=== PATIENT | male | born 1955 | race Caucasian/White ===

== ENCOUNTER 2016-08-11 15:55 | Inpatient (IN) | payer OTHER ==
[~2016-08-11] VITALS: Ht 193 cm; Wt 104.3 kg
--- NOTE | ~2016-08-11 | HC ---
[facility] [place] [address] CONSULTATION Name: JACIEL ANGELES Room #: 417-I ADM IN M.R.#: [id number] Admission: 08/11/16 Attend Phys: Jaciel Galindo MD Discharge: Date of : 59 Report #: [id number] THIS REPORT FOR: //name// CC: Jaciel Galindo REASON FOR CONSULTATION: I was asked to evaluate concerning left first toe diabetic infection. HISTORY OF PRESENT ILLNESS: The patient is a 61-year-old who has underlying history of diabetes and peripheral neuropathy. He has had an amputation of his right first and second toes. I had seen him several months ago with increased pain in that foot, but it was felt to be most likely related to increase activity. This did settle down with offloading. Over the last month, he has had increased swelling and some drainage from the left first toe after he debrided a callus at home. For the last several days, he has noticed malaise, anorexia, mild nausea without diarrhea. He was placed on cephalexin earlier in the week, but had no improvement and now hospitalized. No fever, chills, or sweats. Noninvasive arterial studies showed superficial femoral artery moderate occlusive disease. He is to go down now for an angiogram. PAST MEDICAL HISTORY: Laparoscopic cholecystectomy, diabetes, right great toe and second toe amputation, MRSA infection in this region. He has had a nephrolithiasis, status post cystoscopy and left ureteroscopy with laser ablation of a left ureteral stone and placement of an indwelling stent in June. This has been subsequently removed. ALLERGIES: None known. MEDICATIONS: As noted on his MAR, now on vancomycin. SOCIAL HISTORY: The patient does smoke cigarettes. No significant alcohol intake. 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 REVIEW OF SYSTEMS: No cardiopulmonary, other GI or complaints. PHYSICAL EXAMINATION: VITAL SIGNS: Afebrile, hemodynamically stable. Maximum temperature is 100.8 earlier this morning. GENERAL: He is alert, cooperative, and pleasant, in no acute distress. HEENT: Unremarkable. CHEST: Clear. HEART: Regular. ABDOMEN: Soft and nontender. EXTREMITIES: Pulses in the left lower extremity were normal. He had gangrene changes to the left first toe. Sensation was diminished. He had thickening of the left second proximal phalanx. The right foot operative incision was well approximated. No erythema or swelling. [address] [address] CONSULTATION Name: KARTHIKJACIEL CAPELLAN Room #: 417-I [facility] IN [facility].#: [id number] Admission: 08/11/16 Attend Phys: Jaciel Galindo MD Discharge: Date of : 59 Report #: [id number] LABORATORY STUDIES: Cultures of the drainage from his left great toe showing mixed valencia and Staph aureus predominant organism. Blood cultures are negative to date. Sodium 142, potassium 4.2, bicarb 29, creatinine 0.9. Hemoglobin 11.7, white count 10.8, platelet count 287,000, differential unremarkable. Urinalysis unremarkable other than 2+ blood and 3+ protein. X-rays of the foot showed a left second proximal phalanx fracture, otherwise no evidence of osteomyelitis. Arterial studies as noted above. Chest x-ray was clear. IMPRESSION: A 61-year-old with diabetic foot infection of the left great toe. I suspect small vessel disease. Recommend further surgical debridement, possible amputation of the toe. He will have an orthopedic evaluation. <ELECTRONICALLY SIGNED> By: Marquez Santa MD 08/13/16 0814 1201 1228 Marquez Santa MD /nt
--- NOTE | ~2016-08-11 | O ---
[facility] [place] [address] OPERATIVE REPORT Name: JACIEL ANGELES Room #: 417-I [facility] IN M.R.#: [id number] Admission: 08/11/16 Attend Phys: Jaciel Galindo MD Discharge: 08/16/16 Date of : 59 Report #: [id number] THIS REPORT FOR: //name// CC: Jaciel Galindo DATE OF SERVICE: 08/13/2016 PREOPERATIVE DIAGNOSIS: Left great toe infection. POSTOPERATIVE DIAGNOSIS: Left great toe infection. PROCEDURE: Left great toe amputation at the MTP joint. SURGEON: Alexanedr Ibanez MD. PARTY SUPPLY SPECIALIST: Domenica Giraldo PA-C. ANESTHESIA: LMA. TOURNIQUET TIME: Approximately 5 minutes. COMPLICATIONS: None. SPECIMENS: The left great toe was sent for pathology. CONDITION UPON LEAVING THE OPERATING ROOM: Stable. INDICATIONS FOR PROCEDURE: The patient is a 61-year-old gentleman who has diabetes as well as peripheral vascular disease. He has had ulceration on the medial and lateral side of his great toe as well as increased pain. He has had purulence draining from the toe and after failing antibiotic course and discussion with him, he elected for amputation of his left great toe. DESCRIPTION OF PROCEDURE: Risks, benefits, alternatives, complications were discussed in detail with the patient including but not limited to risk of anesthesia, risk of damage to nerves, arteries, blood vessels, risk for continued infection, bleeding, need for reoperation. Informed consent was obtained from the patient. Left great toe was appropriately marked in the preoperative holding area. IV vancomycin was given for preoperative antibiotics. He was brought to the operating room and placed in supine position on operating room table. LMA anesthesia was induced without complication. Tourniquet was placed on the left calf. Left lower extremity was prepped and draped in normal sterile fashion. Timeout was performed properly identifying the patient and procedure as well as the instrumentation. All in the operating room were in agreement. Left lower extremity was elevated, tourniquet was inflated. Tourniquet time was approximately 5 minutes. A fishmouth type [address] [address] OPERATIVE REPORT Name: JACIEL ANGELES Room #: 417-I [facility] IN M.R.#: [id number] Admission: 08/11/16 Attend Phys: Jaciel Galindo MD Discharge: 08/16/16 Date of : 59 Report #: [id number] incision centered around the base of the toe was then outlined on the skin and a 10 blade was used to make an incision through the skin down to bone around the fishmouth incision. Dissection was then taken down with an elevator to the MTP joint and the toe was amputated at the MTP joint sharply with a 15 blade. Tourniquet was deflated and hemostasis was obtained with Bovie cautery. The wound bed was then thoroughly irrigated with normal saline, closed with 3-0 nylon. Soft dressing of Adaptic, 4 x 4, Kerlix and an John wrap were applied. The patient tolerated this procedure well and went to the recovery room care of anesthesia postoperatively. <ELECTRONICALLY SIGNED> By: Alexander Ibanez MD 08/20/16 1255 1132 1253 Alexander Ibanez MD /nt
--- NOTE | ~2016-08-11 | HC ---
[facility] [place] [address] CONSULTATION Name: MING ANGELESNATE CAPELLAN Room #: 417-I [facility] IN M.R.#: [id number] Admission: 08/11/16 Attend Phys: Jaciel Galindo MD Discharge: 08/16/16 Date of : 59 Report #: [id number] THIS REPORT FOR: //name// CC: Jaciel Galindo DATE OF SERVICE: 08/13/2016 REASON FOR CONSULTATION: Left great toe infection. HISTORY OF PRESENT ILLNESS: The patient is a 61-year-old gentleman who has had an infected left great toe. He has a history of diabetes and peripheral neuropathy. He has had an amputation of his right first and second toes secondary to infection. Over the last month, he has had increased swelling and drainage from his left first toe after he debrided a callus at home. Denies any fever or chills. PAST MEDICAL HISTORY AND PAST SURGICAL HISTORY: Laparoscopic cholecystectomy, diabetes, right great toe and second toe amputation, MRSA infection in that region. Nephrolithiasis, status post cystoscopy and left ureteroscopy with laser ablation. ALLERGIES: None. MEDICATIONS: Have been reviewed and are on the chart. He is currently on vancomycin. SOCIAL HISTORY: He does smoke. No significant alcohol use. 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 PHYSICAL EXAMINATION: In general, well-developed, well-nourished male in no acute distress. He is alert and oriented, pleasant, cooperative with exam. Examination of the left great toe shows him to have at least stage 3, if not, stage 3 ulcers over his medial and lateral toe. He has decreased capillary refill of the tip of the toe. There is obvious pus underneath the nail. He has no sensation to light touch. There is significant erythema surrounding the entire great toe. X-ray examination of the left foot shows him to have no obvious osteomyelitis. He does have a mildly displaced chronic fracture of the second proximal phalanx of the second toe. ASSESSMENT: A left great toe diabetic ulcer with probable early underlying osteomyelitis. PLAN: Discussed options with him today. I do not think that this is amenable to debridement and wound care. This infection seems too deep to me. I am [facility] [address] [place] [address] CONSULTATION Name: JACIEL ANGELES Room #: 417-I [facility] IN ..#: [id number] Admission: 08/11/16 Attend Phys: Jaciel Galindo MD Discharge: 08/16/16 Date of : 59 Report #: [id number] recommending a left great toe amputation at the MTP joint. He is understanding of this and wishes to proceed. We have him on the schedule for 10:30 this morning. Thank you for allowing us to participate in the care of the patient. <ELECTRONICALLY SIGNED> By: Alexander Ibanez MD 08/20/16 1256 0925 1121 Alexander Ibanez MD /shahid
--- NOTE | ~2016-08-11 | S ---
[facility] [place] [address] SURGICAL PATH RPT PROCEDURE Name: JACIEL ANGELES Room #: 417-I DIS IN M.R.#: [id number] Admission: 08/11/16 Date of : 59 Discharge: 08/16/16 Report #: [id number] Path Case #: [id number] PATHOLOGY REPORT COLLECTION DATE: 08/13/2016 RECEIVED DATE: 08/13/2016 SUBMITTING PHYS: Dr. Alexander Ibanez OTHER PHYS: Dr. Jaciel Galindo SPECIMEN(S) RECEIVED: A.Left great toe * * * * * * * * * * * * FINAL DIAGNOSIS: Toe, "left great toe," amputation: - Extensive ulceration with necrotic acute inflammatory exudate extending deeply into the bone with acute osteomyelitis and forming a microabscess. - Small vessels reveal marked narrowing with acute inflammation. - The skin and the bone margin are viable. (WHITNEY:; d/t: 08/17/16) PATHOLOGIST: Gavin Machado M.D. REPORT ELECTRONICALLY SIGNED BY: Gavin Machado M.D. DATE/TIME: 08/17/2016 12:44 * * * * * * * * * * * * GROSS PATHOLOGY: The specimen is received in formalin labeled "Rosa Berg great toe". Received is an amputated digit measuring 7.6 x 3.6 x 3.4 cm in greatest dimensions. The bone margin is smooth and concave in appearance, consistent with disarticulation. On the medial and plantar aspect of the specimen, there is a poorly circumscribed, irregular in contour, focally crusted to necrotic-appearing dark brown lesion measuring 4.2 x 2.3 cm, which is 0.8 cm from the closest skin margin. The remainder of the epidermal surface is white-peng and flaky to sloughing in appearance. The nail is present displaying a pale peng and slightly thickened appearance measuring 2.2 x 1.8 x 0.2 cm. The specimen is submitted representatively as follows: A1 district sales representative sections of lesion to show relationship with skin margin A2 district sales representative section of lesion to show relationship to bone, following decalcification A3 district sales representative section of bone margin, following decalcification. (CAA; 08/16/2016) [address] [place] [address] SURGICAL PATH RPT PROCEDURE Name: JACIEL ANGELES Room #: 417-I [facility] IN .R.#: [id number] Admission: 08/11/16 Date of : 59 Discharge: 08/16/16 Report #: [id number] Path Case #: [id number] CLINICAL HISTORY: Diabetic ulcer INITIAL CPT CODE(S): A; 88411, 13754 Professional services performed by [facility] at [place], [place] [address] Technical services performed by [facility] at [address] [place] [address], [facility] [address], [place] [address]. [facility] [address] [address] PHONE: [phone] DIRECTOR: Rivera Gonzalez M.D. * * * END OF REPORT * * *
--- NOTE | ~2016-08-11 | H ---
[facility] [place] [address] HISTORY AND PHYSICAL Name: MING ANGELESNATE CAPELLAN Room #: 417-I [facility] IN M.R.#: [id number] Admission: 08/11/16 Attend Phys: Jaciel Galindo MD Discharge: 08/16/16 Date of : 59 Report #: [id number] THIS REPORT FOR: //name// CC: Jaciel Galindo DATE OF SERVICE: 08/11/2016 CHIEF COMPLAINT: Pain in his great toe. HISTORY OF PRESENT ILLNESS: The patient had been seen in the clinic and was having worsening pain in his toes, had some cellulitis. He had osteomyelitis of the great toe. He had been on oral antibiotics and his toe was not getting better. PAST MEDICAL HISTORY: Significant for: 1. Osteomyelitis. 2. Diabetes mellitus. 3. Laparoscopic cholecystectomy. 4. Anxiety. 5. Neuropathy. 6. Hyperlipidemia. 7. Hypertension. 8. Chronic pain. MEDICATIONS: Gabapentin 300 mg b.i.d., Victoza 1.8 mg daily, Lantus daily, lisinopril 5 mg a day, atorvastatin 80 mg a day, fluoxetine 20 mg a day, OxyContin 30 mg b.i.d., Coreg 12.5 mg b.i.d. ALLERGIES: No known drug allergies. SOCIAL HISTORY: He does smoke cigarettes. He has no alcohol, no recreational drugs. He lives independently. REVIEW OF SYSTEMS: CONSTITUTIONAL: No fevers or chills. HEENT: No headaches or visual changes. CHEST: No chest pain, tightness in his chest, shortness of breath, cough or sputum production. GASTROINTESTINAL: No nausea, vomiting, diarrhea, or constipation. GENITOURINARY: No burning or frequency. EXTREMITIES: He has greater toe pain on the left. His pulses are faint, but present. There is no new numbness. He has chronic numbness. PHYSICAL EXAMINATION: VITAL SIGNS: Blood pressure is 130/79, pulse is 112, respiratory rate 25. He is afebrile, his O2 sats are 95% on room air. [facility] [place] [address] HISTORY AND PHYSICAL Name: JACIEL ANGELES MARILIA Room #: 417-I [facility] IN ..#: [id number] Admission: 08/11/16 Attend Phys: Jaciel Galindo MD Discharge: 08/16/16 Date of : 59 Report #: [id number] GENERAL: The patient is awake and alert, in no acute distress. HEENT: Mucous membranes are moist. NECK: Supple, without adenopathy, thyromegaly, or bruits. CHEST: Clear to auscultation. CARDIOVASCULAR: Regular rhythm without murmur. ABDOMEN: Soft, no masses. Bowel sounds are active. EXTREMITIES: His left lower leg shows a faint pulse and great toe shows some erythema and redness, and wound in the lateral aspect. There is some odor. There is some dried blood. LABORATORY DATA: His sodium 140, potassium 4.3, chloride 104, bicarbonate 28, BUN 18, creatinine 0.9, glucose 146, lactic acid is 0.9, AST is 8, ALT is 9, alkaline phosphatase 93, albumin 2.5. WBC is 14.4, hemoglobin 12.1, hematocrit 36.8, platelet count 312. 81 segs, 1 band, 13 lymphs. Chest x-ray shows cardiomegaly with no acute failure. Ultrasound of the leg shows focal [id number] stenosis in the left mid superficial femoral artery. X-ray of the foot shows obliquely oriented displaced fracture of the second toe, indeterminant age. ASSESSMENT: 1. Cellulitis of the left great toe with possible osteomyelitis, and then the fracture of the second toe. We will consult infectious disease, prior osteomyelitis, and get an MRI if possible, and consult orthopedics for possible amputation. 2. History of diabetes. We will resume his home meds. 3. History of neuropathy. Continue home medications. 4. History of peripheral artery disease. We will consult radiology for possible angiogram and stenting. <ELECTRONICALLY SIGNED> By: Jaciel Galindo MD 09/28/16 1258 0945 1130 Jaciel Galindo MD /nt
--- NOTE | ~2016-08-11 | CATHLAB ---
[facility] [place] [address] INVASIVE PROCEDURE REPORT Name: MING ANGELESNATE CAPELLAN Room #: 417-I [facility] IN ..#: [id number] Admission: 08/11/16 Attend Phys: Jaciel Galindo, Discharge: Date of : 59 Date of Service: 08/12/16 1421 Report #: [id number] THIS REPORT FOR: //name// CC: Jaciel Galindo DATE OF SERVICE: 08/12/2016 NAME OF THE PROCEDURES: 1. Aortogram and bilateral lower extremity runoff angiography. 2. Bilateral renal angiography. 3. Left anterior tibial artery angioplasty. INDICATION: Peripheral arterial disease. Diabetic foot infection. Infected left great toe. Coronary artery disease. DESCRIPTION OF PROCEDURE: Procedure and risk of angiography and angioplasty including the risk of limb loss were discussed with the patient and consent obtained. IV conscious sedation was used throughout the procedure with appropriate monitoring for 75 minutes. The patient's right groin was prepped and draped in normal sterile fashion. Ultrasound was used to interrogate the right groin and showed the right common femoral artery to be patent. A permanent spot film was obtained. Under ultrasound guidance, a 5-[place] sheath was placed into the right groin via the common femoral artery. Through this diagnostic catheter was placed in the abdominal aorta and AP aortogram performed. Catheter was positioned at the aortic bifurcation and both oblique views of the pelvis were obtained. Next, catheter was positioned into the right external iliac artery. Right leg runoff angiogram was performed. Catheter was exchanged for a visceral catheter, which was placed into the right renal artery and right renal angiogram was obtained. Catheter was placed into the upper left renal artery and left renal angiogram was obtained. Catheter was placed in the left lower renal arteries and angiograms obtained. Catheter was then positioned to the level of the left common femoral artery and left leg runoff angiogram was obtained. A crossover 6-[place]an sheath was placed from the right groin to the level of the upper left superficial femoral artery. I then performed angioplasty at the areas of stenoses in the proximal and mid left anterior tibial artery up to 3.5 mm with a Cordis sleek PLAN COORDINATOR catheter. Prolonged inflation for use. Followup angiogram was performed. Catheter was removed. Sheath was removed and hemostasis was obtained using the ExoSeal device. No immediate complication. FINDINGS: AORTOGRAM: There is 1 right and 2 left renal arteries. Mild plaque in the infrarenal abdominal aorta without significant stenosis. PELVIS: The common and external iliac arteries are patent without significant stenoses. Both internal iliac arteries are patent. Mild ectasia of the common [address] [address] INVASIVE PROCEDURE REPORT Name: JACIEL ANGELES Room #: 417-I [facility] IN M.R.#: [id number] Admission: 08/11/16 Attend Phys: Jaciel Galindo, Discharge: Date of : 59 Date of Service: 08/12/16 1421 Report #: [id number] iliac arteries bilaterally. The common femoral and profunda femoral arteries are patent bilaterally. RIGHT RENAL ANGIOGRAM: Minimal plaque origin. The vessel does not cause significant stenosis. Early bifurcation. No branch vessel stenosis. LEFT UPPER RENAL ANGIOGRAM: Minimal plaque. No significant stenosis. LEFT LOWER RENAL ANGIOGRAM: Minimal plaque. No significant stenosis. RIGHT LEG: Previous stent in the superficial femoral artery showing minimal intimal hyperplasia and satisfactory patency throughout. The popliteal artery shows mild scattered plaque without significant stenosis. The anterior tibial artery shows mild plaque in its proximal portion, causing only mild stenosis. Mild stenosis in the tibioperoneal trunk is present. The posterior tibial arteries occluded throughout. The peroneal artery is patent throughout its length as is the mid and lower anterior tibial artery to runoff into the foot. LEFT LEG. Moderate plaque in the distal superficial femoral artery. It does not cause flow limiting stenosis, rather only 40% stenosis, not felt to be flow limiting. Ectasia of the distal most SFA. Popliteal artery shows good patency throughout. The anterior tibial artery shows 80% stenosis in its proximal portion and 80% stenosis in its mid portion. Mild stenosis, not flow limiting the tibioperoneal trunk. The posterior tibial and peroneal arteries have mild stenosis in the proximal portions, but otherwise show good patency to runoff into the foot. LEFT ANTERIOR TIBIAL ARTERY: Following angioplasty, the proximal and mid anterior tibial artery show satisfactory patency with no significant residual stenosis. IMPRESSION: 1. 80% stenosis, proximal and mid left anterior tibial artery were treated as above with good patency restored. There is now adequate 3-vessel runoff into the left foot, which should provide for good healing. 2. Occlusion of the right posterior tibial artery with satisfactory 2 vessel runoff on the right as reviewed above. Previous right superficial femoral artery stent showing satisfactory patency. 3. Mild 40% stenosis, mid left superficial femoral artery is not flow limiting. [facility] [address] [place] [address] INVASIVE PROCEDURE REPORT Name: JACIEL ANGELES Room #: 417-I ADM IN M.R.#: [id number] Admission: 08/11/16 Attend Phys: Jaciel Galindo, Discharge: Date of : 59 Date of Service: 08/12/16 1421 Report #: [id number] We will follow up with the patient in 3 months in the office regarding his progress. <ELECTRONICALLY SIGNED> By: Reynaldo Thurman MD 08/16/16 1329 1421 1808 Reynaldo Thurman MD /nt
[~2016-08-11 15:55] MED LIST: ATENOLOL 50MG T50 M1 PO; ATORVASTATIN CA80 MG PO; AUGMENTIN 875875 M1 PO; AUGMENTIN 875875 MG PO; BLOOD PRESSURE MED PO; BRINTELLIX5 MG; CARDIZEM; CARVEDILOL12.5 MG PO; COUMADIN 5 MG TA5 M1 PO; CYMBALTA30 MG PO; DILTIAZEM 24HR360 M1 PO; FLOMAX0.4 MG PO; GLIPIZIDE XL10 MG PO; GLUCOTROL5 MG; GLUCOTROL5 MG PO; HTN MEDS; HYDROCODON-ACE1 EAC8 PO; KEFLEX500 MG PO; KOMBIGLYZE XR1 EAC1 PO; LANOXIN 0.120.125 M1 PO; LANTUS SOL100 UNIT/1 SUBQ; LANTUS100 UNIT/M SUBQ; LISINOPRIL5 MG PO; METFORMIN; NEURONTIN 300M300 M2 PO; NOHOMEMEDICATIONS; NORCO 5-325 TA1 EACH PO; OXYCONTIN10 M1 PO; OXYCONTIN30 MG PO; PERCOCET 10-321 EACH PO; PERCOCET 5-3251 EACH; PERCOCET 5-3251 EACH PO; PROZAC20 MG PO; TORADOL 10 MG T10 MG PO; VICTOZA 3-0.6 MG/0.1 SUBQ; blood pressure med; diabetic medication
[2016-08-11 16:11] VITALS: BP 130/79
[2016-08-11 17:00] LABS: HEMATOCRIT 36.8 % (42.0-52.0); HEMOGLOBIN 12.1 gm/dL (14.0-18.0); MCV 81.8 fL (80.0-100.0); PLATELET COUNT 312 thou/uL (150-400); RBC 4.49 mil/uL (4.50-6.00); RDW 15.8 % (10.5-14.5); WBC 14.4 thou/uL (4.0-11.0)
[2016-08-11 17:01] LABS: MANUAL DIFF YES
[2016-08-11 17:11] LABS: CALCIUM 8.9 mg/dL (8.5-10.1); CREATININE 0.9 mg/dL (0.6-1.3); POTASSIUM 4.3 mmol/L (3.5-5.1)
[2016-08-11 17:17] LABS: ALBUMIN 2.5 g/dL (3.4-5.0); DIRECT BILIRUBIN 0.1 mg/dL (<0.1-0.3); TOTAL BILIRUBIN 0.4 mg/dL (<0.1-1.0); TOTAL PROTEIN 6.9 g/dL (6.4-8.2)
[2016-08-11 17:18] LABS: ABSOLUTE NEUTROPHILS 11.8 thou/uL (1.4-8.2); ANISOCYTOSIS 1+; POLYCHROMASIA OCCASIONAL; TOTAL CELL COUNT 100
[2016-08-11 19:07] VITALS: BP 123/73
[2016-08-11 19:09] LABS: URINE BILIRUBIN NEGATIVE (Negative); URINE BLOOD 2+ (Negative); URINE COLOR YELLOW; URINE GLUCOSE-RANDOM* NEGATIVE (Negative); URINE KETONES NEGATIVE (Negative); URINE NITRITE NEGATIVE (Negative); URINE PROTEIN (DIPSTICK) 3+ (Negative); URINE SPECIFIC GRAVITY >= 1.030 (1.003-1.035); URINE UROBILINOGEN 0.2 E.U./dl (0.2-1.0)
[2016-08-11 19:29] LABS: BACTERIA 1-9 Few /HPF (None Seen); CASTS None Seen /LPF (None Seen); CRYSTALS None Seen /LPF (None Seen); SQUAMOUS None Seen /LPF (0-3); URINE RBC 0-2 Rare /HPF (0-2); URINE WBC None Seen /HPF (0-5)
[2016-08-11 19:35] VITALS: BP 123/69
[2016-08-12 04:00] VITALS: BP 145/72
[2016-08-12 07:28] VITALS: BP 132/72
[2016-08-12 09:20] VITALS: BP 132/72
[2016-08-12 09:57] LABS: ABSOLUTE NEUTROPHILS 8.5 thou/uL (1.4-8.2); BASOPHILS 0.5 % (0.0-2.0); EOSINOPHILS 0.7 % (0.0-3.0); HEMATOCRIT 35.3 % (42.0-52.0); HEMOGLOBIN 11.7 gm/dL (14.0-18.0); LYMPHOCYTES 12.2 % (24.0-44.0); MCH 27.2 pg (26.0-34.0); MCHC 33.3 % (28.0-37.0); MCV 81.8 fL (80.0-100.0); MONOCYTES 7.7 % (1.0-8.0); PLATELET COUNT 287 thou/uL (150-400); POLYS 78.9 % (36.0-66.0); RBC 4.31 mil/uL (4.50-6.00); RDW 15.9 % (10.5-14.5); WBC 10.8 thou/uL (4.0-11.0)
[2016-08-12 09:58] LABS: MANUAL DIFF NO
[2016-08-12 10:10] LABS: ANION GAP 9 mmol/L (7-16); BUN 17 mg/dL (7-18); CALCIUM 8.7 mg/dL (8.5-10.1); CHLORIDE 104 mmol/L (98-107); CHOLESTEROL 152 mg/dL (<200); CO2 29 mmol/L (21-32); CREATININE 0.9 mg/dL (0.6-1.3); GLUCOSE 104 mg/dL (70-99); HDL CHOLESTEROL 35 mg/dL (>40); LDL CHOLESTEROL 103 mg/dL (<100); POTASSIUM 4.2 mmol/L (3.5-5.1); SODIUM 142 mmol/L (136-145); TC:HDL 4.3 Ratio (Not establshd); TRIGLYCERIDE 72 mg/dL (<150); VLDL 14 mg/dL (<40)
[2016-08-12 14:00] VITALS: BP 134/74
[2016-08-12 15:36] VITALS: BP 136/69
[2016-08-12 20:00] VITALS: BP 118/64
[2016-08-13] VITALS (7 sets, daily range): BP systolic 106–140; BP diastolic 58–75
[2016-08-13 07:53] LABS: HEMATOCRIT 32.5 % (42.0-52.0); HEMOGLOBIN 10.8 gm/dL (14.0-18.0); MCH 27.3 pg (26.0-34.0); MCHC 33.3 % (28.0-37.0); RBC 3.96 mil/uL (4.50-6.00); WBC 10.8 thou/uL (4.0-11.0)
[2016-08-13 07:58] LABS: CALCIUM 7.9 mg/dL (8.5-10.1); POTASSIUM 4.1 mmol/L (3.5-5.1)
[2016-08-14 05:22] VITALS: BP 145/75
[2016-08-14 08:35] VITALS: BP 126/74
[2016-08-14 16:39] VITALS: BP 141/76
[2016-08-14 20:00] VITALS: BP 144/73
[2016-08-15 04:30] VITALS: BP 148/82
[2016-08-15 05:48] LABS: HEMOGLOBIN 10.8 gm/dL (14.0-18.0); MCH 27.2 pg (26.0-34.0); MCHC 32.8 % (28.0-37.0); RBC 3.98 mil/uL (4.50-6.00); RDW 15.6 % (10.5-14.5); WBC 10.9 thou/uL (4.0-11.0)
[2016-08-15 06:01] LABS: CALCIUM 8.8 mg/dL (8.5-10.1); CREATININE 1.3 mg/dL (0.6-1.3); POTASSIUM 4.2 mmol/L (3.5-5.1)
[2016-08-15 08:00] VITALS: BP 138/81
[2016-08-15 17:00] VITALS: BP 147/72
[2016-08-15 20:00] VITALS: BP 157/86
[2016-08-16 04:00] VITALS: BP 135/69
[2016-08-16 11:30] VITALS: BP 135/69
[2016-08-16] MEDS ORDERED: BACTRIM DS TAB1 EACH PO (11:38)
[2016-09-01] MEDS ORDERED: NICOTINE TRANSDE7 MG TRANSDERM (14:01)
[2016-09-01] MEDS ORDERED: DUONEB 2.5-0.5 M3 ML INH (14:01)
[2016-09-01] MEDS ORDERED: NORVASC 5 MG TAB5 MG PO (14:02)
[2016-09-01] MEDS ORDERED: ASPIR 8181 MG PO (14:02)
[2016-09-01] MEDS ORDERED: PACERONE 200 M200 M1 PO (14:02)
[2016-09-01] MEDS ORDERED: HYDROCODON-ACE1 EAC7 PO (14:03)
[2016-09-01] MEDS ORDERED: OXYCONTIN30 MG PO (14:03)
[2016-09-15] MEDS ORDERED: VICTOZA 3-0.6 MG/0.1 SQ (14:59)
[2016-09-15] MEDS ORDERED: PROZAC20 MG PO (15:01)
[2016-09-15] MEDS ORDERED: MUCINEX TA600 MG/TA2 PO (15:03)
[2016-09-15] MEDS ORDERED: IRON325 MG PO (15:03)
[2016-09-18] MEDS ORDERED: CARVEDILOL3.125 MG PO (06:16)
[2016-09-18] MEDS ORDERED: K-TAB ER20 MEQ PO (06:17)
[2016-09-18] MEDS ORDERED: LASIX 40 MG TAB40 M2 PO (06:17)
[2016-09-18] MEDS ORDERED: OXYGEN MISCELL (06:21)
[2016-09-19] MEDS ORDERED: DEMADEX20 MG PO (11:15)
== END 2016-08-16 15:27 | disposition home or self-care (01) | DRG 853 ==
LOC: ER 15:55 → 4E 18:10 → EROBS 18:10 → 4E 19:10
PROVIDERS: Hospitalist; Nuclear Medicine Nuclear Cardiology; Nurse Practitioner; Nurse Practitioner Gerontology
PROC: 047Q3ZZ Dilation of Left Anterior Tibial Artery, Percutaneous Approach (ICD-10-PCS; 2016-08-12)
PROC: B41D1ZZ Fluoroscopy of Aorta and Bilateral Lower Extremity Arteries using Low Osmolar Contrast (ICD-10-PCS; 2016-08-12)
PROC: B4181ZZ Fluoroscopy of Bilateral Renal Arteries using Low Osmolar Contrast (ICD-10-PCS; 2016-08-12)
PROC: 0Y6Q0Z0 Detachment at Left 1st Toe, Complete, Open Approach (ICD-10-PCS; principal; 2016-08-13)
DX: A41.9 Sepsis, unspecified organism (principal); E43 Unspecified severe protein-calorie malnutrition; E11.52 Type 2 diabetes mellitus with diabetic peripheral angiopathy with gangrene; M86.9 Osteomyelitis, unspecified; I48.92 Unspecified atrial flutter; E11.621 Type 2 diabetes mellitus with foot ulcer; E11.42 Type 2 diabetes mellitus with diabetic polyneuropathy; E11.69 Type 2 diabetes mellitus with other specified complication; L03.032 Cellulitis of left toe; F17.210 Nicotine dependence, cigarettes, uncomplicated; L97.529 Non-pressure chronic ulcer of other part of left foot with unspecified severity; I10 Essential (primary) hypertension; L08.9 Local infection of the skin and subcutaneous tissue, unspecified; E78.5 Hyperlipidemia, unspecified; F41.9 Anxiety disorder, unspecified; Z90.49 Acquired absence of other specified parts of digestive tract; Z86.14 Personal history of Methicillin resistant Staphylococcus aureus infection; Z87.442 Personal history of urinary calculi; Z79.899 Other long term (current) drug therapy; Z95.820 Peripheral vascular angioplasty status with implants and grafts; I25.2 Old myocardial infarction
CPT/HCPCS: 10084; 50010; 50101; 50386; 56527; 57091; 62110; 62900; 70005

== ENCOUNTER → 2016-10-21 | Outpatient (CLI) | payer OTHER ==
[~2016-10-21] MED LIST changes: +ASPIR 8181 MG PO; +BACTRIM DS TAB1 EACH PO; +CARVEDILOL3.125 MG PO; +DEMADEX20 MG PO; +DUONEB 2.5-0.5 M3 ML INH; +HYDROCODON-ACE1 EAC7 PO; +IRON325 MG PO; +K-TAB ER20 MEQ PO; +LASIX 40 MG TAB40 M2 PO; +MUCINEX TA600 MG/TA2 PO; +NICOTINE TRANSDE7 MG TRANSDERM; +NORVASC 5 MG TAB5 MG PO; +OXYGEN MISCELL; +PACERONE 200 M200 M1 PO; +VICTOZA 3-0.6 MG/0.1 SQ
== END ==
LOC: HYPER 07:04
DX: T87.89 Other complications of amputation stump (principal); E11.621 Type 2 diabetes mellitus with foot ulcer; L97.521 Non-pressure chronic ulcer of other part of left foot limited to breakdown of skin; E11.40 Type 2 diabetes mellitus with diabetic neuropathy, unspecified; I48.91 Unspecified atrial fibrillation; I25.2 Old myocardial infarction; I50.9 Heart failure, unspecified; E11.69 Type 2 diabetes mellitus with other specified complication; M86.9 Osteomyelitis, unspecified; Z95.1 Presence of aortocoronary bypass graft; Z87.891 Personal history of nicotine dependence; Y83.5 Amputation of limb(s) as the cause of abnormal reaction of the patient, or of later complication, without mention of misadventure at the time of the procedure

== ENCOUNTER → 2016-11-09 | Outpatient (CLI) | payer OTHER | LOC: HYPER 07:03 | DX: T81.31XD Disruption of external operation (surgical) wound, not elsewhere classified, subsequent encounter (principal); E11.621 Type 2 diabetes mellitus with foot ulcer; L97.521 Non-pressure chronic ulcer of other part of left foot limited to breakdown of skin; E11.40 Type 2 diabetes mellitus with diabetic neuropathy, unspecified; I48.91 Unspecified atrial fibrillation; I50.20 Unspecified systolic (congestive) heart failure; E11.69 Type 2 diabetes mellitus with other specified complication; M86.8X8 Other osteomyelitis, other site; I25.10 Atherosclerotic heart disease of native coronary artery without angina pectoris; E43 Unspecified severe protein-calorie malnutrition; I25.2 Old myocardial infarction; Z95.1 Presence of aortocoronary bypass graft; Z87.891 Personal history of nicotine dependence; Y83.8 Other surgical procedures as the cause of abnormal reaction of the patient, or of later complication, without mention of misadventure at the time of the procedure ==

== ENCOUNTER → 2016-11-25 | Outpatient (CLI) | payer OTHER | LOC: HYPER 07:12 | DX: T87.81 Dehiscence of amputation stump (principal); E11.621 Type 2 diabetes mellitus with foot ulcer; L97.521 Non-pressure chronic ulcer of other part of left foot limited to breakdown of skin; E11.40 Type 2 diabetes mellitus with diabetic neuropathy, unspecified; I48.91 Unspecified atrial fibrillation; E11.69 Type 2 diabetes mellitus with other specified complication; M86.9 Osteomyelitis, unspecified; I25.10 Atherosclerotic heart disease of native coronary artery without angina pectoris; I25.2 Old myocardial infarction; I50.9 Heart failure, unspecified; Z95.1 Presence of aortocoronary bypass graft; Z87.891 Personal history of nicotine dependence; Y83.5 Amputation of limb(s) as the cause of abnormal reaction of the patient, or of later complication, without mention of misadventure at the time of the procedure ==

== ENCOUNTER → 2016-12-09 | Outpatient (CLI) | payer OTHER | LOC: HYPER 07:01 | DX: T87.81 Dehiscence of amputation stump (principal); E11.621 Type 2 diabetes mellitus with foot ulcer; L97.521 Non-pressure chronic ulcer of other part of left foot limited to breakdown of skin; E11.40 Type 2 diabetes mellitus with diabetic neuropathy, unspecified; I48.91 Unspecified atrial fibrillation; E11.69 Type 2 diabetes mellitus with other specified complication; M86.8X8 Other osteomyelitis, other site; I25.10 Atherosclerotic heart disease of native coronary artery without angina pectoris; E43 Unspecified severe protein-calorie malnutrition; I25.2 Old myocardial infarction; Z95.1 Presence of aortocoronary bypass graft; Z87.891 Personal history of nicotine dependence; Y83.5 Amputation of limb(s) as the cause of abnormal reaction of the patient, or of later complication, without mention of misadventure at the time of the procedure ==

== ENCOUNTER 2017-10-10 22:59 | Emergency (ER) | payer OTHER ==
[~2017-10-10] VITALS: Ht 193 cm; Wt 111.1 kg
--- NOTE | ~2017-10-10 | EKG ---
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1955 Requested By: Montana Mason Order Number: [id number] MD: Andrew Palumbo Measurements Intervals Painter Rate: 68 P: 27 DC: 169 QRS: 4 QRSD: 98 T: 104 QT: 410 QTc: 437 Interpretive Statements Sinus rhythm Borderline T wave abnormalities Compared to ECG 09/15/2016 14:46:30 Sinus bradycardia no longer present Electronically Signed On 10-11-2017 7:53:46 OPTOELECTRONICS ENGINEER by Andrew Palumbo [email or web address] <ELECTRONICALLY SIGNED> By: Andrew Palumbo MD, [facility] 10/11/17 0753 2356 2356 Andrew Palumbo MD, FACC /EPI
[2017-10-11 00:08] LABS: HEMATOCRIT 40.5 % (42.0-52.0); HEMOGLOBIN 13.8 gm/dL (14.0-18.0); MCH 29.1 pg (26.0-34.0); MCHC 34.2 g/dL (28.0-37.0); RBC 4.76 mil/uL (4.50-6.00); RDW 14.6 % (10.5-14.5); WBC 9.8 thou/uL (4.0-11.0)
[2017-10-11 00:16] LABS: ANION GAP 6 mmol/L (7-16); BUN 27 mg/dL (7-18); CALCIUM 8.7 mg/dL (8.5-10.1); CHLORIDE 105 mmol/L (98-107); CO2 31 mmol/L (21-32); CREATININE 1.2 mg/dL (0.7-1.3); GLUCOSE 284 mg/dL (74-106); SODIUM 142 mmol/L (136-145)
[2017-10-11 00:24] LABS: ALBUMIN 2.7 g/dL (3.4-5.0); SGOT 13 U/L (15-37); SGPT 16 U/L (30-65); TOTAL BILIRUBIN 0.4 mg/dL (<0.1-1.0); TOTAL PROTEIN 6.3 g/dL (6.4-8.2); TROPONIN-I < 0.04 ng/mL (<0.06)
[2017-10-11 00:28] LABS: APTT 25.5 Seconds (24.5-32.8); PROTIME 9.9 Seconds (9.3-11.4)
[2017-10-11 02:08] LABS: URINE BILIRUBIN NEGATIVE (Negative); URINE BLOOD 3+ (Negative); URINE CLARITY SL CLOUDY; URINE COLOR YELLOW; URINE GLUCOSE-RANDOM* 1+ (Negative); URINE KETONES NEGATIVE (Negative); URINE LEUKOCYTES-REFLEX NEGATIVE (Negative); URINE NITRITE-REFLEX NEGATIVE (Negative); URINE PROTEIN (DIPSTICK) 3+ (Negative); URINE UROBILINOGEN 0.2 E.U./dl (0.2-1.0)
[2017-10-11 02:15] LABS: MUCUS None Seen strn/LPF (None Seen); SQUAMOUS None Seen /LPF (0-3)
[2017-10-11 02:16] LABS: AMP/METHAMP Negative (Negative); BACTERIA-REFLEX None Seen /HPF (None Seen); BARBITURATES Negative (Negative); BENZODIAZEPINES Negative (Negative); CASTS None Seen /LPF (None Seen); COCAINE Negative (Negative); CRYSTALS None Seen /LPF (None Seen); METHADONE Negative (Negative); OPIATES Negative (Negative); PCP Negative (Negative); URINE RBC >20 Many /HPF (0-2); URINE WBC-REFLEX None Seen /HPF (0-5)
[2017-10-11 04:42] VITALS: BP 142/91
== END 2017-10-11 04:49 | disposition short-term general hospital (02) ==
LOC: ER 22:59
PROVIDERS: Emergency Medicine
DX: H53.8 Other visual disturbances (principal); R26.81 Unsteadiness on feet; E11.9 Type 2 diabetes mellitus without complications; Z90.49 Acquired absence of other specified parts of digestive tract

== ENCOUNTER 2018-11-15 00:27 | Inpatient (IN) | payer OTHER ==
[2018-11-15] VITALS (10 sets, daily range): BP systolic 155–194; BP diastolic 80–94
[~2018-11-15] VITALS: Ht 193 cm; Wt 108.0 kg
[2018-11-15 01:22] LABS: ABSOLUTE NEUTROPHILS 6.1 thou/uL (1.4-8.2); BASOPHILS 0.6 % (0.0-2.0); EOSINOPHILS 1.2 % (0.0-3.0); HEMATOCRIT 41.6 % (42.0-52.0); HEMOGLOBIN 14.2 gm/dL (14.0-18.0); LYMPHOCYTES 19.1 % (24.0-44.0); MCH 29.1 pg (26.0-34.0); MCHC 34.1 g/dL (28.0-37.0); MCV 85.4 fL (80.0-100.0); MONOCYTES 5.9 % (1.0-8.0); PLATELET COUNT 201 thou/uL (150-400); POLYS 73.2 % (36.0-66.0); RBC 4.87 mil/uL (4.50-6.00); RDW 14.3 % (10.5-14.5); WBC 8.3 thou/uL (4.0-11.0)
[2018-11-15 01:29] LABS: ANION GAP 10 mmol/L (7-16); BUN 32 mg/dL (7-18); CALCIUM 8.3 mg/dL (8.5-10.1); CHLORIDE 106 mmol/L (98-107); CO2 26 mmol/L (21-32); CREATININE 1.3 mg/dL (0.7-1.3); GLUCOSE 197 mg/dL (74-106); POTASSIUM 3.6 mmol/L (3.5-5.1); SODIUM 142 mmol/L (136-145)
[2018-11-15 01:34] LABS: APTT 27.2 Seconds (24.5-32.8); PROTIME 9.8 Seconds (9.3-11.4)
[2018-11-15 01:36] LABS: POC CA IONIZED 4.3 mg/dL (4.5-5.3); POC CREATININE 1.3 mg/dL (0.6-1.3); POC HEMOGLOBIN 13.9 g/dL (14.0-18.0); POC POTASSIUM 3.5 mmol/L (3.5-5.1)
[2018-11-15 01:37] LABS: ALBUMIN 2.2 g/dL (3.4-5.0); SGOT 19 U/L (15-37); SGPT 20 U/L (30-65); TOTAL BILIRUBIN 0.3 mg/dL (<0.1-1.0); TOTAL PROTEIN 5.8 g/dL (6.4-8.2); TROPONIN-I <0.06 ng/mL (<0.06)
[2018-11-15] MEDS ORDERED: LANTUS SUBQ (03:55)
--- NOTE | 2018-11-15 07:50 | NUR ---
Received pt from ED at 0. Pt hypertensive other vitals stable. RA. AOX4. Unsteady on the gait. Has full range of control on all extremeties. No skin issues. ACHS insulin not ordered yet. Denies pain. IV left AC saline lock. Neuro assessment every 2hrs. Slurred speech. Predominant tremors on right hand. SR on TELE. No identified needs at the moment. Call light within reach. Will continue to monitor.
--- NOTE | 2018-11-15 08:22 | EKG ---
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1955 Requested By: Esperanza Baldwin Order Number: [id number] MD: Chacorta Lynne Measurements Intervals [place] Rate: 71 P: 17 [place]: 158 QRS: 15 QRSD: 133 T: 130 QT: 430 QTc: 468 Interpretive Statements Sinus rhythm Nonspecific intraventricular conduction delay Nonspecific T abnormalities, lateral leads Compared to ECG 10/10/2017 23:56:42 Intraventricular conduction delay now present T-wave abnormality still present Electronically Signed On 11-15-2018 8:21:58 CDT by Chacorta Lynne [email or web address] ��������������������������������������������� <ELECTRONICALLY SIGNED> ���������������������������������������� By: Chacorta Lynne MD ��������������������������������������������� 11/15/18 0821 0129 0129 Chacorta Lynne MD /EPI
--- NOTE | 2018-11-15 12:26 | NUR ---
TOWARDS POC PT A/O X4, VSS,AFEBRILE, DENIES PAIN. NEURO CHECK INITIATED. PT UNABLE TO DO MRI THIS AM DUE TO ANXIETY TO THE PROCEDURE. WILL ANTICIPATE TO DO IT LATER THIS AFTERNOON, WILL PREMEDICATE THE PT PRE-PROCEDURE. WILL CONTINUE TO MONITOR.
[2018-11-15 12:35] LABS: AMP/METHAMP Negative (Negative); BARBITURATES Negative (Negative); BENZODIAZEPINES Negative (Negative); COCAINE Negative (Negative); METHADONE Negative (Negative); OPIATES Negative (Negative); PCP Negative (Negative)
--- NOTE | 2018-11-15 16:52 | 2DMMODE ---
[facility] [place] [address] 2 D/M-MODE ECHOCARDIOGRAM Name: JACIEL ANGELES Room #: 452-P [facility] IN M.R.#: [id number] ������������� Admission: 11/15/18 ������������� Attend Phys: Jaciel Galindo, Discharge: ��� ������������� ��� Date of : 59 Date of Service: 11/15/18 1652 �� Report #: [id number] �������� ��������������������������������������������[id number] THIS REPORT FOR: //name// APPROVED REPORT Study performed: 11/15/2018 12:39:15 EXAM: Comprehensive 2D, Doppler, and color-flow Echocardiogram Patient Location: Echo lab Room #: [facility] Status: routine BSA: 2.38 HR: 69 bpm BP: 155/80 mmHg Indications CVA/TIA Diabetes CAD Hypertension/HDD Echo Enhancing Agent Indication: Rule out Shunt Agent(s) / Amount(s) Used: Agitated Saline 7 cc 2D Dimensions RVDd: 46.42 mm IVSd: 13.09 (7-11mm) LVOT Diam: 25.57 (18-24mm) LVDd: 55.58 mm PWd: 12.70 (7-11mm) Ascending Ao: 36.36 (22-36mm) LVDs: 37.31 (25-40mm) Aortic Root: 36.90 mm IVC: 23.00 mm Volumes Left Atrial Volume (Systole) Single Plane 4CH: 141.69 mL Single Plane 2CH: 88.63 mL LA ESV Index: 52.00 mL/m2 Aortic Valve AoV Peak Jamarcus.: 1.03 m/s AO Peak Gr.: 4.20 mmHg LVOT Max P.10 mmHg LVOT Max V: 0.88 m/s GIOVANNI Vmax: 4.41 cm2 Mitral Valve [facility] [address] [place] [address] 2 D/M-MODE ECHOCARDIOGRAM Name: JACIEL ANGELES Room #: 452-P [facility] IN M.R.#: [id number] ������������� Admission: 11/15/18 ������������� Attend Phys: Jaciel Galindo, Discharge: ��� ������������� ��� Date of : 59 Date of Service: 11/15/18 1652 �� Report #: [id number] �������� ��������������������������������������������[id number] E/A Ratio: 1.3 MV Decel. Time: 183.57 ms MV E Max Jamarcus.: 0.72 m/s MV A Jamarcus.: 0.57 m/s MV PHT: 53.23 ms IVRT: 147.64 ms Pulmonary Valve PV Peak Jamarcus.: 0.90 m/s PV Peak Gr.: 3.27 mmHg Pulmonary Vein P Vein S: 0.63 m/s P Vein A: 0.29 m/s P Vein D: 0.53 m/s P Vein A Dur.: 120.0 msec P Vein S/D Ratio: 1.19 Tricuspid Valve TR Peak Jamarcus.: 3.04 m/s TR Peak Gr.: 37.07 mmHg PA Pressure: 47.00 mmHg Left Ventricle The left ventricle is normal size. There is normal LV segmental wall motion. Mild concentric left ventricular hypertrophy. The left ventricular systolic function is normal. The left ventricular ejection fraction is within the normal range. LVEF is 60-65%. The left ventricular diastolic function is normal. Right Ventricle Right ventricle is dilated. The right ventricular systolic function is normal. Atria Left atrium is dilated. Interatrial septum is intact without evidence of ASD or PFO. Right atrium is dilated. Aortic Valve The aortic valve is normal in structure. No aortic regurgitation is present. There is no aortic valvular stenosis. Mitral Valve The mitral valve is normal in structure. Trace to mild mitral regurgitation. No evidence of mitral valve stenosis. Tricuspid Valve The tricuspid valve is normal in structure. There is trace tricuspid regurgitation. Estimated PAP 47 mmHg[place] [address] 2 D/M-MODE ECHOCARDIOGRAM Name: KANDYALBAJACIEL CAPELLAN Room #: 452-P [facility] IN [facility]#: [id number] ������������� Admission: 11/15/18 ������������� Attend Phys: Jaciel Galindo, Discharge: ��� ������������� ��� Date of : 59 Date of Service: 11/15/18 1652 �� Report #: [id number] �������� ��������������������������������������������[id number] hypertension. Pulmonic Valve The pulmonary valve is normal in structure. There is no pulmonic valvular regurgitation. Great Vessels The aortic root is normal in size. IVC is dilated and collapses <50% with inspiration. Pericardium There is no pericardial effusion. <Conclusion> The left ventricle is normal size. Mild concentric left ventricular hypertrophy. LVEF is 60-65%. Right ventricle is dilated. Left atrium is dilated. Right atrium is dilated. The aortic valve is normal in structure. Trace to mild mitral regurgitation. The aortic root is normal in size. There is no pericardial effusion. ��������������������������������������������� <ELECTRONICALLY SIGNED> ���������������������������������������� By: Lupillo Winn MD, FACC ��������������������������������������������� 11/15/181651 51 51 Lupillo Winn MD, FACC /INF
[2018-11-15 21:46] LABS: URINE BILIRUBIN NEGATIVE (Negative); URINE BLOOD 2+ (Negative); URINE CLARITY CLEAR; URINE COLOR YELLOW; URINE GLUCOSE-RANDOM* 1+ (Negative); URINE KETONES NEGATIVE (Negative); URINE LEUKOCYTES NEGATIVE (Negative); URINE NITRITE NEGATIVE (Negative); URINE PROTEIN (DIPSTICK) 3+ (Negative); URINE SPECIFIC GRAVITY 1.025 (1.005-1.035); URINE UROBILINOGEN 0.2 E.U./dl (0.2-1.0)
[2018-11-15 21:53] LABS: BACTERIA 1-9 Few /HPF (None Seen); CASTS None Seen /LPF (None Seen); CRYSTALS None Seen /LPF (None Seen); SQUAMOUS 0-3 Few /LPF (0-3); URINE RBC 0-2 Rare /HPF (0-2); URINE WBC 0-5 Rare /HPF (0-5)
[2018-11-16 01:12] VITALS: BP 148/70
--- NOTE | 2018-11-16 02:22 | NUR ---
Assumed care at 1845. Pt had an unwitnessed fall at around midnight. The tech was able to assist pt to the bathroom but once inside the bathroom he refused to have the bathroom door open. Per Tech the pt proceeded to shut the door in her face. When he attempted to clean himself whilst seating on the toilet that is when he fall on his left side. The tech was able to open the door and witnessed him touching the ground with his left hand and his knees on the ground. She called for her help. Upon assessment his vss, neuro intact, no indications of abrasion. Track Broom Operator was notified, notified but pt refused to have family notified. Post fall assessment complete. Fall precautions where in place before fall. No identified needs at the moment. Will continue to monitor.
[2018-11-16 03:59] VITALS: BP 146/76
[2018-11-16 05:14] LABS: HEMATOCRIT 39.9 % (42.0-52.0); HEMOGLOBIN 13.6 gm/dL (14.0-18.0); MCH 29.2 pg (26.0-34.0); MCHC 34.1 g/dL (28.0-37.0); MCV 85.6 fL (80.0-100.0); RBC 4.66 mil/uL (4.50-6.00); RDW 14.9 % (10.5-14.5); WBC 8.1 thou/uL (4.0-11.0)
[2018-11-16 05:21] LABS: CALCIUM 8.5 mg/dL (8.5-10.1); CREATININE 1.1 mg/dL (0.7-1.3); POTASSIUM 3.7 mmol/L (3.5-5.1)
[2018-11-16 07:55] VITALS: BP 144/66
--- NOTE | 2018-11-16 12:55 | NUR ---
TOWARDS POC PT A/O X4, VSS, AFEBRILE. FACIAL DROOP, WEAKNESS ON LEFT ARM AND LEG NOTED. MRI WITH CONTRAST DONE WITH SEDATION. AWAITING RESULTS. WILL CONTINUE TO MONITOR.
--- NOTE | 2018-11-16 14:32 | NUR ---
PT ADMITTED RELATED TO TIA. CM REVIEWED CHART AND SPOKE WITH CARE TEAM. CM MET WITH PT AT BEDSIDE YESTERDAY. PT WAS A&O X4. CM ROLE INTRODUCED. PT INDICATED HE LIVES IN THE BASEMENT OF A HOUSE WITH IS EX . HE INDICATED THERE IS A FULL FLIGHT OF STEPS TO BASEMENT. 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 PT INDICATED HE ANTICPATES RETURNING HOME ONCE MEDICALLY STABLE. CM TO FOLLOW INDICATED WITH DC PLANNING.
[2018-11-16 14:45] VITALS: BP 139/74
[2018-11-16 20:10] VITALS: BP 150/70
--- NOTE | 2018-11-17 02:17 | NUR ---
PT DEMANDED TO SLEEP IN CHAIR CHAIR MAGALY PUT ON PT SLEPT MOST OF THE NIGHT NO ISSUES OVERNIGHT.
[2018-11-17 04:00] VITALS: BP 152/104
[2018-11-17 08:15] VITALS: BP 152/86
[2018-11-17] MEDS ORDERED: ELIQUIS5 MG PO (11:35)
--- NOTE | 2018-11-17 14:19 | NUR ---
PT WAS ASSESSED FOR ADMISSION TO 5 ACUTE INPATIENT REHAB. THEY INDICATED THAT HE WOULD BE A GOOD CANDIDATE BUT THEY WILL NEED INSURANCE AUTH. THEY HAVE SUBMITTED FOR AUTH BUT THEY WILL LIKELY NOT RECEIVE IT UNTIL TUESDAY. CM TO FOLLOW INDICATED WITH DC PLANNING.
[2018-11-17 14:46] VITALS: BP 159/84
--- NOTE | 2018-11-17 15:43 | NUR ---
ASSUMED CARE 0700. A/OX4, VSS, DENIES PAIN. MAX ASSIST X2 FOR TRANSFERS. 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 PT WILL LIKELY MOVE TO [facility] TOMORROW. FALL PRECAUTIONS IN PLACE. ABLE TO MAKE NEEDS KNOWN.
--- NOTE | 2018-11-17 16:14 | NUR ---
PATIENT SEEN BY SUJATHA CAGE NP WITH DR. OSCAR. PATIENT DOES QUALIFY FOR ACUTE REHAB. AUTHORIZATION INITIATED THIS DATE WITH PLAN TO ADMIT TO REHAB, IF AUTHORIZATION IS RECEIEVED, ON 11/20/18. THERAPIES REQUESTED TO SEE PATIENT OVER WEEKEND.
[2018-11-17 18:57] VITALS: BP 158/86
[2018-11-18 04:08] VITALS: BP 167/89
--- NOTE | 2018-11-18 04:39 | NUR ---
Pt. rested quietly at intervals during the night when checked on during frequent rounds. He has rested in the bed for a few hours during the shift and then demanded that he get back up in the recliner chair. Pt. is very inpatient with staff. Chair alarm is on.
[2018-11-18 10:22] VITALS: BP 139/67
--- NOTE | 2018-11-18 14:42 | NUR ---
ASSUMED CARE 0700. VSS, DENIES PAIN, LEFT SIDE WEAKNESS AND UNCORDINATED UE AND LE. REQUIRES 2 ASSISTANCE FOR TRANSFERS. BARRIER CREAM TO BOTTUM AND WAFFLE CUSHION ON ORDER FOR COMFORT. FULL FALL PRECAUTIONS IN PLACE. CALLS APPROPRIATELY. CONTINEUS ON NECTOR LIQUIDS AND MECHANICAL CHOPPED FOOD. PT AND OT ROUNDED TODAY. PLANS TO DC TO 5N ONCE INSURANCE AUTHORIZED. CONTINUE TO MONITOR.
[2018-11-18 16:54] VITALS: BP 177/75
[2018-11-18 20:02] VITALS: BP 142/74
--- NOTE | 2018-11-19 02:32 | NUR ---
PATIENT AOX4 MAKES NEEDS KKNOWN. PATIENT IRRITABLE AT TIMES. PATIENT NEEDS MAXIMUM ASSISTANCE WITH ADL, MOBILITY, AND TOILETING. PATIENT WAS RESTLESS PRN XANAX. FALL PRECATION IN PLACE. PATIENT ENCOURAGED FLUIDS. PATIENT C/O OF BUTTOCKS PAIN, CREAM APPLIED AND PATIENT REPOSITONED. PATIENT USES A URINAL. PATIENT SLEEPING ON THE RECLINER, BREATHING REGULAR AND UNLABOURED.
[2018-11-19 04:14] VITALS: BP 150/74
[2018-11-19 07:20] VITALS: BP 146/85
[2018-11-19 08:24] LABS: HEMATOCRIT 42.3 % (42.0-52.0); HEMOGLOBIN 14.3 gm/dL (14.0-18.0); MCH 28.8 pg (26.0-34.0); MCHC 33.8 g/dL (28.0-37.0); MCV 85.1 fL (80.0-100.0); RBC 4.97 mil/uL (4.50-6.00); RDW 14.3 % (10.5-14.5); WBC 7.4 thou/uL (4.0-11.0)
[2018-11-19 08:38] LABS: ALBUMIN 2.4 g/dL (3.4-5.0); CALCIUM 9.1 mg/dL (8.5-10.1); CREATININE 1.1 mg/dL (0.7-1.3); POTASSIUM 3.7 mmol/L (3.5-5.1); TOTAL BILIRUBIN 0.4 mg/dL (<0.1-1.0); TOTAL PROTEIN 6.3 g/dL (6.4-8.2)
[2018-11-19 16:29] VITALS: BP 151/83
[2018-11-19 19:04] VITALS: BP 144/68
--- NOTE | 2018-11-19 19:32 | NUR ---
ASSUMED CARE OF PT AT 0700. ASSESSMENT CHARTED. C/O INCREASED LEFT SIDED WEAKNESS, FLACCID LEFT ARM AND WEAK LEFT LEG R/T RECENT CVA. EXERCISES ENCOURAGED AND PERFORMED EVERY HOUR. MAX X2 ASSIST. A&0,X4, FLAT AFFECT AND RESIDUAL SLURRED SPEECH NOTED. MAINTAINING ASPIRATION PRECAUTIONS - NECTAR THICK LIQUIDS AND MECHANICAL DIET. ACHS, INSULIN GIVEN PER SLIDING SCALE. ROOM AIR. SR 70'S. DENIES SOA OR CHEST PAIN. SKIN INTACT. SACRAL REDNESS NOTED, BARRIER CREAM APPLIED. WAITING FOR INSURANCE AUTH FOR [facility] REHAB. PT IN STABLE CONDITION. END OF SHIFT.
[2018-11-20 02:45] VITALS: BP 170/77
--- NOTE | 2018-11-20 04:42 | NUR ---
PT TRANSFERED FROM ED AROUND 0200. AT BEDSIDE.PT C/O HEADACHE AND SOA. DENIES CP. 6 L NC. BP AND HR ELEVATED. VP SECURITY NOTIFED, IV LASIX AND HYDROLIZINE PER EMAR. RT NOTIFIED- BREATHING TREATMENT PER ORDERS. ABGS, VP SECURITY NOTIFIED. PLACED ON CONTINUOUS BIPAP, PT TRANSFERED TO [facility].
--- NOTE | 2018-11-20 05:03 | NUR ---
ASSUMED CARE 1899. VSS. ASSESSMENT CHARTED. PT DENIES ANY CP, SOA, OR CONCERNS. PT ANXIETY MEDS PER EMAR. PT SLIGHTLY DROWSY WITH DOSE OF MIRTAZIPINE BUT AROUSABLE. LEFT SIDE CONINUES TO BE FLACCID IN ARMS, WEAK IN LE. MAX X2 WITH PLATFORM WALKER. ACHS INSULIN PER EMAR. NEC/THICK LIQUIDS USED TO CRUSH MEDICATIONS. PT AWAITING APPROVAL FOR 5[facility] REHAB. WILL CONTINUE TO MONITOR AND WITH POC.
[2018-11-20 08:00] VITALS: BP 181/92
--- NOTE | 2018-11-20 08:32 | NUR ---
ASSUMED CARE OF PT AROUND 0715, TURNED ON BED ALARM, PT IS NOT IMPULSIVE, IS HUMOROUS, CLEANED UP, HAS HERNANDEZ AT BEDSIDE ON HIS RIGHT SIDE TO USE FOR NEEDS, DENIES ANY PAIN, SEE INTERVENTION FOR ASSESSMENT. RA. ENCOURAGED HIM TO USE HERNANDEZ FOR ANY NEEDS. HE C/O OF NO ONE ANSWERING HIM NIGHT PRIOR
[2018-11-20 15:00] VITALS: BP 138/78
--- NOTE | 2018-11-20 16:25 | NUR ---
AWAITING INSURANCE AUTH FOR [facility] ACUTE INPATIENT REHAB. CM REACHED OUT TO SON REGARDING IF THEY WOULD BE BE ABLE TO PROVIDE 24/7 SUPERVISION SHOULD PT NEED IT UPON DC FROM . CM TO FOLLOW INDICATED WITH DC PLANNING.
[2018-11-20 19:26] VITALS: BP 157/77
[2018-11-21 04:39] VITALS: BP 151/80
--- NOTE | 2018-11-21 06:58 | NUR ---
Pt. assisted to bed last pm with max assistance of two people and a gait belt. He did rest quietly in the bed all night with bed alarm on. Used the urinal. He offers no c/o pain. Po xanax given for anxiety (see emar) with some relief.
[2018-11-21 07:55] VITALS: BP 141/86
--- NOTE | 2018-11-21 14:16 | NUR ---
CALLED RECEIVED FROM MUNA, HARVEST WORKER FRUIT FOR [facility]. PATIENT HAS BEEN DENIED ACUTE REHAB STAY. THEY STATE THIS IS DUE TO PATIENT NEEDING 24 HOUR CARE AT DISCHARGE AND THAT THERAPY NEEDS CAN BE MET AT SKILLED LEVEL. FOR PEER TO PEER: CALL [phone] TO SET UP PEER TO PEER. REFERENCE NUMBER IS [id number]. THIS MUST BE SCHEDULED BEFORE NOON TOMORROW, 11/22/18. CUSTOMS AGENT INFORMED OF ABOVE. THANK YOU FOR THIS REFERRAL.
--- NOTE | 2018-11-21 14:28 | NUR ---
[facility] LIA[facility] INDICATED THAT INSURANCE DENIED AUTH FOR ADMISSION TO 5N ACUTE INPATIENT REHAB THIS DAY. LIAISON PROVIDED PEER TO PEER INFORMATION. CM NOTIFIED DR. ROMAN. IF HE WANTS TO COMPLETE PEER TO PEER IT NEEDS TO BE SCHEDULED BEFOR 112 TOMORROW REF# [id number] . CM TO FOLLOW INDICATED WITH DC PLANNING.
[2018-11-21 14:30] VITALS: BP 134/62
--- NOTE | 2018-11-21 18:13 | NUR ---
PT VS STABLE THROUGHOUT SHIFT. PT WORKED WELL WITH PT AND OT, SPENT SEVERAL HOURS IN CHAIR WHICH HE TOLERATED WELL. PT RESTING COMFORTABLY.
[2018-11-21 19:30] VITALS: BP 125/65
--- NOTE | 2018-11-22 02:08 | NUR ---
ASSUMED CARE AROUND 1900. AXOX4. ADMIT WITH CVA WITH L SIDED WEAKNESS. STILL UP WITH 3-4 FOR TRASFER. NO S/S ACUTE DISTRESS NOTED OR REPORTED AT THIS TIME. WILL CONT TO MONITOR ANY CHANGES IN CONDITION.
[2018-11-22 04:30] VITALS: BP 154/90
[2018-11-22 07:33] VITALS: BP 133/73
--- NOTE | 2018-11-22 09:20 | NUR ---
Assess for length of stay. Admit with cva. ST follows and pt requires modified solids/liquids for dysphagia. Wt down about 5 lb this admission. Pt voices he is hungry and not getting enough to eat. Hx DM, bg levels mild elevated but will be able to allow double protein and non starch vegetables. Low nutrition risk
--- NOTE | 2018-11-22 12:03 | NUR ---
TOWARDS POC PT A/O X4, VSS, AFEBRILE, DENIES PAIN. FALL BUNDLE IN PLACE. PT/OT WORK WITH THE PT. PT ABLE TO WALKER WITH A WALKER. PT SITTING ON THE CHAIR MOST OF THE TIME. WILL CONTINUE TO MONITOR.
--- NOTE | 2018-11-22 12:09 | NUR ---
DR. ROMAN COMPLETED PEER TO PEER AND THEY UPHELD DENIAL FOR ADMISSION TO 5N. CM FOLLOWED UP WITH PT AT BEDSIDE AND INFORMED HIM. HE INDICATED THAT IS HE HAD TO GO TO A SKILLED FACILITY HE WANTED TO GO SOMEWHERE IN [place]AR HOME. HE REQUESTED THAT REFERRAL BE SENT TO [facility] FOR REVIEW FOR POSSIBLE ADMISSION. PHYSICIAN AWARE. CM TO FOLLOW INDICATED WITH DC PLANNING.
--- NOTE | 2018-11-22 12:15 | NUR ---
DISCHARGE PLANNING. PATIENT IS READY FOR DISCHARGE TODAY. POST ACUTE CARE RECOMMENDED AT DISCHARGE. REFERRAL FAXED TO [facility] IN [place], FOR POST ACUTE CARE NEEDS. CALL PLACED TO [facility]U [facility] TO NOTIFY OF PATIENTS REFERRAL AND DISCHARGE NEEDS. REFERRAL TO BE REVIEWED AND WILL NOTIFY CM ONCE COMPLETE. FOLLOWING TO ASSIST WITH PATIENTS DISCHARGE NEEDS.
[2018-11-22 12:54] VITALS: BP 130/76
--- NOTE | 2018-11-22 14:03 | NUR ---
DISCHARGE PLANNING. POST ACUTE CARE RECOMMENDED AT DISCHARGE. PATIENT IS READY FOR DISCHARGE TODAY. REFERRAL FAXED TO [facility] IN [place], [place]. CALL PLACED TO [facility], [facility] LIAISON, TO NOTIFY OF REFERRAL AND PATIENTS DISCHARGE NEEDS. ANU TO REVIEW AND CONTACT CM ONCE COMPLETE. FOLLOWING TO ASSIST WITH DISCHARGE NEEDS.
[2018-11-22 19:13] VITALS: BP 147/80
--- NOTE | 2018-11-23 02:16 | NUR ---
ASSUMED CARE AROUD 190. AXOX4. PERSISTENT L SIDED WEAKNESS. NO S/S ACUTE DISTRESS NOTED OR REPORTED AT THIS TIME. WILL CONT TO MOTNITOR FOR ANY CHANGES IN CONDITION.
[2018-11-23 03:44] VITALS: BP 128/67
[2018-11-23 07:44] VITALS: BP 151/77
[2018-11-23 13:35] VITALS: BP 103/64
--- NOTE | 2018-11-23 16:32 | NUR ---
[facility] IS ONLY BEHAVIORAL REFERRAL SENT TO [facility] FOR REVIEW FOR POSSIBLE ADMISSION.
--- NOTE | 2018-11-23 18:24 | NUR ---
PT A&OX4, VSS, NO PAIN. PT TOLERATING DIET WITH NECTAR LIQUIDS. PT HAS BEEN ASSISTED TO RECLINER AND BEDSIDE COMMODE, TWO PERSON ASSIST. PT USES CALL LIGHT APPROPRIATELY. FALL PRECAUTIONS IN PLACE, WILL CONTINUE TO MONITOR.
[2018-11-23 22:03] VITALS: BP 156/80
--- NOTE | 2018-11-24 03:10 | NUR ---
PATIENT AOX4 MAKES NEEDS KNOWN. PATIENT DENIED PAIN OR DISCOMFORT. PATIENT NEEDS MAXIMUM ASSISTANCE WITH ADL, BED MOBILITY, TRANSFER AND TOILETING. PATIENT ENCOURAGED FLUID. PATIENT HAD MILD ANXIETY PRN XANAX GIVEN. PATIENT HAS A BRIGHTER AFFECT, THIS SHIFT. PERICARE AND BARRIER CREAM APPLIED NEEDED.PATIENT IN BED ASLEEP AT THIS TIME BREATHING REGULAR AND UNLABOURED.
[2018-11-24 03:23] VITALS: BP 144/74
[2018-11-24 07:10] VITALS: BP 139/66
--- NOTE | 2018-11-24 16:49 | NUR ---
PT HAD BEEN ACCEPTED TO [facility] AND WE HAVE RECEIVED INSURANCE AUTH. WE ARE AWAITING PHYSICIAN TO UPDATE DISCHARGE SUMMERY. ONCE COMPLETED ORDERS AND SUMMERY WILL NEED TO BE FAXED TO . ONCE FAXED CALL THE FACILITY AT AND ASK FOR AN TO SET UP TRANSPORTATION. REPORT TO BE CALLED TO . CHART COPY MADE. NO OTHE CM INTERVENTION INDICATED AT THIS TIME. CASE CLOSED.
--- NOTE | 2018-11-24 18:30 | NUR ---
PT A&OX4, VSS NO SIGNS OF DISTRESS. , NO PAIN. PT HAS HAD SHOWER TODAY WITH NURSE AND OT. PT AWAITING TO BE DISCHARGED. PT HAS BEEN UP IN CHAIR AND FALL PRECAUTIONS IN PLACE. HOURLY ROUNDING HAS BEEN DONE. CALL LIGHT HAS BEEN ANSWERED TIMELY. WILL CONTINUE TO MONITOR.
[2018-11-24 19:20] VITALS: BP 161/84
--- NOTE | 2018-11-24 20:07 | NUR ---
care assumed at 1900, patient aox4 makes needs known.patient left the facility at around 2003 via wheelchair services. patient was max assit x2 with transfer. patient re educated on diet and transfes before discharge.personal belongings left with patient. patient denied pain or discomfort.
== END 2018-11-24 20:04 | DRG 64 ==
LOC: ER 00:27 → EROBS 02:09 → 4W 02:09
PROVIDERS: Student in an Organized Health Care Education/Training Program; ADMIT Family Medicine
DX: I63.9 Cerebral infarction, unspecified (principal); E43 Unspecified severe protein-calorie malnutrition; G81.94 Hemiplegia, unspecified affecting left nondominant side; F17.210 Nicotine dependence, cigarettes, uncomplicated; I25.10 Atherosclerotic heart disease of native coronary artery without angina pectoris; E11.40 Type 2 diabetes mellitus with diabetic neuropathy, unspecified; G89.29 Other chronic pain; M54.5 Low back pain; I48.91 Unspecified atrial fibrillation; E78.5 Hyperlipidemia, unspecified; R47.1 Dysarthria and anarthria; Z90.49 Acquired absence of other specified parts of digestive tract; Z89.411 Acquired absence of right great toe; Z95.1 Presence of aortocoronary bypass graft; Z82.49 Family history of ischemic heart disease and other diseases of the circulatory system; Z79.4 Long term (current) use of insulin; Z79.82 Long term (current) use of aspirin; Z79.899 Other long term (current) drug therapy
CPT/HCPCS: 10045

== ENCOUNTER 2019-06-04 20:10 | Emergency (ER) | payer OTHER ==
[~2019-06-04] VITALS: Ht 193 cm; Wt 122.5 kg
[~2019-06-04 20:10] MED LIST changes: +ELIQUIS5 MG PO; +LANTUS SUBQ
[2019-06-04 20:11] VITALS: BP 152/72
[2019-06-04] MEDS ORDERED: DOXYCYCLINE 10100 MG PO (20:38)
[2019-06-04] MEDS ORDERED: KLOR-CON M2020 MEQ PO (20:42)
[2019-06-04] MEDS ORDERED: OXYCONTIN40 MG PO (20:43)
[2019-06-04] MEDS ORDERED: PACERONE200 MG PO (20:44)
[2019-06-04] MEDS ORDERED: ALPRAZOLAM 0.50.5 M1 PO (21:12)
[2019-06-04] MEDS ORDERED: PROZAC 20 MG20 MG PO (21:13)
[2019-06-04] MEDS ORDERED: LANTUS SUBQ (21:15)
== END 2019-06-04 20:50 | disposition home or self-care (01) ==
LOC: ER 20:10
DX: S01.531A Puncture wound without foreign body of lip, initial encounter (principal); E11.9 Type 2 diabetes mellitus without complications; F17.210 Nicotine dependence, cigarettes, uncomplicated; Z90.89 Acquired absence of other organs; Z90.49 Acquired absence of other specified parts of digestive tract; Z86.14 Personal history of Methicillin resistant Staphylococcus aureus infection; Z95.1 Presence of aortocoronary bypass graft; Z89.411 Acquired absence of right great toe; Z79.4 Long term (current) use of insulin; Y04.8XXA Assault by other bodily force, initial encounter; Y92.89 Other specified places as the place of occurrence of the external cause; Y93.89 Activity, other specified; Y99.8 Other external cause status

== ENCOUNTER 2019-10-11 18:50 | Emergency (ER) | payer OTHER ==
[~2019-10-11] VITALS: Ht 193 cm; Wt 122.5 kg
[~2019-10-11 18:50] MED LIST changes: +ALPRAZOLAM 0.50.5 M1 PO; +DOXYCYCLINE 10100 MG PO; +KLOR-CON M2020 MEQ PO; +OXYCONTIN40 MG PO; +PACERONE200 MG PO; +PROZAC 20 MG20 MG PO
[2019-10-11 20:08] LABS: BE(vivo) 0.9 mmol/L (-2 to +3); PCO2 43.5 mmHg (35.0-45.0); PO2 58.1 mmHg (80.0-100.0); pH 7.395 (7.360-7.450)
[2019-10-11 20:16] LABS: ABSOLUTE NEUTROPHILS 4.7 thou/uL (1.4-8.2); BASOPHILS 0.7 % (0.0-2.0); EOSINOPHILS 2.4 % (0.0-3.0); HEMATOCRIT 40.5 % (42.0-52.0); HEMOGLOBIN 13.1 gm/dL (14.0-18.0); MCH 28.5 pg (26.0-34.0); MCHC 32.5 g/dL (28.0-37.0); MCV 87.7 fL (80.0-100.0); MONOCYTES 7.6 % (1.0-8.0); PLATELET COUNT 234 thou/uL (150-400); POLYS 72.3 % (36.0-66.0); RBC 4.61 mil/uL (4.50-6.00); RDW 15.1 % (10.5-14.5); WBC 6.5 thou/uL (4.0-11.0)
[2019-10-11 20:27] LABS: ANION GAP 6 mmol/L (7-16); BUN 35 mg/dL (7-18); CALCIUM 8.5 mg/dL (8.5-10.1); CHLORIDE 105 mmol/L (98-107); CO2 29 mmol/L (21-32); CREATININE 2.1 mg/dL (0.7-1.3); GLUCOSE 210 mg/dL (74-106); POTASSIUM 4.6 mmol/L (3.5-5.1); SODIUM 140 mmol/L (136-145)
[2019-10-11 20:36] LABS: TROPONIN-I <0.06 ng/mL (<0.06)
[2019-10-11 22:41] VITALS: BP 148/82
--- NOTE | 2019-10-12 08:04 | EKG ---
[facility] [place] [address] ELECTROCARDIOGRAM REPORT Name: JACIEL ANGELES Room #: DEP [facility]..#: [id number] Admission: 10/11/19 Attend Phys: Discharge: 10/11/19 Date of : 59 Report #: [id number] THIS REPORT FOR: cc: Jaciel Galindo MD, Neal A. 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: NALLELY : 1955 Requested By: Clyde Bledsoe Order Number: [id number] MD: Andrew Palumbo Measurements Intervals [place] Rate: 75 P: 56 [place]: 162 QRS: 78 QRSD: 102 T: 65 QT: 426 QTc: 476 Interpretive Statements Sinus rhythm Nonspecific ST segment abnormality Borderline prolonged QT interval Compared to ECG 11/15/2018 01:29:03 No significant change was found Electronically Signed On 10-12-2019 8:03:09 WIND FARM ENGINEER by Andrew Palumbo [email or web address] <ELECTRONICALLY SIGNED> By: Andrew Palumbo MD, [facility] 10/12/19 0803 190 00 Andrew Palumbo MD, [facility] /EPI
== END 2019-10-11 22:38 | disposition home or self-care (01) ==
LOC: ER 18:50
PROVIDERS: Emergency Medicine
DX: N17.9 Acute kidney failure, unspecified (principal); R19.7 Diarrhea, unspecified; R06.02 Shortness of breath; R05 Cough; E11.9 Type 2 diabetes mellitus without complications; F17.210 Nicotine dependence, cigarettes, uncomplicated; Z79.4 Long term (current) use of insulin; Z95.1 Presence of aortocoronary bypass graft; Z79.899 Other long term (current) drug therapy

== ENCOUNTER 2019-10-31 00:35 | Inpatient (IN) | payer OTHER ==
[2019-10-31] VITALS (7 sets, daily range): BP systolic 129–159; BP diastolic 59–92
[~2019-10-31] VITALS: Ht 193 cm; Wt 122.0 kg
[2019-10-31 01:17] LABS: ABSOLUTE NEUTROPHILS 5.4 thou/uL (1.4-8.2); BASOPHILS 1.2 % (0.0-2.0); EOSINOPHILS 1.6 % (0.0-3.0); HEMATOCRIT 42.2 % (42.0-52.0); HEMOGLOBIN 13.9 gm/dL (14.0-18.0); LYMPHOCYTES 18.4 % (24.0-44.0); MCH 28.7 pg (26.0-34.0); MCV 87.1 fL (80.0-100.0); MONOCYTES 7.3 % (1.0-8.0); PLATELET COUNT 252 thou/uL (150-400); POLYS 71.5 % (36.0-66.0); RBC 4.85 mil/uL (4.50-6.00); WBC 7.6 thou/uL (4.0-11.0)
[2019-10-31 01:21] LABS: ANION GAP 7 mmol/L (7-16); BUN 26 mg/dL (7-18); CALCIUM 8.3 mg/dL (8.5-10.1); CHLORIDE 106 mmol/L (98-107); CO2 27 mmol/L (21-32); GLUCOSE 161 mg/dL (74-106); POTASSIUM 3.6 mmol/L (3.5-5.1); SODIUM 140 mmol/L (136-145)
[2019-10-31 01:23] LABS: APTT 28.7 Seconds (24.5-32.8)
[2019-10-31 01:31] LABS: ALBUMIN 1.9 g/dL (3.4-5.0); MAGNESIUM 1.7 mg/dL (1.8-2.4); SGOT 21 U/L (15-37); SGPT 17 U/L (30-65); TOTAL BILIRUBIN 0.4 mg/dL (<0.1-1.0); TROPONIN-I <0.06 ng/mL (<0.06)
[2019-10-31 01:45] LABS: AMP/METHAMP Negative (Negative); BARBITURATES Negative (Negative); BENZODIAZEPINES POSITIVE (Negative); COCAINE Negative (Negative); METHADONE Negative (Negative); OPIATES Negative (Negative); PCP Negative (Negative)
[2019-10-31 03:37] LABS: CHOLESTEROL 207 mg/dL (<200); HDL CHOLESTEROL 33 mg/dL (>40); LDL CHOLESTEROL 135 mg/dL (<100); SERUM ASSESSMENT Slight Lipemia; TC:HDL 6.3 Ratio (Not establshd); TRIGLYCERIDE 198 mg/dL (<150); VLDL 40 mg/dL (<40)
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
--- NOTE | 2019-10-31 09:48 | EKG ---
[facility] [place] [address] ELECTROCARDIOGRAM REPORT Name: JACIEL ANGELES Room #: 208-P [facility] M.R.#: [id number] Admission: 10/31/19 Attend Phys: Elian Kapadia MD Discharge: Date of : 59 Report #: [id number] THIS REPORT FOR: cc: Jaciel Galindo MD, Neal A. MD Lundgren,Andrew Younger MD [facility] ~ THIS REPORT FOR: //name// [facility] ED Test Date: 2019-10-31 Test Time: 00:44:25 Pat Name: JACIEL ANGELES Department: Room: 208 Gender: M Rn International: NO : 1955 Requested By: Marquez Rowell Order Number: [id number] MD: Andrew Palumbo Measurements Intervals [place] Rate: 64 P: 31 NE: 174 QRS: 23 QRSD: 99 T: 84 QT: 434 QTc: 448 Interpretive Statements Sinus rhythm RSR' in V1 or V2, probably normal variant Borderline repolarization abnormality Compared to ECG 10/11/2019 19:01:29 No significant change was found Electronically Signed On 10-31-2019 9:46:46 CDT by Andrew Palumbo [email or web address] <ELECTRONICALLY SIGNED> By: Andrew Palumbo MD, [facility] 10/31/19 0946 0044 0044 Andrew Palumbo MD, [facility] /EPI
--- NOTE | 2019-10-31 09:54 | 2DMMODE ---
[facility] [place] [address] 2 D/M-MODE ECHOCARDIOGRAM Name: KANDYALBAJACIEL CAPELLAN Room #: 208-P [facility] Martin M.RGutierrez#: [id number] Admission: 10/31/19 Attend Phys: Elian Kapadia MD Discharge: Date of : 59 Report #: [id number] THIS REPORT FOR: cc: Jaciel Galindo MD, Neal A. MD Mancuso, Gerald M. MD [facility] ~ APPROVED REPORT Study performed: 10/31/2019 09:04:13 EXAM: Comprehensive 2D, Doppler, and color-flow Echocardiogram Patient Location: Bedside Room #: 208 Status: routine BSA: 2.52 HR: 60 bpm BP: 156/84 mmHg Rhythm: NSR Other Information Study Quality: Adequate Indications Chest Pain Hx: CABG, CM, PAF,HTN, HLP, DM. 2D Dimensions RVDd: 47.51 mm IVSd: 14.61 (7-11mm) LVOT Diam: 25.15 (18-24mm) LVDd: 53.28 mm PWd: 11.90 (7-11mm) Ascending Ao: 37.18 (22-36mm) LVDs: 40.75 (25-40mm) Aortic Root: 38.77 mm Volumes Left Atrial Volume (Systole) Single Plane 4CH: 98.34 mL Single Plane 2CH: 99.74 mL LA ESV Index: 44.00 mL/m2 Aortic Valve AoV Peak Jamarcus.: 1.12 m/s AO Peak Gr.: 4.98 mmHg LVOT Max P.10 mmHg LVOT Max V: 0.72 m/s GIOVANNI Vmax: 3.22 cm2 [facility] [address] [place] [address] 2 D/M-MODE ECHOCARDIOGRAM Name: JACIEL ANGELES Room [facility]: 208[facility]#: [id number] Admission: 10/31/19 Attend Phys: Elian Kapadia MD Discharge: Date of : 59 Report #: [id number] Mitral Valve E/A Ratio: 1.8 MV Decel. Time: 196.53 ms MV E Max Jamarcus.: 0.83 m/s MV A Jamarcus.: 0.46 m/s MV PHT: 56.99 ms IVRT: 78.43 ms Pulmonary Valve PV Peak Jamarcus.: 0.82 m/s PV Peak Gr.: 2.67 mmHg Pulmonary Vein P Vein S: 0.43 m/s P Vein D: 0.47 m/s P Vein S/D Ratio: 0.91 Tricuspid Valve TR Peak Jamarcus.: 2.84 m/s RAP Estimate: 5.00 mmHg TR Peak Gr.: 32.24 mmHg PA Pressure: 37.00 mmHg Left Ventricle The left ventricle is normal size. There is normal LV segmental wall motion. Mild to moderate concentric left ventricular hypertrophy. Left ventricular systolic function is normal. LVEF is .50% mild globalhypo Right Ventricle Right ventricle is dilated. The right ventricular systolic function is normal. Atria Left atrium is dilated. Right atrium is dilated. Aortic Valve The aortic valve is normal in structure. Trace aortic regurgitation. Mitral Valve The mitral valve is normal in structure. Mildly calcified leaflets. Trace mitral regurgitation. No evidence of mitral valve stenosis. Tricuspid Valve The tricuspid valve is normal in structure. Mild to moderate [facility] [address] [address] 2 D/M-MODE ECHOCARDIOGRAM Name: JACIEL ANGELES MARILIA Room #: 208-P [facility] IN M.R.#: [id number] Admission: 10/31/19 Attend Phys: Elian Kapadia MD Discharge: Date of : 59 Report #: [id number] tricuspid regurgitation. Estimated PAP is 35-40mmHg. Pulmonic Valve The pulmonary valve is normal in structure. Trace pulmonic regurgitation. Great Vessels Aortic root is mildly dilated at 3.9cm. The ascending aorta is normal in size. IVC is normal in size and collapses >50% with inspiration. Pericardium There is no pericardial effusion. <Conclusion> LVEF is .50% mild globalhypo Mild to moderate concentric left ventricular hypertrophy. The left ventricle is normal size. Right ventricle is dilated. Left atrium is dilated. Right atrium is dilated. Trace aortic regurgitation. The mitral valve is normal in structure. Mildly calcified leaflets. Trace mitral regurgitation. Mild to moderate tricuspid regurgitation. Estimated PAP is 35-40mmHg. Aortic root is mildly dilated at 3.9cm. There is no pericardial effusion. <ELECTRONICALLY SIGNED> By: Lupillo Winn MD, [facility] 10/31/19 0953 Lupillo Winn MD, FACC /INF
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
[2019-10-31 23:07] LABS: GLYCOHEMOGLOBIN (HGB A1C) 9.7 % (4.8-5.6)
[2019-11-01 00:08] VITALS: BP 155/81
[2019-11-01 03:20] VITALS: BP 147/82
[2019-11-01 06:20] LABS: CALCIUM 8.5 mg/dL (8.5-10.1); CREATININE 2.1 mg/dL (0.7-1.3); POTASSIUM 4.1 mmol/L (3.5-5.1)
[2019-11-01 08:00] VITALS: BP 137/67
--- NOTE | 2019-11-01 08:03 | NUR ---
ASSUMED CARE OF PATIENT AT 1900. ASSESSMENTS CHARTED. TELE STRIPS PRINTED AND PLACED IN THE CHART. PATIENT DENIES ANY CHEST PAIN. PATIENT PREFERRED TO SLEEP IN THE RECLINER. PATIENT ASKED FOR FOOD MULTIPLE TIMES THROUGH THE NIGHT AND STATED THAT HE WAS "STARVING". BLOOD SUGAR CHECKED AC&HS. PATIENT ANTICIPATIENT CARDIAC CATH FRI A.M. PATIENT TO CONTINUE WITH POC.
[2019-11-01 12:10] VITALS: BP 134/74
--- NOTE | 2019-11-01 14:23 | NUR ---
INITIAL ASSESSMENT: Received consult for discharge planning. TANISHA reviewed chart and spoke with nursing. Pt was admitted from home due to chest pain. Pt to have cardiac cath tomorrow. TANISHA spoke with pt via phone. Introduced role of SW. Pt is alert/orientated x 4. Pt reports he lives in the basement at his ex-'s home. Pt's son, dtr-in-law and family live there as well. Prior to admission, pt was independent with ADLs. Pt does have a walker to use. Pt is able to navigate stairs. Pt states that his DIL drinks ETOH and sometimes becomes aggressive. Pt states that she was recently arrested but released as the retirement is not keeping certain inmates based on charges due to COVID-19. Pt with hx of DM/HTN/cardiomyopaty/PVD. Pt has been to [facility] in the past for short term rehab. Pt has done outpatient therapy at [facility]. Pt's PCP is Dr. Galindo. Pt states that he may discharge tomorrow. Pt reports he is agreeable with returning home when discharged. Pt interested in finding alternat housing in [facility]. TANISHA printed resources for pt: Housing Authority, [facility] Housing Assistance and [place] Affordable Housing Station Attendant. TANISHA faxed to unit and spoke with pt's RN to provide info to pt for review. Pt will also be provided with [employer]. TANISHA is following to assist as needed with discharge planning.
--- NOTE | 2019-11-01 15:52 | NUR ---
ASSUMED CARE PT SHIFT CHANGE. ASSESSMENTS CHARTED. MEDS GIVEN PER MAR. PT ALERT AND ORIENTED. VSS. DENIES SOB/CP. O2 SATS WNL ON ROOM AIR. PLAN IS FOR PT TO HAVE CARDIAC CATH PROCEDURE TOMORROW. CONSENTS SIGNED. PT CURRENTLY RESTING IN BED DENYING OF NEEDS. WILL CONTINUE TO MONITOR AND FOLLOW POC.
[2019-11-01 16:00] VITALS: BP 125/70
[2019-11-01 20:17] VITALS: BP 148/65
[2019-11-02] VITALS (13 sets, daily range): BP systolic 124–159; BP diastolic 52–81
--- NOTE | 2019-11-02 04:11 | NUR ---
PT UP TO SHOWER, SLEEPING IN CHAIR, NPO AFTER [facility] FOR C. CATH, VSS, NO C/O PAIN WILL CON'T TO MONITOR PER PPOC.
[2019-11-02 05:33] LABS: HEMATOCRIT 36.8 % (42.0-52.0); HEMOGLOBIN 12.2 gm/dL (14.0-18.0); MCH 28.8 pg (26.0-34.0); MCHC 33.1 g/dL (28.0-37.0); RBC 4.22 mil/uL (4.50-6.00); RDW 14.7 % (10.5-14.5); WBC 7.8 thou/uL (4.0-11.0)
[2019-11-02 05:59] LABS: CALCIUM 7.9 mg/dL (8.5-10.1); CREATININE 2.3 mg/dL (0.7-1.3)
[2019-11-02] MEDS ORDERED: COREG6.25 MG PO (16:20)
--- NOTE | 2019-11-02 17:59 | NUR ---
ASSUMED CARE 0700. ALERT X4, DENIES PAIN, DENIES SOB, CARDIAC HEART CATH TODAY WITH NO INTERVENTIONS, RIGHT GROIN SITE C/D/I, PT COMPLIANT WITH KEEPING RIGHT LEG IMMOBILIZED UNTIL 1514. DR ROMAN ROUNDED WITH ORDERS TO DC TOMORROW. CALL LIGHT IN REACH. PT UP AB TYRONE IN ROOM PER PHYSICIAN.
[2019-11-03 04:04] VITALS: BP 155/70
[2019-11-03 07:38] VITALS: BP 139/59
--- NOTE | 2019-11-03 08:24 | NUR ---
ASSUME CARE 1900. PT/VITALS STABLE. DENIES ANY PAIN. UP AD TYRONE., REFUSES CHAIR ALARM. ASSESSMENT CHARTED. PROGRESSING WELL WITH POC. RIGHT GROIN SITE CDI WITH NO BLEEDING THROUGH THE NIGHT. NO DISTRESS NOTED/SR/SB ON MONITOR. PLAN IS POSSIBLE DISCHARGE TODAY. WILL CONTINUE TO MONITOR.
[2019-11-03 12:09] VITALS: BP 139/59
--- NOTE | 2019-11-03 13:06 | NUR ---
ASSUMED CARE AT SHIFT CHANGE, ASSESSMENT DOCUMENTED. DENIES ANY CP AND VSS. SINUS RYTHM ON THE MONITOR. DISCHARGE AND MEDICATIONS INSTRUCTION GIVEN TO PATEINT AND ALL CONCERNS ADDRESSED, AND PATIENT DISCHARGED HOME.
--- NOTE | 2019-11-03 13:49 | NUR ---
Pt REFUSED P.T. PRIOR TO D/C. Pt STATES THAT HE DOESN'T NEED ANY ACUTE P.T. PRIOR TO RETURNING HOME TODAY BUT HE HAS ORDERS FOR OP PT AND WILL START THAT.
--- NOTE | 2019-11-05 11:42 | NUR ---
Received a call and returned call to patient at their request. Patient inquiring if CM team can find him a new place to live as living with her "ex is not working out". Patient asking for CM team to find him a new apartment. Confirmed with SW that resources were given to him prior to discharging looking for senior housing. Called patient back and states he has the packet and will start calling to procure housing now that he is in a home.
--- NOTE | 2019-11-05 16:22 | CATHLAB ---
[facility] [place] [address] INVASIVE PROCEDURE REPORT Name: JACIEL ANGELES Room #: 212-P DIS IN M.R.#: [id number] Admission: 10/31/19 Attend Phys: Elian Kapadia MD Discharge: 11/03/19 Date of : 59 Report #: [id number] THIS REPORT FOR: cc: Jaciel Galindo MD, Neal A. MD Mancuso, Gerald M. MD [facility] ~ APPROVED REPORT Study performed: 11/02/2019 10:55:46 Patient Details Patient Status: Out-Patient Room #: The patient is a 64 year-old male Event Personnel Lupillo Winn Rcis, Ewa Robles RN RN, Ez Marques RTR Scrub, Ana Ramirez RTR, FACULTY MEMBER, Monitor Procedures Performed Art Access - R femoral artery* Navarro Access - R femoral vein Right and Left Heart Cath Lt Vent/Cors/Grafts [id number] RLLVCORCAB 55923 Initial Mod Sed Same Phys/QHP Gr5y [id number] 38374 Mod Sed Same Phys/QHP Ea [id number] Hemostasis w/ Mynx Hemostasis with Manual pressure Indication Dyspnea, Chest pain Procedure Narrative The Right Groin^ was infiltrated with subcutaneous anesthesia. A PINNACLE 6FR Sheath #[id number] sheath was inserted into the RFA. Coronary angiography was performed using coronary diagnostic catheters. The right coronary system was accessed and visualized with a JR4 catheter. The left coronary system was accessed and visualized with a JL4 catheter. The left ventricle was accessed and visualized with a Pigtail catheter. Left ventricular/Aortic Valve gradient assessed via catheter pullback. Left ventriculogram was performed in 30 degree projection. Closure device was deployed with a 6 Fr MYNXGRIP 6/7F #[id number]. Hemostasis was obtained with manual pressure following sheath removal without any complications. The patient tolerated the procedure well and there were no complications associated with the procedure. There was no hematoma. [facility] [address] [place] [address] INVASIVE PROCEDURE REPORT Name: JACIEL ANGELES MARILIA Room #: 212-P [facility]#: [id number] Admission: 10/31/19 Attend Phys: Elian Kapadia MD Discharge: 11/03/19 Date of : 59 Report #: [id number] Intraoperative Conscious Sedation Sedation start time: 11:17 Case end Time: 12:14 Fluoro Time: 6.51 minutes Dose: DAP 7354.90 cGycm2 644 mGy Contrast Type and Amount: Visipaque 30 ml Hemodynamics The right atrial mean pressure is 12 mmHg. The right ventricular pressure is 41/9 mmHg. The pulmonary artery pressure is 42/18 mmHg with a mean of 28 mmHg. The mean pulmonary capillary wedge pressure is 18 mmHg. The aortic pressure is 141/64 mmHg with a mean of 85 mmHg. The left ventricular pressure is 144/11 mmHg with a mean of mmHg. The left ventricular end diastolic pressure is 22 mmHg. The cardiac output using thermo method is 4.00 L/min. The cardiac index using thermo method is 1.59 L/min/m2. Conclusion #1. Normal left ventricular size with mild inferior lateral hypokinesis EF 50% #2. left main mildly calcified mild distal tapering giving rise to LAD and circumflex #3 the LAD is proximally occluded #4 there is a small ramus branch which has a 70 to 80% eccentric stenosis the circumflex stent occludes #5 the nondominant RCA is occluded #6 there is a ANGELES with a radial jump graft widely patent the ANGELES fills the radial and LAD. A radial jump graft goes to a distal dominant circumflex OM which retrograde fills the more proximal OM branch. #7 successful right heart catheterization with cardiac output by thermodilution. See above hemodynamics. Recommendations and plan: Continue aggressive risk factor modification. Could be some ischemia in the inferior lateral wall based on the retrograde filling of the more proximal OM system but there is no significant myocardium at risk. These arterial grafts noted above are widely patent and briskly filling the predominant Remaining myocardium. No indication for intervention. <ELECTRONICALLY SIGNED> By: Lupillo Winn MD, FACC 11/05/191620 20 20 Lupillo Winn MD, FACC /INF
== END 2019-11-03 13:17 | disposition home or self-care (01) | DRG 291 ==
LOC: ER 00:35 → EROBS 02:59 → 2N 02:59 → EROBS 02:59 → 2N 03:35
PROVIDERS: Emergency Medicine; Nurse Practitioner Adult Health; Nurse Practitioner Family; ADMIT Hospitalist
DX: I13.0 Hypertensive heart and chronic kidney disease with heart failure and stage 1 through stage 4 chronic kidney disease, or unspecified chronic kidney disease (principal); I50.21 Acute systolic (congestive) heart failure; N17.9 Acute kidney failure, unspecified; I48.19 Other persistent atrial fibrillation; E11.22 Type 2 diabetes mellitus with diabetic chronic kidney disease; N18.9 Chronic kidney disease, unspecified; F41.9 Anxiety disorder, unspecified; I25.10 Atherosclerotic heart disease of native coronary artery without angina pectoris; E78.5 Hyperlipidemia, unspecified; E11.51 Type 2 diabetes mellitus with diabetic peripheral angiopathy without gangrene; E11.42 Type 2 diabetes mellitus with diabetic polyneuropathy; F17.210 Nicotine dependence, cigarettes, uncomplicated; F32.9 Major depressive disorder, single episode, unspecified; I42.9 Cardiomyopathy, unspecified; E03.9 Hypothyroidism, unspecified; Z91.14 Patient's other noncompliance with medication regimen; Z90.49 Acquired absence of other specified parts of digestive tract; Z95.1 Presence of aortocoronary bypass graft; Z89.421 Acquired absence of other right toe(s); Z86.73 Personal history of transient ischemic attack (TIA), and cerebral infarction without residual deficits; I25.2 Old myocardial infarction; Z79.01 Long term (current) use of anticoagulants; Z82.49 Family history of ischemic heart disease and other diseases of the circulatory system; Z71.6 Tobacco abuse counseling
CPT/HCPCS: 10081

== ENCOUNTER 2020-01-01 19:55 | Inpatient (IN) | payer OTHER ==
[~2020-01-01] VITALS: Ht 193 cm; Wt 125.6 kg
[~2020-01-01 19:55] MED LIST changes: +COREG6.25 MG PO
[2020-01-01 20:02] VITALS: BP 179/75
[2020-01-01 20:35] LABS: ABSOLUTE NEUTROPHILS 6.5 thou/uL (1.4-8.2); BASOPHILS 0.6 % (0.0-2.0); EOSINOPHILS 1.6 % (0.0-3.0); HEMATOCRIT 39.5 % (42.0-52.0); HEMOGLOBIN 13.2 gm/dL (14.0-18.0); MCH 29.3 pg (26.0-34.0); MCHC 33.5 g/dL (28.0-37.0); MCV 87.4 fL (80.0-100.0); MONOCYTES 6.6 % (1.0-8.0); PLATELET COUNT 319 thou/uL (150-400); POLYS 76.2 % (36.0-66.0); RBC 4.51 mil/uL (4.50-6.00); RDW 15.2 % (10.5-14.5); WBC 8.6 thou/uL (4.0-11.0)
[2020-01-01 20:50] LABS: ANION GAP 6 mmol/L (7-16); BUN 31 mg/dL (7-18); CALCIUM 8.4 mg/dL (8.5-10.1); CHLORIDE 107 mmol/L (98-107); CO2 27 mmol/L (21-32); CREATININE 2.3 mg/dL (0.7-1.3); GLUCOSE 136 mg/dL (74-106); POTASSIUM 3.7 mmol/L (3.5-5.1); SODIUM 140 mmol/L (136-145); TROPONIN-I <0.06 ng/mL (<0.06)
[2020-01-01 20:56] LABS: URINE BILIRUBIN NEGATIVE (Negative); URINE BLOOD 3+ (Negative); URINE CLARITY CLEAR; URINE COLOR YELLOW; URINE GLUCOSE-RANDOM* 1+ (Negative); URINE KETONES NEGATIVE (Negative); URINE LEUKOCYTES-REFLEX NEGATIVE (Negative); URINE NITRITE-REFLEX NEGATIVE (Negative); URINE PROTEIN (DIPSTICK) 3+ (Negative); URINE UROBILINOGEN 0.2 E.U./dl (0.2-1.0)
[2020-01-01 20:56] LABS: APTT 28.4 Seconds (24.5-32.8); PROTIME 9.9 Seconds (9.3-11.4)
[2020-01-01 21:04] LABS: BACTERIA-REFLEX 1-9 Few /HPF (None Seen); CRYSTALS None Seen /LPF (None Seen); HYALINE CASTS 0-3 Few /LPF (None Seen); MUCUS None Seen strn/LPF (None Seen); SQUAMOUS None Seen /LPF (0-3); URINE RBC 3-10 Few /HPF (0-2); URINE WBC-REFLEX 0-5 Rare /HPF (0-5)
[2020-01-02 03:23] VITALS: BP 160/66
[2020-01-02 04:40] VITALS: BP 175/88
--- NOTE | 2020-01-02 06:02 | NUR ---
PT NEW ADMIT AT 0430 THIS MORNING. ALERT AND ORIENTED. ADMITTED FOR ISCHIMIC STROKE. PT DENIES CHEST PAIN, SOB, NAUSEA OR VOMITING. ADMISSION NIH SCORE OF 3. SR , SB ON THE MONITOR. 3L NC O2. PT ORIENTED TO ROOM, CONSENT FORMS SIGNED. ALL OTHER ASSESSMENTS DOCUMENTED.
[2020-01-02 08:00] VITALS: BP 134/101
--- NOTE | 2020-01-02 08:35 | EKG ---
[facility] [place] [address] ELECTROCARDIOGRAM REPORT Name: JACIEL ANGELES Room #: 212-P ADM IN M.R.#: [id number] Admission: 01/02/20 Attend Phys: Jaciel Galindo MD Discharge: Date of : 59 Report #: [id number] THIS REPORT FOR: cc: Jaciel Galindo MD, Neal A. MD Lundgren,Andrew Younger MD [facility] ~ THIS REPORT FOR: //name// [facility] ED Test Date: 2020-01-01 Test Time: 20:08:13 Pat Name: JACIEL ANGELES Department: Room: [facility] Gender: M Bulk Picker: PRATIMA : 1955 Requested By: Joseph Washington Order Number: [id number] MD: Andrew Palumbo Measurements Intervals [place] Rate: 60 P: 20 MI: 175 QRS: 32 QRSD: 108 T: 101 QT: 458 QTc: 458 Interpretive Statements Sinus rhythm Nonspecific ST segment abnormality Compared to ECG 10/31/2019 00:44:25 No significant changes Electronically Signed On 01-02-2020 8:33:04 CDT by Andrew Palumbo [email or web address] <ELECTRONICALLY SIGNED> By: Andrew Palumbo MD, [facility] 01/02/20 0833 07 07 Andrew Palumbo MD, [facility] /EPI
[2020-01-02 12:00] VITALS: BP 144/80
--- NOTE | 2020-01-02 13:36 | NUR ---
Received awake on bed. Due medications given as prescribed, able to swallow meds w/o difficulty. On O2 at 2lpm via nasal cannula. On regular diet- tolerating well; no nausea, no vomiting and no abdominal pain noted. A+Ox4. Om blood sugar monitoring- taken and recorded accordingly, with sliding scale insulin ordered- given as prescribed. Continent of bowel and bladder- able to go to the toilet with standby assist; falls bundle in place. With SL at R AC. Able to sit out on the chair. Assisted in ADLs. NIH checklist done by charge nurse; pt scoring 1. With consult to Gerardo and Rehab- US called in consults. Dr Jorge called back, telephone order made for coagulation work up- Called laboratory to ask assistance in putting orders in since some of them could not be found in [employer]; Lab staff Briseida helped in putting orders in. Pt seen by Dr Galindo- assessed and orders made. Pt scheduled for MRI, pt asking for Valium PO prior to procedure since he has clautrophobia- Dr Galindo informed and orders obtained; coordinated with MRI staff Kristopher as well. Pt may be impulsive to get up at times; falls bundle in place. On heart monitoring- strips attached to chart, SR-SB; no complaints of chest pain, heaviness or crushing sensation. To continue monitoring patient.
--- NOTE | 2020-01-02 16:39 | NUR ---
Chart reviewed and case discussed with the care team. Attempted to contact the pt via his room phone without success. Pt admited for new cva and falls. He has a hx of a cva but has been functioning indep with occasional use of rwalker outside the home. He drove himself to the ER and his truck is in the parking lot. He does have his RW in the truck. He is being seen by therapy today and Rehab medicine. He lives with his ex /son and dtr in law and primarily resides in the basement of the home. There are two steps to enter the home and 12 with a railing down to the basement. 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 OT notes the pt's vision field and balance may be affected. Pt was here in October and was working on locating alternate housing due to drama/stress within the household. Neuro consult is pending. [facility] rehab and therapy to see the pt again tomorrow to make recommendations. Again the pt is anxious to go home but may benefit from some level of rehab. Will reattempt to visit with him tomorrow and discuss dc planning needs.
[2020-01-02 17:35] VITALS: BP 120/62
[2020-01-02 17:54] LABS: CHOLESTEROL 178 mg/dL (<200); HDL CHOLESTEROL 31 mg/dL (>40); LDL CHOLESTEROL 77 mg/dL (<100); TC:HDL 5.7 Ratio (Not establshd); TRIGLYCERIDE 354 mg/dL (<150); VLDL 71 mg/dL (<40)
[2020-01-02 20:28] VITALS: BP 148/60
[2020-01-03 03:14] VITALS: BP 131/61
--- NOTE | 2020-01-03 05:56 | NUR ---
assumed pt care at 1900, pt is awake, alert and oriented, sb on the monitor, assessments as charted, denies pain, medication administered as ordered, rested well, will continue to monitor
[2020-01-03 07:30] VITALS: BP 135/71
[2020-01-03 08:14] LABS: CALCIUM 7.8 mg/dL (8.5-10.1); CREATININE 2.4 mg/dL (0.7-1.3); POTASSIUM 4.3 mmol/L (3.5-5.1)
[2020-01-03 11:35] VITALS: BP 124/68
--- NOTE | 2020-01-03 15:34 | NUR ---
Case discussed with the care team. Pt very groggy this afternoon and unable to work with OT. [facility] acute rehab could accept the pt is medically stable and able to participate in therapy tomorrow. Pt has been wanting to go home;however he is not able to drive and at this time would not be able to care for himself. He has limited support and needs to be indep to return to his prior living situation. The attending will f/u with him about rehab recommendations in the am. [facility] will have a bed available if all agreeable.
[2020-01-03 16:38] VITALS: BP 139/70
[2020-01-03 16:40] VITALS: BP 139/70
--- NOTE | 2020-01-03 18:04 | NUR ---
PT CARE ASSUMED AT 0700. ASSESSMENTS CHARTED. MEDICATION CHARTED. PT HAS BEEN DROWSY ALL DAY. PT STATES HIS BELIEF THAT IT IS RELATED TO VALIUM AND XANAX. DR. ROMAN ORDERED 1400 XANAX WITHELD. WOUND CARE PERFORMED. OXYGENATION VARIES WITH SLEEP PATTERNS. DR PETERS. RYNE STATES REHAB MAY BE NECESSARY BEFORE PT DISCHARGE.
[2020-01-03 18:51] LABS: BE(vivo) -4.9 mmol/L (-2 to +3); HCO3 21.1 mmol/L (22.0-26.0); PCO2 42.3 mmHg (35.0-45.0); PO2 58.2 mmHg (80.0-100.0); pH 7.315 (7.360-7.450)
[2020-01-03 20:39] VITALS: BP 108/72
[2020-01-04 04:01] VITALS: BP 154/85
--- NOTE | 2020-01-04 04:43 | NUR ---
PT CARE ASSUMED AT CHANGE OF SHIFT, PT IS DROWSY, ORIENTEDX4, SB ON THE MONITOR, UP TO THE BATHROOM WITH A WALKER, VSS, PT ON BIPAP, O2 SATS STABLE, DENIES CHEST PAIN, NAUSEA, VOMITING, OR DIZZINESS, ASSESSMENTS CHARTED, SLEEPING IN BED, NO DISTRESS NOTED, WILL CONTINUE TO MONITOR
[2020-01-04 08:00] VITALS: BP 136/58
[2020-01-04 11:30] VITALS: BP 138/57
--- NOTE | 2020-01-04 11:47 | NUR ---
PT CARE ASSUMED AT 0700. ASSESSMENT CHARTED. MEDICATION CHARTED. WOUND CARE PERFORMED. BIPAP AT HS. PT TO BE ADMITTED TO REHAB RM 511. PT TO BE DISCHARGED.
[2020-01-04 12:23] VITALS: BP 138/57
--- NOTE | 2020-01-04 12:31 | NUR ---
Pt is agreeable to 5N acute rehab stay. He indicates his truck (red ocol F`150) is in the parking lot. 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 With pt permission, junior copywriter spoke with [employer] services/[employer] in [place] and they indicate a letter to verify his hospital admission would be good for his file. They are fine with him coming in sometime in January to sign paperwork. Rehab medicine to complete a letter and fax to [phone] Attn Nasim Riojas. Security notified that the pt's truck will be in the ER parking lot ongoing as he does not have anyone to pick it up. The pt indicates his son Mark Lerma can be added to the spokespersons list along with his two sisters;however he does not want them contacted unless it is an emergency. He acknowledges he needs intensive rehab and needs to be indep to return to his prior living situation. He is looking for an sr apt and hopes to move out of his ex 's home in the near future. He is motivated to maintain his indep. He [place] a secondary ins and food stamps;however he had a $300 spend down so he let it lapse. He uses [facility] for his pharmacy and gets coupons so his meds are affordable. He is aware that driving is a future concern. Support provided. All parties updated. dc to 5N after lunch.
--- NOTE | 2020-01-07 18:41 | HC ---
[facility] [place] [address] CONSULTATION Name: JACIEL ANGELES Room #: 212-P [facility] IN M.R.#: [id number] Admission: 01/02/20 Attend Phys: Jaciel Galindo MD Discharge: 01/04/20 Date of : 59 Report #: [id number] THIS REPORT FOR: cc: Jaciel Galindo MD, Neal A. MD Khosla, Parveen K. MD ~ CC: Jaciel Galindo DATE OF SERVICE: 01/02/2020 HISTORY OF PRESENT ILLNESS: This is a 64-year-old male patient who was seen by me for what looks like ataxia. The patient has ambulation difficulty and in fact has fallen down. He also has ophthalmological problem where he looks like he has bilateral ptosis. He says it is all about 2-3 days' duration. I talked to Emergency Room physician and then saw him this morning and multiple times since then. His MRI demonstrated finding consistent with a brainstem stroke. It is mostly in the min brain area. He had left cerebral artery infarct last time when he saw Dr. Cordova and those records were reviewed. His records indicate that the patient had atrial fibrillation and he was started on anticoagulation. It is interesting that the first MRI has missed a stroke and the second MRI has demonstrated a stroke, the best I understand from those records. His ambulation difficulty is pretty significant leading to the fall. REVIEW OF SYSTEMS: Positive for diabetes and amputations. He did have an echocardiogram with a bubble study last time that did show much abnormality. He has admission under Dr. Patel in the past and that has indicated some problem with the heart like congestive heart failure, the best I can understand. This was a relevant 14-point review of system. PAST MEDICAL HISTORY: Positive for stroke in the past. FAMILY HISTORY: Unremarkable. SOCIAL HISTORY: He lives with multiple family members, but was able to take care of himself. PHYSICAL EXAMINATION: His examination indicate he is alert and responsive. His higher function is unremarkable. Cranial nerve examination shows bizarre extraocular movement finding, but he appeared to be weak in all four extremities. His reflexes are diminished and he has virtually no position sense because he could not get it right any time. His vital signs indicated blood pressure 144/80, pulse is 18, temperature is 98. LABORATORY DATA: Lab indicated normal white count. IMPRESSION: Recurrent cerebrovascular accident in spite of being on [facility] [address] [place] [address] CONSULTATION Name: JACIEL NAGELES MARILIA Room #: 212-P [facility] IN .R.#: [id number] Admission: 01/02/20 Attend Phys: Jaciel Galindo MD Discharge: 01/04/20 Date of : 59 Report #: [id number] anticoagulation. RECOMMENDATIONS: Multiple things need to be discussed. His last EKG Indicate that he is in sinus rhythm. He has seen Cardiology in the past and we will consult them so that they can make sure that this patient has a documented atrial fibrillation in the past. If he does have documented atrial fibrillation in the past and he still has CVA in spite of that, I will also think we need to do a CRISTAL in this patient, both to look for patent foramen ovale more closely as well as to rule out any outside chance of endocarditis, but I do not think he has too many predisposing factors for that. Depending upon what they like to do, he can be on combination of aspirin and anticoagulation. He does need some therapy. He has fallen down, but the problem is that he insists that he has to go home tomorrow. 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 With his ambulation being so bad that is noted desirable thing to do, but if he insists on it some of those test may have to be done as an outpatient. Because of his generalized weakness, I will get a cervical spine MRI to make sure there is no etiology there, which is contributing to his symptom. He obviously has neuropathy, but that need to be worked up as an outpatient. Thank you very much for this referral and if you have any question, please feel free to contact me. A total time spent was about 50 minutes and majority of that time was spent counseling and coordinating. <ELECTRONICALLY SIGNED> By: Alli Barnett MD 01/07/20 [id number] Alli Barnett MD /nt
--- NOTE | 2020-01-08 17:23 | HC ---
[facility] [place] [address] CONSULTATION Name: JACIEL ANGELES Room #: 212-P [facility] IN M.R.#: [id number] Admission: 01/02/20 Attend Phys: Jaciel Galindo MD Discharge: 01/04/20 Date of : 59 Report #: [id number] THIS REPORT FOR: cc: Jaciel Galindo MD, Neal A. MD Althoff, Jeffrey R. MD ~ CC: Jaciel Galindo DATE OF SERVICE: 01/03/2020 CHIEF COMPLAINT: Multiple toes ulcerations. HISTORY OF PRESENT ILLNESS: This is a 64-year-old male patient who was admitted to the hospital after coming to the Emergency Department with weakness. He has had decreased balance and apparently fell out of his chair in the garage. He also had some difficulty seeing out of his eye. He is noted to have ulcerations on some of his toes. I have been asked to see him with regard to wound care. The patient is being currently worked up for a possible stroke. ALLERGIES: None. PAST MEDICAL HISTORY: Positive for type 2 diabetes mellitus, previous cholecystectomy, previous right great toe and left first and second toe amputation. Coronary artery disease, status post coronary artery bypass graft. SOCIAL HISTORY: Negative for alcohol use. Positive for smoking cigarettes 4 packs per week for 44 years, currently smokes. MEDICATIONS: Amlodipine, aspirin, potassium, oxygen, carvedilol, apixaban, gabapentin, torsemide, amiodarone, fluoxetine, insulin. REVIEW OF SYSTEMS: CONSTITUTIONAL: The patient denies fever, chills or weight loss. NEUROLOGIC: The patient does have some difficulty with balance and some vision issues in his left eye. EYES: The patient does have some decreased vision in left eye. Denies redness or drainage. ENT: The patient denies earache, nasal drainage, sore throat. CARDIOVASCULAR: The patient denies chest pain, palpitations or diaphoresis. PULMONARY: The patient denies cough or shortness of breath. GASTROINTESTINAL: The patient denies nausea, vomiting, diarrhea or abdominal pain. ORTHOPEDIC: The patient denies pain, swelling of the extremities, but he does have ulcerations on the toes of both feet. Other systems in a 14-point review of systems are negative. [address] [address] CONSULTATION Name: JACIEL ANGELES MARILIA Room #: 212-P [facility] IN [facility].#: [id number] Admission: 01/02/20 Attend Phys: Jaciel Galindo MD Discharge: 01/04/20 Date of : 59 Report #: [id number] PHYSICAL EXAMINATION: VITAL SIGNS: At this time include temperature 36.3, pulse 52, blood pressure 135/71. GENERAL: This is a chronically ill-appearing male patient who appears to be in no distress. HEENT: Head is normocephalic. Nose and throat clear. NECK: Supple. LUNGS: Clear. ABDOMEN: Bowel sounds present. EXTREMITIES: Lower extremities demonstrate a surgically absent left great toe and a surgically absent right first and second toes. He has an abrasion to the dorsal aspect of the right third toe and abrasions to the left second, third and fifth toes. Previous amputation sites appear to be well healed. None of these areas are infected. There is dry, stable crust in place. LABORATORY DATA: Include sodium 140, potassium 4.2, chloride 107, CO2 of 27, BUN 51, creatinine 2.4, glucose 169. White blood cell count 8.6 with hemoglobin of 13.2. CLINICAL IMPRESSION: 1. Abrasions to the right third and fifth toes as well as left second, third and fifth toes. 2. Prior amputation of the right first and second toes related to osteomyelitis and prior amputation of the left first toe related to osteomyelitis. 3. Type 2 diabetes mellitus. 4. History of atrial fibrillation. 5. Congestive heart failure. 6. Chronic kidney disease. 7. Continued tobacco use. RECOMMENDATIONS: At this point in time, we will recommend painting the toe crusts with Betadine and otherwise leave them open to air. Elevate the lower extremities for edema control. Prior amputation sites are well healed and did not require any intervention. His diabetes and AFib are being managed by primary care as well as Cardiology. We have recommended tobacco cessation. I appreciate being asked to see him in consultation. We will continue to follow here in the hospital. <ELECTRONICALLY SIGNED> By: Rickey Ruiz MD 01/08/20 1723 [id number] Rickey Ruiz MD /nt
--- NOTE | 2020-01-14 15:26 | HC ---
[facility] [place] [address] CONSULTATION Name: JACIEL ANGELES Room #: 212-P [facility] IN M.R.#: [id number] Admission: 01/02/20 Attend Phys: Jaciel Galindo MD Discharge: 01/04/20 Date of : 59 Report #: [id number] THIS REPORT FOR: cc: Jaciel Galindo MD, Neal A. MD Smithson, David G. MD ~ CC: Jaciel Galindo DATE OF SERVICE: 01/02/2020 HISTORY OF PRESENT ILLNESS: The patient is a 64-year-old white male who was admitted after having problems with losing his balance for the last several days. He noted episodes of losing his balance and falling. Fell at home the night prior to admission without injury and fell out of a chair earlier in his garage, trying to put his shoes on. He did not hit his head. Also states some difficulty seeing out of the left eye. He was evaluated and MRI did show a small infarct of the left mid brain. We are seeing him in rehabilitation medicine consultation. He denies any problems with slurring of words, word finding difficulties. No dysphagia. PAST MEDICAL HISTORY: Includes diabetes. He had a prior stroke approximately a year ago with some left-sided weakness that gradually resolved. He has a prior history of coronary artery bypass grafting. He had a non-ST elevation myocardial infarction. ALLERGIES: No known drug allergies. 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 HABITS: Current every day smoker, 4 packs per week. He smoked for 44 years. SOCIAL HISTORY: Lives in a house in the basement with his ex- up-stairs. His son and wjqwbchy-tl-aex live in down stairs as well. He did not utilize gait aids, although does have a cane and walker that he had available. REVIEW OF SYSTEMS: No current complaints of chest pain, shortness of breath or abdominal discomfort. PHYSICAL EXAMINATION: GENERAL: A 64-year-old white male, somewhat cantankerous, but does cooperate. VITAL SIGNS: Last recorded temperature is 97, pulse 55, respirations 18, and blood pressure 134/101. Alert, appears to have a left eye exotropia. HEENT: Facies otherwise appeared symmetric. Appears to be a good historian. EXTREMITIES: He has functional range of motion. Strength of both upper and lower extremities. I could not detect any obvious focal weakness. Coordination [facility] [address] [place] [address] CONSULTATION Name: JACIEL ANGELESIN Room #: 212-P [facility] IN M.R.#: [id number] Admission: 01/02/20 Attend Phys: Jaciel Galindo MD Discharge: 01/04/20 Date of : 59 Report #: [id number] appeared to be intact yuovwi-cr-oxcn. He was up in physical therapy and actually was able to sit to stand with min assist and ambulated 200 feet min assist without a gait aid. He went up and down 4 steps, standby assistance. ASSESSMENT: A 64-year-old white male with a small infarct left mid brain. He has a history of diabetes mellitus type 2, hypertension, hyperlipidemia with an old stroke approximately a year ago with good recovery. PLAN: The patient has done quite well in physical therapy with ambulation 200 feet including going up and down 4 steps. He was ambulatory without a gait aid. Would agree that he should be able to return directly home as he further medically stabilizes and would recommend some outpatient physical therapy. He is hoping to be able to leave by tomorrow as he apparently has something going on at the bank. We would not recommend that he drives right post-discharge and he needs to follow up with his primary physician post-discharge. Thank you for asking us to assist in this patient's care. <ELECTRONICALLY SIGNED> By: Reynaldo Lim MD 01/14/20 1526 1227 [id number] Reynaldo Lim MD /[facility]
[2020-02-03] MEDS ORDERED: PHENERGAN 25 MG25 M1 PO (11:21)
[2020-02-03] MEDS ORDERED: NICOTINE TRANSD14 M1 TRANSDERM (11:21)
[2020-02-05] MEDS ORDERED: TRADJENTA5 MG PO (08:36)
[2020-02-05] MEDS ORDERED: NICOTINE TRANSD14 M1 TRANSDERM (08:36)
[2020-02-05] MEDS ORDERED: COLACE100 MG PO (10:18)
[2020-02-05] MEDS ORDERED: MIRALAX119 GM PO (10:18)
[2020-02-05] MEDS ORDERED: CIPRO500 M1 PO (10:20)
== END 2020-01-04 14:29 | DRG 64 ==
LOC: ER 19:55 → EROBS 01-02 02:45 → 2N 01-02 02:45
PROVIDERS: Emergency Medicine; Internal Medicine Hematology & Oncology; Nurse Practitioner Adult Health; ADMIT Family Medicine; ATTEND Family Medicine
PROC: 5A09357 Assistance with Respiratory Ventilation, Less than 24 Consecutive Hours, Continuous Positive Airway Pressure (ICD-10-PCS; principal; 2020-01-03)
PROC: 5A09357 Assistance with Respiratory Ventilation, Less than 24 Consecutive Hours, Continuous Positive Airway Pressure (ICD-10-PCS; 2020-01-04)
DX: I63.89 Other cerebral infarction (principal); J96.01 Acute respiratory failure with hypoxia; N17.9 Acute kidney failure, unspecified; I48.21 Permanent atrial fibrillation; E11.9 Type 2 diabetes mellitus without complications; E78.5 Hyperlipidemia, unspecified; I25.10 Atherosclerotic heart disease of native coronary artery without angina pectoris; S90.414A Abrasion, right lesser toe(s), initial encounter; I50.9 Heart failure, unspecified; E11.22 Type 2 diabetes mellitus with diabetic chronic kidney disease; N18.9 Chronic kidney disease, unspecified; F17.210 Nicotine dependence, cigarettes, uncomplicated; I11.0 Hypertensive heart disease with heart failure; F32.9 Major depressive disorder, single episode, unspecified; E11.51 Type 2 diabetes mellitus with diabetic peripheral angiopathy without gangrene; S90.415A Abrasion, left lesser toe(s), initial encounter; Z79.01 Long term (current) use of anticoagulants; Z90.49 Acquired absence of other specified parts of digestive tract; Z89.411 Acquired absence of right great toe; Z95.1 Presence of aortocoronary bypass graft; Z79.82 Long term (current) use of aspirin; Z82.49 Family history of ischemic heart disease and other diseases of the circulatory system; Z89.422 Acquired absence of other left toe(s); W18.39XA Other fall on same level, initial encounter; Y93.89 Activity, other specified; Y92.89 Other specified places as the place of occurrence of the external cause; Y99.8 Other external cause status
CPT/HCPCS: 10081

== ENCOUNTER 2020-01-04 11:56 | Inpatient (IN) | payer OTHER ==
[~2020-01-04] VITALS: Ht 175.3 cm; Wt 140.6 kg
[2020-01-04 15:39] VITALS: BP 123/67
--- NOTE | 2020-01-04 17:58 | NUR ---
PT ADMITED TO ROOM 511 FROM CCU. PT HAS HX OF FALL COUPLE DAYS AGO. DX WITH CVA. HAS LEFT SIDE WEAKNESS FROM THE LAST STROKE.PT IS HERE FOR REHAB HAS BALANCE DEFICITS. PATIENT IS ALERT AND ORIENTED X4, ABLE TO VOICE HIS NEEDS. REASSESSMENT PER CHART. BS PRESENT LAST BM WAS 2 DAYS AGO. PT HAS SLEEP APNEA. USES BIPAP AT NIGHT. SAT 92-94% ON RA.PT HAS LEFT GREAT TOE AMBUTAION, AND RIGHT GREAT TOE AND NEXT TOE WERE AMBUTATED. HAS SOME SORES ON BOTH FEET, PAINTING WITH BETADINE. HAS RIGHT KNEE HAS OLD LACERATION. WOUND PICTURES TAKEN. WOUND CARE CONSULT. FAXED ADMISSION MEDS TO PHARMACY. CONSULT DOCTORS WERE NOTIFIED. FALL SAFETY PROTOCOLS IN PLACE. WILL GET PT/OT/ST CHRIS IN AM. OFFERED SUPPORTIVE CARE. ENCOURAGED PT TO VOICE HIS NEEDS. PT HAS GOOD APPETITE, ATE ALL HIS FOOD, BUT COMPLAIN FOOD IS NOT GOOD. PT IS ON ACHS. BS 140. VSS ON RA. DISCUSSED WITH PT ABOUT REHAB SCHEDULE, PT SIGNED CONSENT. UP WITH WALKER TO BATHROOM. CONT B&B, REPORTS LAST BM WAS 2 DAYS AGO. PT SAID I DON'T WANT OXYCODONE UNLESS I ASK. WILL GIVE REPORT TO NIGHT NURSE TO CONTINUE TO MONITOR. PT LIVES AT HIS EX 'S BASEMENT WITH HIS SON AND HIS WITH STEPS TO BASEMENT. 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 DENIES PAIN, SOB, N/V. WILL CONTINUE TO MONITOR.
[2020-01-04 20:25] VITALS: BP 140/68
--- NOTE | 2020-01-05 02:47 | NUR ---
PATIENT ALERT AND ORIENTED X4. UP WITH WALKER AND GAIT BELT TO BATHROOM SEVERAL TIMES DURING THE NIGHT. GIVEN SCHEDULED XANAX, HOWEVER, PATIENT REMAINS ANXIOUS. COOPERATIVE WITH CARE. BS MONITORED PER ORDER. WILL MONITOR.
[2020-01-05 06:10] LABS: HEMATOCRIT 37.3 % (42.0-52.0); HEMOGLOBIN 12.1 gm/dL (14.0-18.0); MCH 28.8 pg (26.0-34.0); MCHC 32.6 g/dL (28.0-37.0); MCV 88.3 fL (80.0-100.0); RBC 4.22 mil/uL (4.50-6.00); RDW 15.5 % (10.5-14.5); WBC 8.7 thou/uL (4.0-11.0)
[2020-01-05 06:32] LABS: CALCIUM 7.8 mg/dL (8.5-10.1); CREATININE 2.8 mg/dL (0.7-1.3); MAGNESIUM 2.2 mg/dL (1.8-2.4); POTASSIUM 5.8 mmol/L (3.5-5.1)
[2020-01-05 07:30] VITALS: BP 121/61
--- NOTE | 2020-01-05 08:47 | NUR ---
ASSUME PT CARE AT 0700. REPORTS DIDN'T SLEEP GOOD LAST NIGHT. PT DIDN'T USE BIPAP. PT TOOK XANAX LAST NIGHT. VERY DROWSY THIS AM. DESAT 87% ON RA. 2L OF OXYGEN APPLIED SAT 92% BUT VERY HARD TO AWAKE. INCREASE OXGYGEN TO 6L. PT IS MORE ALERT AND EATING BREAKFAST NOW. LABS REVIEWED K 5.8, CREATINE 2.8,ENCOURAGE PT TO DRINK MORE FLUID. HELD POTASSIUM SCHEDULE THIS AM. BS 144, GAVE 60 UNIT OF LANTUS. PT ATE BIG BREAKFAST. PT DENIES PAIN. HELD OXGYCODONE THIS AM. DISCUSSED WITH PT ABOUT CARE PLAN. PT WANTS SOMETHING ELSE FOR SLEEP. PT OK TO BE OFF XANAX AND OXYCODONE. OFFERED SUPPORTIVE CARE. REASSESSMENT PER CHART. PT IS STABLE NOW. WILL DISCUSS WITH HOSPITALIST TO ADJUST HIS MEDS. FALL PRECAUTION IN PLACE. CALL LIGHT WITHIN REACH. WILL CONTINUE TO MONITOR.
[2020-01-05 15:38] LABS: CALCIUM 7.9 mg/dL (8.5-10.1); POTASSIUM 5.3 mmol/L (3.5-5.1)
[2020-01-05 20:17] VITALS: BP 124/59
--- NOTE | 2020-01-06 04:25 | NUR ---
ASSESSMENT: PT REMAIN ALERT AND ORIENT TIMES THREE. AT THE START OF THE SHIFT PT WAS VERY DROWSY AND DID NOT WANT TO READILY COOPERATE. AT APPROXIMATELY 0300 PT REQUESTED TO SAT IN THE CHAIR. PT WAS LOT MORE ALERT AND AWAKE. PT REQUESTED A SNACK AND WATCHED TV OR GOT ON HIS PERSONAL COMPUTER. VSS, AFEBRILE. IVF INFUSING WITHOUT DIFFICULTY. SBA TO TO BR TIMES TWO. ONE BM THIS SHIFT. TOLERATED BIPAP FOR APPROXIMATELY 4 HRS DURING THE NIGHT OTHERWISE 2 L PER NC WITH SATS 95-98%. SLOW PROGRESS TOWARDS DC GOALS. WILL CONTINUE TO MONITOR.
[2020-01-06 05:51] LABS: HEMATOCRIT 33.7 % (42.0-52.0); HEMOGLOBIN 10.9 gm/dL (14.0-18.0); MCH 29.1 pg (26.0-34.0); MCHC 32.4 g/dL (28.0-37.0); MCV 89.6 fL (80.0-100.0); RBC 3.76 mil/uL (4.50-6.00); RDW 15.5 % (10.5-14.5); WBC 8.7 thou/uL (4.0-11.0)
[2020-01-06 06:10] LABS: CALCIUM 7.7 mg/dL (8.5-10.1); CREATININE 2.7 mg/dL (0.7-1.3); MAGNESIUM 2.2 mg/dL (1.8-2.4)
[2020-01-06 06:21] LABS: POTASSIUM 5.3 mmol/L (3.5-5.1)
[2020-01-06 07:30] VITALS: BP 146/64
--- NOTE | 2020-01-06 15:40 | NUR ---
ASSUMED CARE OF PT AT 0700. PT IS A&OX4. BRADYCARDIA NOTED IN AM, HR 50-54, AMLODIPINE, AMIODORONE, AND CARVEDILOL. PT DENIES LIGHT-HEADEDNESS, NAUSEA, CHEST PAIN, OR CONFUSION. PT REPORTS DISCOMFORT TO COCCYX WHEN SITTING IN RECLINER. PT EDUCATED AND ENCOURAGED TO REPOSITION, BUT WAS NONCOMPLIANT WITH REPOSITIONING. WAFFLE CUSHION ORDERED TO ATTEMPT TO OFF LOAD PRESSURE. REDNESS NOTED TO COCCYX, BLANCHABLE. ACCU CHECKS ACHS AND MANAGED WITH PO MEDCIAITONS AND INSULIN PER ORDERS. ONETIME ORDER OF SODIUM POLYSTYRENE SULFONATE OBTAINED FOR HYPERKALEMIA, DENIES INCREASED WEAKNESS, NUMBNESS OR TINGLING. HR BRADYCARDIC/REGULAR, LUNG SOUNDS DIMINISHED, BOWEL SOUNDS ACTIVE. FALL PRECAUTIONS IN PLACE AND NURSING WILL CONTINUE TO MONITOR.
[2020-01-06 19:50] VITALS: BP 170/101
[2020-01-06 21:55] VITALS: BP 171/75
[2020-01-06 23:12] VITALS: BP 168/57
--- NOTE | 2020-01-07 00:11 | NUR ---
PT DROWSY, ORIENTED X 4. SLEEPING IN RECLINER. IV INFUSING ORDERED. BLOOD PRESSURE 170/101 AT START OF SHIFT. RECHECKED AT 2155 AND IT WAS 171/75. EDS ROMEO NOTIFIED WITH ORDERS RECEIVED. HYDRALAZINE GIVEN ORDERED. BP 168/57 AT 2310. CPAP ON DURING THE NIGHT. PT DENIES PAIN OR DISCOMFORT. CHAIR ALARM ON FOR SAFETY. PT APPEARS TO BE SLEEPING ON HOURLY ROUNDS.
[2020-01-07 04:44] LABS: HEMATOCRIT 35.8 % (42.0-52.0); HEMOGLOBIN 11.7 gm/dL (14.0-18.0); MCHC 32.6 g/dL (28.0-37.0); MCV 89.1 fL (80.0-100.0); RBC 4.02 mil/uL (4.50-6.00); RDW 15.6 % (10.5-14.5); WBC 8.7 thou/uL (4.0-11.0)
[2020-01-07 04:51] LABS: CREATININE 2.2 mg/dL (0.7-1.3); POTASSIUM 4.5 mmol/L (3.5-5.1)
[2020-01-07 07:00] VITALS: BP 163/75
--- NOTE | 2020-01-07 13:27 | NUR ---
Nutrition: pt admitted with Left brain infarct and seen due to pt request related to "unhappy with foodservice". Passed on pt comments to FS director. Pt voiced he likes the food and is able to order meals. Eating well. No significant weight changes. Hx DM and only on heart healthy diet. BG 203-232. On SSI, linagliption. RD would rec adding carb controlled to diet order. Also BMI 41.5, class [address] as low nutrition risk for now.
--- NOTE | 2020-01-07 15:28 | NUR ---
chart review. cm spoke with sunni via phone call. he is a & o with some forgetfulness. able to make his needs know. intro to cm, dcp, team meeting and transition of care ie hh. sunni reported " live alone in house, manage own medication, have fww if needed. 2 steps to enter home and [address] vehicle. drove here and truck in parking lot."/sunni. will cont following as needed for dc needs.
[2020-01-07 19:00] VITALS: BP 163/59
--- NOTE | 2020-01-07 19:34 | NUR ---
ASSUMED CARE OF PT AT 0700. PT IS A&OX4 AND VITAL SIGNS ARE STABLE. PT DENIES PAIN, BUT DOES REPORT SOME TIGHTNESS IN BLE AND ABDOMEN. GENERALIZED EDEMA NOTED, IV FLUIDS CONTINUED, DIURETIC ADDED. NEW IV TO RIGHT HAND STARTED BY IV TEAM, FLUSHES APPROPRIATELY. ACCU CHECKS ACHS, MANAGED WITH PO MEDICATIONS AND INSULIN PER ORDERS. PT NON-COMPLIANT WITH DIETARY RECOMMENDATIONS. PT REPORTS NOT UNDERSTANDING DIABETES MANAGEMENT, PT ENCOURAGED TO PARTICIPATE IN DIABETES EDUCATION BUT IS NOT RECEPTIVE AT THIS TIME, NURSING WILL CONTINUE TO CONTINUE OFFERING EDUCATION. PT MAKING INAPPROPRIATE COMMENTS TO SOME STAFF MEMBERS AND NURSE DISCUSSED CONCERNS WITH PT WHO STATES THAT HE WILL ATTEMPT TO REFRAIN FROM MAKING FURTER COMMENTS AND WILL APPOLOGIZE TO STAFF WHO WERE OFFENDED. FALL PRECAUTIONS IN PLACE AND NURSING WILL CONTINUE TO MONITOR.
--- NOTE | 2020-01-08 01:49 | NUR ---
PT ASSESSMENT COMPLETED AND VSS. MEDS GIVEN ORDERED AND WELL TOLERATED. FALL PRECAUTIONS IN PLACE. IVF RUNNING. BIPAP ON AT HS. UP TO THE BATHROOM WITH ASST/GAIT/WALKER. STEADY. BM AT HS. PT REFUSED TO SLEEP IN HIS BED AND SAYS THAT HE NEEDED TO SLEEP IN THE CHAIR. SKIN ON BOTTOM WNL. SLEEPING WELL. WILL CONTINUE TO MONITOR FREQUENTLY.
[2020-01-08 07:10] VITALS: BP 164/64
[2020-01-08 08:20] VITALS: BP 150/73
--- NOTE | 2020-01-08 11:24 | NUR ---
hh list choices provided to pt by bedside staff. cm placed vendor form on pt chart.
--- NOTE | 2020-01-08 11:31 | HC ---
[facility] [place] [address] CONSULTATION Name: JACIEL ANGELES Room #: 511-P ADM IN M.R.#: [id number] Admission: 01/04/20 Attend Phys: Reynaldo Lim MD Discharge: Date of : 59 Report #: [id number] THIS REPORT FOR: cc: Jaciel Galindo MD, Neal A. MD Al-Mubaslat, Ahmad MD ~ CC: Reynaldo Galindo DATE OF SERVICE: 01/07/2020 ENDOCRINE CONSULTATION NOTE CONSULTING PHYSICIAN: Reynaldo Lim MD REASON FOR CONSULTATION: Type 2 diabetes mellitus. HISTORY OF PRESENT ILLNESS: This is a 64-year-old male patient whose medical background is significant for multiple medical issues including type 2 diabetes mellitus, coronary artery disease, chronic kidney disease, hyperlipidemia as well as atrial fibrillation. Significantly, the patient was admitted to [facility] earlier due to the issue of stroke where he was managed for that issue as well as for atrial fibrillation. The patient is currently at the rehab unit for physical therapy and occupational therapy. Again, the patient is known to have type 2 diabetes mellitus and has been so for over 25 years. The patient is maintained on Lantus insulin 60 units daily at home. He acknowledges that he does not monitor his blood glucose values whatsoever at home, but does not believe that he is open to hypoglycemia in a significant or frequent manner. He believes that he has diabetic retinopathy as well as peripheral diabetic neuropathy affecting both hands and both feet. He could not shed more light on the details of his chronic kidney disease. The patient is known to have coronary artery disease and status post CABG in 2017. He is also known to have hypertension and hyperlipidemia and is typically treated with atorvastatin 80 mg at home for hyperlipidemia and with torsemide, amlodipine and carvedilol for hypertension. REVIEW OF SYSTEMS: CONSTITUTIONAL: Fatigue, tiredness, but not fever or chills or significant body weight changes. HEENT: Negative for sore throat, sinus pain, ear drainage. PULMONARY: Noted for occasional shortness of breath, intermittent cough, but no hemoptysis. The patient has baseline issues with obstructive sleep apnea. Cardiology noted for baseline issues with coronary artery disease and atrial [address] [address] CONSULTATION Name: JACIEL ANGELES Room #: 511-P [facility] IN .R.#: [id number] Admission: 01/04/20 Attend Phys: Reynaldo Lim MD Discharge: Date of : 59 Report #: [id number] fibrillation. He has intermittent palpitations, dyspnea on exertion, but not chest pain. GASTROINTESTINAL: Abdominal discomfort, occasional nausea, but no vomiting or significant changes in bowel movement frequency. NEUROLOGY: The patient has baseline peripheral diabetic neuropathy affecting both hands and feet. He was subjected to a recent stroke as noted above. No active seizures. UROLOGY: Negative for dysuria, hematuria, or incontinence. SKIN: Negative for rash, ulceration or other significant issues. PSYCHIATRIC: Negative for delusions, hallucinations. Otherwise, his review of systems noncontributory other than those mentioned in HPI. PAST MEDICAL HISTORY: 1. Type 2 diabetes mellitus. 2. Hypertension. 3. Hyperlipidemia. 4. Coronary artery disease, status post coronary artery bypass graft in 2017. 5. Chronic kidney disease. 6. Obstructive sleep apnea. 7. Peripheral diabetic neuropathy. 8. Diabetic retinopathy. 9. Osteoarthritis. 10. Depression. 11. Peripheral vascular disease. 12. Active issues with metabolic encephalopathy. PAST SURGICAL HISTORY: Noted for right great and second toe amputations, cholecystectomy and tonsillectomy. FAMILY HISTORY: Noted for coronary artery disease. ALLERGIES: No known drug allergies. SOCIAL HISTORY: Denies the active use of tobacco or alcohol or illicit drugs. PHYSICAL EXAMINATION: GENERAL: Pleasant male patient who is not in apparent distress, sitting upright in his wheelchair, not in apparent pain or distress. VITAL SIGNS: Blood pressure is 163/75 mmHg, heart rate is 58 beats per minute, respiration is 18 per minute, temperature 36.7 degree Celsius. CONSTITUTIONAL: The patient is sitting upright in his wheelchair, appears relatively comfortable, not in apparent distress. HEENT: Anicteric sclerae. Intact extraocular motions. NECK: Supple, without JVD or thyromegaly. CHEST: Noted for moderate entry bilaterally with scattered [place] [address] CONSULTATION Name: JACIEL ANGELES Room #: 511-P [facility] IN M.R.#: [id number] Admission: 01/04/20 Attend Phys: Reynaldo Lim MD Discharge: Date of : 59 Report #: [id number] HEART: Regular rate and rhythm without murmurs or gallops. ABDOMEN: Soft, lax, no tenderness, no guarding, active bowel sounds. EXTREMITIES: Lower extremity exam is noted for trace edema bilaterally. NEUROLOGIC: Awake, alert and oriented to time, place and person. The remainder of his examination is noted for bilateral upper extremity weakness. He is in a wheelchair and unable to assess his neurological examination or status fully. PSYCHIATRIC: Pleasant, interactive. Normal mood and affect. Normal thought process. LABORATORY RESULTS: Blood glucose values during his hospital stay so far have ranged between 144 and 232 mg/dL mostly in the upper 100s and lower 200 mg/dL range over the past few days. Sodium is 142, potassium 4.5, chloride 110, CO2 of 26, anion gap 6, BUN 60, creatinine is 2.2. Over the past several days, he had ranged between 2.1 and 3.0. His baseline was more towards a 1.1 range. AST 21, amylase 30, lipase 90, total bilirubin 0.4, calcium 8.0, phosphorus 4.6, magnesium 2.0, alkaline phosphatase 124, ALT 17, total protein 6.0, albumin 1.9, eGFR 30. Lactic acid 1.4. Troponin is negative. Total cholesterol 178, triglycerides 354, HDL 31, LDL 77. BNP 2434. INR 1.0. White blood count 8.7, hemoglobin 11.7, hematocrit 35.8, platelets 253. Hemoglobin A1c was 9.7 on 10/31/2019. TSH was 5.514 on 10/31/2019. Radiology reports have been reviewed. The patient had a carotid arterial ultrasound, which was noted for mild bilateral atherosclerotic plaquing without hemodynamically significant stenosis estimated to be at less than 40% stenosis. An MRI of the cervical spine was done and was noted for mostly degenerative disk disease. Had MRI done on 01/02/2020 was noted for small linear focus along the left ventral margin of the cerebral aqueduct at the midbrain consistent with a small infarct as well as gliosis at the side of old infarcts, but no evidence of other new or acute intracranial processes. ASSESSMENT AND PLAN: 1. Type 2 diabetes mellitus. As noted above, the patient has had longstanding type 2 diabetes mellitus. His baseline hemoglobin A1c has been reflective of inadequate control. He does not have blood glucose data at home, whatsoever. His blood glucose levels during his hospital stay so far have been over the desired target range of 140-180 mg/dL. That said, and while the patient continues to be on Lantus insulin 60 units daily, I will add Tradjenta 5 mg daily while maintaining support with Humalog supplemental scale at low intensity and monitoring his blood glucose values a.c. and at bedtime to help adjust his therapeutic regimen further as needed. The patient's level of renal insufficiency is prohibitive of the use of metformin as well as SGLT2 inhibitors. If further intervention is needed, it might be best done in the form of prandial insulin coverage. 2. Diabetic peripheral neuropathy. This has been a longstanding issue for this patient and he is maintained on gabapentin therapy at 300 mg t.i.d. with [address] [address] CONSULTATION Name: JACIEL ANGELES Room #: 511-P [facility] IN .R.#: [id number] Admission: 01/04/20 Attend Phys: Reynaldo Lim MD Discharge: Date of : 59 Report #: [id number] adequate control, he is to continue with the same. 3. Hyperlipidemia. The patient is currently on atorvastatin therapy and tolerates it well, he is to continue with the same. I stressed the importance of long-term adequate control of lipid parameters in the setting of established cardiovascular disease in a diabetic patient. 4. Hypertension. The patient's level of blood pressure control is not what would be considered ideal in a typical state. However, in the wake of his recent cerebrovascular accident event, I will defer the tightening of blood pressure parameters to the primary hospital team when clinically appropriate. In the meantime, he is to continue with the current regimen. 5. Renal insufficiency. This appears to be along the lines of acute renal insufficiency on top of chronic kidney disease. 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 6. Hypothyroidism. The patient had a TSH value that is slightly above 5 over 2 months ago. This could be consistent with subclinical hypothyroidism. I would like to revisit this issue by checking a TSH and free T4 levels to further investigate his current status and therapeutic needs. I have reviewed the patient's clinical care notes past and present as well as laboratory data, radiology data, and other pertinent clinical information for over 35 minutes in addition to my [id number] encounter with the patient. I certainly appreciate this consultation by Dr. Lim. <ELECTRONICALLY SIGNED> By: Nicole Garcia MD 01/08/20 1131 [id number] Nicole Garcia MD /nt
--- NOTE | 2020-01-08 16:47 | NUR ---
ASSUMED CARE OF PT AT 0700. PT IS A&OX4 AND VITAL SIGNS ARE STABLE. ACCU CHECKS ACHS AND MANAGED WITH PO MEDICAITONS AND INSULIN PER ORDERS. IV TO RIGHT HAND, SITE WNL, PATENT AND INFUSING FLUIDS PER ORDERS. PT HAS INCREASED GENERALIZED EDEMA NOTED, ADDRESSED WITH PROVIDER. HR REGULAR, LUNG SOUNDS CLEAR, BOWEL SOUNDS ACTIVE. PT PARTICIPATED IN THERAPIES. FALL PRECAUTIONS IN PLACE AND NURSING WILL CONTINUE TO MONITOR.
[2020-01-08 19:15] VITALS: BP 170/81
[2020-01-08 22:00] VITALS: BP 124/55
--- NOTE | 2020-01-09 01:16 | NUR ---
PT ALERT AND ORIENTED X 4. AMB TO BR WITH WALKER AND ASSIST X 1. IV INFUSING ORDERED. BP ELEVATED 170/81 AT START OF SHIFT. RECHECKED AT 2200 AND IT WAS 124/55. PT DENIES PAIN OR DISCOMFORT. SLEEPS IN RECLINER. CHAIR ALARM ON FOR SAFETY. PT AWAKE USING COMPUTER MOST OF NIGHT.
[2020-01-09 05:32] LABS: ABSOLUTE NEUTROPHILS 6.6 thou/uL (1.4-8.2); BASOPHILS 0.7 % (0.0-2.0); EOSINOPHILS 2.1 % (0.0-3.0); HEMATOCRIT 34.3 % (42.0-52.0); HEMOGLOBIN 11.3 gm/dL (14.0-18.0); MCH 29.4 pg (26.0-34.0); MCHC 32.9 g/dL (28.0-37.0); MCV 89.4 fL (80.0-100.0); MONOCYTES 9.7 % (1.0-8.0); PLATELET COUNT 211 thou/uL (150-400); POLYS 76.5 % (36.0-66.0); RBC 3.84 mil/uL (4.50-6.00); RDW 15.7 % (10.5-14.5); WBC 8.6 thou/uL (4.0-11.0)
[2020-01-09 05:50] LABS: CREATININE 2.1 mg/dL (0.7-1.3); MAGNESIUM 1.9 mg/dL (1.8-2.4); POTASSIUM 5.2 mmol/L (3.5-5.1)
[2020-01-09 06:34] VITALS: BP 198/85
[2020-01-09 07:20] VITALS: BP 163/81
[2020-01-09 07:32] VITALS: BP 163/81
--- NOTE | 2020-01-09 11:01 | NUR ---
ASSUMED CARE OF PT AT 0700. NIGHT NURSE SAID PT REFUSES BIPAP LAST NIGHT. O2 SAT 95% ON RA. PT IS A&OX4 AND VITAL SIGNS ARE STABLE. ACCU CHECKS ACHS AND MANAGED WITH PO MEDICAITONS AND INSULIN PER ORDERS. IV TO RIGHT HAND, PATENT AND INFUSING FLUIDS PER ORDERS. B/P WAS 198/85 ON IV FLUID FOR HIGH CREATINE. CREATINE 2.1 THIS AM. NOTIFIED SUN AND OBTAINED ORDER TO HOLD IV FLUID NOW. IV REMOVED WILL INSERT NEW ONE NEED. PT HAS INCREASED GENERALIZED EDEMA NOTED, ADDRESSED WITH PROVIDER. ENCOURAGE PT TO ELEVATE BLE WHEN SITTING. OT GAVE PT SHOWER THIS AM. NOTED NEW SMALL LACERATION ON RIGHT BUTTOCK 1X1CM. PICTURE TAKEN APPLIED NICKIE, HAS CHAIR CUSHION FOR PT. ENCOURAGED PT TO CHANGE POSITION FREQUENTLY. PT UP TO BATHROOM DURING DAY. HAD BM THIS AM. HR REGULAR, LUNG SOUNDS CLEAR, BOWEL SOUNDS ACTIVE. PT PARTICIPATED IN THERAPIES. OFFERED SUPPORTIVE CARE. FALL PRECAUTIONS IN PLACE AND NURSING WILL CONTINUE TO MONITOR.
--- NOTE | 2020-01-09 14:33 | NUR ---
FAXED REFERRAL TO [facility] SPOKE WITH FELA IN INTAKE THEY ARE NOT COVERING NUNO PEREZ.
--- NOTE | 2020-01-09 15:53 | NUR ---
FAXED REFERRAL TO [facility] SPOKE WITH KESHIA IN INTAKE AND SHE RECEIVED REFERRAL AND WILL ACCEPT AT [place] 01/16.
[2020-01-09 15:55] VITALS: BP 163/81
[2020-01-09 18:55] VITALS: BP 148/72
--- NOTE | 2020-01-09 21:43 | NUR ---
PT WAS ASLEEP AT 9 PM. WAITED. ENTERED ROOM AND PT IMMEDIATELY ASKED FOR HIS MEDS AND SHOWED STAFF THE LIST OF 9 PM MEDS.
--- NOTE | 2020-01-10 00:21 | NUR ---
PT ASSESSMENT COMPLETED AND VSS. MEDS GIVEN ORDERED AND WELL TOLERATED. FALL PRECAUTIONS IN PLACE. UP TO THE BATHROOM WITH ASST/GAIT/WALKER. SLIGHTLY UNSTEADY ONE TIME. ZGUARD APPLIED TO BOTTOM AND FUNGAL POWER TO GROIN. BIPAP ON. SLEEPING WELL. WILL CONTINUE TO MONITOR FREQUENTLY.
[2020-01-10 07:00] VITALS: BP 126/67
--- NOTE | 2020-01-10 10:41 | NUR ---
ASSUMED CARE AT 0700. PATIENT IS ALERT AND ORIENTEDX4. PATIENT HAS LEFT SIDED WEAKNESS. PATIENT IS UP WITH ASSIST OF 1 STAFF AND GAIT BELT AND WALKER TO AMBULATE TO THE BATHROOM. NYSTATIN POWDER UNDER LEFT ABD FOLD. LUNGS ARE DEMINISHED. UP IN THE CHAIR FOR MEALS. FALL AND SAFETY PROTOCOLS IN PLACE. DENIES PAIN AT THIS TIME. CONTINUES TO PROGRESS TOWARDS D/C GOALS. WILL CONTINUE TO MONITER.
[2020-01-10 20:00] VITALS: BP 142/57
--- NOTE | 2020-01-11 01:07 | NUR ---
PT ALERT AND ORIENTED X 4. AMB TO BR WITH WALKER AND ASSIST X 1. PT STATED HE GOT HIMSELF UP TO BATHROOM ONCE THIS EVENING. CHAIR ALARM DID NOT GO OFF. PT INSTRUCTED TO CALL FOR ASSISTANCE WHEN GETTING UP. CHAIR ALARM FUNCTIONING WHEN HE WENT TO BATHROOM AROUND MIDNIGHT. BIPAP ON DURING THE NIGHT. XANAX GIVEN AT 0010 PER PT REQUEST FOR ANXIETY. PT VERY IRRITABLE. STATED HE NEEDS A CIGARETTE. PT DID CALL FOR 2100 MEDS APPROPRIATELY. CHAIR ALARM ON FOR SAFETY. PT CHECKED ON HOURLY ROUNDS.
[2020-01-11 05:29] LABS: ABSOLUTE NEUTROPHILS 5.1 thou/uL (1.4-8.2); EOSINOPHILS 2.6 % (0.0-3.0); HEMOGLOBIN 10.6 gm/dL (14.0-18.0); LYMPHOCYTES 15.5 % (24.0-44.0); MCH 29.3 pg (26.0-34.0); MCHC 33.2 g/dL (28.0-37.0); MCV 88.2 fL (80.0-100.0); MONOCYTES 8.7 % (1.0-8.0); PLATELET COUNT 199 thou/uL (150-400); POLYS 72.2 % (36.0-66.0); RBC 3.63 mil/uL (4.50-6.00); RDW 15.6 % (10.5-14.5)
[2020-01-11 07:13] LABS: ALBUMIN 1.7 g/dL (3.4-5.0); CALCIUM 8.3 mg/dL (8.5-10.1); CREATININE 2.3 mg/dL (0.7-1.3); MAGNESIUM 2.2 mg/dL (1.8-2.4); PHOSPHORUS 5.2 mg/dL (2.5-4.9); POTASSIUM 5.4 mmol/L (3.5-5.1); TOTAL BILIRUBIN 0.2 mg/dL (0.2-1.0); TOTAL PROTEIN 5.5 g/dL (6.4-8.2)
[2020-01-11 08:00] VITALS: BP 155/66
[2020-01-11 12:03] LABS: URINE BILIRUBIN NEGATIVE (Negative); URINE BLOOD 1+ (Negative); URINE CLARITY CLEAR; URINE COLOR YELLOW; URINE GLUCOSE-RANDOM* TRACE (Negative); URINE KETONES NEGATIVE (Negative); URINE LEUKOCYTES NEGATIVE (Negative); URINE NITRITE NEGATIVE (Negative); URINE PROTEIN (DIPSTICK) 3+ (Negative); URINE UROBILINOGEN 0.2 E.U./dl (0.2-1.0)
[2020-01-11 13:03] LABS: CASTS None Seen /LPF (None Seen); SQUAMOUS 0-3 Few /LPF (0-3)
[2020-01-11 13:04] LABS: BACTERIA None Seen /HPF (None Seen); CRYSTALS None Seen /LPF (None Seen); URINE RBC 0-2 Rare /HPF (0-2); URINE WBC 0-5 Rare /HPF (0-5)
--- NOTE | 2020-01-11 13:12 | NUR ---
ASSUMED CARE AT 0700. PATIENT IS ALERT AND ORIENTED X4. PATIENT ORTEGA'S, ENTRY LEVEL BUSINESS ANALYST ARE EQUAL. LUNGS AR CLEAR AND DEMINISHED. ABD IS SOFT WITH BSX4. UP IN CHAIR FOR MEALS. VOIDING JERSON COLORED URINE. URINE SPECIMEN SENT TO LAB. DRESSINGS CHANGED TO RIGHT KNEE AFTER PAINTING WITH BETADINE. TOES PAINTED WITH BETADINE S.L. STARTED IN PATIENTS LEFT HAND WITH 22 GA JELCO. PATIENT TOLERATED PROCEDURE WELL. IV ALBUMIN STARTED. DOWN TO RADIOLOGY FOR SONOGRAM VIA W/C. FALL AND SAFETY PROTOCOLS IN PLACE. DENIES PAIN AT THIS TIME. CONTINUES TO PROGRESS TOWARDS D/C GOALS. WILL CONTINUE TO MONITER.
[2020-01-11 19:32] VITALS: BP 150/98
[2020-01-11 22:00] VITALS: BP 142/76
--- NOTE | 2020-01-11 23:29 | NUR ---
PT ASSESSMENT COMPLETED AND VSS. MEDS GIVEN ORDERED AND WELL TOLERATED. INSULIN AND SNACK PROVIDED. BIPAP ON AT HS WITH CONT 02 SAT MONITOR. UP TO THE BATHROOM WITH ASST/GAIT/WALKER. UNSTEADY AT TIMES. PT WAS SLEEPING AT 9 PM WHEN HE WAS SUPPOSED TO CALL FOR HIS MEDICATION. ENTERED THE ROOM AND CHECKED ON HIM. AT THAT TIME HE DID REMEMBER TO ASK ABOUT HIS MEDICATION AND SHOWED RN HIS MEDICATION LIST FOR 9 PM. SLEEPING WELL IN CHAIR. PT REFUSED TO SLEEP IN BED. CHAIR ALARM ON. SLEEPING WELL. WILL CONTINUE TO MONITOR FREQUENTLY.
--- NOTE | 2020-01-12 05:42 | NUR ---
BLADDER SCAN 0 THIS MORNING.
[2020-01-12 06:49] LABS: ALBUMIN 2.1 g/dL (3.4-5.0); CALCIUM 7.8 mg/dL (8.5-10.1); CREATININE 2.4 mg/dL (0.7-1.3); PHOSPHORUS 5.1 mg/dL (2.5-4.9); POTASSIUM 5.8 mmol/L (3.5-5.1)
[2020-01-12 08:00] VITALS: BP 150/69
[2020-01-12 16:35] VITALS: BP 175/90
[2020-01-12 19:35] VITALS: BP 172/79
--- NOTE | 2020-01-12 19:37 | NUR ---
PT CARE ASSUMED AT 0700. A&oX4. DAILY WEIGHT WITH COVERAGE AND LANTUS. WOUND DRESSINGS COMPLEETE. NEW IV PLACED DUE TO VERY POSITIONAL PLACEMENT OF REMOVED IV. INTADRY AND NYSTATIN PLACED UNDER LEFT ABDOMEN FOLD. BLADDERSCAN QS IF OVER 400ML PRESENT STRAIGHT CATH PER STANDING ORDER. BIPAP OVER NIGHT. PT SLEEPS IN THE RECLINER. UP WITH WALKER AND ONE ASSIST. WAFFEL CUSHION ON RECLINER. DAILY WEIGHT. PT HAD A HIGH POTASSIUM TODAY AND RECEIVED A ONE TIME DOSE TO LOWER. PT WAS INAPROPRIATE WITH RN TODAY AND NEEDED TO BE REMINDED MULTIPLE TIMES THAT THIS IS A PROFFESIONAL ENVIRONMENT AND NOT APPRECIATED. FALL PROTOCOL IN PLACE. NICOTINE PATCH PLACED ON R. UPPER ARM.
--- NOTE | 2020-01-13 03:06 | NUR ---
assumed care at approx 1900 evening 01/11. pt sitting up in recliner at change of shift. pt appropriate and cooperative. up to bathroom with walker with standby assist. pt stated he had 2 bms earlier. pt took hs meds with water tolerating well. pt wore bipap until approx 0230 then requested to take off. pt called for meds at hs. call light in reach. chair alarm on. will continue to monitor.
[2020-01-13 07:35] VITALS: BP 151/75
[2020-01-13 08:21] LABS: ABSOLUTE NEUTROPHILS 4.9 thou/uL (1.4-8.2); BASOPHILS 0.8 % (0.0-2.0); EOSINOPHILS 2.8 % (0.0-3.0); HEMOGLOBIN 10.8 gm/dL (14.0-18.0); MCHC 32.6 g/dL (28.0-37.0); MCV 88.9 fL (80.0-100.0); MONOCYTES 9.2 % (1.0-8.0); PLATELET COUNT 202 thou/uL (150-400); POLYS 75.2 % (36.0-66.0); RBC 3.71 mil/uL (4.50-6.00); RDW 15.5 % (10.5-14.5); WBC 6.5 thou/uL (4.0-11.0)
[2020-01-13 08:30] LABS: CALCIUM 8.5 mg/dL (8.5-10.1); CREATININE 2.3 mg/dL (0.7-1.3); MAGNESIUM 2.3 mg/dL (1.8-2.4); PHOSPHORUS 5.3 mg/dL (2.5-4.9); POTASSIUM 5.4 mmol/L (3.5-5.1)
[2020-01-13 19:51] VITALS: BP 170/81
--- NOTE | 2020-01-13 20:00 | NUR ---
PT HAD OFFICER ULISES TO RETRIEVE HIS BROWN WALLET FROM HIS TRUCK PARKED IN THE PARKING LOT. PT WAS INFORMED THAT HIS BELONGINGS COULD BE LOCKED IN A SAFE WITH SECURITY. HE INSISTED ON KEEPIN IT IN HIS BESIDE TABLE IN THE TOP DRAWER. IT CONTAINS 2 BANK CARDS, 2 $100 BILLS, 1 $1 BILL, DRIVERS LICENSES, & A FEW OTHER NON ESSENTIAL CARDS. HS NURSE IS AWARE.
--- NOTE | 2020-01-13 20:07 | HC ---
[facility] [place] [place] [address] CONSULTATION Name: JACIEL ANGELES Room #: 511-P ADM IN M.R.#: [id number] Admission: 01/04/20 Attend Phys: Reynaldo Lim MD Discharge: Date of : 59 Report #: [id number] THIS REPORT FOR: cc: Jaciel Galindo MD, Neal A. MD Deutch,Jaciel Dickinson. PhD ~ CC: Reynaldo Galindo DATE OF SERVICE: 01/12/2020 BEHAVIORAL STATUS EXAM ATTENDING PHYSICIAN: Reynaldo Lim MD MLT: Jaciel Segura, PhD CLINICAL PRESENTATION: The patient is a 64-year-old white male admitted to the rehabilitation unit for a comprehensive inpatient program. The patient was initially admitted to the [facility] [place] [place] on 01/02/2020 after problems with balance. He had episodes of falling in the night before admission and fell out of his chair while in the garage trying to put his shoes on. An MRI revealed a small infarction in the left mid brain. The patient was diagnosed with a brain stem infarction. His assessment on admission to the rehabilitation unit is a left mid brain infarct, balance deficit, atrial fibrillation, anxiety, acute renal insufficiency superimposed on chronic kidney disease, coronary artery disease, hypertension and hyperlipidemia. A complete description of his medical condition and history can be found in his medical record. Neuropsychological consultation was requested to provide assistance in the assessment of cognitive and emotional status and to provide recommendations and services. Prior to this most recent admission, the patient was living with his ex-, son, and pbkxadyp-dz-slv and 2 grandchildren. He was living in the basement of his ex-'s home. The patient describes tension with his ex- and oirxifuf-fr-faw. The patient also is experiencing some conflict with his son. 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 He is a high school graduate and after completing the twelfth grade, ended up getting a GED. TECHNIQUES UTILIZED: Clinical interview, review of medical records, staff consultation and behavioral observation, mini mental status exam 2 standard version and verbal fluency assessment. EXAMINATION FINDINGS: The patient was alert and cooperative with the assessment. He accurately described events surrounding [place] [address] CONSULTATION Name: JACIEL ANGELES Room #: 511-P [facility] IN ..#: [id number] Admission: 01/04/20 Attend Phys: Reynaldo Lim MD Discharge: Date of : 59 Report #: [id number] no evidence of aphasia. His thoughts are logical and goal oriented. There is no evidence of thought disorder. He does not report auditory or visual hallucinations. There is no report of suicidal ideation. He does not present with thought disorder. The patient described his symptoms to include difficulty with word finding and variability in short-term memory. He does not describe difficulty with sleep or poor appetite. The patient does experience anxiety in regard to anger and frustration about limitations from his stroke. Subjective depression is also suggested. He was somewhat tearful in the interview when describing a sense of abandonment from his son. He reports taking Xanax and history of tobacco abuse. The patient is wanting to resume smoking, although he recognizes that it is a health hazard and the need for him to discontinue. His performance on the MMSE 2 brief version is within normal limits with a raw score of 14 of 16. His performance on the MMSE 2 standard version is in the borderline range and suggesting impairment. He was 1/5 for serial sevens, 2/2 for naming, 1/1 for repetition. He could write a sentence and copy a simple geometric design. He does have an upper extremity dexterity, which interfered with visual spatial construction. He had a T score of 36 and percentile rank of 8 on the standard version Letter fluency reveals moderate impairment with a T score of 31 and percentile rank of 3, which is borderline. Category fluency was at T score of 34 and percentile rank of 5. Overall, total fluency was at T score of 30, which is at the 2nd percentile. Moderate deficits are suggested in verbal fluency. The patient is presenting with deficits in sustained concentration, and visual spatial construction secondary to tremor. His verbal fluency is in the moderate range of impairment suggesting deficits in executive functioning and verbal expression. 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 Adjustment disorder with depressed mood Generalized Anxiety Disorder. RECOMMENDATIONS: The patient will require increased assistance at home, both in the management of medication, finances and nutrition. Outpatient psychotherapy is indicated to assist him in problem solving. His family will need to be included in individual counseling to assist in problem solving. Continued speech therapy to help with compensatory strategies. The patient may [address] [address] CONSULTATION Name: JACIEL ANGELES Room #: 511-P [facility] IN M.R.#: [id number] Admission: 01/04/20 Attend Phys: Reynaldo Lim MD Discharge: Date of : 59 Report #: [id number] benefit from an outpatient neuropsych assessment to clarify the extent of his cognitive disorder. The use of relaxation techniques will also be of benefit to assist in the management of anxiety and depressed mood. Thank you very much for allowing me to provide the consultation on this patient. <ELECTRONICALLY SIGNED> By: Jaciel Segura, PhD 01/13/202006 1649 48 Jaciel Segura, PhD /nt
--- NOTE | 2020-01-13 23:37 | NUR ---
PT ASSESSMENT COMPLETED AND VSS. MEDS GIVEN ORDERED AND WELL TOLERATED. FALL PRECAUTIONS IN PLACE. UP TO THE BATHROOM WITH ASST/GAIT/WALKER. IV LEAKING. NEW IV STARTED AFTER SEVERAL ATTEMPTS. PT IS A VERY HARD STICK. IV MEDICATION GIVEN. BIPAP. SLEEPING. WILL CONTINUE TO MONITOR FREQUENTLY.
[2020-01-14 04:53] LABS: ALBUMIN 2.2 g/dL (3.4-5.0); CALCIUM 7.5 mg/dL (8.5-10.1); CREATININE 2.3 mg/dL (0.7-1.3); PHOSPHORUS 5.3 mg/dL (2.5-4.9); POTASSIUM 5.4 mmol/L (3.5-5.1)
[2020-01-14 06:39] VITALS: BP 147/73
--- NOTE | 2020-01-14 06:44 | NUR ---
PT DID NOT REMEMBER TO CALL FOR HIS MEDS THIS EVENING.
[2020-01-14 08:00] VITALS: BP 158/73
--- NOTE | 2020-01-14 08:57 | EKG ---
[facility] [place] [address] ELECTROCARDIOGRAM REPORT Name: JACIEL ANGELES Room #: 511- ADM IN M.R.#: [id number] Admission: 01/04/20 Attend Phys: Reynaldo Lim MD Discharge: Date of : 59 Report #: [id number] THIS REPORT FOR: cc: Jaciel Galindo MD, Neal A. MD Lundgren,Andrew Younger MD [facility] ~ THIS REPORT FOR: //name// [facility] Test Date: 2020-01-13 Test Time: 11:16:42 Pat Name: JACIEL ANGELES Department: Room: 511 Gender: M Student Teacher: KELSI : 1955 Requested By: Urmila Lyle Order Number: [id number] MD: Andrew Palumbo Measurements Intervals [place] Rate: 57 P: 60 ME: 193 QRS: 42 QRSD: 107 T: 122 QT: 474 QTc: 462 Interpretive Statements Sinus rhythm Poor R wave progression Nonspecific T wave abnormality Compared to ECG 01/01/2020 20:08:13 No significant change was found Electronically Signed On 01-14-2020 8:55:01 CDT by Andrew Palumbo [email or web address] <ELECTRONICALLY SIGNED> By: Andrew Palumbo MD, [facility] 01/14/20 0855 1116 1116 Andrew Palumbo MD, [facility] /EPI
[2020-01-14 09:33] VITALS: BP 158/73
--- NOTE | 2020-01-14 13:09 | NUR ---
Nutrition followup: pt continues to eat well, 75-100% of meals. Renal follows. K+/Phos elevated. On Calcium acetate and monitoring K+ level. Last weight signficantly higher however pt with JUNI and requiring lasix. BG controlled. Carb controlled diet ordered but at 1500 calorie level. Suggest 2000 calorie according to estimated needs. Continue low nutrition risk.
--- NOTE | 2020-01-14 15:30 | H ---
[facility] [place] [address] HISTORY AND PHYSICAL Name: JACIEL ANGELES Room #: 511-P ADM IN M.R.#: [id number] Admission: 01/04/20 Attend Phys: Reynaldo Lim MD Discharge: Date of : 59 Report #: [id number] THIS REPORT FOR: cc: Jaciel Galindo MD, Neal A. MD Smithson,Reynaldo Hatfield MD ~ CC: Reynaldo Galindo DATE OF SERVICE: 01/04/2020 HISTORY AND PHYSICAL/POST ADMISSION PHYSICIAN EVALUATION HISTORY OF PRESENT ILLNESS: The patient is a 64-year-old white male who was originally admitted to [facility] on 01/02/2020 after problems, losing his balance for the last several days. He was noted to have episodes of falling at home the night prior to admission without injury and fell out of his chair while in the garage trying to put his shoes on. He did not hit his head. He also states some difficulty seeing out of the left eye. He was evaluated and the MRI did show a small infarct of the left mid brain. The patient was followed by Neurology who was noted the brainstem infarct. The patient has had a significant decline in his functional independence, was followed by Cardiology with paroxysmal atrial fibrillation with transition to normal sinus rhythm and He has continued on amiodarone and Eliquis. He also is being monitored regarding his acute renal insufficiency. He has now been admitted for acute in-hospital inpatient rehabilitation. The patient was seen on 01/04/2020. PAST MEDICAL HISTORY: Includes diabetes mellitus. He had a prior stroke approximately a year ago with some left-sided weakness, which gradually resolved. He has a prior history of coronary artery bypass grafting. He had a non-ST elevation myocardial infarction. ALLERGIES: No known drug allergies. 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 HABITS: Current every day smoker, 4 packs per week. Smoked for 44 years. SOCIAL HISTORY: Lives in a house in the basement with his ex- upstairs. He has a son and lhdwcicr-gr-ayv that live down stairs as well. He did not utilize gait aids, although he does have a cane and a walker that he has available. REVIEW OF SYSTEMS: He did not offer any current complaints of chest pain, shortness of breath or abdominal discomfort. [address] [address] HISTORY AND PHYSICAL Name: JACIEL ANGELES Room #: 511-P [facility] IN ..#: [id number] Admission: 01/04/20 Attend Phys: Reynaldo Lim MD Discharge: Date of : 59 Report #: [id number] PHYSICAL EXAMINATION: GENERAL: A 64-year-old white male, somewhat cantankerous who was seen later yesterday. He has some panicking issues that were concerned to him that I have been taking care of. He is to follow up with his financial planning consultant after he is discharged from rehabilitation. The patient was alert and pleasant. VITAL SIGNS: Temperature 98.1, pulse 52, respirations 20, blood pressure 121/61. HEENT: Appears to have a left eye exotropia. Facies otherwise appeared symmetric. Appears to be a good historian. CHEST: Sounded clear to auscultation. CARDIOVASCULAR: Regular rate and rhythm. ABDOMEN: Bowel sounds positive, nontender. GENITOURINARY AND RECTAL: Deferred. EXTREMITIES: He has functional range of motion of both upper extremities. Strength is a grade 4/5. DTRs are trace to 1. Lower extremities functional range of motion. Strength appears to be good a grade 4+/5. He does have some problems with coordination, mild decrease with toe tap. He does have some unsteadiness, some difficulty trying to stay inside the walker. Somewhat of a right lean and can have some loss of balances. ASSESSMENT: A 64-year-old white male with the following problem list: 1. Left mid brain infarct. 2. Balance deficits. 3. Atrial fibrillation. 4. Anxiety. 5. Acute renal insufficiency superimposed on chronic kidney disease. 6. Coronary artery disease. 7. Hypertension. 8. Hyperlipidemia. PLAN: The patient has been admitted for acute in-hospital inpatient rehabilitation. From a postadmission physician evaluation perspective, there are no relevant changes since the preadmission screening. Please see the above review of prior and current medical and functional conditions and comorbidities. Please see the patient's previous and current functional status. As far as risk of complications, the patient has multiple medical comorbidities as noted above. Initial plan of care involves the interdisciplinary acute inpatient rehabilitation program. Measurable functional goals would be for the patient to become modified independent with transfers, mobility, ADLs to improve with balance as well as cognition, so that the patient can hopefully return back to the home setting. He does have multiple medical comorbidities, we will need to have the outreach consultant physicians continue to follow. Prognosis is reasonably good with estimated length of stay probably at least 7-10 days. Potential barriers would include his multiple medical comorbidities and decreased functional status. [facility] [address] [place] [address] HISTORY AND PHYSICAL Name: JACIEL ANGELES Room #: 511-P ADM IN M.R.#: [id number] Admission: 01/04/20 Attend Phys: Reynaldo Lim MD Discharge: Date of : 59 Report #: [id number] The patient meets diagnostic criteria for an acute in-hospital inpatient rehabilitation stay. He meets medical necessity criteria and we will have the outreach consultant physicians continue to follow. He does have the tolerance for therapies and has appropriate discharge goals back to the home setting. <ELECTRONICALLY SIGNED> By: Reynaldo Lim MD 01/14/20 1530 0950 1032 Reynaldo Lim MD /nt
--- NOTE | 2020-01-14 15:30 | PLAN ---
[facility] [place] [address] REHAB UNIT PLAN OF CARE Name: JOSE ANGELES Room #: 511-P ADM IN M.R.#: [id number] Admission: 01/04/20 Attend Phys: Reynaldo Lim MD Discharge: Date of : 59 Report #: [id number] THIS REPORT FOR: //name// CC: Reynaldo aGlindo DATE OF SERVICE: 01/07/2020 PROGRESS NOTE/OVERALL PLAN OF CARE SUBJECTIVE: The patient is seen back today in followup. He is in no distress. Last recorded temperature 36.7, pulse 58, respirations 18, blood pressure 163/75. He is alert and pleasant. He has been getting some IV fluids to help with his renal insufficiency. Creatinine had reached a high of 3.0 on 01/05/2020, this is down to 2.2 this morning. He has been working in therapies with transfers, min assist and gait min assist 250 feet front-wheeled walker. He has worked on four stairs, min assist. In occupational therapy, upper body dressing is setup with lower body dressing, moderate assistance. He is working in speech therapy as well with kanajrgt-rs-cbjzqz cognitive deficits. He does have significant memory deficits. He is very cooperative. ASSESSMENT: 1. Left mid brain infarct. 2. Balance deficits. 3. Atrial fibrillation. 4. Anxiety. 5. Acute renal insufficiency superimposed on chronic kidney disease. 6. Coronary artery disease. 7. Hypertension. 8. Hyperlipidemia. PLAN: The overall plan of care is based on the preadmission screen, post-admission physician evaluation and information garnered from therapy assessments. 1. Estimated length of stay is probably 5-10 days. 2. Medical prognosis is reasonably good. 3. Anticipated interventions includes the interdisciplinary acute inpatient rehabilitation program. 4. Anticipated functional outcomes would be for the patient to become modified independent with transfers, mobility, ADLs, cognition, communication, so that he can return back to the home setting. 5. Discharge destination would be back to the home setting where he lives in the basement with other family members. 6. Expected therapy by discipline includes PT, OT and speech 1 hour per day [address] [address] REHAB UNIT PLAN OF CARE Name: JOSE ANGELES MARILIA Room #: 511-P ADM IN .R.#: [id number] Admission: 01/04/20 Attend Phys: Reynaldo Lim MD Discharge: Date of : 59 Report #: [id number] each 5 days a week throughout the duration of the acute inpatient rehabilitation stay. <ELECTRONICALLY SIGNED> By: Reynaldo Lim MD 01/14/20 1530 [id number] 1516 Reynaldo Lim MD /nt
[2020-01-14 19:12] VITALS: BP 183/87
--- NOTE | 2020-01-14 19:42 | NUR ---
ASSUMED CARE OF PT AT 0700. PT IS A&OX4 AND VITAL SIGNS ARE STABLE. PT DENIES PAIN AND PARTICIPATED IN SCHEDULED THERAPIES. NOTED LARGE WEIGHT GAIN AND REPORTED TO PROVIDERS, ORDERS REVIEWED AND NEW ORDERS OBTAINED. IV TO LEFT UA PATENT DURING SHIFT AND USED FOR IV ACCESS, AT APPROXIMATELY 1700 IV SITE NOTED TO HAVE INCREASED REDNESS AND EDEMA. NO FLUIDS RUNNING AT THAT TIME AND NOT USED AFTER FOR ACCESS. DISCUSSED CONCERN WITH ONCOMING NURSE AND ACCESS REMOVED, PROVIDER NOTIFIED. ACCU CHECKS ACHS AND MANAGED WITH PO MEDICATIONS AND INSULIN PER ORDERS. FALL PRECAUTIONS IN PLACE AND NURSING WILL CONTINUE TO MONITOR.
[2020-01-14 22:36] VITALS: BP 178/82
[2020-01-14 23:30] VITALS: BP 160/65
--- NOTE | 2020-01-15 00:59 | NUR ---
PT ASSESSMENT COMPLETED. BP ELEVATED BUT IMPROVED WITH SECOND CHECK. PT FORGOT TO CALL FOR MEDICATION. MEDS GIVEN ORDERED AND WELL TOLERATED. FALL PRECAUTIONS IN PLACE. UP TO THE BATHROOM WITH ASST/GAIT/WALKER. VOIDING MODERATE AMOUNT IN URINAL. ZGUARD APPLIED TO R INNER BUTTOCK. NYSTATIN APPLIED TO FUNGAL FOLDS. BIPAP WITH 02 SAT MONITOR AT HS. WRAPPED LEGS WITH FLUFF AND ARMANDO PER ORDERS. PT L UP IV INFILTRATED. VERY RED. CONTACTED CITY SURVEYOR SOHAIL. SHE ORDERED TO D/C IV/CLEAN SITE/AND PLACE ORDER FOR WOUND CARE TO LOOK AT IT - COMPLETED. RIKKI LUO FROM PLACED A NEW IV IN PTS R FA. WILL CONTINUE TO MONITOR FREQUENTLY.
[2020-01-15 05:22] LABS: ALBUMIN 2.3 g/dL (3.4-5.0); CREATININE 2.8 mg/dL (0.7-1.3); PHOSPHORUS 4.8 mg/dL (2.5-4.9); POTASSIUM 4.5 mmol/L (3.5-5.1)
[2020-01-15 06:26] VITALS: BP 156/72
[2020-01-15 08:20] VITALS: BP 167/72
[2020-01-15 08:27] VITALS: BP 167/72
--- NOTE | 2020-01-15 09:20 | NUR ---
cm notified per cm consult pt dc to acute rt new orders for lasix drip per dr carmichael.
--- NOTE | 2020-01-15 11:14 | NUR ---
Assumed patient care at 0715. Blood pressure 167/72; all other vital signs WNL's. Blood sugar 91 at 0830, requiring no Sliding Scale Insulin. Patient is on Room Air, wears a Bi-Pap at [facility]. Patient informed this nurse that he had a normal BM this am. He showered with OT assist this am. Patient needs assist of 1-2 with tranfers using a rolling walker. He has a new IV in his right forearm with Albumin running at 100cc/hr. He is being Discharged from this Unit to another Unit as he has an order for IV Lasix which is not able to be done on this Unit. Patient is upset that he is being moved, he wants to continue all of his therapies.
--- NOTE | 2020-01-16 09:18 | HC ---
[facility] [place] [address] CONSULTATION Name: MING ANGELESAL MARILIA Room #: 511-P [facility] IN M.R.#: [id number] Admission: 01/04/20 Attend Phys: Reynaldo Lim MD Discharge: 01/15/20 Date of : 59 Report #: [id number] THIS REPORT FOR: cc: Jaciel Galindo MD, Neal A. MD Al-Marta,Jeannette Krishnamurthy MD ~ CC: Reynaldo Galindo DATE OF SERVICE: 01/11/2020 REASON FOR CONSULTATION: Elevated creatinine. REASON FOR PRESENTATION: Post-stroke. HISTORY OF PRESENT ILLNESS: A 64-year-old with past medical history of diabetes mellitus, remote history of coronary artery disease. He presented with stroke symptoms on 01/01 and was in the acute care facility for some time. He has chronic kidney disease and creatinine all through 2019 has been in the 2 range. He has peripheral vascular disease with all risk factors for his coronary artery disease including diabetes mellitus, hypertension, history of noncompliance. He was seen by the Cardiology Service for atrial fibrillation. He was sent to the rehabilitation floor to continue with his rehabilitation effort after his stroke. It looks like that the patient has a history of noncompliance with his CPAP during the nights. He had issues with somnolence during periods of time. He is also maintained on chronic narcotics. I was asked to assist with management of his fluid overload. PAST MEDICAL AND SURGICAL HISTORY: 1. Chronic kidney disease. 2. Post-stroke. 3. Obstructive sleep apnea. 4. Diabetes mellitus. 5. AFib. 6. Hypertension. 7. Hyperlipidemia. 8. Remote history of CABG. 9. Coronary artery disease. 10. Laparoscopic cholecystectomy. 11. Remote history of right great toe and second toe amputation. 12. MRSA of the right foot. 13. Left great toe amputation. MEDICATIONS: 1. Gabapentin. 2. Torsemide. [facility] [address] [place] [address] CONSULTATION Name: JACIEL ANGELES Room #: 511-P [facility]#: [id number] Admission: 01/04/20 Attend Phys: Reynaldo Lim MD Discharge: 01/15/20 Date of : 59 Report #: [id number] 3. Alprazolam. 4. Insulin. 5. Potassium. 6. Aspirin. 7. Eliquis. ALLERGIES: None. SOCIAL HISTORY: No drug or alcohol abuse. FAMILY HISTORY: Hypertension. REVIEW OF SYSTEMS: GENERAL: Significant for weakness. CARDIOVASCULAR: No chest pain or palpitation. PULMONARY: No cough or hemoptysis. GASTROINTESTINAL: No nausea or vomiting. GENITOURINARY: No frequency, no urgency. NEUROLOGICAL: As per the history of present illness. SKIN: No rash or ulcerations. PHYSICAL EXAMINATION: VITAL SIGNS: Temperature 36.5, blood pressure is 142/57, respiratory rate is 20. HEAD AND NECK: No jugular venous distention. CHEST: No crackles. CARDIOVASCULAR: No rub detected. ABDOMEN: Soft, nontender. EXTREMITIES: Lower extremities, +2 edema. LABORATORY VALUES: Reviewed. Hemoglobin is 10.6. Labs from yesterday revealed sodium of 142, potassium of 5.2, BUN of 53, creatinine is 2.1. ASSESSMENT AND PLAN: 1. Diabetes mellitus. 2. Lower extremity edema. 3. Hyperkalemia. 4. Cerebrovascular accident. 5. Coronary artery disease. 6. Atrial fibrillation. 7. Hypertension. 8. This is consistent with diabetic nephropathy. The patient will need evaluation for proteinuria. 9. Resume his diuretics. 10. Low salt restriction. 11. Low salt diet. [facility] [address] [place] [address] CONSULTATION Name: JACIEL ANGELES MARILIA Room #: 511-P [facility] IN ..#: [id number] Admission: 01/04/20 Attend Phys: Reynaldo Lim MD Discharge: 01/15/20 Date of : 59 Report #: [id number] 12. Local measures for his edema. 13. Control of his blood pressure. 14. Control of his blood sugar. 15. We will continue to follow. <ELECTRONICALLY SIGNED> By: Jeannette Saldana MD 01/16/20 0918 [id number] Jeannette Saldana MD /nt
[2020-02-03] MEDS ORDERED: PHENERGAN 25 MG25 M1 PO (11:21)
[2020-02-03] MEDS ORDERED: NICOTINE TRANSD14 M1 TRANSDERM (11:21)
[2020-02-05] MEDS ORDERED: TRADJENTA5 MG PO (08:36)
[2020-02-05] MEDS ORDERED: NICOTINE TRANSD14 M1 TRANSDERM (08:36)
[2020-02-05] MEDS ORDERED: COLACE100 MG PO (10:18)
[2020-02-05] MEDS ORDERED: MIRALAX119 GM PO (10:18)
[2020-02-05] MEDS ORDERED: CIPRO500 M1 PO (10:20)
== END 2020-01-15 11:55 | disposition short-term general hospital (02) | DRG 64 ==
PROVIDERS: Hospitalist; Internal Medicine; Nurse Practitioner; ADMIT Physical Medicine & Rehabilitation; ATTEND Physical Medicine & Rehabilitation
PROC: 5A09357 Assistance with Respiratory Ventilation, Less than 24 Consecutive Hours, Continuous Positive Airway Pressure (ICD-10-PCS; principal; 2020-01-05)
PROC: 5A09357 Assistance with Respiratory Ventilation, Less than 24 Consecutive Hours, Continuous Positive Airway Pressure (ICD-10-PCS; 2020-01-06)
PROC: 5A09357 Assistance with Respiratory Ventilation, Less than 24 Consecutive Hours, Continuous Positive Airway Pressure (ICD-10-PCS; 2020-01-07)
PROC: 5A09357 Assistance with Respiratory Ventilation, Less than 24 Consecutive Hours, Continuous Positive Airway Pressure (ICD-10-PCS; 2020-01-08)
PROC: 5A09457 Assistance with Respiratory Ventilation, 24-96 Consecutive Hours, Continuous Positive Airway Pressure (ICD-10-PCS; 2020-01-09)
PROC: 5A09357 Assistance with Respiratory Ventilation, Less than 24 Consecutive Hours, Continuous Positive Airway Pressure (ICD-10-PCS; 2020-01-14)
DX: I63.9 Cerebral infarction, unspecified (principal); G92 Toxic encephalopathy; N17.9 Acute kidney failure, unspecified; I48.0 Paroxysmal atrial fibrillation; F41.9 Anxiety disorder, unspecified; I25.10 Atherosclerotic heart disease of native coronary artery without angina pectoris; E78.5 Hyperlipidemia, unspecified; N18.9 Chronic kidney disease, unspecified; E11.22 Type 2 diabetes mellitus with diabetic chronic kidney disease; I12.9 Hypertensive chronic kidney disease with stage 1 through stage 4 chronic kidney disease, or unspecified chronic kidney disease; F32.9 Major depressive disorder, single episode, unspecified; E11.51 Type 2 diabetes mellitus with diabetic peripheral angiopathy without gangrene; M19.90 Unspecified osteoarthritis, unspecified site; G47.33 Obstructive sleep apnea (adult) (pediatric); E11.42 Type 2 diabetes mellitus with diabetic polyneuropathy; E87.5 Hyperkalemia; E03.9 Hypothyroidism, unspecified; F41.1 Generalized anxiety disorder; R41.9 Unspecified symptoms and signs involving cognitive functions and awareness; F43.21 Adjustment disorder with depressed mood; D64.9 Anemia, unspecified; R60.1 Generalized edema; S90.414A Abrasion, right lesser toe(s), initial encounter; S90.415A Abrasion, left lesser toe(s), initial encounter; Z82.49 Family history of ischemic heart disease and other diseases of the circulatory system; Z90.49 Acquired absence of other specified parts of digestive tract; Z89.412 Acquired absence of left great toe; I25.2 Old myocardial infarction; Z95.1 Presence of aortocoronary bypass graft; Z86.14 Personal history of Methicillin resistant Staphylococcus aureus infection; Z71.6 Tobacco abuse counseling; Z79.899 Other long term (current) drug therapy
CPT/HCPCS: 10112

== ENCOUNTER 2020-01-15 10:16 | Inpatient (IN) | payer OTHER ==
[~2020-01-15] VITALS: Ht 193 cm; Wt 129.4 kg
[2020-01-15 13:24] VITALS: BP 168/79
--- NOTE | 2020-01-15 15:06 | NUR ---
PT TRANSFERED/ADMITTED FROM ACUTE REHAB THIS AFTERNOON FOR C/O EDEMA. PT IS ALERT AND ORIENTED. NO COMPLAINTS OTHER THAN WANTING TO "GO OUT TO HIS TRUCK". VSSA/RA ON TELE NSR. TOLERATING DIET WITH MONITORING BLOOD SUGARS. PIV WITHOUT ISSUES. PER REPORT PT HAS WOUNDS ON HIS FOOT, UNABLE TO ASSESS AT THIS TIME. WILL CONTINUE TO MONITOR. PT TO CALL IF NEEDS ARISE, CALL LIGHT IN REACH. WILL MONITOR
[2020-01-15 15:47] VITALS: BP 161/73
--- NOTE | 2020-01-15 15:47 | NUR ---
PATIENT ADMITTED FROM [address] [place] [address], DR ROMAN NOTIFIED OF ADMISSION. ORDERS PUT IN PER DR ROMAN. PATIENT ALERT AND ORIENTED X 4. PATIENT UP WITH ASSIST X 1 WITH WALKER. PATIENT HAS EDENA TO BILATERAL LEGS AND FEET. ADMISSION DIAGNOSIS:CVA AND EDEMA. PATIENT HAS BRUISING TO BILATERAL ARMS AND SCRAPES TO ROXY LEGS. ADMISSION DONE, REPORT GIVEN TO TADEO/RN. ADMSSION PACKET GIVEN TO PATIENT.
[2020-01-15 15:55] LABS: CALCIUM 8.4 mg/dL (8.5-10.1); CREATININE 2.7 mg/dL (0.7-1.3); POTASSIUM 5.1 mmol/L (3.5-5.1)
[2020-01-15 19:44] VITALS: BP 170/83
[2020-01-16 04:18] VITALS: BP 158/76
--- NOTE | 2020-01-16 04:56 | NUR ---
PATIENT AOX4 MAKES NEEDS KNOWN. PATIENT AMBULATES WITH A WALKER WITH STEADY GAITS. PATIENT ON LASIX DRIP AND VOIDING.PATIENT ON BI PAP AT NIGHT. PATIENT REEDUCATED TO ELEVATE BLE D/T EDEMA +3. PATIENT ON THE RECLINER ASLEEP AT THIS TIME BREATHING REGULAR AND UNLABOURED.
[2020-01-16 07:20] VITALS: BP 161/67
[2020-01-16 10:38] LABS: CALCIUM 8.4 mg/dL (8.5-10.1); CREATININE 2.8 mg/dL (0.7-1.3); POTASSIUM 4.3 mmol/L (3.5-5.1)
--- NOTE | 2020-01-16 14:09 | NUR ---
PT ADMITED RELATED TO CVA, EDEMA. CM REVIEWED CHART AND SPOKE WITH CARE TEAM. CM CALLED AND SPOKE WITH PT THIS DAY. PT HAD BEEN ON 5[facility] ACUTE INPATIENT REHAB PRIOR TO THIS ADMISSION BUT HAD COME DOWN TO GET IV LASIX. HE INDICATED THAT HE PLANS TO RETURN TO THE HOUSE HE STAYS AT WITH HIS EX , SON AND HIS DTR IN LAW. HE INDICATED THAT HE IS INTERESTED IN A NEW FWW FOR HOME USE. PT HAS BEEN ACCEPTED FOR HH SERVICES WITH [facility]. PT INIDCATED THAT THE PLAN ON 5N HAD BEEN FOR HIM TO DC HOME THIS TUESDAY AND HE HOPES THAT IS STILL THE CASE HE HAS FRIENDS WHO WILL BE COMING HERE TOGTHER INTO VEHICLES TO PICK PT AND HIS CAR UP. CM TO FOLLOW INDICATED WITH DC PLANNING.
--- NOTE | 2020-01-16 15:04 | NUR ---
assumed care of pt at 0700. pt alert and oriented, in no acute distress. voicing no particular concerns. breathing comfortably on room air. lasix gtt infusing at 10cc/hr. edema to ble showing improvement. voicing lots. calls out appropriately. vitals and blood sugars stable. weighed on standing scale - documented in chart. no other findings to report at this time. wcm.
[2020-01-16 15:45] VITALS: BP 136/59
[2020-01-16 19:23] VITALS: BP 145/61
--- NOTE | 2020-01-17 04:28 | NUR ---
Assumed pt care at 1900. A/OX4,VSS. Pt is up with AX1 RW/GB,stays on the recliner with feet dangled has edema to BLE 2+ and needs a lot of encouragement to keep them elevated. Continent of B&B, voiding per urinal. Lasix drip infusing via RFA IV w/o problems. Pt has scabbed areas on BLE/toes,betadine applied per pt request will f/u with [facility] this AM. Took drsgs off [facility] AC and doesn't want them replaced since areas are drying off and itchy. Fall precautions in place, agrees to call for help as needed. Pt has declined wearing the BPAP this shift when prompted to. Resting quietly at this time on the recliner, feet elevated will continue to monitor pt.
[2020-01-17 06:27] LABS: ALBUMIN 2.4 g/dL (3.4-5.0); CALCIUM 8.3 mg/dL (8.5-10.1); CREATININE 3.4 mg/dL (0.7-1.3); PHOSPHORUS 5.4 mg/dL (2.5-4.9)
[2020-01-17 07:11] VITALS: BP 124/65
--- NOTE | 2020-01-17 15:56 | NUR ---
CARE TEAM INDICATES THAT PT IS PROGRESSING TOWARD GOAL OF DISCHARGE HOME. DC IS ANTICPATED TO DC TUESDAY. PT HAS WORKED ON ORDERING EQUIPMENT OFF [employer] FOR USE UPON DC. [facility] CAN ACCEPT AND PT HAD ARRANGED WITH FRIENDS FOR THEM TO PICK HIM UP WITH HIS TRUCK ONCE MEDICALLY STABLE. CM TO FOLLOW INDICATED WITH DC PLANNING.
[2020-01-17 16:07] VITALS: BP 123/69
--- NOTE | 2020-01-17 19:14 | NUR ---
Assumed pt care this am, pt stayed on his recliner for most of the day. Uses the urinal to void. Pt was able to work with PT today but was very sleepy, pt attributed this to the zanax that was given to him the night before. Pt does not want to use his bed and prefers the recliner but does not keep his legs elevated. Lasix changed to 5 from 10 cc / hr. Pt insits that his clothes be laundered at [address], spoke to the nurse and was advised this was possible if the [facility] nurse brought the clothes up and they will keep the door unlocked to have the laundry done. Edema on the LLE are +3. POC followed witn no signs or verbalizations of distress noted. Endorsed to the night nurse.
[2020-01-17 20:25] VITALS: BP 144/65
[2020-01-18 05:20] VITALS: BP 130/58
[2020-01-18 05:41] LABS: MCH 29.3 pg (26.0-34.0); MCHC 33.1 g/dL (28.0-37.0); MCV 88.5 fL (80.0-100.0); RBC 3.4 mil/uL (4.50-6.00); RDW 15.7 % (10.5-14.5); WBC 7.9 thou/uL (4.0-11.0)
[2020-01-18 06:09] LABS: CALCIUM 8.1 mg/dL (8.5-10.1); CREATININE 3.2 mg/dL (0.7-1.3)
--- NOTE | 2020-01-18 06:32 | NUR ---
Assumed pt care at 1900. Pt is A/OX4,VSS. Denies pain on assessment. Up with AX1,RW/GB. Continues on Lasix drip 5cc/hr with adequate output noted, on strict I&O. Nurse did pt's laundry on [facility] and pt was appreciative of it. Pt sleeps on the recliner, needs a lot of encouragement to keep his feet elevated. Has 2+ pitting edema on BLE. Fall precautions in place,calls approp for help. Pt declined wearing the BPAP this shift.
[2020-01-18 07:52] VITALS: BP 171/88
--- NOTE | 2020-01-18 09:50 | NUR ---
ASSUMED CARE AT 0700. PT IS ALERT AND ORIENTED. VSSA/RA DURING DAY. PT HAS DC ORDERS THIS AM. WILL SPEAK WITH CM TO FOLLOW UP ON HH NEEDS AND WILL ORGANIZE DC. PT IS UAL IN ROOM. WILL CONTINUE TO MONITOR
[2020-01-18 10:14] VITALS: BP 171/88
[2020-01-18 10:21] VITALS: BP 171/88
--- NOTE | 2020-01-18 15:23 | NUR ---
PT DISCHARGING TODAY TO HOME WITH [facility] FAXED DC ORDERS/SUMMARY RECEIVED CONFIRMATION THEY WILL NOTIFY PT TIME OF VISITS.
[2020-02-03] MEDS ORDERED: NICOTINE TRANSD14 M1 TRANSDERM (11:21)
[2020-02-03] MEDS ORDERED: PHENERGAN 25 MG25 M1 PO (11:21)
[2020-02-05] MEDS ORDERED: TRADJENTA5 MG PO (08:36)
[2020-02-05] MEDS ORDERED: NICOTINE TRANSD14 M1 TRANSDERM (08:36)
[2020-02-05] MEDS ORDERED: COLACE100 MG PO (10:18)
[2020-02-05] MEDS ORDERED: MIRALAX119 GM PO (10:18)
[2020-02-05] MEDS ORDERED: CIPRO500 M1 PO (10:20)
== END 2020-01-18 11:51 | disposition home health service (06) | DRG 682 ==
LOC: TBA 10:16 → 4W 12:26
PROVIDERS: ADMIT Family Medicine; ATTEND Family Medicine
PROC: 5A09357 Assistance with Respiratory Ventilation, Less than 24 Consecutive Hours, Continuous Positive Airway Pressure (ICD-10-PCS; principal; 2020-01-15)
PROC: 5A09357 Assistance with Respiratory Ventilation, Less than 24 Consecutive Hours, Continuous Positive Airway Pressure (ICD-10-PCS; 2020-01-16)
PROC: 5A09357 Assistance with Respiratory Ventilation, Less than 24 Consecutive Hours, Continuous Positive Airway Pressure (ICD-10-PCS; 2020-01-17)
DX: N17.9 Acute kidney failure, unspecified (principal); I50.23 Acute on chronic systolic (congestive) heart failure; E43 Unspecified severe protein-calorie malnutrition; I13.0 Hypertensive heart and chronic kidney disease with heart failure and stage 1 through stage 4 chronic kidney disease, or unspecified chronic kidney disease; E87.5 Hyperkalemia; H53.9 Unspecified visual disturbance; I48.0 Paroxysmal atrial fibrillation; I25.10 Atherosclerotic heart disease of native coronary artery without angina pectoris; F17.210 Nicotine dependence, cigarettes, uncomplicated; N18.9 Chronic kidney disease, unspecified; E78.5 Hyperlipidemia, unspecified; F41.9 Anxiety disorder, unspecified; G89.29 Other chronic pain; E11.51 Type 2 diabetes mellitus with diabetic peripheral angiopathy without gangrene; G47.33 Obstructive sleep apnea (adult) (pediatric); I48.91 Unspecified atrial fibrillation; E11.22 Type 2 diabetes mellitus with diabetic chronic kidney disease; S90.415A Abrasion, left lesser toe(s), initial encounter; S90.414A Abrasion, right lesser toe(s), initial encounter; Z79.82 Long term (current) use of aspirin; Z79.01 Long term (current) use of anticoagulants; Z90.49 Acquired absence of other specified parts of digestive tract; Z86.14 Personal history of Methicillin resistant Staphylococcus aureus infection; Z95.1 Presence of aortocoronary bypass graft; Z79.899 Other long term (current) drug therapy; Z89.422 Acquired absence of other left toe(s); Z89.421 Acquired absence of other right toe(s); Z71.6 Tobacco abuse counseling; W18.39XA Other fall on same level, initial encounter; Y93.89 Activity, other specified; Y92.89 Other specified places as the place of occurrence of the external cause; Y99.8 Other external cause status; Z86.73 Personal history of transient ischemic attack (TIA), and cerebral infarction without residual deficits
CPT/HCPCS: 10045; 10047

== ENCOUNTER 2020-01-21 17:14 | Observation (INO) | payer OTHER ==
[~2020-01-21] VITALS: Ht 193 cm; Wt 126.1 kg
[2020-01-21 17:25] VITALS: BP 143/64
[2020-01-21 18:04] LABS: HEMATOCRIT 28.9 % (42.0-52.0); HEMOGLOBIN 9.7 gm/dL (14.0-18.0); MCH 29.5 pg (26.0-34.0); MCHC 33.8 g/dL (28.0-37.0); MCV 87.3 fL (80.0-100.0); RBC 3.31 mil/uL (4.50-6.00); RDW 15.1 % (10.5-14.5); WBC 8.5 thou/uL (4.0-11.0)
[2020-01-21 18:16] LABS: CALCIUM 8.4 mg/dL (8.5-10.1); CREATININE 3.2 mg/dL (0.7-1.3); POTASSIUM 3.9 mmol/L (3.5-5.1)
[2020-01-21 18:17] LABS: APTT 32.3 Seconds (24.5-32.8); PROTIME 10.6 Seconds (9.3-11.4)
[2020-01-21 18:21] LABS: URINE BILIRUBIN NEGATIVE (Negative); URINE BLOOD 2+ (Negative); URINE CLARITY CLEAR; URINE COLOR YELLOW; URINE GLUCOSE-RANDOM* 1+ (Negative); URINE KETONES NEGATIVE (Negative); URINE LEUKOCYTES-REFLEX NEGATIVE (Negative); URINE NITRITE-REFLEX NEGATIVE (Negative); URINE PROTEIN (DIPSTICK) 3+ (Negative); URINE UROBILINOGEN 0.2 E.U./dl (0.2-1.0)
[2020-01-21 18:25] LABS: MAGNESIUM 2.3 mg/dL (1.8-2.4); TROPONIN-I <0.06 ng/mL (<0.06)
[2020-01-21 18:28] LABS: SQUAMOUS None Seen /LPF (0-3)
[2020-01-21 18:29] LABS: BACTERIA-REFLEX 1-9 Few /HPF (None Seen); CASTS None Seen /LPF (None Seen); CRYSTALS None Seen /LPF (None Seen); URINE RBC 3-10 Few /HPF (0-2); URINE WBC-REFLEX 0-5 Rare /HPF (0-5)
[2020-01-21 20:32] VITALS: BP 145/69
[2020-01-21 20:49] VITALS: BP 152/71
[2020-01-21 21:30] VITALS: BP 170/85
--- NOTE | 2020-01-22 01:43 | NUR ---
Pt arrived from ED at 2119 via cart accompanied by staff. A/OX4,VSS.Pt is up with SBA/RW,weakness and unsteady gait noted. Pt also some slow slurred speech at times and tremors to right arm. Denies pain on assessment.Admision paperwork signed. Fall education reinforced, chair alarm in place pt agrees to call before getting up.Has an abrasion on right forehead,healing area on right buttock and several scabbed areas on BLE. Edema 2+ on BLE,encouraged to keep extremities elevated. Call light/personal items placed within reach. Will continue to monitor pt.
[2020-01-22 04:52] VITALS: BP 137/69
[2020-01-22 07:04] VITALS: BP 137/58
--- NOTE | 2020-01-22 09:15 | NUR ---
RD consult received. Pt recently discharged 01/17 and now readmitted with falls, weakness and decreased ability to take care of self. Has reported to numerous staff team, including this RD that "I was just sent home way to soon." Appetite is good, looking for double portions of some foods-approve some. Wts variable 260-281 lb past 2 months, now 278 lb. Bilateral 2+ edema. BG controlled. Pt with general questions on what to eat, but overall denied need for nutrition education. Last A1C 9.7% October. Hospital sugars controlled. Low nutrition risk
--- NOTE | 2020-01-22 10:49 | NUR ---
ASSUMED CARE AT 0700. PT IS ALERT AND ORIENTED. SITTING IN CHAIR EATING BREAKFAST THIS AM. NO NEW COMPLAINTS. VSSA/RA. TOLERATING DIET, BLOOD SUGARS MONITORED. PIV SL. ABRASION TO FOREHEAD WITHOUT SWELLING OR BLEEDING NOTED. PT CHAIR ALARM ON AND INSTRUCTED TO CALL WHEN NEEDS ANYTHING. CALL LIGHT IN REACH. WILL CONTINUE TO MONITOR
[2020-01-22 15:17] VITALS: BP 145/65
--- NOTE | 2020-01-22 16:17 | NUR ---
PT ADMITTED RELATED TO FALLS/WEAKNESS. CM REVIEWED CHART AND SPOKE WITH CARE TEAM. PT IS FAMILIAR TO CM FROM RECENT HOSPITALIZATION. PT DISCHARGED HOME 01/18/20 WITH [facility]. PT INTERESTED IN RETURNING TO FOR ACUTE REAHB STAY. ASSESSED AND INDICATED THAT THEY ARE ABLE TO ACCEPT PT THIS DAY. PT IS AWARE AND AGEEABLE. REPORT TO BE CALLED TO . NO OTHER CM INTERVENTION INDICATED. CASE CLOSED.
[2020-02-03] MEDS ORDERED: NICOTINE TRANSD14 M1 TRANSDERM (11:21)
[2020-02-03] MEDS ORDERED: PHENERGAN 25 MG25 M1 PO (11:21)
[2020-02-05] MEDS ORDERED: TRADJENTA5 MG PO (08:36)
[2020-02-05] MEDS ORDERED: NICOTINE TRANSD14 M1 TRANSDERM (08:36)
[2020-02-05] MEDS ORDERED: COLACE100 MG PO (10:18)
[2020-02-05] MEDS ORDERED: MIRALAX119 GM PO (10:18)
[2020-02-05] MEDS ORDERED: CIPRO500 M1 PO (10:20)
== END 2020-01-22 18:04 | disposition short-term general hospital (02) ==
LOC: ER 17:14 → EROBS 19:41 → 4W 19:41
PROVIDERS: Emergency Medicine; ADMIT Family Medicine; ATTEND Family Medicine
DX: I63.9 Cerebral infarction, unspecified (principal); I13.0 Hypertensive heart and chronic kidney disease with heart failure and stage 1 through stage 4 chronic kidney disease, or unspecified chronic kidney disease; N18.9 Chronic kidney disease, unspecified; I50.9 Heart failure, unspecified; F41.9 Anxiety disorder, unspecified; I25.2 Old myocardial infarction; F17.210 Nicotine dependence, cigarettes, uncomplicated
CPT/HCPCS: 10045

== ENCOUNTER 2020-01-22 15:53 | Inpatient (IN) | payer OTHER ==
[~2020-01-22] VITALS: Ht 193 cm; Wt 119.5 kg
[2020-01-22 18:15] VITALS: BP 135/67
[2020-01-22 19:20] VITALS: BP 133/69
[2020-01-23 05:42] LABS: HEMATOCRIT 27.2 % (42.0-52.0); HEMOGLOBIN 9.1 gm/dL (14.0-18.0); MCH 29.4 pg (26.0-34.0); MCHC 33.5 g/dL (28.0-37.0); MCV 87.8 fL (80.0-100.0); RBC 3.1 mil/uL (4.50-6.00); WBC 9.1 thou/uL (4.0-11.0)
[2020-01-23 06:09] LABS: ALBUMIN 2.3 g/dL (3.4-5.0); CALCIUM 8.1 mg/dL (8.5-10.1); PHOSPHORUS 5.6 mg/dL (2.5-4.9); POTASSIUM 4.3 mmol/L (3.5-5.1)
[2020-01-23 07:55] VITALS: BP 145/73
[2020-01-23 08:00] VITALS: BP 145/73
[2020-01-23 10:42] VITALS: BP 145/73
[2020-01-23 16:30] VITALS: BP 125/63
[2020-01-23 19:57] VITALS: BP 157/74
[2020-01-24 06:16] LABS: ALBUMIN 2.2 g/dL (3.4-5.0); CALCIUM 8.2 mg/dL (8.5-10.1); PHOSPHORUS 6.5 mg/dL (2.5-4.9); POTASSIUM 4.7 mmol/L (3.5-5.1)
[2020-01-24 07:59] LABS: CREATININE 4.3 mg/dL (0.7-1.3)
[2020-01-24 09:09] VITALS: BP 150/67
[2020-01-24 20:00] VITALS: BP 147/65
[2020-01-25 05:51] LABS: ALBUMIN 2.4 g/dL (3.4-5.0); CALCIUM 8.6 mg/dL (8.5-10.1); CREATININE 4.1 mg/dL (0.7-1.3); PHOSPHORUS 5.7 mg/dL (2.5-4.9); POTASSIUM 4.3 mmol/L (3.5-5.1)
[2020-01-25 08:15] VITALS: BP 145/70
[2020-01-25 19:17] VITALS: BP 129/60
[2020-01-26 06:20] LABS: ALBUMIN 2.3 g/dL (3.4-5.0); CALCIUM 8.4 mg/dL (8.5-10.1); CREATININE 3.9 mg/dL (0.7-1.3); PHOSPHORUS 5.7 mg/dL (2.5-4.9); POTASSIUM 4.6 mmol/L (3.5-5.1)
[2020-01-26 08:30] VITALS: BP 124/59
[2020-01-26 19:41] VITALS: BP 143/70
[2020-01-27 08:00] VITALS: BP 141/68
[2020-01-27 19:45] VITALS: BP 138/71
[2020-01-28 07:42] LABS: ALBUMIN 2.2 g/dL (3.4-5.0); CALCIUM 8.5 mg/dL (8.5-10.1); CREATININE 3.8 mg/dL (0.7-1.3); PHOSPHORUS 5.8 mg/dL (2.5-4.9); POTASSIUM 3.9 mmol/L (3.5-5.1)
[2020-01-28 08:00] VITALS: BP 130/64
[2020-01-28 10:59] LABS: HEMATOCRIT 28.4 % (42.0-52.0); HEMOGLOBIN 9.5 gm/dL (14.0-18.0); MCH 29.1 pg (26.0-34.0); MCHC 33.5 g/dL (28.0-37.0); MCV 86.9 fL (80.0-100.0); RBC 3.27 mil/uL (4.50-6.00); RDW 14.9 % (10.5-14.5)
--- NOTE | 2020-01-28 13:12 | HC ---
[facility] [place] [address] CONSULTATION Name: JACIEL ANGELESIN Room #: 506-1 ADM IN M.R.#: [id number] Admission: 01/22/20 Attend Phys: Reynaldo Lim MD Discharge: Date of : 59 Report #: [id number] THIS REPORT FOR: cc: Jaciel Galindo MD, Neal A. MD Al-Mubaslat, Ahmad MD ~ CC: Reynaldo Galindo DATE OF SERVICE: 01/25/2020 ENDOCRINE CONSULTATION NOTE CONSULTING PHYSICIAN: Dr. Lim. REASON FOR CONSULTATION: Type 2 diabetes mellitus. HISTORY OF PRESENT ILLNESS: This is a 64-year-old male patient whose medical background is noted for multiple significant medical issues including type 2 diabetes mellitus, hypertension, hyperlipidemia, advanced renal insufficiency, CAD, status post CABG in 2017. The patient was admitted to [facility] a few weeks ago due to a small infarct and was subsequently transferred to the rehab unit for rehabilitative efforts. However, the patient struggled with significant fluid retention in the setting of advanced renal insufficiency and was transferred out to the medical floor where he was aggressively diuresed and managed to improve a great deal with a near 30-pound weight loss as a result of that diuresis. The patient had to be managed with an intravenous Lasix drip at that time and responded well to that aggressive management. He was being monitored closely given his limited kidney function reserve as this management was taking place. Following the patient's stabilization and responsiveness to therapy as noted, he was transferred back to the rehabilitation unit to resume his rehabilitation therapy. The patient has had type 2 diabetes mellitus for many years and has been most recently managing this with Lantus insulin 60 units daily. He describes blood glucose values that have been primarily above 200 mg/dL. Again, the patient has been dealing with issues of advanced chronic kidney disease in the setting of hypertension and diabetes mellitus. He has had intermittent issues with peripheral neuropathy. He is known to have CAD and is status post CABG and is maintained on aspirin and beta blockers. The patient is also hyperlipidemic and is maintained on atorvastatin therapy. He is hypertensive and is maintained on a combination of carvedilol, torsemide, and amlodipine. REVIEW OF SYSTEMS: [address] [address] CONSULTATION Name: JACIEL ANGELES Room #: 506-1 ADM IN M.R.#: [id number] Admission: 01/22/20 Attend Phys: Reynaldo Lim MD Discharge: Date of : 59 Report #: [id number] CONSTITUTIONAL: Fatigue, tiredness, but not fever or chills. As noted above, the patient had a significant weight loss associated with the aggressive diuresis that he underwent. HEENT: Negative for sore throat, sinus pain or ear drainage. PULMONARY: Shortness of breath and occasional cough, but not hemoptysis. CARDIAC: Lower extremity edema, generalized fluid retention. No chest pain or palpitations, no syncope. GASTROINTESTINAL: Abdominal distention, abdominal discomfort, occasional nausea, no vomiting. NEUROLOGY: Noted for baseline issues with peripheral diabetic neuropathy. Occasional dizziness, lightheadedness, recent stroke as noted above. PSYCHIATRIC: Occasional issues with anxiety. No delusions or hallucinations. Otherwise, his review of systems is noncontributory other than those mentioned in HPI. PAST MEDICAL HISTORY: 1. Type 2 diabetes mellitus. 2. Peripheral diabetic neuropathy. 3. Advanced renal insufficiency and chronic kidney disease. 4. CAD, status post CABG in 2017. 5. Hypertension. 6. Hyperlipidemia. 7. Peripheral arterial disease. 8. Paroxysmal atrial fibrillation. 9. Chronic back pain and osteoarthritis. 10. Obesity. 11. Anxiety. 12. Peripheral vascular disease. 13. CHF. 14. History of CVA. CURRENT MEDICATIONS: Include: 1. Amlodipine 5 mg daily, aspirin 81 mg daily, atorvastatin 80 mg daily, fluoxetine 20 mg daily, Lantus insulin 60 units daily, potassium chloride 20 mEq daily, gabapentin 300 mg t.i.d. 2. Amiodarone 200 mg b.i.d. 3. Apixaban 5 mg b.i.d. 4. Torsemide 40 mg b.i.d. 5. Carvedilol 6.25 mg b.i.d. 6. Alprazolam 1 mg t.i.d. 7. Colace 100 mg b.i.d. PAST SURGICAL HISTORY: Right great and second toe amputation, cholecystectomy, tonsillectomy. [address] [address] CONSULTATION Name: JACIEL ANGELES MARILIA Room #: 506-1 [facility] IN M.R.#: [id number] Admission: 01/22/20 Attend Phys: Reynaldo Lim MD Discharge: Date of : 59 Report #: [id number] FAMILY HISTORY: Noted for coronary artery disease. SOCIAL HISTORY: The patient is an active smoker. Denies the excessive use of alcohol. PHYSICAL EXAMINATION: GENERAL: Pleasant male patient who is not in apparent pain or distress. VITAL SIGNS: Blood pressure is 145/70 mmHg, heart rate is 57 beats per minute, respiration 20 per minute, temperature of 36.4 degrees Celsius. CONSTITUTIONAL: The patient is sitting upright, appears comfortable, not in apparent distress. HEENT: Anicteric sclerae. Intact extraocular motions. NECK: Supple, without thyromegaly or carotid bruit. CHEST: Noted for moderate air entry with scattered rales. No wheezes or crackles. HEART: Regular rate and rhythm without murmurs or gallops. ABDOMEN: Soft, somewhat distended, not tense. No guarding. Active bowel sounds. EXTREMITIES: Lower extremity exam is noted for stasis dermatitis and noted for the great and second toe amputations as noted above. Trace edema is noted bilaterally. NEUROLOGIC: Awake, alert and oriented to time, place and person. The remainder of his examination is mostly noted for peripheral sensory deficits. PSYCHIATRIC: Pleasant, interactive. Normal mood and affect. Normal thought process. LABORATORY RESULTS: Blood glucose values have ranged from 99 to 131 mg/dL though are predominantly under 180 mg/dL. Sodium is 139, potassium 4.3, chloride 103, CO2 of 28, anion gap 8, BUN 95, creatinine 4.1, calcium 8.6, phosphorus 5.7, magnesium 2.3, albumin 2.4, eGFR 15, lactic acid 1.4. Total cholesterol 178, triglycerides 354, HDL 31, LDL 77. Free T4 on 01/07/2020 was 0.7. INR 1.0. White blood count 9.1, hemoglobin 9.1, hematocrit 27.2, platelets 217. TSH 2.36. Hemoglobin A1c 9.7%. ASSESSMENT AND PLAN: 1. Type 2 diabetes mellitus. The patient has an uncontrolled baseline judging by his hemoglobin A1c as noted above. The patient has done well during his past rehabilitation stay and as I reviewed his recent hospital stay on the single daily dose of Lantus insulin 60 units q.p.m. From past experience, the patient seems to have less blood glucose variability and better post-prandial control with the inclusion of Tradjenta. I will resume treatment with Tradjenta and drop his Lantus to 54 units as we do so in order to avoid hypoglycemia. In the meantime, we will continue to monitor the patient's blood glucose values a.c. and at bedtime and provide support with a Humalog supplemental scale at low intensity as needed for hyperglycemia. [address] [address] CONSULTATION Name: JACIEL ANGELES MARILIA Room #: 506-1 ADM IN M.R.#: [id number] Admission: 01/22/20 Attend Phys: Reynaldo Lim MD Discharge: Date of : 59 Report #: [id number] 2. Hyperlipidemia. The patient is currently maintained on atorvastatin therapy and tolerates it well, he is to continue with the same. 3. Hypertension. The patient is currently maintained on carvedilol, torsemide, Zaroxolyn and Norvasc and appears to do well, he is to continue with the same. 4. Diabetic neuropathy. The patient is currently maintained on gabapentin 300 mg t.i.d. and appears to have a reasonable level of symptom control, he is to continue with the same. 5. Renal insufficiency. The patient has chronic kidney disease, likely due to longstanding diabetes mellitus with evidence of proteinuria. He appears to be stable around his baseline serum creatinine. Dr. Saldana is following his progress closely. I have reviewed the patient's clinical care notes present and past including those from prior admissions as well as clinical reports with laboratory values, radiologic studies and other pertinent information for over 35 minutes in addition to my [id number] encounter with the patient. I certainly appreciate this consultation by Dr. Lim. <ELECTRONICALLY SIGNED> By: Nicole Garcia MD 01/28/20 1312 1247 1410 Nicole Garcia MD /nt
[2020-01-28 19:12] VITALS: BP 139/56
[2020-01-29 06:22] LABS: ALBUMIN 2.2 g/dL (3.4-5.0); CALCIUM 8.7 mg/dL (8.5-10.1); PHOSPHORUS 6.8 mg/dL (2.5-4.9); POTASSIUM 4.1 mmol/L (3.5-5.1)
[2020-01-29 08:00] VITALS: BP 121/66
[2020-01-29 10:07] LABS: HBsAG-EMPLOYEE EXPOSURE Negative (Negative); HCV AB-EMPLOYEE EXPOSURE <0.1 (0.0-0.9)
[2020-01-29 19:20] VITALS: BP 118/57
[2020-01-30 06:35] LABS: ALBUMIN 2.1 g/dL (3.4-5.0); CALCIUM 8.4 mg/dL (8.5-10.1); CREATININE 4.1 mg/dL (0.7-1.3); PHOSPHORUS 6.1 mg/dL (2.5-4.9); POTASSIUM 3.9 mmol/L (3.5-5.1)
[2020-01-30 09:07] VITALS: BP 141/61
[2020-01-30 20:12] VITALS: BP 144/68
[2020-01-31 05:58] LABS: ALBUMIN 2.2 g/dL (3.4-5.0); CALCIUM 8.4 mg/dL (8.5-10.1); PHOSPHORUS 5.7 mg/dL (2.5-4.9); POTASSIUM 3.9 mmol/L (3.5-5.1)
[2020-01-31 08:00] VITALS: BP 145/71
[2020-01-31 10:55] LABS: HEMATOCRIT 29.6 % (42.0-52.0); HEMOGLOBIN 9.8 gm/dL (14.0-18.0); MCH 28.6 pg (26.0-34.0); MCHC 33.1 g/dL (28.0-37.0); MCV 86.5 fL (80.0-100.0); RBC 3.43 mil/uL (4.50-6.00); RDW 14.9 % (10.5-14.5); WBC 10.2 thou/uL (4.0-11.0)
[2020-01-31 14:13] LABS: SOURCE OLECRANON BURSA
[2020-01-31 14:14] LABS: CLARITY SLIGHTLY CLOUDY; COLOR YELLOW; TOTAL VOLUME 3 mL
[2020-01-31 14:25] LABS: BF NUCLEATED CELLS 5479 /mm3; BF RBC 6325 /mm3
[2020-01-31 15:26] LABS: BF NEUTROPHILS 94 %
[2020-01-31 15:28] LABS: BF MACROPHAGE 2 %
[2020-01-31 15:55] VITALS: BP 145/73
[2020-01-31 19:27] VITALS: BP 150/66
[2020-02-01 05:23] LABS: ALBUMIN 2.1 g/dL (3.4-5.0); CALCIUM 8.4 mg/dL (8.5-10.1); CREATININE 4.4 mg/dL (0.7-1.3); PHOSPHORUS 5.7 mg/dL (2.5-4.9); POTASSIUM 4.3 mmol/L (3.5-5.1)
[2020-02-01 07:53] VITALS: BP 131/55
[2020-02-01] MEDS ORDERED: PROTONIX40 M1 PO (08:10)
[2020-02-01] MEDS ORDERED: PREDNISONE 20 M20 MG PO (08:10)
[2020-02-01] MEDS ORDERED: ELIQUIS5 MG PO (08:10)
[2020-02-01] MEDS ORDERED: COREG6.25 MG PO (08:10)
[2020-02-01] MEDS ORDERED: TRADJENTA5 MG PO (08:10)
[2020-02-01] MEDS ORDERED: ATORVASTATIN CA80 MG PO (08:10)
[2020-02-01 09:35] VITALS: BP 131/55
[2020-02-03] MEDS ORDERED: NICOTINE TRANSD14 M1 TRANSDERM (11:21)
[2020-02-03] MEDS ORDERED: PHENERGAN 25 MG25 M1 PO (11:21)
[2020-02-05] MEDS ORDERED: NICOTINE TRANSD14 M1 TRANSDERM (08:36)
[2020-02-05] MEDS ORDERED: TRADJENTA5 MG PO (08:36)
[2020-02-05] MEDS ORDERED: COLACE100 MG PO (10:18)
[2020-02-05] MEDS ORDERED: MIRALAX119 GM PO (10:18)
[2020-02-05] MEDS ORDERED: CIPRO500 M1 PO (10:20)
--- NOTE | 2020-02-08 11:31 | H ---
[facility] [place] [address] HISTORY AND PHYSICAL Name: JACIEL ANGELES Room #: 506-1 [facility] IN M.R.#: [id number] Admission: 01/22/20 Attend Phys: Reynaldo Lim MD Discharge: 02/01/20 Date of : 59 Report #: [id number] THIS REPORT FOR: cc: Jaciel Galindo MD, Neal A. MD Smithson,Reynaldo Hatfield MD ~ CC: Reynaldo Galindo DATE OF SERVICE: 01/22/2020 HISTORY AND PHYSICAL/POST ADMISSION PHYSICIAN EVALUATION HISTORY OF PRESENT ILLNESS: The patient is a 64-year-old white male who had a recent CVA, left mid brain infarct, diagnosed in 01/04/2020. He was admitted to the acute inpatient rehab [facility]. His course was complicated by significantly worsening lower extremity edema. He has a history of paroxysmal atrial fibrillation with transition to normal sinus rhythm and continued on amiodarone and Eliquis. He was noted to have acute renal insufficiency. He was followed by Nephrology, Dr. Saldana, who attempting to orally diurese him on the rehab [facility] as he had a significant increase in his overall weight and lower extremity edema. The patient warranted an IV Lasix drip and was thus transferred back to the acute care hospital. He was discharged directly home. He was noted to have a fall, hitting his head, right forehead abrasion. He is noted to have gait instability. He has the recent stroke, which he never actually completed his full inpatient rehabilitation stay and has been readmitted for inpatient rehabilitation. PRIOR MEDICAL HISTORY: As noted above. He has a history of chronic kidney disease, diabetes mellitus type 2, hypertension, coronary artery disease, and obstructive sleep apnea with BiPAP. MEDICATIONS: Please see the full medication listing. PAST SURGICAL HISTORY: Right great and second toe amputation, cholecystectomy, and tonsillectomy. ALLERGIES: No known drug allergies. SOCIAL HISTORY: He lives in the home in the basement with son, upstairs his ex- lives. They can help if really needed, but he does not like them to. He is hoping to be as independent as possible. REVIEW OF SYSTEMS: No current complaints of chest pain, shortness of breath or abdominal discomfort. [address] [address] HISTORY AND PHYSICAL Name: JACIEL ANGELES Room #: 506-1 [facility] IN [facility].#: [id number] Admission: 01/22/20 Attend Phys: Reynaldo Lim MD Discharge: 02/01/20 Date of : 59 Report #: [id number] PHYSICAL EXAMINATION: GENERAL: A 64-year-old overweight white male, in no obvious distress. He is alert. VITAL SIGNS: Last recorded temperature is 98.4, pulse 51, respirations 20, blood pressure is 133/69. HEENT: He does have the right forehead abrasion. Otherwise, appears benign. Facies appeared symmetric. CHEST: Sounded clear to auscultation. CARDIOVASCULAR: Regular rate and rhythm. ABDOMEN: Bowel sounds positive, nontender. GENITOURINARY AND RECTAL: Deferred. NEUROLOGICAL: He has some dysarthric speech. Functional range of motion of the upper and lower extremities. He does have bilateral lower extremity edema 1+ to maybe 2+. Strength is probably a grade 4/5. He has some problems with coordination mild decreased with toe tap. He does have some unsteadiness with getting up. ASSESSMENT: 1. Left mid brain infarct. 2. Gait instability with fall. 3. Right forehead abrasion, status post fall. 4. Medical complex with generalized debilitation. 5. Chronic kidney disease. 6. Lower extremity edema. 7. Diabetes mellitus type 2. 8. Hypertension. 9. Coronary artery disease. 10. Obstructive sleep apnea with BiPAP. PLAN: The patient is admitted for acute in-hospital inpatient rehabilitation. From a postadmission physician evaluation perspective, there are no relevant changes since the preadmission screening. Please see the above review of prior and current medical and functional conditions and comorbidities. Please see the patient's previous and current functional status. As far as risk of complications, the patient has multiple medical comorbidities as noted above. Initial plan of care involves the interdisciplinary acute inpatient rehabilitation program. Measurable functional goals would be for the patient to become modified independent with transfers, mobility, ADLs as well as cognition, communication, so that he can return back to the home setting. Prognosis is reasonably good with estimated length of stay probably at least 10 days to 2 weeks. Potential barriers would include his multiple medical comorbidities and decreased functional status. The patient meets diagnostic criteria for an acute in-hospital inpatient rehabilitation stay. He meets medical necessity criteria and we will have the [address] [address] HISTORY AND PHYSICAL Name: JACIEL ANGELES Room #: 506-1 [facility] IN M.R.#: [id number] Admission: 01/22/20 Attend Phys: Reynaldo Lim MD Discharge: 02/01/20 Date of : 59 Report #: [id number] income tax consultant physicians continue to follow. He does have the tolerance for therapies and has appropriate discharge goals back to the home setting. <ELECTRONICALLY SIGNED> By: Reynaldo Lim MD 02/08/20 1131 [id number] Reynaldo Lim MD /nt
--- NOTE | 2020-02-08 11:38 | PLAN ---
[facility] [place] [address] [place] [address] REHAB UNIT PLAN OF CARE Name: JOSE ANGELES Room #: 506-1 [facility] IN M.R.#: [id number] Admission: 01/22/20 Attend Phys: Reynaldo Lim MD Discharge: 02/01/20 Date of : 59 Report #: [id number] THIS REPORT FOR: //name// CC: Reynaldo Galindo DATE OF SERVICE: 01/23/2020 The overall plan of care is based on the preadmission screen, post-admission physician evaluation and information garnered from therapy assessments. The patient has been standby assistance for transfers. Contact guard bed to chair. He is ambulating contact guard with a front-wheeled walker. Lower body dressing is at a supervision level. He does have mild comprehensive deficits with djad-ep-[id number] cognitive deficits and moderate memory deficits. ASSESSMENT: Please see the history and physical dictated earlier today. PLAN: 1. Estimated length of stay is probably 10 days to 2 weeks. 2. Medical prognosis is reasonably good. 3. Anticipated interventions includes the interdisciplinary acute inpatient rehabilitation program. 4. Anticipated functional outcomes would be for the patient to become modified independent with mobility and gait at a walker level, so that he can return back to the home setting. 5. Discharge destination would be back home where he lives in the basement with his son. 6. Expected therapy by discipline includes PT, OT and speech 1 hour per day each five days a week throughout the duration of the acute inpatient rehabilitation stay. <ELECTRONICALLY SIGNED> By: Reynaldo Lim MD 02/08/20 1138 [id number] [id number] Reynaldo Lim MD /nt
== END 2020-02-01 16:24 | disposition short-term general hospital (02) | DRG 64 ==
PROVIDERS: Hospitalist; Nurse Practitioner Family; Orthopaedic Surgery; ADMIT Physical Medicine & Rehabilitation; ATTEND Physical Medicine & Rehabilitation
PROC: 5A09357 Assistance with Respiratory Ventilation, Less than 24 Consecutive Hours, Continuous Positive Airway Pressure (ICD-10-PCS; principal; 2020-01-22)
PROC: 5A09357 Assistance with Respiratory Ventilation, Less than 24 Consecutive Hours, Continuous Positive Airway Pressure (ICD-10-PCS; 2020-01-23)
PROC: 5A09357 Assistance with Respiratory Ventilation, Less than 24 Consecutive Hours, Continuous Positive Airway Pressure (ICD-10-PCS; 2020-01-25)
PROC: 5A09357 Assistance with Respiratory Ventilation, Less than 24 Consecutive Hours, Continuous Positive Airway Pressure (ICD-10-PCS; 2020-01-27)
PROC: 5A09357 Assistance with Respiratory Ventilation, Less than 24 Consecutive Hours, Continuous Positive Airway Pressure (ICD-10-PCS; 2020-01-30)
PROC: 5A09357 Assistance with Respiratory Ventilation, Less than 24 Consecutive Hours, Continuous Positive Airway Pressure (ICD-10-PCS; 2020-01-31)
PROC: 5A09357 Assistance with Respiratory Ventilation, Less than 24 Consecutive Hours, Continuous Positive Airway Pressure (ICD-10-PCS; 2020-02-01)
DX: I63.412 Cerebral infarction due to embolism of left middle cerebral artery (principal); I50.23 Acute on chronic systolic (congestive) heart failure; G92 Toxic encephalopathy; I13.0 Hypertensive heart and chronic kidney disease with heart failure and stage 1 through stage 4 chronic kidney disease, or unspecified chronic kidney disease; G93.1 Anoxic brain damage, not elsewhere classified; E78.5 Hyperlipidemia, unspecified; I25.10 Atherosclerotic heart disease of native coronary artery without angina pectoris; N18.9 Chronic kidney disease, unspecified; E11.22 Type 2 diabetes mellitus with diabetic chronic kidney disease; E11.42 Type 2 diabetes mellitus with diabetic polyneuropathy; I48.0 Paroxysmal atrial fibrillation; M19.90 Unspecified osteoarthritis, unspecified site; G89.29 Other chronic pain; M54.9 Dorsalgia, unspecified; F41.9 Anxiety disorder, unspecified; E66.9 Obesity, unspecified; E11.51 Type 2 diabetes mellitus with diabetic peripheral angiopathy without gangrene; G47.33 Obstructive sleep apnea (adult) (pediatric); M10.9 Gout, unspecified; S00.81XA Abrasion of other part of head, initial encounter; W18.30XA Fall on same level, unspecified, initial encounter; Z20.828 Contact with and (suspected) exposure to other viral communicable diseases; M70.21 Olecranon bursitis, right elbow; M10.021 Idiopathic gout, right elbow; E87.5 Hyperkalemia; Z79.4 Long term (current) use of insulin; Z95.1 Presence of aortocoronary bypass graft; Z79.01 Long term (current) use of anticoagulants; Z79.82 Long term (current) use of aspirin
CPT/HCPCS: 10112

== ENCOUNTER 2020-02-01 16:11 | Inpatient (IN) | payer OTHER ==
[~2020-02-01] VITALS: Ht 193 cm; Wt 117.9 kg
[~2020-02-01 16:11] MED LIST changes: +PREDNISONE 20 M20 MG PO; +PROTONIX40 M1 PO; +TRADJENTA5 MG PO
[2020-02-01 21:40] VITALS: BP 142/72
--- NOTE | 2020-02-02 00:37 | NUR ---
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
[2020-02-02 04:12] VITALS: BP 143/67
[2020-02-02 06:07] LABS: ABSOLUTE NEUTROPHILS 11.6 thou/uL (1.4-8.2); BASOPHILS 0.2 % (0.0-2.0); EOSINOPHILS 0.1 % (0.0-3.0); HEMATOCRIT 26.7 % (42.0-52.0); HEMOGLOBIN 8.9 gm/dL (14.0-18.0); LYMPHOCYTES 7.3 % (24.0-44.0); MCH 28.7 pg (26.0-34.0); MCHC 33.3 g/dL (28.0-37.0); MCV 86.1 fL (80.0-100.0); MONOCYTES 4.1 % (1.0-8.0); PLATELET COUNT 375 thou/uL (150-400); POLYS 88.3 % (36.0-66.0); RDW 14.6 % (10.5-14.5); WBC 13.2 thou/uL (4.0-11.0)
[2020-02-02 06:32] LABS: ALBUMIN 2.2 g/dL (3.4-5.0); CREATININE 3.9 mg/dL (0.7-1.3); MAGNESIUM 2.3 mg/dL (1.8-2.4); POTASSIUM 4.2 mmol/L (3.5-5.1); TOTAL BILIRUBIN 0.2 mg/dL (0.2-1.0); TOTAL PROTEIN 6.5 g/dL (6.4-8.2)
[2020-02-02 08:27] VITALS: BP 132/67
--- NOTE | 2020-02-02 08:29 | NUR ---
ORDERS RECEIVED FOR PT EVAL AND TREAT. Pt TRANSFERRED TO ACUTE FROM [facility]N ACUTE REHAB LAST NIGHT FOR PLANNED I&D OF ELBOW TODAY. WILL RE-ADMIT TO 5 REHAB TOMORROW. WILL PLAN TO RESUME THERAPIES ON 5N ONCE RE-ADMITTED TO THAT UNIT.
--- NOTE | 2020-02-02 10:54 | O ---
[facility] [place] [place] [address] OPERATIVE REPORT Name: JACIEL ANGELES Room #: 439-P ADM IN M.R.#: [id number] Admission: 02/01/20 Attend Phys: lBake Rai MD Discharge: Date of : 59 Report #: [id number] THIS REPORT FOR: cc: Jaciel Galindo MD, Neal A. MD McCabe,Clyde Suarez MD ~ CC: Jaciel Rai DATE OF SERVICE: 02/02/2020 SERVICE: Orthopedics. FACILITY: [facility]. SURGEON: Clyde Claire MD MAKE UP GIRL: Alesia Ware NP. PREOPERATIVE DIAGNOSIS: Septic olecranon bursitis, right elbow. POSTOPERATIVE DIAGNOSIS: Septic olecranon bursitis, right elbow. PROCEDURE: Excisional irrigation and debridement, right elbow olecranon bursa. COMPLICATIONS: None. DRAINS: None. SPECIMENS: Tissue and swab sent for culture. FINDINGS: 1. Minimal purulence. 2. Thickened necrotic bursa excised. HISTORY: The patient is a gentleman, who was admitted to the hospital after a stroke and was in the inpatient rehab when he developed acute swelling of his elbow. He had an aspiration, which grew out Staph aureus and was indicated for surgical treatment. Risks, benefits, alternatives and indications of surgery discussed with him in detail preoperatively, explained the reason for the procedure as well as possibility for repeat I and D should the infection persist and he was in agreement and wished to move forward with treatment plan. PROCEDURE IN DETAIL: After right upper extremity was correctly identified in the preoperative holding area as the operative extremity, the patient was taken to the operating room where general anesthesia was induced without complication. [address] [address] OPERATIVE REPORT Name: JACIEL ANGELES Room #: 439-P ADM IN M.R.#: [id number] Admission: 02/01/20 Attend Phys: Blake Rai MD Discharge: Date of : 59 Report #: [id number] He was padded appropriately. Prophylactic antibiotics were not administered today as he is already on antibiotic regimen. Right arm was prepped and draped in standard sterile fashion. Time-out procedure was performed. A 4 cm incision was made over the extensor surface of the elbow over the swollen olecranon bursa and fluid was seen to egress. A minimal amount of purulence was noted. The fluid was cultured. There was necrotic bursa, which was excised with the rongeur and the scissors and some of this was sent with the swab for the culture. After the debridement was completed all the way down to the tibial olecranon, the wound was copiously irrigated and explored. There were no pockets of purulence approximately half a gram of vancomycin powder was then placed within the wound packed underneath the skin and then skin was closed with 3-0 nylon and then a very padded sterile dressing was applied to the elbow. He will be allowed to weightbear to the forearm, wrist and hand, but will be nonweightbearing on the elbow. He was awakened from anesthesia and taken to recovery room in stable condition. No complications. All counts were correct. <ELECTRONICALLY SIGNED> By: Clyde Claire MD 02/02/20 1054 1021 1040 Clyde Claire MD /nt
[2020-02-02 12:08] VITALS: BP 145/72
--- NOTE | 2020-02-02 13:16 | NUR ---
SECOND ORDER FROM [facility] CAME IN WITH RESTRICTIONS OF: NWB ON ELBOW, OK FOR WBAT ON HAND/FOREARM. WENT IN TO SEE PT TO DISCUSS NWB AND DISCUSS AROM AT WRIST AND FOREARM. PT VERBALLY NOTED UNDERSTANDING. PT TO RETURN TO 5N 02/02, OT EVAL TO BE COMPLETED ON RETURN TO 5N
[2020-02-02 17:22] VITALS: BP 142/73
--- NOTE | 2020-02-02 17:36 | NUR ---
ASSUMED CARE AT 0700, SHIFT ASSESMENT DONE, NPO SINCE LAST NIGHT. WENT FOR SURGERY THIS AM. CAME BACK AT 11 AM. WAS ON 2L NC FOR A WHILE. REPORTED PAIN, PRN PAIN MEDS GIVEN WITH SOME RELIEF. UP WITH STANDBY ASSIST TO THE BATHROOM. WILL CONTINUE TO ASSESS AND ASSIST WITH ADLs NEEDED.
[2020-02-02 19:35] VITALS: BP 138/61
--- NOTE | 2020-02-03 03:39 | NUR ---
ASSUMED PT CARE AT 1900.PT WAS STILL DROWSY FROM ANESTHESIA.VSS.DRSG ON HIS R ELBOW C/D/I.PT DENIED PAIN SO FAR.UP WITH ASSIST TO TOILET USES URINAL SOMETIMES.BG MONITORED,COVERAGE GIVEN.EDEMA TO BLE,LEGS ELEVATED.PT LIKES TO SLEEP IN HIS RECLINER,APPEARS TO BE SLEEPING AT THIS TIME.CHAIR ALARM IN PLACE,CALL LIGHT WITHIN REACH.
[2020-02-03 04:30] VITALS: BP 136/70
[2020-02-03 05:51] LABS: ABSOLUTE NEUTROPHILS 11.8 thou/uL (1.4-8.2); BASOPHILS 0.1 % (0.0-2.0); HEMATOCRIT 25.3 % (42.0-52.0); HEMOGLOBIN 8.2 gm/dL (14.0-18.0); MCH 28.4 pg (26.0-34.0); MCHC 32.6 g/dL (28.0-37.0); MCV 87.3 fL (80.0-100.0); MONOCYTES 4.2 % (1.0-8.0); PLATELET COUNT 340 thou/uL (150-400); POLYS 91.7 % (36.0-66.0); RBC 2.89 mil/uL (4.50-6.00); RDW 14.8 % (10.5-14.5); WBC 12.9 thou/uL (4.0-11.0)
[2020-02-03 06:15] LABS: ALBUMIN 1.8 g/dL (3.4-5.0); CALCIUM 8.4 mg/dL (8.5-10.1); CREATININE 3.2 mg/dL (0.7-1.3); PHOSPHORUS 4.5 mg/dL (2.5-4.9); POTASSIUM 4.4 mmol/L (3.5-5.1); TOTAL BILIRUBIN 0.1 mg/dL (0.2-1.0); TOTAL PROTEIN 5.6 g/dL (6.4-8.2)
[2020-02-03 08:27] VITALS: BP 148/71
[2020-02-03 08:47] VITALS: BP 148/71
--- NOTE | 2020-02-03 11:00 | NUR ---
Pt TO RETURN TO 5N REHAB TODAY ROOM 506. AWAITING ORDERS FROM ORTHO REGARDING DRESSING CHANGES FOR R ELBOW PRIOR TO TRANSFER BACK TO 5.
[2020-02-03] MEDS ORDERED: NICOTINE TRANSD14 M1 TRANSDERM ×2 (11:21)
[2020-02-03] MEDS ORDERED: PHENERGAN 25 MG25 M1 PO ×2 (11:21)
--- NOTE | 2020-02-03 12:58 | NUR ---
PT CARE ASSUMED AT 0700. A&Ox4. PT SLEEPS IN THE RECLINER AND REFUSES HIS CPAP. VANCOMYCIN HELD DUE TO VANC THROUGH BEEING HIGH AT 11. ARMANDO WRAP LOOSENED ON HIS R. ARM PER. DR. MENENDEZ. PT DISCHARGED AND TRANSFERRED BACK UP TO REHAB. FALL PROTOCOL IN PLACE. REPORT GIVEN TO RIKKI KYLE.
== END 2020-02-03 13:31 | disposition home health service (06) | DRG 500 ==
LOC: 4S 16:11
PROVIDERS: Internal Medicine; Orthopaedic Surgery Sports Medicine; ADMIT Internal Medicine; ATTEND Internal Medicine
PROC: 0MB30ZZ Excision of Right Elbow Bursa and Ligament, Open Approach (ICD-10-PCS; principal; 2020-02-02)
DX: M71.121 Other infective bursitis, right elbow (principal); G92 Toxic encephalopathy; I50.23 Acute on chronic systolic (congestive) heart failure; N17.9 Acute kidney failure, unspecified; I13.0 Hypertensive heart and chronic kidney disease with heart failure and stage 1 through stage 4 chronic kidney disease, or unspecified chronic kidney disease; M71.0 Abscess of bursa; Z79.01 Long term (current) use of anticoagulants; F32.9 Major depressive disorder, single episode, unspecified; F17.210 Nicotine dependence, cigarettes, uncomplicated; N18.9 Chronic kidney disease, unspecified; E11.22 Type 2 diabetes mellitus with diabetic chronic kidney disease; I25.10 Atherosclerotic heart disease of native coronary artery without angina pectoris; E78.5 Hyperlipidemia, unspecified; E11.51 Type 2 diabetes mellitus with diabetic peripheral angiopathy without gangrene; D63.8 Anemia in other chronic diseases classified elsewhere; B95.61 Methicillin susceptible Staphylococcus aureus infection as the cause of diseases classified elsewhere; I48.0 Paroxysmal atrial fibrillation; Z79.899 Other long term (current) drug therapy; Z90.49 Acquired absence of other specified parts of digestive tract; Z89.411 Acquired absence of right great toe; Z86.73 Personal history of transient ischemic attack (TIA), and cerebral infarction without residual deficits; Z95.1 Presence of aortocoronary bypass graft; Z89.412 Acquired absence of left great toe; Z89.421 Acquired absence of other right toe(s); Z82.49 Family history of ischemic heart disease and other diseases of the circulatory system
CPT/HCPCS: 10102; 50101; 50386; 56527; 57091; 62110; 62900; 70005

== ENCOUNTER 2020-02-03 12:50 | Inpatient (IN) | payer OTHER ==
[~2020-02-03] VITALS: Ht 193 cm; Wt 117.4 kg
--- NOTE | ~2020-02-03 | H ---
[facility] [place] [address] HISTORY AND PHYSICAL Name: JACIEL ANGELES Room #: 506-1 ADM IN M.R.#: [id number] Admission: 02/03/20 Attend Phys: Reynaldo Lim MD Discharge: Date of : 59 Report #: [id number] THIS REPORT FOR: cc: Jaciel Galindo MD, Neal A. MD Smithson,Reynaldo Hatfield MD ~ CC: Reynaldo Galindo DATE OF SERVICE: 02/03/2020 INTERRUPTED STAY NOTE HISTORY OF PRESENT ILLNESS: Please see prior documentation. The patient was discharged down to the acute service and underwent I and D of his right elbow on 02/02/[address] Claire. He was then discharged back to the acute inpatient rehab [facility]. This is part of an interrupted stay. He has had some problems with nausea and vomiting, which he feels are improving, some right elbow discomfort as expected. Nephrology is continuing to closely follow regarding his acute renal insufficiency. He has had significant weight changes with aggressive diuresis. PHYSICAL EXAMINATION: GENERAL: He is alert today. VITAL SIGNS: Temperature 97.6, pulse 57, respirations 18, blood pressure 144/74. CHEST: Sounded clear to auscultation. CARDIAC: Regular rate and rhythm. ABDOMEN: Bowel sounds positive, nontender. GENITOURINARY AND RECTAL: Deferred. EXTREMITIES: Right elbow is dressed with wrapping. He is using that right arm for functional activities. Lower extremities are much improved with decreased swelling, edema, much less probably only a grade 1+. ASSESSMENT: 1. Left mid brain infarct. 2. Septic olecranon bursitis, right elbow, status post incision and drainage on 02/02/2020. 3. Medical complexity with generalized debilitation. 4. Acute renal insufficiency superimposed on chronic kidney disease. 5. Lower extremity edema, improved. 6. Diabetes mellitus type 2. 7. Hypertension. 8. Coronary artery disease. 9. Obstructive sleep apnea. [facility] [address] [place] [address] HISTORY AND PHYSICAL Name: JACIEL ANGELES Room #: 506-1 [facility] ..#: [id number] Admission: 02/03/20 Attend Phys: Reynaldo Lim MD Discharge: Date of : 59 Report #: [id number] PLAN: The patient is continuing in the current therapy program. We are working on functional mobility and ADLs, improving his overall endurance and independence. Speech therapy is following along regarding cognition issues. I discussed with the patient and we will plan on discharge back home tomorrow. He feels that the nausea and vomiting are improving. He is amenable to discharge tomorrow as we discussed. By: [id number] Reynaldo Lim MD /nt
[~2020-02-03 12:50] MED LIST changes: +NICOTINE TRANSD14 M1 TRANSDERM; +PHENERGAN 25 MG25 M1 PO
[2020-02-03 14:00] VITALS: BP 134/57
--- NOTE | 2020-02-03 15:28 | NUR ---
PATIENT ARRIVED ON UNIT AROUND 1330, A&O X 4, NO ACUTE DISTRESS NOTED. VSS, O2 ON RA. PT WAS INTERRUPTED STAY, REEDUCATED ON FALL PRECAUTIONS/BED AND CHAIR ALARMS, VOICED UNDERSTANDING. ORDERS AND MEDS UPDATED PER MD. LUNG SOUNDS CLEAR, REG HR, ACTIVE ABD SOUNDS, WOUND TO R BUTT CHEEK NOTED, BARIER CREAM APPLIED. DRESSING TO R ELBOW IN PLACE, C/D/I. IV TO L ARM IN PLACE, FLUSHES WELL. PT DAILY WEIGHT 259.9 REPORTED BY NURSE. BLE EDEMA, BG ACHS. CONTINENT OF B&B, USES BR. NO N/V REPORTED. PT SITTING IN RECLINER, CALL LIGHT WITHIN REACH, WILL CONTINUE TO MONITOR PER POC.
[2020-02-03 19:15] VITALS: BP 144/74
--- NOTE | 2020-02-04 03:19 | NUR ---
PATIENT ALERT AND ORIENTED X4. SITTING IN KEYA CHAIR THROUGHOUT THE NIGHT. REFUSED TO GET IN THE BED. LEGS ELEVATED MOST OF THE TIME. DRESSING TO RIGHT ELBOW D/I. EDEMA TO LOWER EXTREMETIES +3-4. BS MONITORED PER ORDER. VOIDING PER URINAL WITH WALKER AND GAIT BELT. PATIENT WILL BEGIN WITH NICOTENE PATCH TODAY. REFUSES TO USE CHAIR ALARM. USING CALL LIGHT NECESSARY. LEFT WRIST SL PATENT FOR FLUSH. NO N/V NOTED AT TIME OF NOTE. RESTING QUIETLY. WILL MONITOR.
[2020-02-04 05:43] LABS: HEMATOCRIT 26.8 % (42.0-52.0); HEMOGLOBIN 8.9 gm/dL (14.0-18.0); MCH 28.8 pg (26.0-34.0); MCHC 33.2 g/dL (28.0-37.0); MCV 86.9 fL (80.0-100.0); RBC 3.09 mil/uL (4.50-6.00); RDW 14.7 % (10.5-14.5); WBC 12.2 thou/uL (4.0-11.0)
[2020-02-04 06:01] LABS: CALCIUM 8.4 mg/dL (8.5-10.1); CREATININE 3.2 mg/dL (0.7-1.3)
[2020-02-04 08:20] VITALS: BP 149/64
--- NOTE | 2020-02-04 09:51 | NUR ---
ASSUMED PT CARE AT 0700. VSS ON RA. BS 278. PATIENT ALERT AND ORIENTED X4. C/O NAUSEA THIS AM. PRN NAUSEA MED GIVEN THIS AM. INSULINS AND MORNING MEDS GIVEN. PT WILL BE DISCHARGE TOMORROW. HAS EDEMA ON BLE 3+ LEGS ELEVATED MOST OF THE TIME. DRESSING TO RIGHT ELBOW D/I INTACT. VOIDING PER URINAL WITH WALKER AND GAIT BELT. REFUSES TO USE CHAIR ALARM. OFFERED SUPPORTIVE CARE. DISCUSSED WITH DR. OSCAR ABOUT WOUND CARE. RECEIVED ORDER TO ASK WOUND NURSE TO FOLLOW UP WITH PRIORT BUTTOCK WOUND AND RIGHT ELBOW DRESSING. USING CALL LIGHT APPROPRIATLY. LEFT WRIST SL PATENT FOR FLUSH. THERAPY HELD THIS AM D/T NAUSEA. WILL CONTINUE TO WORK WITH THERAPY WHEN HE FEELS BETTER TODAY. PT WILL BE DISCHARGE HOME TOMORROW RATHER TODAY. [facility].
--- NOTE | 2020-02-04 10:10 | NUR ---
chart review. pt kike to dc tomorrow from acute rehab, cm notified by dr clinton and nursing home administrator on acute rehab. pt back after had procedure on his elbow. cm visited with pt at bedside, cm cont to where own facial mask. pt stated " oh not ready to dc and don't want to go to long term"/sunni. re-education on dc home with [facility] sonny at home. pt lives at home 2 steps to enter then 12 steps to basement. not ready go home. was driving and manage own medication. " pt and chart. pt truck is here in parking lot. will cont follow as needed for dc needs.
[2020-02-04 20:05] VITALS: BP 150/75
--- NOTE | 2020-02-05 | NUR ---
EXTRA STRENGTH TYLENOL FOR ELBOW PAIN, ELBOW IS COVERED WITH MEPILEX WHICH IS HELD IN PLACE WITH TUBIGRIP. UP TO TOILET FOR VOID WITH WALKER AND SBA. CPAP ON AT THIS TIME WITH FOND HOPE THAT HE WILL BE LESS DROWSY TOMORROW. 4 UNITS NOVOLOG INSULIN GIVEN WITH PUDDING AND SMALL TURKEY SANDWICH FOR HS BLOOD SUGAR = 203.
--- NOTE | 2020-02-05 05:40 | NUR ---
AWAKE NOW TO VOID, TOLERATED UNTIL NOW, APPROX 5 HOURS STRAIGHT
[2020-02-05 06:29] LABS: ALBUMIN 2.1 g/dL (3.4-5.0); CALCIUM 8.8 mg/dL (8.5-10.1); CREATININE 3.1 mg/dL (0.7-1.3); PHOSPHORUS 5.2 mg/dL (2.5-4.9); POTASSIUM 4.5 mmol/L (3.5-5.1)
[2020-02-05 07:20] VITALS: BP 145/59
[2020-02-05] MEDS ORDERED: NICOTINE TRANSD14 M1 TRANSDERM ×2 (08:36)
[2020-02-05] MEDS ORDERED: TRADJENTA5 MG PO ×2 (08:36)
[2020-02-05] MEDS ORDERED: MIRALAX119 GM PO ×2 (10:18)
[2020-02-05] MEDS ORDERED: COLACE100 MG PO ×2 (10:18)
[2020-02-05] MEDS ORDERED: CIPRO500 M1 PO ×2 (10:20)
--- NOTE | 2020-02-05 10:39 | NUR ---
cm visited with AL via phone call to see if his sister was going to pick him up or if needed transportation home?, "oh i am not leaving my truck here i will be driving home. education on him say he was dizzy then wanting to drive home was not safe. I have to go to bathroom and i will be driving home." thank you"/AL. [facility]ny [facility] will follow at home for home health needs.
[2020-02-05 10:43] VITALS: BP 145/59
--- NOTE | 2020-02-05 10:58 | NUR ---
ASSUMED CARES AT 0700. PT AWAKE ALERT AND ORIENTED*4. DENIES PAIN AT THIS TIME. VITALS REMAIN STABLE. PT C/O DIZZINESS WHEN HE GOT UP TO USE THE BATHROOM. IV ON LEFT HAND INTACT AND PATENT VANCOMYCIN ADMINISTERED PER ORDER (TO DC IV AFTER INFUSION). LEFT ELBOW VALDEMAR REMAIN INTACT, SITE CLEANED AND DRESSING CHANGED. SMALL AMOUNT OF DRIED DRAINAGE NOTED. SACRAL WOUND CLEANED AND Z-GUARD APPLIED. PT TO DC TODAY, DC TEACHING TO BE COMPLETED PRIOR TO DC. ABDOMEN FIRM AND DISTENDED, PT HAD *1 LG BM HARD. TOOK 2 SIPS OF MG CITRATE AND REFUSED THE REST. BS REMAIN ACTIVE*4. PT UP WITH 1 SBA GB AND WALKER AND TOLERATED WELL. Q1H VISUAL CHECKS. CALL LIGHT WITHIN REACH.
[2020-02-05 11:08] VITALS: BP 145/59
--- OUTSIDE RECORDS SUMMARY | 2020-02-05 15:07 | XMS REPORT | Summary of Care ---
Demographics + + + | Address | [address] [place] [address] | | | [place] [address] | + + + | Home Phone | | + + + | Preferred Language | Unknown | + + + | Marital Status | | + + + | Adventism Affiliation | Unknown | + + + | Race | White | + + + | Ethnic Group | Not or | + + + Author + + + | Author | [facility] | + + + | Organization | [facility] | + + + | Address | Unknown | + + + | Phone | Unavailable | + + + Support + + +---------+ + | Name | Relationship | Address | Phone | + + +---------+ + | Shahram Jacobs | ECON | Unknown | | | [place] | | | | + + +---------+ + Care Team Providers + +------+ + | Care Blow Pit Helper Name | Role | Phone | + +------+ + | Jaciel Galindo MD | PCP | | + +------+ + Encounter Details +------+---------+ + + + | Date | Type | Department | Care Team | Description | +------+---------+ + + + | 06/3 | Letter | [place] | [place], | | | 0/20 | (Out) | Family Medical | MD [address] | | | 20 | | [address] | [place], | | | | | [address] | [address] | | | | | [address] | [place] [address] | | | | | [place] [address] | [phone] | | | | | [phone] | [phone] | | | | | | (Fax) | | +------+---------+ + + + Allergies No Known Allergiesdocumented as of this encounter (statuses as of 02/05/2020) Medications + + +---------+--------+-----+-----+------+ | Medication | Sig | Dispens | Refill | Sta | End | Stat | | | | ed | s | rt | | us | | | | | | [place] | [place] | | | | | | | e | e | | + + +---------+--------+-----+-----+------+ | fenofibrate | Take 160 mg by | | 0 | | | Acti | | (TRIGLIDE) 160 | mouth daily. | | | | | ve | | MG tablet | | | | | | | + + +---------+--------+-----+-----+------+ | glucose blood | OneTouch Ultra | | 0 | | | Acti | | (ONE TOUCH ULTRA | Test | | | | | ve | | TEST) test | | | | | | | | strip | | | | | | | + + +---------+--------+-----+-----+------+ | BYSTOLIC 5 MG | TAKE 1 TABLET BY | 30 | 3 | 10/ | | Acti | | tablet | MOUTH EVERY DAY | tablet | | 12/ | | ve | | | | | | 201 | | | | | | | | 7 | | | + + +---------+--------+-----+-----+------+ | B-D ULTRAFINE | USE DIRECTED | 100 | 1 | 10/ | | Acti | | III SHORT PEN | DAILY | each | | 12/ | | ve | | 31G X 8 MM MISC | | | | 201 | | | | | | | | 7 | | | + + +---------+--------+-----+-----+------+ | FLUoxetine | TAKE 1 CAPSULE | 30 | 5 | 06/ | | Acti | | (PROzac) 20 MG | BY MOUTH ONCE | capsule | | 04/ | | ve | | capsule | DAILY | | | 201 | | | | | | | | 8 | | | + + +---------+--------+-----+-----+------+ | lisinopril | Take 1 tablet | 30 | 5 | 11/ | | Acti | | (PRINIVIL,ZESTRI | (20 mg total) by | tablet | | 06/ | | ve | | L) 20 MG tablet | mouth daily. | | | 201 | | | | | | | | 8 | | | + + +---------+--------+-----+-----+------+ | lisinopril | TAKE 1 TABLET BY | 30 | 1 | 08/ | | Acti | | (PRINIVIL,ZESTRI | MOUTH EVERY DAY | tablet | | 23/ | | ve | | L) 5 MG tablet | | | | 201 | | | | | | | | 9 | | | + + +---------+--------+-----+-----+------+ | lisinopril | TAKE 1 TABLET BY | 30 | 1 | 09/ | | Acti | | (PRINIVIL,ZESTRI | MOUTH EVERY DAY | tablet | | 16/ | | ve | | L) 5 MG tablet | | | | 201 | | | | | | | | 9 | | | + + +---------+--------+-----+-----+------+ | nicotine | Place 1 patch on | 28 | 0 | 09/ | 09/ | Acti | | (NICODERM CQ) 21 | the skin daily | patch | | 27/ | 26/ | ve | | MG/24HR | | | | 201 | 202 | | | | | | | 9 | 0 | | + + +---------+--------+-----+-----+------+ | FLUoxetine | TAKE 1 CAPSULE | 90 | 11 | 12/ | | Acti | | (PROzac) 20 MG | BY MOUTH DAILY | capsule | | 24/ | | ve | | capsule | | | | 201 | | | | | | | | 9 | | | + + +---------+--------+-----+-----+------+ | gabapentin | TAKE 1 CAPSULE | 240 | 3 | 12/ | | Acti | | (NEURONTIN) 300 | BY MOUTH THREE | capsule | | 24/ | | ve | | MG capsule | TIMES DAILY | | | 201 | | | | | | | | 9 | | | + + +---------+--------+-----+-----+------+ | carvedilol | Take 1 tablet | 180 | 3 | 01/ | | Acti | | (COREG) 3.125 MG | (3.125 mg total) | tablet | | 29/ | | ve | | tablet | by mouth 2 | | | 202 | | | | | (two) times a | | | 0 | | | | | day with meals | | | | | | + + +---------+--------+-----+-----+------+ | torsemide | TAKE 1 TABLET BY | 90 | 3 | 01/ | | Acti | | (DEMADEX) 20 MG | MOUTH DAILY | tablet | | 29/ | | ve | | tablet | | | | 202 | | | | | | | | 0 | | | + + +---------+--------+-----+-----+------+ | amLODIPine | TAKE 1 TABLET BY | 90 | 3 | 01/ | | Acti | | (NORVASC) 5 MG | MOUTH DAILY | tablet | | 29/ | | ve | | tablet | *PATIENT NEEDS | | | 202 | | | | | APPOINTMENT* | | | 0 | | | + + +---------+--------+-----+-----+------+ | amiodarone | TAKE ONE (1) | 180 | 3 | 01/ | | Acti | | (PACERONE) 200 | TABLET BY MOUTH | tablet | | 29/ | | ve | | MG tablet | TWICE DAILY | | | 202 | | | | | | | | 0 | | | + + +---------+--------+-----+-----+------+ | ALPRAZolam | TAKE 1 TABLET BY | 45 | 3 | 02/ | | Acti | | (XANAX) 0.5 MG | MOUTH THREE | tablet | | 13/ | | ve | | tablet | TIMES A DAY | | | 202 | | | | | NEEDED. | | | 0 | | | + + +---------+--------+-----+-----+------+ | potassium | TAKE 1 TABLET BY | 90 | 1 | 03/ | | Acti | | chloride SA | MOUTH DAILY | tablet | | 02/ | | ve | | (K-JOVITA,HIRAM-CLAIR) | | | | 202 | | | | 20 MEQ tablet | | | | 0 | | | + + +---------+--------+-----+-----+------+ | sildenafil | TAKE 1 TABLET | 90 | 2 | 03/ | 03/ | Acti | | (REVATIO) 20 MG | (20 MG TOTAL) BY | tablet | | 05/ | 05/ | ve | | tablet | MOUTH DAILY | | | 202 | 202 | | | | NEEDED (ERECTILE | | | 0 | 1 | | | | DYSFUNCTION) | | | | | | + + +---------+--------+-----+-----+------+ | LANTUS | INJECT 60 UNITS | 18 mL | 1 | 03/ | | Acti | | SOLOSTAR 100 | UNDER THE SKIN | | | 15/ | | ve | | UNIT/MLIndicatio | NIGHTLY | | | 202 | | | | ns: Type 2 | | | | 0 | | | | diabetes | | | | | | | | mellitus without | | | | | | | | complication, | | | | | | | | without | | | | | | | | long-term | | | | | | | | current use of | | | | | | | | insulin | | | | | | | | (CMS/HCC) | | | | | | | + + +---------+--------+-----+-----+------+ | atorvastatin | TAKE 1 TABLET BY | 90 | 10 | 04/ | | Acti | | (LIPITOR) 80 MG | MOUTH DAILY | tablet | | 01/ | | ve | | tablet | | | | 202 | | | | | | | | 0 | | | + + +---------+--------+-----+-----+------+ | carvedilol | Take 1 tablet | 180 | 1 | 04/ | | Acti | | (COREG) 6.25 MG | (6.25 mg total) | tablet | | 20/ | | ve | | tablet | by mouth 2 (two) | | | 202 | | | | | times a day | | | 0 | | | | | with meals | | | | | | + + +---------+--------+-----+-----+------+ | ALPRAZolam | TAKE 1 TABLET BY | 90 | 0 | 05/ | | Acti | | (XANAX) 1 MG | MOUTH THREE | tablet | | 15/ | | ve | | tablet | TIMES A DAY | | | 202 | | | | | | | | 0 | | | + + +---------+--------+-----+-----+------+ documented as of this encounter (statuses as of 02/05/2020) Active Problems + + + | Problem | Noted Date | + + + | Chest pain | 11/08/2019 | + + + | Cardiomyopathy | 11/08/2019 | + + + | BMI 33.0-33.9,adult | 10/12/2019 | + + + | Encounter for tobacco use cessation counseling | 03/27/2019 | + + + | BMI 31.0-31.9,adult | 06/13/2018 | + + + | BMI 28.0-28.9,adult | 02/01/2018 | + + + | Cerebellar stroke | 10/12/2017 | + + + | Uncontrolled type 2 diabetes mellitus with | 10/11/2017 | | hyperglycemia, with long-term current use of insulin | | + + + + + | Overview: Last Assessment & Plan: By patient's | | report, poorly controlled as an outpatient - 200's | | hereKnown retinopathy, neuropathy, macrovascular | | disease, probable nephropathy Inpatient glycemic | | goal 140 | | | | 180 Check Hemoglobin a1c Consistent carb diet | | Hypoglycemia protocol Home glargine for now | | Correction insulin | | Correction insulin | + + + + + | Tobacco use disorder | 10/11/2017 | + + + + + | Overview: Last Assessment & Plan: | | Does not want to quit at this time. | | Quit x 2 mos last year after CABG | | | | Nicotine patch 21 mg daily. | + + + + + | Rotary nystagmus | 10/11/2017 | + + + | Amaurosis fugax of right eye | 10/11/2017 | + + + + + | Overview: Last Assessment & Plan: He certainly | | has a lot of vascular risk factors, and CRAO is a | | possibility. Does not appear to have vitreous | | hemorrhage based on exam, though does have known | | diabetic retinopathy. TIA or stroke seems less | | likely in the absence of other neurologic | | abnormalities. Consult ophthalmology for dilated | | exam TIA path for now MRI brain if possible exam | | does not provide diagnosis Aspirin | + + + + + | Hx of CABG | 12/14/2016 | + + + | Paroxysmal atrial fibrillation | 12/07/2016 | + + + | Obstructive sleep apnea | 12/07/2016 | + + + | Polyneuropathy | 12/07/2016 | + + + | Personal history of nicotine dependence | 12/07/2016 | + + + | Dyspnea | 12/07/2016 | + + + | Coronary artery disease involving grindstone heart | 08/08/2016 | | without angina pectoris | | + + + + + | Overview: CABG x 5 | | | | Last Assessment & Plan: | | Stable | | | | Add aspirin | | Discontinue fibrate, but start statin | + + + + + | Benign reactive hypertension | 01/03/2014 | + + + | Lumbar trigger point syndrome | 01/03/2014 | + + + | Cellulitis of right foot | 11/13/2013 | + + + | Acute anxiety | 06/08/2013 | + + + | Cellulitis of hip | 02/05/2013 | + + + | Cellulitis of trunk | 01/25/2012 | + + + | Acute cholecystitis | 06/22/2011 | + + + | Acute generalized abdominal pain | 06/08/2011 | + + + | Chronic insomnia | 02/01/2008 | + + + | Male erectile disorder | 08/24/2007 | + + + | Sciatica, left side | 07/05/2005 | + + + | Inclusion cyst | 03/05/2005 | + + + | Peripheral arterial disease | | + + + + + | 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 Prior RSFA bms | | patent. RPT occ. mLSFA 40%. | + + + +---+ | Essential hypertension | | + +---+ + + | Overview: Last Assessment & Plan: BP a little | | high Continue home amlodipine; increase lisinopril | | to 20 mg daily with proteinuria | | Continue home amlodipine; increase lisinopril to 20 mg daily with proteinuria | + + + +---+ | Diabetes mellitus | | + +---+ documented as of this encounter (statuses as of 02/05/2020) Resolved Problems + +--------+---------+ | Problem | Noted | Resolve | | | Date | d Date | + +--------+---------+ | Hypercholesterolemia | 12/14/ | | | | 2016 | 019 | + +--------+---------+ documented as of this encounter (statuses as of 02/05/2020) Immunizations + + + + | Name | Administration Dates | Next Due | + + + + | Influenza (IM) | 06/13/2018 | | | Preservative | | | | Free | | | + + + + documented as of this encounter Social History + + +---------+--------+------+ | Tobacco Use | Types | Packs/D | Years | Date | | | | ay | Used | | + + +---------+--------+------+ | Current Every | Cigarettes | 0.5 | | | | Day Smoker | | | | | + + +---------+--------+------+ + +---+---+---+ | Smokeless | | | | | Tobacco: Never | | | | | Used | | | | + +---+---+---+ + + | Comments: .5 - .75 of a pack per day | + + + + +---------+ + | Alcohol Use | Drinks/Week | oz/Week | Comments | + + +---------+ + | No | | | | + + +---------+ + + + + | Sex Assigned at | Date Recorded | | | | + + + | Not on file | | + + + + + + + | Job Start Date | Occupation | Industry | + + + + | Not on file | Not on file | Not on file | + + + + + + + + | Travel History | Travel Start | Travel End | + + + + + + | No recent travel history | | available. | + + documented as of this encounter Last Filed Vital Signs Not on filedocumented in this encounter Plan of Treatment +------+---------+ + + + | Date | Type | Specialty | Care Team | Description | +------+---------+ + + + | 07/0 | Office | Family Medicine | Mateo, | | | 09/27 | Visit | | MD [address] | | | [address] | | | [address] | | | | | | [address] [place] [address] | | | | | | [place] [address] | | | | | | [phone] | | | | | | [phone] | | | | | | (Fax) | | +------+---------+ + + + | 04/08 | Office | Cardiology | Pa, | | | 11/25 | Visit | | MD [address] | | | [address] | | | [address] | | | | | | [address] | | | | | | [place], [place] | | | | | | [address] | | | | | | [phone] | | | | | | [phone] | | | | | | (Fax) | | +------+---------+ + + + + +---------+ + + | Health | Due | Last Done | Comments | | Maintenance | Date | | | + +---------+ + + | COLONOSCOPY | | | | | | 957 | | | + +---------+ + + | OPHTHALMOLOGY | | | | | EXAM | 967 | | | + +---------+ + + | URINE | | | | | MICROALBUMIN | 967 | | | + +---------+ + + | HEMOGLOBIN A1C | | 06/11/2019, 02/26/2019, | | | | 020 | 06/13/2018, Additional | | | | | history exists | | + +---------+ + + | INFLUENZA | | 06/13/2018, 05/25/2014 | | | VACCINE | 020 | | | + +---------+ + + documented as of this encounter Results Not on filedocumented in this encounter Insurance + +------+ +------+-------+---------+------+ | Payer | Bene | Subscrib | Effe | Phone | Address | Type | | | fit | er ID | ctiv | | | | | | Plan | | e | | | | | | / | | Date | | | | | | Grou | | s | | | | | | p | | | | | | + +------+ +------+-------+---------+------+ | MEDICARE | MEDI | [id number] | 08/08/ | | [place] | | | | CARE | xxx | 2014 | | | | | | | | -Pre | | | | | | PART | | sent | | | | | | A | | | | | | | | AND | | | | | | | | B | | | | | | + +------+ +------+-------+---------+------+ documented as of this encounter"
== END 2020-02-05 15:12 | disposition home health service (06) | DRG 64 ==
PROVIDERS: Hospitalist; ADMIT Physical Medicine & Rehabilitation; ATTEND Physical Medicine & Rehabilitation
DX: I63.9 Cerebral infarction, unspecified (principal); I50.23 Acute on chronic systolic (congestive) heart failure; G92 Toxic encephalopathy; I13.0 Hypertensive heart and chronic kidney disease with heart failure and stage 1 through stage 4 chronic kidney disease, or unspecified chronic kidney disease; N17.9 Acute kidney failure, unspecified; M70.21 Olecranon bursitis, right elbow; R53.81 Other malaise; I25.10 Atherosclerotic heart disease of native coronary artery without angina pectoris; E78.5 Hyperlipidemia, unspecified; E11.22 Type 2 diabetes mellitus with diabetic chronic kidney disease; N18.9 Chronic kidney disease, unspecified; E11.51 Type 2 diabetes mellitus with diabetic peripheral angiopathy without gangrene; F17.210 Nicotine dependence, cigarettes, uncomplicated; I48.0 Paroxysmal atrial fibrillation; M10.9 Gout, unspecified; E87.5 Hyperkalemia; E11.9 Type 2 diabetes mellitus without complications; G47.33 Obstructive sleep apnea (adult) (pediatric); Z89.411 Acquired absence of right great toe; S00.81XA Abrasion of other part of head, initial encounter; W18.39XA Other fall on same level, initial encounter; Z95.1 Presence of aortocoronary bypass graft; Z90.49 Acquired absence of other specified parts of digestive tract; Z82.49 Family history of ischemic heart disease and other diseases of the circulatory system; Y93.89 Activity, other specified; Y92.89 Other specified places as the place of occurrence of the external cause; Y99.8 Other external cause status; R26.89 Other abnormalities of gait and mobility
CPT/HCPCS: 10112

== ENCOUNTER 2020-04-10 23:25 | Emergency (ER) | payer OTHER ==
[~2020-04-10] VITALS: Ht 188 cm; Wt 90.7 kg
--- NOTE | ~2020-04-10 | H ---
[facility] [place] [address] HISTORY AND PHYSICAL Name: KARTHIKJACIEL MARILIA [id number] Admission: 04/10/20 Attend Phys: Discharge: 04/11/20 Date of : 59 Report #: [id number] THIS REPORT FOR: cc: Jaciel Galindo MD, Neal A. MD Knox, Douglas MD FAA FACEP ~ CC: Clyde Galindo MD DATE OF SERVICE: 04/11/2020 CHIEF COMPLAINT: Vertigo. HISTORY OF PRESENT ILLNESS: The patient is a 65-year-old patient of Dr. Jaciel Galindo, who was admitted to the acute care hospital under my service from his second Emergency Room visit in 24 hours, his dizziness was fairly severe, but only lasted for about a minute. He was concerned because it reminded him of similar symptoms associated with the prior stroke. He had no focal neurologic deficits and the Emergency Room data from lab and radiographs was essentially unremarkable except for some chronic subcritical carotid stenosis. At the time of my exam, he is feeling much better, although he is very tired and groggy. PAST MEDICAL AND SURGICAL HISTORY: Laparoscopic cholecystectomy, type 2 diabetes, using insulin; tonsillectomy, previous suicide attempts, right great toe and second toe amputation 8 years ago, MRSA and right second toe 2016, and angiogram with intervention, 5-vessel coronary artery bypass graft surgery, left great toe amputation, stroke, edema, acute renal failure, and depression. MEDICATIONS: Amlodipine 5 mg 1 p.o. daily, aspirin 81 mg p.o. daily, K-Dur 20 mEq p.o. daily, Protonix 40 mg p.o. daily, Eliquis 5 mg p.o. b.i.d., atorvastatin 80 mg p.o. daily, carvedilol 6.25 mg 1 p.o. b.i.d. with meals, nicotine 14 mg patch on a.m., off p.m.; MiraLax 17 g p.o. b.i.d., docusate sodium 100 mg 1 p.o. b.i.d., amiodarone 200 mg p.o. b.i.d., Demadex (torsemide) 20 mg one p.o. b.i.d., Neurontin 300 mg 1 p.o. t.i.d., alprazolam 1 mg t.i.d. changed to t.i.d. p.r.n., fluoxetine, Prozac 20 mg p.o. daily, Lantus 60 units subcutaneous daily. ALLERGIES: No known drug allergies. SOCIAL HISTORY: Cigarette smoker. Drinks alcohol in the past. 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 FAMILY HISTORY: Father of [place] at age 50. [address] [place] [address] HISTORY AND PHYSICAL Name: KARTHIKJACIEL CAPELLAN Room #: DEP ER Mary#: [id number] Admission: 04/10/20 Attend Phys: Discharge: 04/11/20 Date of : 59 Report #: [id number] REVIEW OF SYSTEMS: GENERAL: No fever, chills, nausea, vomiting, diarrhea. EYES: No visual changes. ENT: No problems with hearing, swallow, taste or smell. CARDIOVASCULAR: No chest pain or palpitations. RESPIRATORY: No difficulty breathing. GASTROINTESTINAL: No abdominal pain. GENITOURINARY: No problems urinating. He does have chronic kidney disease. MUSCULOSKELETAL: Some diffuse joint pain with arthritis. NEUROLOGIC: Episodic dizziness. PSYCHIATRIC: No disturbing thoughts. DERMATOLOGIC: Some chronic skin changes in his lower legs associated with intervals of edema and stasis changes. Remainder of systems review is negative. OBJECTIVE: VITAL SIGNS: Temperature is 97.6, pulse is 55, respirations 19, blood pressure 143/70, oxygen saturation on room air is 98%. GENERAL: He is groggy, but answers questions appropriately with full sentences. HEENT: Pupils equal, round, reactive to light and accommodation. Extraocular muscles intact. Pharynx unremarkable except for dry mucous membranes. NECK: Supple. COR: S1, S2 regular. CHEST: Clear. ABDOMEN: Soft, nontender. EXTREMITIES: Not edematous. NEUROLOGICAL: He is intact without focal deficit. LABORATORY EVALUATION: CBC: White count 9.3, hemoglobin 12.6, hematocrit 37.7, platelets 276,000. Serum chemistry: Sodium 143, potassium 3.8, chloride 108, CO2 of 24, anion gap 11, BUN 27, creatinine 2.9, estimated glomerular filtration rate is 22, glucose 166, calcium 7.7, total bilirubin 0.2, AST 22, ALT 18 and alkaline phosphatase 106. Troponin less than 0.06. Total protein 16.4, albumin is 2.4. Coags: Protime 10.2, INR 1.0, APTT 29.7. Serum ethanol level was less than 10. Urinalysis positive for 2+ blood, 3+ protein, 3-10 red cells per high-powered field, 0-5 white cells per high-powered field, 0-3 urinary squamous epithelial cells under the microscope, 1-9 few bacteria seen, 0-3 few cellular casts, 4-10 moderate hyaline casts, trace glucose, nitrite negative. Chest x-ray done from the Emergency Department, improved aeration and no evidence of pneumonia or pneumothorax. CT scan of the head without contrast done from the Emergency Department, unchanged atrophy and chronic microvascular disease, old small infarct in the left mehta radiata. No evidence of new hemorrhage or mass effect, 50% diameter stenosis at proximal right ICA. ASSESSMENT: Vertigo, old stroke, subcritical stenosis in right internal carotid artery, type 2 diabetes, using insulin; chronic kidney disease. [facility] [place] [address] HISTORY AND PHYSICAL Name: JACIEL ANGELES [id number] Admission: 04/10/20 Attend Phys: Discharge: 04/11/20 Date of : 59 Report #: [id number] PLAN: Admit to hospital. Gentle hydration, a diabetic diet and follow clinically. Follow labs longitudinally. By: [id number] Magen Oden MD, FAAFP, FACEP /nt
[~2020-04-10 23:25] MED LIST changes: +CIPRO500 M1 PO; +COLACE100 MG PO; +MIRALAX119 GM PO
[2020-04-11 00:20] LABS: ABSOLUTE NEUTROPHILS 6.6 thou/uL (1.4-8.2); BASOPHILS 0.9 % (0.0-2.0); EOSINOPHILS 1.2 % (0.0-3.0); HEMATOCRIT 37.7 % (42.0-52.0); HEMOGLOBIN 12.6 gm/dL (14.0-18.0); LYMPHOCYTES 18.7 % (24.0-44.0); MCH 28.6 pg (26.0-34.0); MCHC 33.3 g/dL (28.0-37.0); MCV 85.8 fL (80.0-100.0); MONOCYTES 7.6 % (1.0-8.0); PLATELET COUNT 276 thou/uL (150-400); POLYS 71.6 % (36.0-66.0); RDW 16.4 % (10.5-14.5); WBC 9.3 thou/uL (4.0-11.0)
[2020-04-11 00:22] LABS: ANION GAP 11 mmol/L (7-16); BUN 27 mg/dL (7-18); CALCIUM 7.7 mg/dL (8.5-10.1); CHLORIDE 108 mmol/L (98-107); CO2 24 mmol/L (21-32); CREATININE 2.9 mg/dL (0.7-1.3); GLUCOSE 166 mg/dL (74-106); POTASSIUM 3.8 mmol/L (3.5-5.1); SODIUM 143 mmol/L (136-145)
[2020-04-11 00:25] LABS: APTT 29.7 Seconds (24.5-32.8); PROTIME 10.2 Seconds (9.3-11.4)
[2020-04-11 00:32] LABS: ALBUMIN 2.4 g/dL (3.4-5.0); SGOT 22 U/L (15-37); SGPT 18 U/L (30-65); TOTAL BILIRUBIN 0.2 mg/dL (0.2-1.0); TOTAL PROTEIN 6.4 g/dL (6.4-8.2); TROPONIN-I <0.06 ng/mL (<0.06)
[2020-04-11 02:51] LABS: URINE BILIRUBIN NEGATIVE (Negative); URINE BLOOD 2+ (Negative); URINE CLARITY CLEAR; URINE COLOR YELLOW; URINE GLUCOSE-RANDOM* TRACE (Negative); URINE KETONES NEGATIVE (Negative); URINE LEUKOCYTES-REFLEX NEGATIVE (Negative); URINE NITRITE-REFLEX NEGATIVE (Negative); URINE PROTEIN (DIPSTICK) 3+ (Negative); URINE SPECIFIC GRAVITY 1.025 (1.005-1.035); URINE UROBILINOGEN 0.2 E.U./dl (0.2-1.0)
[2020-04-11 03:40] LABS: SQUAMOUS 0-3 Few /LPF (0-3); URINE RBC 3-10 Few /HPF (0-2); URINE WBC-REFLEX 0-5 Rare /HPF (0-5)
[2020-04-11 03:41] LABS: BACTERIA-REFLEX 1-9 Few /HPF (None Seen); CELLULAR CASTS 0-3 Few /LPF (None Seen); COARSE GRANULAR CASTS 0-3 Few /LPF (None Seen); CRYSTALS None Seen /LPF (None Seen); FINE GRANULAR CASTS 0-3 Few /LPF (None Seen); HYALINE CASTS 4-10 Moderate /LPF (None Seen); MUCUS 0-3 Light strn/LPF (None Seen)
[2020-04-11 03:50] VITALS: BP 156/84
--- NOTE | 2020-04-11 09:04 | EKG ---
[facility] [place] [address] ELECTROCARDIOGRAM REPORT Name: JACIEL ANGELES Room #: DEP [facility].Gutierrez#: [id number] Admission: 04/10/20 Attend Phys: Discharge: 04/11/20 Date of : 59 Report #: [id number] THIS REPORT FOR: cc: Jaciel Galindo MD, Neal A. MD Lundgren,Andrew Younger MD [facility] ~ THIS REPORT FOR: //name// [facility] ED Test Date: 2020-04-10 Test Time: 23:41:57 Pat Name: JACIEL ANGELES Department: Room: Gender: Cutter Grinder: : 1955 Requested By: Clyde Bledsoe Order Number: [id number] MD: Andrew Palumbo Measurements Intervals [place] Rate: 52 P: 37 [place]: 186 QRS: 22 QRSD: 128 T: 140 QT: 462 QTc: 430 Interpretive Statements Sinus bradycardia Nonspecific ST and T wave abnormality Compared to ECG 01/13/2020 11:16:42 Nonspecific change in the ST and T wave segments Electronically Signed On 04-11-2020 9:04:33 CDT by Andrew Palumbo [email or web address] <ELECTRONICALLY SIGNED> By: Andrew Palumbo MD, [facility] 04/11/2004 [id number] [id number] Andrew Palumbo MD, [facility] /EPI
== END 2020-04-11 03:55 | disposition home or self-care (01) ==
LOC: ER 23:25
PROVIDERS: Emergency Medicine
DX: R42 Dizziness and giddiness (principal); R53.1 Weakness; E11.22 Type 2 diabetes mellitus with diabetic chronic kidney disease; N18.9 Chronic kidney disease, unspecified; I65.21 Occlusion and stenosis of right carotid artery; E11.40 Type 2 diabetes mellitus with diabetic neuropathy, unspecified; F32.9 Major depressive disorder, single episode, unspecified; F17.210 Nicotine dependence, cigarettes, uncomplicated; Z86.73 Personal history of transient ischemic attack (TIA), and cerebral infarction without residual deficits; Z98.61 Coronary angioplasty status; Z90.49 Acquired absence of other specified parts of digestive tract; Z86.14 Personal history of Methicillin resistant Staphylococcus aureus infection; Z89.421 Acquired absence of other right toe(s); Z79.899 Other long term (current) drug therapy; Z79.82 Long term (current) use of aspirin; Z79.4 Long term (current) use of insulin

== ENCOUNTER 2020-04-11 21:33 | Inpatient (IN) | payer OTHER ==
[~2020-04-11] VITALS: Ht 193 cm; Wt 117.9 kg
[2020-04-11 21:40] VITALS: BP 133/76
[2020-04-11 22:30] LABS: ABSOLUTE NEUTROPHILS 6.9 thou/uL (1.4-8.2); BASOPHILS 1.2 % (0.0-2.0); EOSINOPHILS 1.4 % (0.0-3.0); MCH 28.5 pg (26.0-34.0); MCHC 33.3 g/dL (28.0-37.0); MCV 85.5 fL (80.0-100.0); MONOCYTES 6.7 % (1.0-8.0); PLATELET COUNT 249 thou/uL (150-400); POLYS 78.7 % (36.0-66.0); RBC 4.21 mil/uL (4.50-6.00); WBC 8.8 thou/uL (4.0-11.0)
[2020-04-11 22:39] LABS: CALCIUM 7.8 mg/dL (8.5-10.1); CREATININE 2.7 mg/dL (0.7-1.3); MAGNESIUM 1.8 mg/dL (1.8-2.4); POTASSIUM 3.9 mmol/L (3.5-5.1)
[2020-04-12 00:21] VITALS: BP 110/74
[2020-04-12 00:28] VITALS: BP 106/84
[2020-04-12 00:46] VITALS: BP 143/71
--- NOTE | 2020-04-12 02:00 | NUR ---
PATIENT ARRIVED VIA WHEELCHAIR FROM ED WITH RN. ALERT AND ORIENTED X4. UP WITH SBA. PATIENT PERFERS TO SIT IN CHAIR RATHER THAN GET IN THE BED. SET UP LAPTOP COMPUTER AND HAS A CELL PHONE. ANSWERS QUESTIONS APPROPRIATELY. TELE PUT ON PATIENT. WILL MONITOR.
[2020-04-12 09:01] VITALS: BP 143/70
--- NOTE | 2020-04-12 11:38 | EKG ---
[facility] [place] [place] [address] ELECTROCARDIOGRAM REPORT Name: JACIEL ANGELES Room #: 460-P ADM IN M.R.#: [id number] Admission: 04/12/20 Attend Phys: Magen Oden MD, FAAF Discharge: Date of : 59 Report #: [id number] THIS REPORT FOR: cc: Jaciel Galindo MD, Neal A. MD Lundgren,Andrew Younger MD [facility] ~ THIS REPORT FOR: //name// [facility] ED Test Date: 2020-04-11 Test Time: 22:31:01 Pat Name: JACIEL ANGELES Department: Room: 460 Gender: M Telecom Specialist: : 1955 Requested By: Clyde Bledsoe Order Number: [id number] MD: Andrew Palumbo Measurements Intervals [place] Rate: 57 P: 24 [place]: 189 QRS: 21 QRSD: 127 T: 93 QT: 475 QTc: 463 Interpretive Statements Sinus bradycardia Nonspecific ST segment abnormality Compared to ECG 04/10/2020 23:41:57 No significant change was found Electronically Signed On 04-12-2020 11:37:50 CDT by Andrew Palumbo [email or web address] <ELECTRONICALLY SIGNED> By: Andrew Palumbo MD, [facility] 04/12/20 1137 30 30 Andrew Palumbo MD, [facility] /EPI
[2020-04-12 13:10] LABS: URINE BILIRUBIN NEGATIVE (Negative); URINE BLOOD 1+ (Negative); URINE CLARITY CLEAR; URINE COLOR YELLOW; URINE GLUCOSE-RANDOM* 1+ (Negative); URINE KETONES NEGATIVE (Negative); URINE LEUKOCYTES-REFLEX NEGATIVE (Negative); URINE NITRITE-REFLEX NEGATIVE (Negative); URINE PROTEIN (DIPSTICK) 3+ (Negative); URINE UROBILINOGEN 0.2 E.U./dl (0.2-1.0)
[2020-04-12 13:19] LABS: CRYSTALS None Seen /LPF (None Seen); HYALINE CASTS 4-10 Moderate /LPF (None Seen); SQUAMOUS 0-3 Few /LPF (0-3); URINE WBC-REFLEX 0-5 Rare /HPF (0-5)
[2020-04-12 13:20] LABS: BACTERIA-REFLEX 1-9 Few /HPF (None Seen); URINE RBC 3-10 Few /HPF (0-2)
[2020-04-12 15:31] VITALS: BP 154/65
--- NOTE | 2020-04-12 19:59 | NUR ---
ASSUMED PT CARE THIS AM. VITAL SIGNS REMAINED STABLE. PT WAS NON-AMBULATORY THE ENTIRE SHIFT, AND REMAINED IN THE CHAIR. PT REFUSED TO HAVE THE CHAIR ALARM PLACED, WAS EDUCATED ON THE IMPORTANCE OF THE ALARM. PT HAD SIGNED FALL CONTRACT AND STILL REFUSED. IS ADMENDABLE TO WAIVING ALL LIABILITIES ON THE HOSPITAL AND NURSES IF HE FALLS DUE TO REFUSAL OF FALL PROTOCOL. HOUSE SUP INFORMED, AND PATIENT REINTERATED HE WILL CALL WHEN ASSISTANCE IS NEEDED. PT SIGNED FALL CONTRACT UPON ADMISSION. FULL PHYSICAL ASSESSMENT NOT COMPLETE DUE TO PATIENTS REFUSAL. PT USES URINAL. ENDORSED THE NIGHT NURSE.
[2020-04-12 22:25] VITALS: BP 124/58
[2020-04-13 04:10] VITALS: BP 136/73
[2020-04-13 05:30] LABS: ABSOLUTE NEUTROPHILS 6.1 thou/uL (1.4-8.2); BASOPHILS 0.5 % (0.0-2.0); EOSINOPHILS 1.8 % (0.0-3.0); HEMATOCRIT 37.3 % (42.0-52.0); LYMPHOCYTES 14.9 % (24.0-44.0); MCH 27.9 pg (26.0-34.0); MCHC 32.2 g/dL (28.0-37.0); MCV 86.6 fL (80.0-100.0); MONOCYTES 6.2 % (1.0-8.0); PLATELET COUNT 250 thou/uL (150-400); POLYS 76.6 % (36.0-66.0); RDW 16.5 % (10.5-14.5); WBC 7.9 thou/uL (4.0-11.0)
[2020-04-13 05:40] LABS: CALCIUM 8.1 mg/dL (8.5-10.1); CREATININE 3.4 mg/dL (0.7-1.3); POTASSIUM 4.2 mmol/L (3.5-5.1)
--- NOTE | 2020-04-13 13:17 | NUR ---
called, sent a message to Nicole Lozano about patient's request about MRI done. Patient voiced that he would leave if he could not get MRI to check if he had stroke; manager quality Kaylyn also suggested patient get PT, OT evaluation to decide the level of care after discharge. awaiting for Dr. Oden to call back.
--- NOTE | 2020-04-13 15:01 | NUR ---
Called [phone] for the 2nd time, message sent: patient claimed that the PCT told him that there would be no MRI on weekends in this hospital, the patient claimed that he would not pay for staying here for weekends.
[2020-04-13 15:38] VITALS: BP 139/59
--- NOTE | 2020-04-13 18:53 | NUR ---
Moreliaage sent to Dr. Oden on [phone] to let Dr. Oden know that the CT head result came out.
--- NOTE | 2020-04-13 18:57 | NUR ---
Talked to Dr. Oden, Dr. Oden decided to discharge the patient right now, no paper description.
--- NOTE | 2020-04-13 19:39 | NUR ---
Night nurse voiced that she would do the DC for the patient.
[2020-04-13 19:58] VITALS: BP 139/59
[2020-04-13 20:00] VITALS: BP 153/71
[2020-04-13 20:11] VITALS: BP 153/71
== END 2020-04-13 20:36 | disposition home or self-care (01) | DRG 149 ==
LOC: ER 21:33 → EROBS 04-12 00:05 → 4W 04-12 00:05
PROVIDERS: Emergency Medicine; ADMIT Family Medicine; ATTEND Family Medicine
DX: H81.10 Benign paroxysmal vertigo, unspecified ear (principal); I65.29 Occlusion and stenosis of unspecified carotid artery; N18.9 Chronic kidney disease, unspecified; E11.22 Type 2 diabetes mellitus with diabetic chronic kidney disease; F32.9 Major depressive disorder, single episode, unspecified; Z90.49 Acquired absence of other specified parts of digestive tract; Z89.411 Acquired absence of right great toe; Z95.1 Presence of aortocoronary bypass graft; Z89.412 Acquired absence of left great toe; Z86.73 Personal history of transient ischemic attack (TIA), and cerebral infarction without residual deficits; Z79.82 Long term (current) use of aspirin; Z79.01 Long term (current) use of anticoagulants; Z79.899 Other long term (current) drug therapy; Z79.4 Long term (current) use of insulin
CPT/HCPCS: 10045

== ENCOUNTER 2020-04-24 16:34 | Inpatient (IN) | payer OTHER ==
[~2020-04-24] VITALS: Ht 193 cm; Wt 112.9 kg
[2020-04-24 16:47] VITALS: BP 110/65
[2020-04-24 18:28] LABS: ABSOLUTE NEUTROPHILS 6.1 thou/uL (1.4-8.2); BASOPHILS 0.9 % (0.0-2.0); EOSINOPHILS 0.9 % (0.0-3.0); HEMATOCRIT 35.8 % (42.0-52.0); HEMOGLOBIN 11.9 gm/dL (14.0-18.0); LYMPHOCYTES 14.2 % (24.0-44.0); MCH 28.3 pg (26.0-34.0); MCHC 33.1 g/dL (28.0-37.0); MCV 85.3 fL (80.0-100.0); MONOCYTES 7.7 % (1.0-8.0); PLATELET COUNT 237 thou/uL (150-400); POLYS 76.3 % (36.0-66.0); RDW 16.1 % (10.5-14.5)
[2020-04-24 18:37] LABS: ANION GAP 9 mmol/L (7-16); BUN 34 mg/dL (7-18); CALCIUM 8.1 mg/dL (8.5-10.1); CHLORIDE 107 mmol/L (98-107); CO2 26 mmol/L (21-32); CREATININE 2.4 mg/dL (0.7-1.3); GLUCOSE 160 mg/dL (74-106); POTASSIUM 4.2 mmol/L (3.5-5.1); SODIUM 142 mmol/L (136-145)
[2020-04-24 18:43] LABS: ALBUMIN 2.2 g/dL (3.4-5.0); DIRECT BILIRUBIN < 0.1 mg/dL (<0.1-0.2); LIPASE 79 U/L (73-393); SGOT 15 U/L (15-37); SGPT 15 U/L (30-65); TOTAL BILIRUBIN 0.3 mg/dL (0.2-1.0); TOTAL PROTEIN 6.3 g/dL (6.4-8.2)
[2020-04-24 19:30] LABS: URINE BILIRUBIN NEGATIVE (Negative); URINE BLOOD 2+ (Negative); URINE CLARITY CLEAR; URINE COLOR YELLOW; URINE GLUCOSE-RANDOM* 1+ (Negative); URINE KETONES NEGATIVE (Negative); URINE LEUKOCYTES-REFLEX NEGATIVE (Negative); URINE NITRITE-REFLEX NEGATIVE (Negative); URINE PROTEIN (DIPSTICK) 3+ (Negative); URINE SPECIFIC GRAVITY >= 1.030 (1.005-1.035); URINE UROBILINOGEN 0.2 E.U./dl (0.2-1.0)
[2020-04-24 19:41] LABS: CASTS None Seen /LPF (None Seen); CRYSTALS None Seen /LPF (None Seen); SQUAMOUS 0-3 Few /LPF (0-3); URINE WBC-REFLEX None Seen /HPF (0-5)
[2020-04-24 19:42] LABS: BACTERIA-REFLEX 1-9 Few /HPF (None Seen); URINE RBC 3-10 Few /HPF (0-2)
[2020-04-24 19:49] VITALS: BP 122/71
--- NOTE | 2020-04-24 19:52 | NUR ---
Attempted to call report to medical floor nurse. Unable to take report and will call back
[2020-04-24 20:07] VITALS: BP 130/69
[2020-04-24 20:32] VITALS: BP 126/54
[2020-04-24 23:39] VITALS: BP 117/45
[2020-04-25 05:43] VITALS: BP 137/60
[2020-04-25 07:23] VITALS: BP 151/70
--- NOTE | 2020-04-25 07:44 | NUR ---
ADMITTED FROM ER UNDER 'S CARE. ADMISSION ORDERED RECEIVED FROM . ADNITTED WITH L 2ND TOE OM. PICTURE TAKEN AND INITIAL WOUND CARE COMPLETED. AXOX4. COOPEATIVE TO CARE. CALLS FOR HELP. VSS. KEPT NPO FOR POSS SURGERY IN AM. NO S/S ACUTE DISTRESS NOTED OR REPORTED AT THIS TIME. CARE TRANSFERRED TO AM RN AT THIS TIME.
--- NOTE | 2020-04-25 16:04 | NUR ---
ASSUMED PT CARE THIS AM. PT VITAL SIGNS STABLE. PT A&OX4, AND IS COOPERATIVE WITH STAFF. PT CALLS WHEN HE NEEDS SOMETHING. PT RTEFUSED CHAIR ALARM, NURSE EDUCATED ON IMPORTANCE OF CHAIR ALARM TO PT. PT CONTINUED TO REFUSE. PT FLOATED HEELS, AND HAS SAT IN THE CHAIR THE ENTIRE SHIFT. PT WENT DOWN FOR AN MRI, AND IS NOW OFF OF A NPO DIET. PT IS CONTINENT AND USES THE RESTROOM WHEN NEEDED. PT NOT GIVEN INSULIN THIS AM BECAUSE HE WAS NPO, BUT BLOOD SUGAR WAS MONITORED. PT GIVEN GLARGINE WHEN HE CAME OFF OF THE NPO DIET. WILL CONTINUE TO MONITOR.
[2020-04-25 20:50] VITALS: BP 125/69
[2020-04-26] VITALS (12 sets, daily range): BP systolic 143–196; BP diastolic 67–84
--- NOTE | 2020-04-26 04:39 | NUR ---
VSS-AFEBRILE. REMAINS ON ROOM AIR. ALERT AND ORIENTED X 4. C/O PAIN WITH LEFT FOOT, RELIEVED WITH PO MEDS WELL ELEVATION AND REPOSITIONING. OOB TO USE RESTROOM WITH SBA. KEPT NPO AFTER MIDNIGHT FOR SURGERY TODAY. CALLS APPROPRIATELY FOR ANY NEEDED ASSISTANCE. FALL PRECAUTIONS IN PLACE.
--- NOTE | 2020-04-26 04:41 | NUR ---
VSS-AFEBRILE. RESTED WELL THROUGH NIGHT. WENT SEVERAL HOURS WITHOUT VOIDING, BLADDER SCAN REVEALED <150ML RESIDUAL. AGUEDA ANP ORDERED FLUIDS, REGULAR VOIDING BEGAN SHORTLY AFTER FLUIDS WERE STARTED. VANCOMYCIN DISCONTINUED DUE TO SIDE EFFECTS, ZOSYN TO BE USED. CALLS APPROPRIATELY FOR ANY NEEDED ASSISTANCE.
[2020-04-26 06:01] LABS: CALCIUM 8.1 mg/dL (8.5-10.1); CREATININE 2.3 mg/dL (0.7-1.3); POTASSIUM 3.9 mmol/L (3.5-5.1)
[2020-04-26 06:23] LABS: HEMATOCRIT 33.3 % (42.0-52.0); HEMOGLOBIN 10.8 gm/dL (14.0-18.0); MCH 28.2 pg (26.0-34.0); MCHC 32.5 g/dL (28.0-37.0); MCV 86.7 fL (80.0-100.0); RBC 3.84 mil/uL (4.50-6.00); RDW 16.2 % (10.5-14.5); WBC 6.5 thou/uL (4.0-11.0)
--- NOTE | 2020-04-26 19:52 | NUR ---
Assumed pt care this am, went to OR in the am for toe amputation. Pt is non compliant with diet wound request multiple meals and food is being brought from the outside. Pt refuses to comply with post op interventions, elevating leg ... Stays on the recliner and does not want a chair alarm or and would threaten that he will throw the alam if placed. POC followed , no pain noted. endorsed to the night nurse
--- NOTE | 2020-04-27 02:30 | NUR ---
VSS-AFEBRILE. OCCASIONAL C/O LEFT FOOT PAIN, RELIEVED WITH PO PAIN MEDICATION. RESTED WELL THROUGH NIGHT. CALLS APPROPRIATELY FOR ANY NEEDED ASSISTANCE.
[2020-04-27 08:50] VITALS: BP 150/74
[2020-04-27] MEDS ORDERED: CEFDINIR300 MG PO (09:09)
[2020-04-27 10:19] VITALS: BP 150/74
--- NOTE | 2020-04-27 20:44 | NUR ---
ASSUMED PT CARE THIS AM. PT VITAL SIGNS STABLE, A&OX4. PT CALLED WHEN NEEDED, AMBULATED TO THE BATHROOM. PT HYDRATED APPROPRIATELY. PT REPORTED NO PAIN. PT NSR ON TELEMETRY. PT DISCHARGED TO HOME.
--- NOTE | 2020-04-28 09:01 | HC ---
[facility] [place] [address] CONSULTATION Name: JACIEL ANGELES Room #: 460-P [facility] IN M.R.#: [id number] Admission: 04/24/20 Attend Phys: Jaciel Galindo MD Discharge: 04/27/20 Date of : 59 Report #: [id number] THIS REPORT FOR: cc: Jaciel Galindo MD, Neal A. MD Althoff, Jeffrey R. MD ~ CC: Jaciel Galindo DATE OF SERVICE: 04/25/2020 CHIEF COMPLAINT: Left second toe infection. HISTORY OF PRESENT ILLNESS: This is a 65-year-old male patient with whom I am familiar from previous evaluation both inpatient and outpatient. He developed redness, swelling and pain to the left second toe. He was also recently seen by Dr. Gomez, Podiatry. He is admitted for increasing pain, swelling and redness. Denies any pain. He thinks that this may be related to him needing to clean out the cat litter at home, although cannot recall specific injury or contamination event. PAST MEDICAL HISTORY: Significant for depression, acute renal failure, edema, cerebrovascular accident, previous left great toe amputation, coronary artery disease, tonsillectomy, diabetes and laparoscopic cholecystectomy. SOCIAL HISTORY: The patient admits to smoking cigarettes, half pack per day., past history of alcohol use, none currently. No drug use. MEDICATIONS: Include torsemide, Pacerone, alprazolam, Neurontin, Prozac, and Lantus. ALLERGIES: No known drug allergies. FAMILY HISTORY: Noncontributory. REVIEW OF SYSTEMS: CONSTITUTIONAL: The patient denies fever, chills, or weight loss. NEUROLOGICAL: The patient denies focal weakness, numbness or tingling. EYES: The patient denies visual changes, redness, or drainage. ENT: The patient denies earache, nasal drainage or sore throat. CARDIOVASCULAR: The patient denies chest pain, palpitations or diaphoresis. PULMONARY: The patient denies cough or shortness of breath. GASTROINTESTINAL: The patient denies nausea, vomiting or abdominal pain. ORTHOPEDIC: The patient does note some swelling and redness to his left second toe without pain. Other systems in a 14-point review of systems are negative. [address] [address] CONSULTATION Name: JACIEL ANGELES MARILIA Room #: 460-P [facility] IN M.R.#: [id number] Admission: 04/24/20 Attend Phys: Jaciel Galindo MD Discharge: 04/27/20 Date of : 59 Report #: [id number] PHYSICAL EXAMINATION: VITAL SIGNS: At this time include blood pressure 134/66, pulse rate 52, respiratory rate 16. GENERAL: This is a chronically ill-appearing male patient who appears to be in no distress. HEENT: Head normocephalic. Nose and throat are clear. NECK: Supple. LUNGS: Clear. ABDOMEN: Bowel sounds present. EXTREMITIES: Lower extremities demonstrate a normal capillary refill. Palpable yet diminished distal pulses. There is a surgically absent left great toe. The tip of the second toe on the left foot is erythematous with swelling, although no obvious drainage. LABORATORY DATA: Include white blood cell count 8000 with hemoglobin 11.9. Sodium 142, potassium 4.2, chloride 107, CO2 of 26, BUN 34, creatinine 2.4, calcium is 8.1, total protein is 6.3 with an albumin of 2.2. X-ray of the foot demonstrates a fracture involving the proximal phalanx of the second toe and fragmentation of the terminal tuft of the second toe consistent with osteomyelitis. CLINICAL IMPRESSION: 1. Left second toe infection with probable underlying osteomyelitis. 2. Diabetes mellitus. 3. Moderate protein-calorie malnutrition. RECOMMENDATIONS: At this point in time, the patient has already been seen by Podiatry and is scheduled for surgery in the morning, likely a partial or complete amputation of the second toe. Intravenous antibiotic therapy. Cultures will be likely obtained at the time of surgery. No specific wound care orders at this time. I appreciate being asked to see him in consultation. <ELECTRONICALLY SIGNED> By: Rickey Ruiz MD 04/28/20900 40 99 Rickey Ruiz MD /nt
--- NOTE | 2020-04-29 16:06 | PATH ---
[facility] [address] [place] [address] PATHOLOGY RPT PROCEDURE Name: JACIEL LERMA MARILIA Room #: 460-P DIS IN M.R.#: [id number] Admission: 04/24/20 Date of : 59 Discharge: 04/27/20 Report #: [id number] Path Case #: [id number] LCA Accession Number: [id number] . 01 Material submitted: . toe - LEFT SECOND TOE PARTIAL AMPUTATION. Modifiers: second, left . 01 Clinical history: . OSTEOMYELITIS LEFT 2ND TOE . 02 Diagnosis: Toe, left second toe, partial amputation: - Marked acute osteomyelitis. - Additional fragment received showing chondro-osseous tissue with reactive changes, compatible with viable margin. (IUV:eleazar; 04/29/2020) QMS 04/29/2020 1530 Local . 02 Electronically signed: . Svitlana Jade MD, Pathologist NPI- [id number] . 01 Gross description: . The specimen is received in formalin, labeled "Jaciel Lerma, left second toe partial amputation". Received is a partial amputated digit measuring 2.3 x 2.3 x 1.4 cm in greatest dimensions. The bone margin is smooth and concave in appearance, consistent with disarticulation. The skin and soft tissue margins are inked black. The nail is absent. The epidermal surface displays a poorly circumscribed, irregular in contour and white-peng to mendez-peng lesion measuring 2.1 x 1.8 cm, which is 0.4 cm from the closest skin margin. A full-thickness longitudinal cross-section is submitted in cassette A1, following decalcification. . Also received within the specimen container is an additional fragment of bone displaying one irregular margin and one smooth, disarticulated margin measuring 1.3 x 1.0 x 0.4 cm in greatest dimensions. The disarticulated margin is inked black. The specimen is trisected and entirely submitted in cassette A2, following decalcification. (CAA; 04/28/2020) QAC/QAC 04/28/2020 1302 Local . 02 Pathologist provided ICD-10: M86.171 . 02 CPT . 408325, [id number] Specimen Comment: A courtesy copy of this report has been sent to [phone], [place] [address] PATHOLOGY RPT PROCEDURE Name: JACIEL LERMA Room #: 460-P DIS IN M.R.#: [id number] Admission: 04/24/20 Date of : 59 Discharge: 04/27/20 Report #: [id number] Path Case #: [id number] Specimen Comment: [id number] Specimen Comment: Report sent to / DR ROMAN Performed at: [address], [place] [id number] MD Angelito Brandt MD Phone: [phone] Performed at: [address] [id number] MD Svitlana Jade MD Phone: [phone]
== END 2020-04-27 13:29 | disposition home or self-care (01) | DRG 239 ==
LOC: ER 16:34 → EROBS 19:20 → 4W 19:20
PROVIDERS: Nurse Practitioner; ADMIT Family Medicine; ATTEND Family Medicine
PROC: 0Y6N0ZB Detachment at Left Foot, Partial 2nd Ray, Open Approach (ICD-10-PCS; principal; 2020-04-26)
PROC: 0Y6S0Z3 Detachment at Left 2nd Toe, Low, Open Approach (ICD-10-PCS; principal; 2020-04-26)
DX: E11.52 Type 2 diabetes mellitus with diabetic peripheral angiopathy with gangrene (principal); E43 Unspecified severe protein-calorie malnutrition; M86.172 Other acute osteomyelitis, left ankle and foot; E44.0 Moderate protein-calorie malnutrition; I96 Gangrene, not elsewhere classified; M86.8X7 Other osteomyelitis, ankle and foot; E11.69 Type 2 diabetes mellitus with other specified complication; I10 Essential (primary) hypertension; E78.5 Hyperlipidemia, unspecified; K21.9 Gastro-esophageal reflux disease without esophagitis; J44.9 Chronic obstructive pulmonary disease, unspecified; E11.621 Type 2 diabetes mellitus with foot ulcer; L97.529 Non-pressure chronic ulcer of other part of left foot with unspecified severity; E11.42 Type 2 diabetes mellitus with diabetic polyneuropathy; F32.9 Major depressive disorder, single episode, unspecified; B95.61 Methicillin susceptible Staphylococcus aureus infection as the cause of diseases classified elsewhere; F17.210 Nicotine dependence, cigarettes, uncomplicated; F41.9 Anxiety disorder, unspecified; G47.33 Obstructive sleep apnea (adult) (pediatric); I25.10 Atherosclerotic heart disease of native coronary artery without angina pectoris; Z20.828 Contact with and (suspected) exposure to other viral communicable diseases; Z90.49 Acquired absence of other specified parts of digestive tract; Z95.1 Presence of aortocoronary bypass graft; Z89.411 Acquired absence of right great toe; Z86.73 Personal history of transient ischemic attack (TIA), and cerebral infarction without residual deficits; Z79.899 Other long term (current) drug therapy; Z79.01 Long term (current) use of anticoagulants; Z68.30 Body mass index [BMI] 30.0-30.9, adult
CPT/HCPCS: 10045; 50101; 50386; 50445; 50951; 56527; 57091; 62110; 62850; 70005

== ENCOUNTER 2020-05-09 20:22 | Emergency (ER) | payer OTHER ==
[~2020-05-09] VITALS: Ht 193 cm; Wt 117.9 kg
[~2020-05-09 20:22] MED LIST changes: +CEFDINIR300 MG PO
[2020-05-09 21:34] VITALS: BP 149/75
== END 2020-05-09 21:34 | disposition home or self-care (01) ==
LOC: ER 20:22
DX: Z48.01 Encounter for change or removal of surgical wound dressing (principal); E11.9 Type 2 diabetes mellitus without complications; F32.9 Major depressive disorder, single episode, unspecified; F17.210 Nicotine dependence, cigarettes, uncomplicated; Z98.61 Coronary angioplasty status; Z89.422 Acquired absence of other left toe(s); Z89.412 Acquired absence of left great toe; Z89.411 Acquired absence of right great toe; Z89.421 Acquired absence of other right toe(s); Z79.899 Other long term (current) drug therapy; Z79.82 Long term (current) use of aspirin; Z79.2 Long term (current) use of antibiotics; Z79.4 Long term (current) use of insulin

== ENCOUNTER 2020-05-31 22:01 | Inpatient (IN) | payer OTHER ==
[~2020-05-31] VITALS: Ht 10.2 cm; Wt 125.2 kg
[2020-05-31 22:04] VITALS: BP 142/53
[2020-05-31 23:04] LABS: CALCIUM 8.1 mg/dL (8.5-10.1); POTASSIUM 5.2 mmol/L (3.5-5.1)
[2020-05-31 23:10] LABS: ALBUMIN 2.2 g/dL (3.4-5.0); TOTAL BILIRUBIN 0.1 mg/dL (0.2-1.0)
[2020-05-31 23:18] LABS: ABSOLUTE NEUTROPHILS 5.9 thou/uL (1.4-8.2); BASOPHILS 0.5 % (0.0-2.0); EOSINOPHILS 2.2 % (0.0-3.0); HEMOGLOBIN 8.1 gm/dL (14.0-18.0); LYMPHOCYTES 22.4 % (24.0-44.0); MCHC 32.6 g/dL (28.0-37.0); MONOCYTES 8.1 % (1.0-8.0); PLATELET COUNT 266 thou/uL (150-400); POLYS 66.8 % (36.0-66.0); RDW 16.6 % (10.5-14.5); WBC 8.8 thou/uL (4.0-11.0)
[2020-05-31 23:46] LABS: PROTIME 10.7 Seconds (9.3-11.4)
[2020-06-01] VITALS (8 sets, daily range): BP systolic 116–152; BP diastolic 45–69
--- NOTE | 2020-06-01 01:30 | NUR ---
Pt. arrived to the unit from the emergency room accompanied by staff. He is alert and oriented. Admission assessment and history is completed. Pt. offers no c/o pain. No noted GI bleeding and protonix gtt infusing without difficulty. Wound present to left foot 2nd toe (see poc). Pt. prefers to rest in the recliner than the bed.
[2020-06-01] MEDS ORDERED: OXYCONTIN40 MG PO (02:06)
[2020-06-01 11:42] LABS: CALCIUM 7.3 mg/dL (8.5-10.1); CREATININE 2.9 mg/dL (0.7-1.3); POTASSIUM 5.1 mmol/L (3.5-5.1)
--- NOTE | 2020-06-01 18:08 | NUR ---
Patient in the chair all day. States it is more comfortable on his back. Patient is able to amublate to the bathroom with minimal assist. Neuro intact. Essential tremors notes. Denies pain. Denies anxiety. slept on/off throughout the day. Heart rate and rhythm stable. Blood pressures stable. Patient had about 4 loose bloody stools. Hgb done and result 6.7. Called to Dr. Valenzuela 1 unit packed cells ordered and transfused. Tolerated well. No further stool since about noon. Adequate oxygenation on room air.
[2020-06-01 19:16] LABS: HEMATOCRIT 20.1 % (42.0-52.0); HEMOGLOBIN 6.5 gm/dL (14.0-18.0)
[2020-06-02 00:58] LABS: HEMATOCRIT 21.3 % (42.0-52.0)
[2020-06-02 02:12] LABS: HEMATOCRIT 23.7 % (42.0-52.0); HEMOGLOBIN 7.7 gm/dL (14.0-18.0); MCH 28.1 pg (26.0-34.0); MCHC 32.5 g/dL (28.0-37.0); MCV 86.5 fL (80.0-100.0); RBC 2.74 mil/uL (4.50-6.00); RDW 15.5 % (10.5-14.5); WBC 9.2 thou/uL (4.0-11.0)
[2020-06-02 03:42] VITALS: BP 118/49
[2020-06-02 03:53] VITALS: BP 118/49; BP 118/53; BP 135/54
[2020-06-02 07:44] VITALS: BP 143/52
[2020-06-02 08:33] LABS: CALCIUM 7.4 mg/dL (8.5-10.1)
[2020-06-02 13:15] VITALS: BP 141/69
[2020-06-02 13:26] LABS: HEMATOCRIT 26.3 % (42.0-52.0); HEMOGLOBIN 8.3 gm/dL (14.0-18.0); MCH 27.4 pg (26.0-34.0); MCHC 31.6 g/dL (28.0-37.0); MCV 86.9 fL (80.0-100.0); RBC 3.03 mil/uL (4.50-6.00); RDW 15.9 % (10.5-14.5); WBC 11.1 thou/uL (4.0-11.0)
--- NOTE | 2020-06-02 14:51 | NUR ---
Nutrition: pt admitted with GIB with proctitis and possible C diff. PMH: DM, lap moi, CABG, recent CVA, right and left great toe amputations/osteo. Familiar w/ pt from prior admit. Colonoscopy done today-plan repeat tomorrow Multiple polyps and extensive blood in colon. Pt without significant weight changes recently and reports excellent appetite. Will follow for timely diet advance/tolerance. Otherwise consider low nutriiton risk.
[2020-06-02 16:17] VITALS: BP 138/50
--- NOTE | 2020-06-02 16:56 | NUR ---
ASSUMED CARE AT CHANGE OF SHIFT. ALERTX4, FROM HOME. UNABLE TO COMPLETE COLONSCOPY DUE STOOL IN COLON. PREP TO START TONIGHT. PATEINT EDUCATED AND UNDERSTANDS THE IMPORTANCE TO COMPLETE PREP FOR PROCEDURE. AX1 TO COMMODE AND BATHROOM. BLOODY BM TODAY. CALL LIGHT AND PERSONAL ITEM IN REACH.
[2020-06-02 20:00] VITALS: BP 136/56
--- NOTE | 2020-06-03 04:29 | NUR ---
ASSESSMENTS CHARTED, MEDS CHARTED GIVEN. PATIENT WAS AGAIN PREPPING FOR A COLONOSCOPY TONIGHT. USING THE MIRALAX AND GATORAIDE PREP HE WAS ABLE TO DRINK ALL BUT THE LAST GLASS AND 1/2. HAS BEEN NPO SINCE MIDNIGHT. SINUS SATISH ON TELEMETRY DURING SHIFT. UP WITH STANDBY TO BATHROOM. STARTED EVENING WITH LUCIANO RED LIQUID STOOLS WITH BLOOD CLOTS AND FECES MIXED IN TO CLEAR LIQUID STOOL IN THE MORNING. DENIES PAIN. FALL PRECAUTIONS IN PLACE DURING SHIFT.
[2020-06-03 04:30] VITALS: BP 140/49
[2020-06-03 07:30] VITALS: BP 154/60
[2020-06-03 08:31] LABS: CALCIUM 8.1 mg/dL (8.5-10.1); CREATININE 2.7 mg/dL (0.7-1.3); POTASSIUM 4.4 mmol/L (3.5-5.1)
[2020-06-03 16:38] VITALS: BP 163/65
--- NOTE | 2020-06-03 18:30 | NUR ---
Patient admits with GI bleed. Met with patient. hx of CVA and acute rehab at [facility]. Patient resides in basement apt of xwife. He uses a walker for ambulation. He is on service with [facility]. Plan resumption at [place]. Patient rec colonoscopy and advancing diet. Plan home with HH care at [place]. Patient discussed care concerns regarding hospital and prev admission. Requested patient experience coordinator meet with nancy. Wandermgt following
--- NOTE | 2020-06-03 18:35 | NUR ---
AAOX4. ODD AFFECT. ANOTHER TRY TODAY FOR A COLONOSCOPY. OFF UNIT FOR THREE HOURS FOR SAME, 16 POLYPECTOMIES. SB PER TELE. LEGS ELEVATED IN BEDSIDE CHAIR. WILL CONTINUE TO FOLLOW CLOSELY.
[2020-06-03 20:45] VITALS: BP 142/71
[2020-06-04] VITALS (9 sets, daily range): BP systolic 104–161; BP diastolic 54–98
--- NOTE | 2020-06-04 04:48 | NUR ---
RECEIVED REPORT FROM DEBORAH BRANDT.ASSUMED CARE AT MIDNIGHT.A/O X 4.PT IS HUNGRY AND ASK FOR BROTH AND ICE CREAM AND STILL HUNGRY.PATIENT IS LOOKING FORWARD TO GO HOME TOMORROW.MONITOR SHOWS SB.POC CONTINUED.
[2020-06-04 07:41] LABS: HEMATOCRIT 21.6 % (42.0-52.0); MCH 28.1 pg (26.0-34.0); MCHC 32.4 g/dL (28.0-37.0); MCV 86.7 fL (80.0-100.0); RBC 2.49 mil/uL (4.50-6.00); RDW 16.2 % (10.5-14.5); WBC 7.8 thou/uL (4.0-11.0)
[2020-06-04 07:55] LABS: CREATININE 2.6 mg/dL (0.7-1.3)
[2020-06-04 09:12] LABS: POTASSIUM 5.5 mmol/L (3.5-5.1)
--- NOTE | 2020-06-04 15:57 | NUR ---
RECEIVED PT'S CARE AROUND 0735; PT. ON CHAIR; RESTING WITH EYES CLOSED; EQUAL CHEST RISING NOTICED; SB ON THE MONITOR; DR. ROMAN NOTIFIED ABOUT NO LABS ORDERED & DIET; LABS ORDERED BY DR. GRIFFITH; PER DR. GRIFFITH OK TO RESUME DIET; DIET UPDATED; PT. NOTIFIED; DURING AM ASSESSMENT AOX4; NO C/O PAIN; REFUSED SCHEDULED PAIN MEDICATION; ST. "I DO NOT HAVE PAIN"; ST. WANTS TO HAVE REAL FOOD; EDUCATED ABOUT DIRECTOR OF DATABASE MARKETING; ST. DOES NOT LIKE HOSPITAL FOOD; AM MEDICATION GIVEN; HGB 7 & POTASSIUM 5.5; PHYSICIAN NOTIFIED; ORDERS ON PLACED; UNIT OF RBC GIVEN; COMPLETED AT 1515; PER PHYSICIAN OK TO D/C PT. TO HOME WITH HH; JUVENILE JUSTICE SPECIALIST NOTIFIED; PT. NOTIFIED; ST. UNDERSTANDING; PT. REQUESTED TO TAKE SHOWER BEFORE BEING D/C; NURSE AID PROVIDED CARE; EDUCATED ABOUT NEED TO TAKE VS AFTER COMPLETING BLOOD TRANSFUSION; ST. UNDERSTANDING; SR ON THE MONITOR; PER PHYSICIAN OK TO D/C PT. AFTER TRANSFUSION COMPLETE; NO NEED OF HH RE-ASSESSMENT; ASSESSMENT CHARGED; FOLLOWING POC; WILL WORK ON D/C ORDERS;
--- NOTE | 2020-06-04 17:35 | NUR ---
FAXED REFERRAL FOR RESUMPTION OF CARE TO [facility] SPOKE WITH INTAKE THEY RECEIVED AND WILL RESUME CARE AT [place]. PT DISCHARGING TODAY FAXED DC ORDERS/SUMMARY TO [facility] RECEIVED CONFIRMATION AND THEY WILL CALL PT TO ARRANGE VISITS.
--- NOTE | 2020-06-05 18:06 | PATH ---
[facility] [place] [address] PATHOLOGY RPT PROCEDURE Name: JACIEL LERMA Room #: 218-P [facility] IN M.R.#: [id number] Admission: 06/01/20 Date of : 59 Discharge: 06/04/20 Report #: [id number] Path Case #: [id number] LCA Accession Number: [id number] . 01 Material submitted: . PART A: cecum - POLYP AT CECUM X2 PART B: colon - POLYP AT ASCENDING COLON. Modifiers: ascending PART C: colon - POLYP AT TRANSVERSE X6. Modifiers: transverse PART D: colon - POLYP AT DESCENDING X2. Modifiers: descending PART E: colon - POLYP AT SIGMOID X2. Modifiers: sigmoid . 01 Clinician provided ICD-10: K92.2 N17.9 . 01 Clinical history: . RECTAL BLEEDING, ACUTE BLOOD LOSS, ANEMIA, GI BLEED . 02 Diagnosis: A. Polyp x2, cecum, endoscopic biopsy: - Tubular adenoma identified in multiple fragments. - Negative for high grade dysplasia. . B. Polyp, at ascending colon, endoscopic biopsy: - Tubular adenoma. - Negative for high grade dysplasia. . C. Polyp x6, at transverse colon, endoscopic biopsy: - Tubular adenoma identified in multiple fragments. - Negative for high grade dysplasia. . D. Polyp x2, descending, endoscopic biopsy: - One fragment present showing tubular adenoma; negative for high grade dysplasia. - Remainder of fragments showing vegetable material as well as debris. . E. Polyp x2, sigmoid, endoscopic biopsy: - Multiple fragments showing tubulovillous adenoma. - Negative for high grade dysplasia. . (IUV:mml; 06/05/2020) QLM 06/05/2020 1354 Local . 02 Electronically signed: . Svitlana Jade MD, Pathologist NPI- [id number] . [address] [address] PATHOLOGY RPT PROCEDURE Name: JACIEL LERMA Room #: 218-P [facility] IN [facility].#: [id number] Admission: 06/01/20 Date of : 59 Discharge: 06/04/20 Report #: [id number] Path Case #: [id number] Gross description: . A. Received in formalin labeled "Jaciel Lerma, polyp at cecum x2" are multiple peng-brown soft tissue fragments measuring in aggregate 2.1 x 1.5 x 0.3 cm. The specimen is submitted entirely in A1. . B. Received in formalin labeled "Shoaf, Jaciel, polyp at ascending" are two peng-brown soft tissue fragments measuring in aggregate 0.9 x 0.6 x 0.2 cm. The specimen is submitted entirely in B1. . C. Received in formalin labeled "Shoaf, Jaciel, polyp at transverse x6" are multiple peng-brown soft tissue fragments measuring in aggregate 2.2 x 1.3 x 0.3 cm. The specimen is submitted entirely in C1. . D. Received in formalin labeled "Shoaf, Jaciel, polyp at descending x2" are multiple peng-brown soft tissue fragments measuring in aggregate 0.6 x 0.4 x 0.1 cm. The specimen is submitted entirely in D1. . E. Received in formalin labeled "Shoaf, Jaciel, polyp at sigmoid x2" are multiple peng-brown soft tissue fragments measuring in aggregate 2.0 x 1.7 x 0.4 cm. The specimen is submitted entirely in E1. ([facility]; 06/04/2020) [facility] 06/04/2020 1418 Local . 02 Pathologist provided ICD-10: D12.0, D12.2, D12.3, D12.4, D12.5, K92.2, N17.9 . 02 CPT . 758709, 725621, 843995, 596534, 253782 Specimen Comment: A courtesy copy of this report has been sent to [phone] Specimen Comment: [id number] Specimen Comment: Report sent to / DR ROMAN Performed at: 01 [facility] [address] [place] [address] [address], [place], [place] [id number] MD Gavin Machado MD Phone: [phone] Performed at: [address] [id number] MD Svitlana Jdae MD Phone: [phone]
== END 2020-06-04 16:48 | disposition home health service (06) | DRG 377 ==
LOC: ER 22:01 → EROBS 06-01 01:04 → 2N 06-01 01:04
PROVIDERS: Emergency Medicine; Internal Medicine Gastroenterology; Nurse Practitioner; ADMIT Family Medicine; ATTEND Family Medicine
DX: K57.31 Diverticulosis of large intestine without perforation or abscess with bleeding (principal); E43 Unspecified severe protein-calorie malnutrition; N17.9 Acute kidney failure, unspecified; M86.8X7 Other osteomyelitis, ankle and foot; D62 Acute posthemorrhagic anemia; K62.89 Other specified diseases of anus and rectum; B96.89 Other specified bacterial agents as the cause of diseases classified elsewhere; N18.9 Chronic kidney disease, unspecified; E11.69 Type 2 diabetes mellitus with other specified complication; K63.5 Polyp of colon; G89.29 Other chronic pain; M54.9 Dorsalgia, unspecified; E78.5 Hyperlipidemia, unspecified; E11.22 Type 2 diabetes mellitus with diabetic chronic kidney disease; I25.10 Atherosclerotic heart disease of native coronary artery without angina pectoris; Z20.828 Contact with and (suspected) exposure to other viral communicable diseases; F32.9 Major depressive disorder, single episode, unspecified; F17.210 Nicotine dependence, cigarettes, uncomplicated; Z79.4 Long term (current) use of insulin; Z90.49 Acquired absence of other specified parts of digestive tract; Z86.73 Personal history of transient ischemic attack (TIA), and cerebral infarction without residual deficits; Z86.14 Personal history of Methicillin resistant Staphylococcus aureus infection; Z95.1 Presence of aortocoronary bypass graft; Z89.412 Acquired absence of left great toe; Z82.49 Family history of ischemic heart disease and other diseases of the circulatory system
CPT/HCPCS: 10081; 62110; 62900; 70005

== ENCOUNTER 2020-06-13 14:36 | Inpatient (IN) | payer OTHER ==
[~2020-06-13] VITALS: Ht 193 cm; Wt 126.1 kg
[2020-06-13 14:42] VITALS: BP 119/51
[2020-06-13 15:44] LABS: ABSOLUTE NEUTROPHILS 5.4 thou/uL (1.4-8.2); BASOPHILS 0.9 % (0.0-2.0); EOSINOPHILS 1.3 % (0.0-3.0); HEMATOCRIT 22.9 % (42.0-52.0); HEMOGLOBIN 7.5 gm/dL (14.0-18.0); LYMPHOCYTES 11.3 % (24.0-44.0); MCH 28.8 pg (26.0-34.0); MCHC 32.9 g/dL (28.0-37.0); MCV 87.7 fL (80.0-100.0); MONOCYTES 5.8 % (1.0-8.0); PLATELET COUNT 274 thou/uL (150-400); POLYS 80.7 % (36.0-66.0); RBC 2.61 mil/uL (4.50-6.00); RDW 16.2 % (10.5-14.5); WBC 6.7 thou/uL (4.0-11.0)
[2020-06-13 16:00] LABS: ANION GAP 8 mmol/L (7-16); BUN 52 mg/dL (7-18); CALCIUM 7.7 mg/dL (8.5-10.1); CHLORIDE 109 mmol/L (98-107); CO2 25 mmol/L (21-32); CREATININE 3.4 mg/dL (0.7-1.3); GLUCOSE 155 mg/dL (74-106); POTASSIUM 5.3 mmol/L (3.5-5.1); SODIUM 142 mmol/L (136-145)
[2020-06-13 16:05] LABS: ALBUMIN 2.1 g/dL (3.4-5.0); SGOT 11 U/L (15-37); SGPT 12 U/L (30-65); TOTAL BILIRUBIN < 0.1 mg/dL (0.2-1.0); TOTAL PROTEIN 5.7 g/dL (6.4-8.2)
[2020-06-13 17:33] VITALS: BP 141/73
[2020-06-13 18:50] VITALS: BP 122/68
[2020-06-13 19:53] VITALS: BP 144/68
--- NOTE | 2020-06-13 23:59 | NUR ---
RECIEVED FROM ER AT AROUND 1900. ADMISSION CHECKLIST COMPLETE. OREINTED TO ROOM AND FLOOR POLICYS. FALL PRECAUTIONS IN PLACE. LAYING IN CHAIR, SNACKS GIVEN. SECURITY RETRIEVED BELONGINGS FROM TRUCK. NS GOING PER ORDERS. PICTURES TAKEN OF L FOOT WOUND, WOUND CONSULT MADE. CONTINUING TO ASSESS ACCORDING TO POC
[2020-06-14] VITALS: BP 144/53
[2020-06-14 03:33] LABS: HEMATOCRIT 23.5 % (42.0-52.0); HEMOGLOBIN 7.5 gm/dL (14.0-18.0); MCH 28.2 pg (26.0-34.0); MCV 88.1 fL (80.0-100.0); RBC 2.66 mil/uL (4.50-6.00); RDW 16.1 % (10.5-14.5)
[2020-06-14 03:44] LABS: CALCIUM 7.4 mg/dL (8.5-10.1); CREATININE 3.6 mg/dL (0.7-1.3); POTASSIUM 5.1 mmol/L (3.5-5.1)
[2020-06-14 05:00] VITALS: BP 126/55
--- NOTE | 2020-06-14 06:16 | NUR ---
SLEPT MOST OF SHIFT UP IN CHAIR. DENIES COMPLAINTS OF PAIN. BLADDER SCAN PER ORDERS SHOWN 18ML IN BLADDER PAST VOIDING 300ML. WORKING ON GOALS AND PLAN OF CARE FOR NOC. NOTED WT INCREASE. DR. TURNER HERE THIS AM. NOT PROGRESSING TOWARDS DISCHARGE GOALS AT THIS TIME. CONTINUE TO ASSES CLOSELY.
[2020-06-14 09:30] VITALS: BP 132/54
[2020-06-14 16:00] VITALS: BP 112/53
--- NOTE | 2020-06-14 16:39 | NUR ---
ASSESSMENT CHARTED. PT ALERT AND ORIENTED. DENIED HAVING PAIN OR DISCOMFORT. REFUSED SCHEDULED PAIN MED. SEEN BY DR. GAMING. NEW ORDERS NOTED. UP IN THE CHAIR THIS SHIFT. SB ON THE MONITOR. NO CARDIAC OR RESPIRATORY DISTRESS NOTED. DIURESING WELL. NO CONCERNS AT THIS TIME.
[2020-06-14 19:55] VITALS: BP 142/60
[2020-06-15 04:45] VITALS: BP 142/54
[2020-06-15 04:53] LABS: HEMOGLOBIN 7.8 gm/dL (14.0-18.0); MCH 28.4 pg (26.0-34.0); MCHC 32.4 g/dL (28.0-37.0); MCV 87.8 fL (80.0-100.0); RBC 2.73 mil/uL (4.50-6.00); RDW 16.2 % (10.5-14.5); WBC 7.4 thou/uL (4.0-11.0)
--- NOTE | 2020-06-15 04:55 | NUR ---
PATIENT IS ALERT AND OREINTED. UP IN CHAIR, SLEPT PART OF NIGHT. DENIES ANY PAIN. REFUSED SCHEDULED PAIN MED. FALL PRECATUIONS IN PLACE. USES URINAL AT BEDSIDE. CONTINUING TO ASSES ACCORDING TO POC.
[2020-06-15 05:02] LABS: CALCIUM 7.9 mg/dL (8.5-10.1); CREATININE 3.4 mg/dL (0.7-1.3); PHOSPHORUS 4.7 mg/dL (2.5-4.9); POTASSIUM 4.8 mmol/L (3.5-5.1)
--- NOTE | 2020-06-15 07:45 | HC ---
[facility] [place] [address] CONSULTATION Name: JACIEL ANGELESIN Room #: 214-P ADM IN M.R.#: [id number] Admission: 06/13/20 Attend Phys: Jaciel Galindo MD Discharge: Date of : 59 Report #: [id number] THIS REPORT FOR: cc: Jaciel Galindo MD, Neal A. MD Park, Jin S. MD ~ DATE OF SERVICE: 06/14/2020 CARDIOLOGY CONSULTATION INDICATION: Congestive heart failure. HISTORY OF PRESENT ILLNESS: This is a 65-year-old gentleman with a history of CABG, congestive heart failure, peripheral vascular disease, CVA, paroxysmal atrial fibrillation, hypertension, depression, chronic kidney disease, presenting with increasing lower extremity edema. He was recently hospitalized for a GI bleed, underwent colonoscopy. He was found to have multiple polyps, unclear the source of the bleed, may be related to diverticular versus polyp bleed. He was cleared to resume Eliquis, but he did not comply with. The patient has a history of noncompliance. He does admit to a poor diet, eating fast foods. He offers no complaints of angina, dyspnea or nausea. PAST MEDICAL HISTORY: Five-vessel CABG in 2017. History of mild cardiomyopathy with congestive heart failure. Peripheral vascular disease with toe amputations. Paroxysmal atrial fibrillation. History of cerebrovascular accident in 12/2019. History of noncompliance. Anemia, depression. ALLERGIES: None. MEDICATIONS AT HOME: Include amlodipine 5 mg, aspirin, potassium, Eliquis, which he did not resume, Lipitor, Coreg 6.25, torsemide, amiodarone. SOCIAL HISTORY: Positive for tobacco use, smokes a few cigarettes per day. FAMILY HISTORY: Negative for premature CAD. REVIEW OF SYSTEMS: A full 10-point review of systems performed. Only the pertinent positives and negatives are described in HPI. PHYSICAL EXAMINATION: VITAL SIGNS: Blood pressure is 130/60, heart rate is 50 beats per minute. GENERAL APPEARANCE: This is an elderly appearing male, in no acute distress. HEENT: Normocephalic, atraumatic. NECK: Supple. [facility] [address] [place] [address] CONSULTATION Name: KANDYALBAJACIEL CAPELLAN Room #: 214-P ADM IN M.R.#: [id number] Admission: 06/13/20 Attend Phys: Jaciel Galindo MD Discharge: Date of : 59 Report #: [id number] LUNGS: Few basilar crackles. CARDIAC: S1, S2 positive. ABDOMEN: Protuberant, soft, nontender. EXTREMITIES: No cyanosis, 1-2+ lower extremity edema. LABORATORY VALUES: White count 7.0, hemoglobin 7.5, similar to his most recent admission, creatinine is 3.6. ASSESSMENT AND PLAN: 1. Congestive heart failure, acute on chronic mixed, will need diuresis. Probably related to noncompliance with dietary restrictions as well as medications. 2. Lower extremity edema, strict I's and O's, continue diuresis. 3. Coronary artery disease/CABG, stable with no complaints of angina. 4. Paroxysmal atrial fibrillation, remains in sinus rhythm, continue on amiodarone and resume Eliquis. 5. Chronic kidney disease, follow creatinine. May need nephrology evaluation. 6. Anemia/gastrointestinal bleed, follow hemoglobin. 7. Cerebrovascular accident, no recent recurrence. <ELECTRONICALLY SIGNED> By: Jonathan Patel MD 06/15/20 0745 1038 1849 Jonathan Patel MD /nt
[2020-06-15 09:00] VITALS: BP 143/55
[2020-06-15 16:25] VITALS: BP 137/55
--- NOTE | 2020-06-15 16:29 | NUR ---
PT UP IN THE CHAIR THIS SHIFT. DENIED HAVING PAIN OR DISCOMFORT. NO RESPIRATORY DISTRESS NOTED. SB ON TELE. PT PROGRESSING WELL TOWARDS DISCHARGE GOAL.
[2020-06-15 20:05] VITALS: BP 136/54
[2020-06-16 04:45] VITALS: BP 147/58
[2020-06-16 05:22] LABS: ALBUMIN 1.9 g/dL (3.4-5.0); CALCIUM 7.6 mg/dL (8.5-10.1); CREATININE 4.2 mg/dL (0.7-1.3); PHOSPHORUS 4.7 mg/dL (2.5-4.9); POTASSIUM 4.8 mmol/L (3.5-5.1)
--- NOTE | 2020-06-16 05:48 | NUR ---
DENIES PAIN.DENIES NEEDS EXCEPT FOR SNACKS LAST NIGHT.SLEEPS ON THE RECLINER.MONITOR SHOWS SB.POC CONTINUED.
[2020-06-16 08:05] VITALS: BP 154/57
--- NOTE | 2020-06-16 09:18 | NUR ---
WOUND CONSULT; THE 2ND TOE TIP WAS AMPUTATED MONTHS AGO AND THE PATIENT HAS BEEN UNDER THE CARE OF DR. FOSS FOR THIS. THE TOE HAS A SCANT AMOUNT OF SEROUS DRAINAGE WITH NO ODOR. PT DENIES PAIN. NO ERYTHMA. ONLY DRY SKIN NOTED. THE WOUND IS STABLE. RECOMMENDATIONS; APPLY XEROFORM GAUZE, COVER WITH FOAM, SECURE WITH (KERLIX AND ARMANDO REQUESTED BY THE PATIENT) DISCUSSED WITH RN
--- NOTE | 2020-06-16 10:33 | 2DMMODE ---
[facility] [place] [address] 2 D/M-MODE ECHOCARDIOGRAM Name: KANDYMING WILLISNATE CAPELLAN Room #: 214-P ADM IN M.R.#: [id number] Admission: 06/13/20 Attend Phys: Jaciel Galindo MD Discharge: Date of : 59 Report #: [id number] THIS REPORT FOR: cc: Jaciel Galindo MD, Neal A. MD Lammoglia, Francisco J. MD ~ APPROVED REPORT Study performed: 06/16/2020 09:28:06 EXAM: Comprehensive 2D, Doppler, and color-flow Echocardiogram Patient Location: Bedside Room #: 214 BSA: 2.58 HR: 56 bpm BP: 154/57 mmHg Rhythm: NSR Indications Short of breath, Edema. Hx: CABG, CHF, PVD, CVA, PAF, HTN. 2D Dimensions RVDd: 47.97 mm IVSd: 14.00 (7-11mm) LVOT Diam: 24.00 (18-24mm) LVDd: 57.36 mm PWd: 12.22 (7-11mm) Ascending Ao: 42.63 (22-36mm) LVDs: 38.00 (25-40mm) Aortic Root: 40.60 mm Volumes Left Atrial Volume (Systole) Single Plane 4CH: 94.19 mL Single Plane 2CH: 108.19 mL LA ESV Index: 43.00 mL/m2 Aortic Valve AoV Peak Jamarcus.: 1.39 m/s AO Peak Gr.: 7.69 mmHg LVOT Max P.57 mmHg LVOT Max V: 0.94 m/s GIOVANNI Vmax: 3.15 cm2 Mitral Valve E/A Ratio: 3.3 [facility] [employer] [place] [address] 2 D/M-MODE ECHOCARDIOGRAM Name: JACIEL ANGELES Room #: 214-[facility] IN [facility].#: [id number] Admission: 06/13/20 Attend Phys: Jaciel Galindo, Discharge: Date of : 59 Report #: [id number] MV Decel. Time: 222.84 ms MV E Max Jamarcus.: 1.12 m/s MV A Jamarcus.: 0.34 m/s MV PHT: 64.62 ms IVRT: 73.82 ms Pulmonary Valve PV Peak Jamarcus.: 0.99 m/s PV Peak Gr.: 3.92 mmHg Pulmonary Vein P Vein S: 0.54 m/s P Vein A: 0.20 m/s P Vein D: 0.80 m/s P Vein A Dur.: 129.2 msec P Vein S/D Ratio: 0.68 Tricuspid Valve TR Peak Jamarcus.: 3.44 m/s RAP Estimate: 10.00 mmHg TR Peak Gr.: 47.41 mmHg PA Pressure: 57.00 mmHg Left Ventricle The left ventricle is normal size. Mild to moderate concentric left ventricular hypertrophy. Left ventricular systolic function is normal. LVEF is 55-60%. Severe diastolic dysfunction is present. Right Ventricle Right ventricle is dilated. The right ventricular systolic function is normal. Atria Moderate biatrial enlargement. Aortic Valve Aortic valve is mildly calcified. No aortic regurgitation is present. There is no aortic valvular stenosis. Mitral Valve The mitral valve is normal in structure. Mild mitral annular calcification. Mild mitral regurgitation. No evidence of mitral valve stenosis. Tricuspid Valve The tricuspid valve is normal in structure. Moderate tricuspid regurgitation. Estimated PAP is 55-60mmHg. Pulmonic Valve [facility] [address] [place] [address] 2 D/M-MODE ECHOCARDIOGRAM Name: JACIEL ANGELES Room #: 214-P [facility] IN M.R.#: [id number] Admission: 06/13/20 Attend Phys: Jaciel Galindo, Discharge: Date of : 59 Report #: [id number] The pulmonary valve is normal in structure. Trace pulmonic regurgitation. Great Vessels Aortic root is dilated (4.1cm). Ascending aorta is dilated (4.3cm). IVC is dilated and collapses <50% with inspiration. Pericardium There is no pericardial effusion. <Conclusion> The left ventricle is normal size. LVEF is 55-60%. Right ventricle is dilated. Moderate biatrial enlargement. Aortic valve is mildly calcified. No aortic regurgitation is present. There is no aortic valvular stenosis. The mitral valve is normal in structure. Mild mitral annular calcification. Mild mitral regurgitation. The tricuspid valve is normal in structure. Moderate tricuspid regurgitation. Estimated PAP is 55-60mmHg. The pulmonary valve is normal in structure. Trace pulmonic regurgitation. Aortic root is dilated (4.1cm). Ascending aorta is dilated (4.3cm). There is no pericardial effusion. <ELECTRONICALLY SIGNED> By: Shlomo Mccall MD 06/16/20 1033 1033 1033 Shlomo Mccall MD /INF
[2020-06-16 11:45] VITALS: BP 127/68
[2020-06-16 15:45] VITALS: BP 134/64
--- NOTE | 2020-06-16 17:57 | NUR ---
PT ALERT AND ORIENTED. SB ON TELE. ON LASIX DRIP. UP IN THE CHAIR THIS SHIFT. REPORT FEELING BETTER TODAY. NO CONCERNS AT THIS TIME.
[2020-06-16 20:15] VITALS: BP 143/61
[2020-06-17] VITALS (9 sets, daily range): BP systolic 124–165; BP diastolic 5–74
[2020-06-17 05:18] LABS: CALCIUM 8.3 mg/dL (8.5-10.1); CREATININE 3.8 mg/dL (0.7-1.3); PHOSPHORUS 4.6 mg/dL (2.5-4.9); POTASSIUM 4.6 mmol/L (3.5-5.1)
--- NOTE | 2020-06-17 07:59 | NUR ---
A/O X 4.REFUSED PAIN MEDS.ON LASIX GTT.LARGE AMOUNT OF URINE OUTPUT NOTED.MONITOR SHOWS SINUS SATISH IN THE 50'S.POC CONTINUED.
--- NOTE | 2020-06-17 16:29 | NUR ---
PT CARE ASSUMED AT 0700. ASSESSMENT CHARTED. MEDICATION CHARTED. RAC IV. SINUS SAITSH WITH 1ST DEGREE AV BLOCK. LASIX DRIP. TOE WOUND CARE. RA. PT IS NOT COMPLIANT WITH MEAL PLAN; ORDERED BBQ; SNACKS THROUGHOUT DAY. DIURESING.
--- NOTE | 2020-06-17 20:04 | NUR ---
Pt transferred at 1740 from , transferred safely. On room air. Vital signs stable. On telemetry; no complains and signs of chest pain, crushing sensation and heaviness. A+OX4. On carb controlled diet- previous RN said pt is non compliant with prescribed diet; no nausea, no vomiting and no abdominal pain noted. On fluid restrictions- pt informed and aware. On blood sugar monitoring, taken and recorded accordingly; with sliding scale insulin ordered. On lasix drip at 10ml/hr, infusing at R AC. With L at R toe amputated, dressing in place in bilateral legs. Falls bundle in place. Pt able to use walker and gait belt as reported, pt has been on the recliner since arriving here in the [place]. Pt non compliant with chair alarm- charge nurse and intermediate project manager informed, pt has been sleeping since he arrived in the unit, night RN informed to still keep pt on chair alarm and to inform physician re: non compliance. To continue monitoring patient.
[2020-06-18 06:41] LABS: ALBUMIN 1.9 g/dL (3.4-5.0); CALCIUM 8.4 mg/dL (8.5-10.1); CREATININE 3.6 mg/dL (0.7-1.3); PHOSPHORUS 4.9 mg/dL (2.5-4.9); POTASSIUM 4.2 mmol/L (3.5-5.1)
--- NOTE | 2020-06-18 06:54 | NUR ---
Assumed pt care at 1900. A/OX4,VSS. Denied pain on assessment and declined taking his scheduled Oxycontin at HS. Pt sleeps on the recliner, declined chair alarm to be put on and threw it away. However not walking around in room,up to void in the urinal. Continues on a lasix drip with frequent urination noted. Encouraged to keep BLE elevated and does so on and off. Sinus christoph on telemetry, asymptomatic. Will continue to monitor pt.
[2020-06-18 07:11] VITALS: BP 159/70
--- NOTE | 2020-06-18 10:35 | NUR ---
Sp with patient, he admits with CHF. Patient resides in independent home. He has steps in his home and uses a walker. patient reports he wants to sp with patient advocate regarding care concerns. He reports he did not meet with him last admission. Casemgt emailed Fan to please sp with patient. Patient drives to [facility] office and hospital. His car is here at [facility] and he plans to drive home from hospital. PCP Dr Galindo. Patient on service with [place] [facility] . Faxed updates to [place]. Plan resumption at [place]. Patient with concerns of finances and medical bills. Requested medassist visit with patient to determine if [place] or [place]. Patient is rec disability at this time. Casemgt following.
--- NOTE | 2020-06-18 10:56 | NUR ---
WOUND CONSULT; THE LEFT FOOT 3RD TOE WOUND IS MACERATED TODAY. WE ARE CURRENTLY USING XEROFORM. WE WILL CHANGE TO A AG FOAM DRESSING AND KERLIX, M/W/F PRN. THERE ARE NO S/S OF INFECTION TODAY. NO OTHER ISSUES. RECOPMMENDATION; D/C XEROFORM AND CHANGE TO AG FOAM/KERLIX. DISCUSSED WITH RIKKI
[2020-06-18 11:41] VITALS: BP 159/70
[2020-06-18 15:25] VITALS: BP 132/47
--- NOTE | 2020-06-18 20:22 | NUR ---
Assumed pt care this am, prefers to stay in the recliner. Refuses to have a chair alarm on ., CAlls appropriately, blood sugar monitoring and medication given as per emar. Diet and medications are tolerated well. POC followed with no signs of verbalizations og distress noted.
[2020-06-18 20:38] VITALS: BP 137/55
[2020-06-19 05:38] LABS: HEMOGLOBIN 7.5 gm/dL (14.0-18.0); MCH 27.8 pg (26.0-34.0); MCHC 32.3 g/dL (28.0-37.0); MCV 85.9 fL (80.0-100.0); RBC 2.68 mil/uL (4.50-6.00); RDW 15.8 % (10.5-14.5); WBC 7.1 thou/uL (4.0-11.0)
[2020-06-19 06:04] LABS: CALCIUM 7.9 mg/dL (8.5-10.1); CREATININE 3.7 mg/dL (0.7-1.3); PHOSPHORUS 5.2 mg/dL (2.5-4.9); POTASSIUM 4.4 mmol/L (3.5-5.1)
--- NOTE | 2020-06-19 06:35 | NUR ---
VSS-AFEBRILE. LUNGS CLEAR-ROOM AIR. LASIX GTT CONTINUED THROUGH SHIFT, VOIDING WELL. CALLS APPROPRIATELY FOR ANY NEEDED ASSISTANCE.
[2020-06-19 07:12] VITALS: BP 148/65
--- NOTE | 2020-06-19 09:13 | HC ---
[facility] [place] [address] CONSULTATION Name: JACIEL ANGELES Room #: 459-P ADM IN M.R.#: [id number] Admission: 06/13/20 Attend Phys: Jaciel Galindo MD Discharge: Date of : 59 Report #: [id number] THIS REPORT FOR: cc: Jaciel Galindo MD, Neal A. MD Al-Marta,Jeannette Krishnamurthy MD ~ REASON FOR CONSULTATION: CKD. REASON FOR PRESENTATION: Worsening kidney function. HISTORY OF PRESENT ILLNESS: This is a very well-known patient to me. He is 65 years old with extensive past medical history including and not limited to chronic kidney disease, diabetes mellitus, all diabetic complications including diabetic foot, status post coronary artery bypass graft. He is known to have chronic kidney disease. I had evaluated him on multiple occasions. His most recent creatinine had been in the mid 2 range. In fact, he was discharged with a creatinine value of 2.6 back in May. He was told by his primary care physician to come to the Emergency Room because of worsening anemia along with worsening kidney function. The patient was told by his primary care physician to increase the dose of his diuretics because of worsening swelling. He denies any active urinary symptoms. No chest pain, no shortness of breath. He denies any change in urinary habits. No fever or chills. PAST MEDICAL HISTORY: 1. Diabetes mellitus. 2. History of diabetic foot ulcers with some amputations. 3. Coronary artery disease, post coronary artery bypass graft. 4. History of cerebrovascular accident. 5. Chronic kidney disease. MEDICATIONS: 1. Amlodipine. 2. Aspirin. 3. Eliquis. 4. Carvedilol. 5. Furosemide. ALLERGIES: None. SOCIAL HISTORY: He is a smoker. No drug or alcohol abuse. REVIEW OF SYSTEMS: GENERAL: No fever or chills. CARDIOVASCULAR: No chest pain or palpitation. PULMONARY: No cough or hemoptysis. [facility] [address] [place] [address] CONSULTATION Name: JACIEL ANGELESIN Room #: 459-P [facility] IN ..#: [id number] Admission: 06/13/20 Attend Phys: Jaciel Galindo MD Discharge: Date of : 59 Report #: [id number] GASTROINTESTINAL: No nausea or vomiting. GENITOURINARY: No frequency, no urgency. EXTREMITIES: Lower extremities, significant for some edema. FAMILY HISTORY: Significant for diabetes mellitus and hypertension. PHYSICAL EXAMINATION: VITAL SIGNS: Pulse ox is 97, blood pressure is 119/51, temperature is 36.8, pulse rate is 53. HEAD AND NECK: No jugular venous distention. CHEST: No crackles. CARDIOVASCULAR: No rub detected. ABDOMEN: Soft, nontender, no hepatosplenomegaly. LOWER EXTREMITIES: No edema. LABORATORY DATA: Sodium is 142, potassium is 5.1, BUN is 52, creatinine is 3.6. Chest x-ray: Mild pulmonary vascular congestions. ASSESSMENT 1. Acute kidney injury. 2. Chronic kidney disease. 3. Diabetes mellitus with all of its complications. PLAN: 1. The patient's worsening of his renal function is likely related to diuretics. He received some diuretics in the Emergency Room yesterday. His creatinine is now up to 3.6. We will have to obtain a bladder scan to make sure that this is not obstructive uropathy. 2. No further diuresis. 3. Continue IV fluid. 4. Monitor blood pressure, daily electrolytes, daily urine output. 5. We will decide about the ultimate dose of the diuretics once the patient's acute kidney injury resolves. <ELECTRONICALLY SIGNED> By: Jeannette Saldana MD 06/19/20 0913 [id number] [id number] Jeannette Saldana MD /nt
--- NOTE | 2020-06-19 14:27 | NUR ---
PHYSICIAN INDICATED THAT HE ANTICIPATES STOPPING LAZIX DRIP SOON AND POSSIBLE DC HOME TOMORROW WITH RESUMPTION OF [facility]. PT HAS REFUSEED THERAPY THE LAST TWO DAYS. CM TO FOLLOW INDICATED WITH DC PLANNING.
[2020-06-19 16:05] VITALS: BP 131/58
--- NOTE | 2020-06-19 18:56 | NUR ---
ASSUMED CARE OF PATIENT AT 0700. ASSESSMENT CHARTED. MEDS GIVEN PER MAR. VSS. PATIENT IS A&OX3 AND MAKES NEEDS KNOWN. STATES HE DOES NOT WANT OUR HOSPITAL FOOD. PATIENT ORDERED FOOD FROM [employer] AND DID NOT START EATING UNTIL AFTER 1800. WOULD DRESSING ON L FOOR IS C/D/I NO DRAINAGE NOTED. PATIENT VOIDS IN URINAL W GOOD OUTPUT. WILL CONTINUR TO MONIOR AND FOLLOW PLAN OF CARE AND ENDORSE TO NIGHT RN.
[2020-06-19 20:00] VITALS: BP 121/87
--- NOTE | 2020-06-19 20:18 | NUR ---
I AGREE WITH NURSING ASSESSMENT AND NURSING NOTE DONE BY REMY/VICE PRESIDENT PAYMENT.
[2020-06-20 06:02] LABS: CALCIUM 8.5 mg/dL (8.5-10.1); CREATININE 3.9 mg/dL (0.7-1.3); PHOSPHORUS 5.5 mg/dL (2.5-4.9); POTASSIUM 4.6 mmol/L (3.5-5.1)
[2020-06-20] MEDS ORDERED: DEMADEX20 MG PO (09:40)
[2020-06-20 09:53] VITALS: BP 159/70
--- NOTE | 2020-06-20 11:01 | NUR ---
CARE TEAM INDICATED THAT PT IS MEDICALLY STABLE TO DC HOME THIS DAY. PT IS TO RESUME HH SERVICES THROUGH [facility]. CM FAXED ORDERS AND SUMMERY AND CALLED OFFICE TO NOTIFY OF DISCHARGE. PT HAS ALL NEEDED DME. PT IS TO TRANSPORT HIMSELF HOME. NO OTHER CM INTERVENTION INDICATED. CASE CLOSED.
[2020-06-20 11:07] VITALS: BP 156/60
[2020-06-20 11:16] VITALS: BP 159/70
--- NOTE | 2020-06-20 11:26 | NUR ---
ASSUMED CARE OF PATIENT AT SHIFT CHNAGE. ASSESSMENT CHARTED. MEDS ADMINISTERED PER OCT. VSS. PATIENT IS ALERT AND ORIENTED AND C/O PAIN WHEN DRESSING WAS CHANGED ON L FOOT. PATIENT GETS SCHEDULED PAIN MED. AND EXPRESSED RELIEF UPON REASSESSMENT. PATIENT HAD A SHOWER TODAY, HAD HIS WOUND CARE DONE AND WAS CLEARED TO DISCHARGE. PATIENT WAS EDUCATED ON WATER PILL AND COMMUNICATED UNDERSTANDING. PATIENT LEFT UNIT W NURSING STAFF AT 1130 W NO ISSUES.
== END 2020-06-20 11:25 | disposition home health service (06) | DRG 682 ==
LOC: ER 14:36 → EROBS 17:50 → 2N 17:50 → 4W 06-17 17:21
PROVIDERS: Emergency Medicine; Hospitalist; ADMIT Family Medicine; ATTEND Family Medicine
DX: N17.9 Acute kidney failure, unspecified (principal); I50.43 Acute on chronic combined systolic (congestive) and diastolic (congestive) heart failure; E43 Unspecified severe protein-calorie malnutrition; I42.9 Cardiomyopathy, unspecified; M86.8X7 Other osteomyelitis, ankle and foot; F32.9 Major depressive disorder, single episode, unspecified; E11.22 Type 2 diabetes mellitus with diabetic chronic kidney disease; N18.9 Chronic kidney disease, unspecified; E11.51 Type 2 diabetes mellitus with diabetic peripheral angiopathy without gangrene; I48.0 Paroxysmal atrial fibrillation; D64.9 Anemia, unspecified; F17.210 Nicotine dependence, cigarettes, uncomplicated; G89.29 Other chronic pain; I08.1 Rheumatic disorders of both mitral and tricuspid valves; M54.9 Dorsalgia, unspecified; F41.9 Anxiety disorder, unspecified; E11.69 Type 2 diabetes mellitus with other specified complication; Z79.82 Long term (current) use of aspirin; Z90.49 Acquired absence of other specified parts of digestive tract; Z86.14 Personal history of Methicillin resistant Staphylococcus aureus infection; Z95.1 Presence of aortocoronary bypass graft; Z86.73 Personal history of transient ischemic attack (TIA), and cerebral infarction without residual deficits; Z89.412 Acquired absence of left great toe; Z91.19 Patient's noncompliance with other medical treatment and regimen; Z79.899 Other long term (current) drug therapy
CPT/HCPCS: 10045; 10081

== ENCOUNTER 2020-07-08 23:43 | Emergency (ER) | payer OTHER ==
[~2020-07-08] VITALS: Ht 193 cm; Wt 117.9 kg
[2020-07-09 00:47] LABS: BASOPHILS 1.3 % (0.0-2.0); EOSINOPHILS 3.1 % (0.0-3.0); HEMOGLOBIN 8.6 gm/dL (14.0-18.0); LYMPHOCYTES 18.9 % (24.0-44.0); MCH 26.6 pg (26.0-34.0); MCV 83.2 fL (80.0-100.0); MONOCYTES 6.8 % (1.0-8.0); PLATELET COUNT 358 thou/uL (150-400); POLYS 69.9 % (36.0-66.0); RBC 3.25 mil/uL (4.50-6.00); RDW 16.3 % (10.5-14.5); WBC 7.2 thou/uL (4.0-11.0)
[2020-07-09 00:53] LABS: ANION GAP 11 mmol/L (7-16); BUN 40 mg/dL (7-18); CALCIUM 8.6 mg/dL (8.5-10.1); CHLORIDE 109 mmol/L (98-107); CO2 26 mmol/L (21-32); CREATININE 2.9 mg/dL (0.7-1.3); GLUCOSE 178 mg/dL (74-106); POTASSIUM 4.4 mmol/L (3.5-5.1); SODIUM 146 mmol/L (136-145)
[2020-07-09 01:01] LABS: TROPONIN-I <0.06 ng/mL (<0.06)
[2020-07-09 02:50] VITALS: BP 154/70
--- NOTE | 2020-07-09 17:02 | EKG ---
[facility] [place] [address] [place] [address] ELECTROCARDIOGRAM REPORT Name: KARTHIKJACIEL CAPELLAN Room #: DEP Mary#: [id number] Admission: 07/08/20 Attend Phys: Discharge: 07/09/20 Date of : 59 Report #: [id number] THIS REPORT FOR: cc: Jaciel Galindo MD, Neal A. MD Santiago, Patrick MD [facility] ~ THIS REPORT FOR: //name// [facility] ED Test Date: 2020-07-08 Test Time: 23:49:05 Pat Name: JACIEL ANGELES Department: Room: Gender: Analog Circuit Designer: [facility] : 1955 Requested By: Jamia Graff Order Number: [id number] MD: Melvin Lopez Measurements Intervals [place] Rate: 55 P: 71 MT: 206 QRS: 56 QRSD: 129 T: 97 QT: 478 QTc: 458 Interpretive Statements Sinus rhythm Probable left atrial enlargement Nonspecific intraventricular conduction delay Compared to ECG 04/11/2020 22:31:01 Intraventricular conduction delay now present T-wave abnormality now present Sinus bradycardia no longer present ST (T wave) deviation no longer present Electronically Signed On 07-09-2020 17:02:25 CANDY DEPOSITING MACHINE OPERATOR by Melvin Lopez [email or web address] <ELECTRONICALLY SIGNED> By: Melvin Lopez MD, FACC 07/09/20 1702 2349 2349 Melvin Lopez MD, FAC /EPI
== END 2020-07-09 02:50 | disposition home or self-care (01) ==
LOC: ER 23:43
PROVIDERS: Emergency Medicine
DX: R07.9 Chest pain, unspecified (principal); E11.9 Type 2 diabetes mellitus without complications; F17.210 Nicotine dependence, cigarettes, uncomplicated; Z95.1 Presence of aortocoronary bypass graft; Z86.73 Personal history of transient ischemic attack (TIA), and cerebral infarction without residual deficits; Z90.89 Acquired absence of other organs; Z79.899 Other long term (current) drug therapy; Z79.4 Long term (current) use of insulin; Z79.82 Long term (current) use of aspirin; Z20.828 Contact with and (suspected) exposure to other viral communicable diseases

== ENCOUNTER → 2020-07-18 | Outpatient (CLI) | payer OTHER | LOC: SJCVC 14:23 | PROVIDERS: ATTEND Internal Medicine Cardiovascular Disease | DX: R94.31 Abnormal electrocardiogram [ECG] [EKG] (principal); I25.10 Atherosclerotic heart disease of native coronary artery without angina pectoris; I48.0 Paroxysmal atrial fibrillation; I10 Essential (primary) hypertension; E78.00 Pure hypercholesterolemia, unspecified; E11.51 Type 2 diabetes mellitus with diabetic peripheral angiopathy without gangrene; G47.30 Sleep apnea, unspecified; F32.9 Major depressive disorder, single episode, unspecified; F17.210 Nicotine dependence, cigarettes, uncomplicated; Z95.1 Presence of aortocoronary bypass graft ==

== ENCOUNTER 2020-08-02 12:23 | Emergency (ER) | payer OTHER ==
[~2020-08-02] VITALS: Ht 193 cm; Wt 114.8 kg
[2020-08-02 14:06] LABS: ABSOLUTE NEUTROPHILS 5.6 thou/uL (1.4-8.2); BASOPHILS 0.8 % (0.0-2.0); EOSINOPHILS 2.3 % (0.0-3.0); HEMATOCRIT 24.9 % (42.0-52.0); HEMOGLOBIN 7.8 gm/dL (14.0-18.0); MCHC 31.3 g/dL (28.0-37.0); MONOCYTES 7.4 % (1.0-8.0); PLATELET COUNT 278 thou/uL (150-400); POLYS 75.5 % (36.0-66.0); RBC 3.11 mil/uL (4.50-6.00); RDW 16.9 % (10.5-14.5); WBC 7.4 thou/uL (4.0-11.0)
[2020-08-02 14:12] LABS: ANION GAP 8 mmol/L (7-16); BUN 53 mg/dL (7-18); CALCIUM 8.2 mg/dL (8.5-10.1); CHLORIDE 111 mmol/L (98-107); CO2 28 mmol/L (21-32); CREATININE 3.3 mg/dL (0.7-1.3); GLUCOSE 111 mg/dL (74-106); POTASSIUM 5.4 mmol/L (3.5-5.1); SODIUM 147 mmol/L (136-145)
[2020-08-02 14:18] LABS: ALBUMIN 2.3 g/dL (3.4-5.0); DIRECT BILIRUBIN < 0.1 mg/dL (<0.1-0.2); SGOT 13 U/L (15-37); SGPT 17 U/L (16-63); TOTAL BILIRUBIN 0.2 mg/dL (0.2-1.0); TOTAL PROTEIN 6.1 g/dL (6.4-8.2)
[2020-08-02 15:52] VITALS: BP 110/83
== END 2020-08-02 15:53 | disposition home or self-care (01) ==
LOC: ER 12:23
PROVIDERS: Emergency Medicine
DX: R60.0 Localized edema (principal); E11.9 Type 2 diabetes mellitus without complications; F32.9 Major depressive disorder, single episode, unspecified; F17.210 Nicotine dependence, cigarettes, uncomplicated; Z90.89 Acquired absence of other organs; Z86.14 Personal history of Methicillin resistant Staphylococcus aureus infection; Z98.61 Coronary angioplasty status; Z86.73 Personal history of transient ischemic attack (TIA), and cerebral infarction without residual deficits; Z89.412 Acquired absence of left great toe; Z89.421 Acquired absence of other right toe(s); Z89.411 Acquired absence of right great toe; Z89.422 Acquired absence of other left toe(s); Z79.899 Other long term (current) drug therapy

== ENCOUNTER 2020-08-12 23:30 | Inpatient (IN) | payer OTHER ==
[~2020-08-12] VITALS: Ht 193 cm; Wt 119.5 kg
--- NOTE | ~2020-08-12 | HC ---
[facility] [place] [address] CONSULTATION Name: JACIEL ANGELES MARILIA Room #: 457-P ADM IN M.R.#: [id number] Admission: 08/13/20 Attend Phys: Jaciel Galindo MD Discharge: Date of : 59 Report #: [id number] THIS REPORT FOR: cc: Jaciel Galindo MD, Neal A. MD Al-Marta,Jeannette Krishnamurthy MD ~ DATE OF SERVICE: 08/13/2020 REASON FOR CONSULTATION: Elevated creatinine. REASON FOR PRESENTATION: Lower extremity swelling. HISTORY OF PRESENT ILLNESS: This is a very well-known patient to me. He has advanced chronic kidney disease and progressive renal insufficiency due to diabetes mellitus and hypertension. He has had recurrent hospitalizations due to noncompliance with diuretics. He gives a very conflicting history. He told the admitting team that he has been having some issues with lower extremity swelling and was asked by his physician to increase the diuretics with no improvement of his lower extremity swelling and weight gain. Upon further questioning, however, he tells me that he ran out of his diuretics for the last couple of weeks. After he stopped taking those diuretic, started to have major issues with lower extremity swelling and weight gain and presented for further evaluation and management. From the renal perspective, the patient was informed ____. He was instructed that I do not practice in his area and that he should start seeing a corporate sales trainer in his area. He started seeing Dr. Serrano in ____ area. PAST MEDICAL HISTORY: 1. Diabetes mellitus. 2. All diabetic complications including diabetic foot ulcers. 3. Coronary artery disease. 4. History of cerebrovascular accident. 5. Chronic kidney disease, advanced, approaching end-stage renal disease. ALLERGIES: None. SOCIAL HISTORY: No drug or alcohol abuse. MEDICATIONS: 1. ____. 2. Carvedilol. 3. Torsemide; however, the patient claims that he does not have it due to mailing issues. FAMILY HISTORY: Very strong history of diabetes mellitus and hypertension. [facility] [address] [place] [address] CONSULTATION Name: JACIEL ANGELES Room #: 457-P [facility] IN M.R.#: [id number] Admission: 08/13/20 Attend Phys: Jaciel Galindo MD Discharge: Date of : 59 Report #: [id number] REVIEW OF SYSTEMS: GENERAL: No fever or chills. CARDIOVASCULAR: Significant for shortness of breath and dyspnea on exertion. PULMONARY: No cough or hemoptysis, but significant for shortness of breath. GASTROINTESTINAL: No nausea or vomiting. GENITOURINARY: No frequency, no urgency. MUSCULOSKELETAL: Occasional myalgias. PHYSICAL EXAMINATION: VITAL SIGNS: Blood pressure is 152/72, pulse rate is 55. He is afebrile. HEAD AND NECK: No jugular venous distention. CHEST: No crackles. CARDIOVASCULAR: No rub. ABDOMEN: Soft, nontender. LOWER EXTREMITIES: +4 edema. LABORATORY VALUES: Creatinine is 3.7. Sodium is 148, potassium is 4.8. Blood sugar 63. ASSESSMENT AND PLAN: 1. End-stage renal disease. 2. Noncompliance. 3. Fluid overload. 4. Diabetes mellitus. 5. Hypertension. 6. Atrial fibrillation. 7. Cerebrovascular accident. 8. The patient is at his baseline from the renal perspective. He has extreme noncompliance with medical care. He claims that he is out of diuretics for mailing issues. Discontinue current IV diuresis. 9. Switch to oral torsemide. 10. Salt restrictions. 11. Okay to discharge on the current diuretic dose, follow up with his local corporate sales trainer. 12. No further renal recommendations. By: [id number] Jeannette Saldana MD /nt
[2020-08-12 23:33] VITALS: BP 149/92
[2020-08-13] VITALS (7 sets, daily range): BP systolic 137–152; BP diastolic 58–91
[2020-08-13 00:40] LABS: ABSOLUTE NEUTROPHILS 5.4 thou/uL (1.4-8.2); BASOPHILS 0.8 % (0.0-2.0); HEMATOCRIT 23.6 % (42.0-52.0); HEMOGLOBIN 7.4 gm/dL (14.0-18.0); LYMPHOCYTES 16.3 % (24.0-44.0); MCH 24.6 pg (26.0-34.0); MCHC 31.3 g/dL (28.0-37.0); MCV 78.5 fL (80.0-100.0); MONOCYTES 5.7 % (1.0-8.0); PLATELET COUNT 274 thou/uL (150-400); POLYS 75.2 % (36.0-66.0); RBC 3.01 mil/uL (4.50-6.00); RDW 17.3 % (10.5-14.5); WBC 7.1 thou/uL (4.0-11.0)
[2020-08-13 00:47] LABS: ANION GAP 15 mmol/L (7-16); BUN 71 mg/dL (7-18); CALCIUM 8.3 mg/dL (8.5-10.1); CHLORIDE 108 mmol/L (98-107); CO2 21 mmol/L (21-32); CREATININE 3.7 mg/dL (0.7-1.3); GLUCOSE 134 mg/dL (74-106); POTASSIUM 4.6 mmol/L (3.5-5.1); SODIUM 144 mmol/L (136-145)
[2020-08-13 00:57] LABS: ALBUMIN 2.5 g/dL (3.4-5.0); DIRECT BILIRUBIN < 0.1 mg/dL (<0.1-0.2); SGOT 14 U/L (15-37); SGPT 22 U/L (30-65); TOTAL BILIRUBIN 0.2 mg/dL (0.2-1.0); TOTAL PROTEIN 6.4 g/dL (6.4-8.2); TROPONIN-I <0.06 ng/mL (<0.06)
--- NOTE | 2020-08-13 07:22 | EKG ---
[address] [place] [address] ELECTROCARDIOGRAM REPORT Name: JACIEL ANGELES Room #: 457-P ADM IN M.R.#: [id number] Admission: 08/13/20 Attend Phys: Jaciel Galindo MD Discharge: Date of : 59 Report #: [id number] [facility] ED Test Date: 2020-08-13 Test Time: 00:52:18 Pat Name: JACIEL ANGELES Department: Room: [facility] Gender: M Precision Structural Metal Fitter: jeff mendez rn : 1955 Requested By: Jamia Graff Order Number: [id number] MD: Melvin Lopez Measurements Intervals [place] Rate: 50 P: -51 MA: 204 QRS: 36 QRSD: 112 T: 83 QT: 505 QTc: 461 Interpretive Statements NSR Borderline intraventricular conduction delay Compared to ECG 07/08/2020 23:49:0 Sinus rhythm no longer present Electronically Signed On 08-13-2020 7:22:24 CAR REPAIRMAN by Melvin Lopez [email or web address] <ELECTRONICALLY SIGNED> By: Melvin Lopez MD, [facility] 08/13/20 07 D: 0151 Melvin Lopez MD, FACC /EPI
--- NOTE | 2020-08-13 07:34 | NUR ---
Pt admitted with CHF exacerbation. A/OX4,VSS. Denies pain on assessment. Pt has BLE edema,prefers to sleep on the recliner;needs a lot of encouragement to keep extremities elevated. Pt reports he had weeping from the legs while home,no weeping noted at this time,has red dried scabs on areas. Pt is a fall risk but very adamant he does not want the cahir alarm on, he will call for help as needed. Call light/personal items placed within reach. Sinus christoph on telemetry,will continue to monitor pt.
--- NOTE | 2020-08-13 19:57 | NUR ---
Assumed pt care at 7am.Pt up in chair most of the times. Assessment completed. vss but low pulse noted,Coreg on hold.Dr Galindo and Pa here. Order noted.Pt not motivated to participate in any activity but wanted to sleep at all times.Lasix ivp given as ordered. Pt voids per urinal.Fall bundle in place.Will continue to monitor.
[2020-08-14 05:22] LABS: HEMATOCRIT 24.8 % (42.0-52.0); HEMOGLOBIN 7.7 gm/dL (14.0-18.0); MCH 24.5 pg (26.0-34.0); MCHC 31.1 g/dL (28.0-37.0); MCV 78.8 fL (80.0-100.0); RBC 3.15 mil/uL (4.50-6.00); RDW 17.2 % (10.5-14.5); WBC 8.7 thou/uL (4.0-11.0)
[2020-08-14 06:07] LABS: ALBUMIN 2.4 g/dL (3.4-5.0); CREATININE 3.7 mg/dL (0.7-1.3); POTASSIUM 4.8 mmol/L (3.5-5.1); TOTAL BILIRUBIN 0.3 mg/dL (0.2-1.0); TOTAL PROTEIN 6.4 g/dL (6.4-8.2)
[2020-08-14 06:55] VITALS: BP 152/70
--- NOTE | 2020-08-14 13:35 | NUR ---
Received awake on bed. Due medications given as prescribed, able to swallow meds w/o difficulty. On room air. Vital signs stable. On telemetry; no complains and signs of chest pain, crushing sensation and heaviness. On 2gm sodium diet- tolerating well; no nausea, no vomiting and no abdominal pain noted. On blood sugar monitoring, taken and recorded accordingly; with sliding scale insulin ordered- given as prescribed. Pt preferred to stay on the chair, refused to go back to bed. Falls bundle in place. With SL at R AC- intact and flushing well. With LE edema- kept extremities elevated. To continue monitor patient. Pt seen and examined by Dr Galindo this AM, with orders for chest xray- brought down via wheelchair; transferred back to bed safely.
--- NOTE | 2020-08-14 14:55 | NUR ---
PT ADMITTED RELATED TO CHF EXACARBATION. CM REVEIWED CHART AND SPOKE WITH CARE TEAM. PT IS FAMILIAR TO CM FROM PREVIOUS ADMISSIONS. CM MET WITH PT AT BEDSIDE THIS DAY. PT IS A&O X4. CM ROLE INTRODUCED. PT CONFIRMED HE IS STILL RESIDING IN BASEMENT OF EX 'S HOUSE WITH 12 STEPS TO ENTER. PT HAS A FWW FOR HOME USE. PT DRIVES HIMSELF. PT HAS BEEN ON SERVICES WITH [facility] IN THE PAST. PT ON IV LASIX HAD CHEST X RAY TODAY AND PT AND OT TO EVAL. DR. ROMAN INDICATED THAT HE RECOMMENDS SKILLED PLACEMENT. CM CONVEYED THIS TO PT AND PROVIDED LIST FOR REVIEW. PT INDICATED HE DIDN'T WANT TO GO FOR A SKILLED STAY. PT INDICATED HE WOULD DISCUSS WITH DR. ROMAN. CM TO FOLLOW INDICATED WITH DC PLANNING.
[2020-08-14 15:51] VITALS: BP 140/51
[2020-08-14 18:55] VITALS: BP 153/58
--- NOTE | 2020-08-15 05:33 | NUR ---
Pt. rested quietly during the night when checked on during frequent rounds. He offers no c/o pain. Rested in recliner chair all night per his request with chair alarm on. No c/o shortness of air.
[2020-08-15 07:18] VITALS: BP 157/68
--- NOTE | 2020-08-15 14:29 | NUR ---
FAXED REFERRAL TO [facility] SPOKE WITH [facility] IN INTAKE THEY DENIED REFERRAL THEY HAD PT PREVIOUSLY AND HE IS NON COMPLIANT.
--- NOTE | 2020-08-15 14:40 | NUR ---
Received awake on bed. Due medications given as prescribed, able to swallow meds w/o difficulty. On room air. Vital signs stable. On 2gm sodium diet- re-informed and reminded patient re: fluid and sodium restriction; other staff members informed as well; no nausea, no vomiting and no abdominal pain noted. On telemetry; no complains and signs of chest pain, crushing sensation and heaviness; noted bradycardic on the monitor- WEIGHER AND CRUSHER Teddy informed during her rounds this AM; verified if still to continue giving coreg even pt's heart rate ranges to 52-60's- still to continue giving it. Falls bundle in place. Pt prefers to stay on the recliner rather than on the bed. With SL at R AC- intact and flushing well. Still with bilat leg edema- advised pt to keep elevated. No complains of pain made during assessment, refused scheduled oxycodone this AM. To continue monitoring patient.
--- NOTE | 2020-08-15 14:41 | NUR ---
PT INDICATED TO DR. ROMAN THAT HE IS NOT RECEPTIVE TO SKILLED INPATIENT POST ACUTE REHAB STAY. DR. ROMAN INDICATED THAT HE ANTICPATES THAT PT WILL BE MEDICALLY STABLE TO DC HOME TOMORROW WIHT SERVICES. REFERRAL HAD BEEN SENT TO [facility] THEY WON'T ACCEPT PT HAD BEEN NONCLOMPLANT. REFERRAL TO BE SENT TO A FOR REVIEW. CM FOLLOWING REGARDING DC PLANNING.
[2020-08-15 15:18] VITALS: BP 157/68
[2020-08-15 15:20] VITALS: BP 148/85
--- NOTE | 2020-08-15 15:20 | NUR ---
[facility] IS ABLE TO ACCEPT PT FOR SERVICES UPON DC. CM NOTIFIED PT AND DR. ROMAN. ANTICIPATE THAT PT WILL LIKELY BE MEDICALLY STABLE TO DC HOME TOMORROW. ORDERS WILL NEED TO BE FAXED TO THE NUMBER BELOW. PT WILL TRNASPORT SELF HOME HIS TRUCH IS HERE ON PREMISIS. PT HAS ALL RECOMMENEDED DME. NO OTHER CM INTERVENTION INDICATED. CASE CLOSED.
[2020-08-15 19:04] VITALS: BP 148/58
--- NOTE | 2020-08-16 05:58 | NUR ---
Pt. rested quietly during the night when checked on during frequent rounds. He offers no complaints or shortness of air. Pt. refused his scheduled pain med because he was not in any pain. Rested in the recliner chair all shift per his request. Continues on po fluid restrictions.
[2020-08-16 07:06] VITALS: BP 149/56
[2020-08-16 09:19] VITALS: BP 149/56
--- NOTE | 2020-08-16 11:52 | NUR ---
PT DISCHARGING TODAY TO HOME WITH [facility] HH SPOKE WITH [facility]AN IN INTAKE SHE RECEIVED DC ORDERS PT WAS STILL SHOWING ACTIVE WITH [facility] HH SPOKE WITH THEM EARLIER LAST WEEK THEY WOULD NOT ACCEPT PT BACK DUE TO NON COMPLIANCE BUT HAD NOT RELEASED PT THROUGH [facility]. ETHAN AT [facility] WILL F/U WITH INSURANCE AND WILL ARRANGE VISITS WITH PT.
--- NOTE | 2020-08-16 14:33 | NUR ---
Received awake on ch
--- NOTE | 2020-08-16 14:34 | NUR ---
Received awake on chair. Due medications given as prescribed, able to swallow meds w/o difficulty. On room air. Vital signs stable. On telemetry; no complains and signs of chest pain, crushing sensation and heaviness; bradycardic. On 2gm Sodium diet- pt non compliant, reminded and reinformed from time to time; on 1200ml fluid restriction- pt informed as well. On blood sugar monitoring, taken and recorded accordingly. Continent of bowel and bladder, able to use urinal; output measured and recorded accordingly. With SL at R AC. With edema at bilateral legs- kept elevated. Falls bundle in place. No nausea, no vomiting and no abdominal pain noted. To continue monitoring patient. Pt seen and examined by Dr Galindo this AM, discharge orders made. Discharge instructions, follow up schedule given and instructed. Discharge forms signed. Home health contact number given to him. RYNE Valles said she will fax discharge summary to agency. Pt weighed prior to discharge, charted. Able to have a bath. IV discontinued; telemetry stopped, monitor returned. Pt brought out of the unit with his personal belongings via wheelchair. Verified with Dr Galindo this AM that pt can drive home, no need to set up transport. Patient discharged.
== END 2020-08-16 14:45 | disposition home health service (06) | DRG 291 ==
LOC: ER 23:30 → 4W 08-13 01:36 → EROBS 08-13 01:36 → 4W 08-13 02:15
PROVIDERS: Emergency Medicine; ADMIT Family Medicine; ATTEND Family Medicine
DX: I13.2 Hypertensive heart and chronic kidney disease with heart failure and with stage 5 chronic kidney disease, or end stage renal disease (principal); N18.6 End stage renal disease; J96.00 Acute respiratory failure, unspecified whether with hypoxia or hypercapnia; I50.43 Acute on chronic combined systolic (congestive) and diastolic (congestive) heart failure; N17.9 Acute kidney failure, unspecified; I69.154 Hemiplegia and hemiparesis following nontraumatic intracerebral hemorrhage affecting left non-dominant side; E11.22 Type 2 diabetes mellitus with diabetic chronic kidney disease; F32.9 Major depressive disorder, single episode, unspecified; E11.51 Type 2 diabetes mellitus with diabetic peripheral angiopathy without gangrene; I48.0 Paroxysmal atrial fibrillation; I08.0 Rheumatic disorders of both mitral and aortic valves; D64.9 Anemia, unspecified; E78.5 Hyperlipidemia, unspecified; I42.9 Cardiomyopathy, unspecified; I25.10 Atherosclerotic heart disease of native coronary artery without angina pectoris; Z90.49 Acquired absence of other specified parts of digestive tract; Z91.14 Patient's other noncompliance with medication regimen; Z89.411 Acquired absence of right great toe; Z95.1 Presence of aortocoronary bypass graft; Z79.01 Long term (current) use of anticoagulants; Z79.4 Long term (current) use of insulin; Z79.899 Other long term (current) drug therapy
CPT/HCPCS: 10045

== ENCOUNTER → 2020-08-25 | Outpatient (CLI) | payer OTHER | LOC: RAD 12:33 | PROVIDERS: ATTEND Family Medicine | DX: R68.83 Chills (without fever) (principal) ==

== ENCOUNTER 2020-08-28 22:21 | Inpatient (IN) | payer OTHER ==
[~2020-08-28] VITALS: Ht 193 cm; Wt 134.3 kg
--- NOTE | ~2020-08-28 | EEG ---
[facility] [place] [address] ELECTROENCEPHALOGRAM Name: JACIEL ANGELES Room #: 241-P ADM IN M.R.#: [id number] Admission: 08/29/20 Attend Phys: Jaciel Galindo MD Discharge: Date of : 59 Report #: [id number] THIS REPORT FOR: //name// DATE OF SERVICE: 09/03/2020 This patient's EEG was done by placing the electrode by standard 10-20 system of electrode placement. Both referential and sequential montages were used for recording. Background activity in this patient is poorly formed. It does go to about 5 Hz. The predominant feature in this EEG is frontally predominant triphasic waves. Photic stimulation is unremarkable. IMPRESSION: This is an abnormal EEG demonstrating frontally predominant triphasic waves. That finding will be consistent with encephalopathy. It can occur in multiple encephalopathy including hepatic hypoxic, etc. Clinical correlation is recommended. EEG is disorganized and poorly formed, but well-defined cortical activity is present. Thank you very much for this referral. By: [id number] Alli Barnett MD /nt
[2020-08-28 22:35] VITALS: BP 131/78
[2020-08-29 00:22] LABS: ABSOLUTE NEUTROPHILS 6.1 thou/uL (1.4-8.2); BASOPHILS 0.6 % (0.0-2.0); EOSINOPHILS 1.9 % (0.0-3.0); HEMATOCRIT 23.8 % (42.0-52.0); HEMOGLOBIN 7.1 gm/dL (14.0-18.0); LYMPHOCYTES 11.8 % (24.0-44.0); MCH 23.7 pg (26.0-34.0); MCV 79.1 fL (80.0-100.0); MONOCYTES 7.5 % (1.0-8.0); PLATELET COUNT 295 thou/uL (150-400); POLYS 78.2 % (36.0-66.0); RBC 3.01 mil/uL (4.50-6.00); RDW 18.2 % (10.5-14.5); WBC 7.8 thou/uL (4.0-11.0)
[2020-08-29 00:32] LABS: ANION GAP 9 mmol/L (7-16); BUN 80 mg/dL (7-18); CALCIUM 8.5 mg/dL (8.5-10.1); CHLORIDE 110 mmol/L (98-107); CO2 22 mmol/L (21-32); GLUCOSE 232 mg/dL (74-106); SODIUM 141 mmol/L (136-145)
[2020-08-29 00:41] LABS: ALBUMIN 2.5 g/dL (3.4-5.0); MAGNESIUM 2.4 mg/dL (1.8-2.4); SGOT 18 U/L (15-37); SGPT 22 U/L (16-63); TOTAL BILIRUBIN 0.2 mg/dL (0.2-1.0); TOTAL PROTEIN 6.4 g/dL (6.4-8.2); TROPONIN-I <0.06 ng/mL (<0.06)
[2020-08-29] MEDS ORDERED: IRON325 M1 PO (02:35)
[2020-08-29] MEDS ORDERED: AUGMENTIN 875-1 EACH PO (03:08)
[2020-08-29] MEDS ORDERED: PACERONE200 MG PO (03:09)
[2020-08-29 03:30] VITALS: BP 160/73
[2020-08-29 04:10] VITALS: BP 141/57
--- NOTE | 2020-08-29 05:21 | NUR ---
Pt admitted from ED approx 0345 w/weakness,anemia/dehydration. A/XO4,VSS,up with assist of 1,reports weakness and hoping to get blood transfusion. Pt refused to sign fall consent stating he doesn't agree with putting the chair alarm on since pt sleeps on recliner,pt states he's going to call for help.Yellow socks/band applied. SB/SR on telemetry. Resting on chair eyes closed,will continue to monitor pt.
[2020-08-29 07:30] VITALS: BP 134/58
--- NOTE | 2020-08-29 07:36 | EKG ---
[address] [place] [address] ELECTROCARDIOGRAM REPORT Name: JACIEL ANGELES Room #: 458-P ADM IN M.R.#: [id number] Admission: 08/29/20 Attend Phys: Jaciel Galindo MD Discharge: Date of : 59 Report #: [id number] [facility] ED Test Date: 2020-08-28 Test Time: 23:49:44 Pat Name: JACIEL ANGELES Department: Room: [facility] Gender: M Prosthetic Makeup Designer: joan tenorio : 1955 Requested By: Fabrice Godoy Order Number: [id number] MD: Melvin Lopez Measurements Intervals [place] Rate: 52 P: 49 MS: 209 QRS: 36 QRSD: 110 T: 62 QT: 490 QTc: 456 Interpretive Statements Sinus rhythm Compared to ECG 08/13/2020 00:52:18 No significant changes Electronically Signed On 08-29-2020 7:36:01 SWIMMER by Melvin Lopez [email or web address] <ELECTRONICALLY SIGNED> By: Melvin Lopez MD, [facility] 08/29/20 0736 2349 2349 Melvin Lopez MD, FACC /EPI
[2020-08-29 08:41] LABS: HEMATOCRIT 23.6 % (42.0-52.0); HEMOGLOBIN 7.2 gm/dL (14.0-18.0); MCH 23.7 pg (26.0-34.0); MCHC 30.4 g/dL (28.0-37.0); RBC 3.02 mil/uL (4.50-6.00); RDW 17.9 % (10.5-14.5); WBC 7.4 thou/uL (4.0-11.0)
[2020-08-29 08:45] LABS: CALCIUM 8.4 mg/dL (8.5-10.1); CREATININE 4.2 mg/dL (0.7-1.3); POTASSIUM 4.9 mmol/L (3.5-5.1)
[2020-08-29 13:37] LABS: % SATURATION 4 % (20-39); IRON 13 ug/dL (65-175); TIBC 297 ug/dL (250-450)
[2020-08-29 14:57] VITALS: BP 135/61
--- NOTE | 2020-08-29 17:22 | NUR ---
PT ADMITTED RELATED TO WEAKNESS, ANEMIA,DEHYDRATION, CRI, FALLS. CM REVEIWED CHART AND SPOKE WITH CARE TEAM. PT IS FAMILIAR TO CM FROM PREVIOUS ADMISSIONS. PT HAD DISCHARGED HOME 08/16/20 [facility] HE REFUSED SKILLED OR HOSPICE SERVICES. PT HAD BEEN RESIDING IN BASEMENT OF EX 'S HOUSE WITH 12 STEPS TO ENTER. PT HAS A FWW FOR HOME USE. PT DRIVES HIMSELF. NURSE INDICATED THAT PT'S EX HAD CALLED THE UNIT AND INDICATED THAT PT WOULDN'T BE ABLE TO RETURN BACK TO THE HOUSE RELATED TO RECENT FALLS. NOT CERTAIN IF THIS HAD BEEN CONVEYED TO PT YET. DR. ROMAN INDICATED THAT PT WILL BE HERE OVER THE WEEKEND. CM TO FOLLOW INDICATED WITH DC PLANNING.
--- NOTE | 2020-08-29 18:19 | NUR ---
Assumed pt care this am VS stable. Non compliant with medications and safety protocols. Prefers to stay on the recliner, does not sleep on the bed at all. Refuses to sign fall contract and have any alarm on. Uses the urinal beside the recliner. Ex- with whom he stays called clearly stating that she will no take him back. Pt has fallen several times at home and health has been declining. She made clear that she has nothing to do with his decisions and pt only lives in her house. She strongly recommends that the pt be placed in a facility. Cheryl Tyler (ex-) [phone]. POC followed with no signs or verbalizations of distress, endorsed to the night nurse.
[2020-08-29 19:38] VITALS: BP 125/56
--- NOTE | 2020-08-29 21:44 | NUR ---
PT HAD 1X EMISIS EPISODE OF CHUNKY/UNDIGESTED FOOD. FSBG OF 43 UPON RECHECK. D10W INFUSING.
--- NOTE | 2020-08-30 04:45 | NUR ---
ASSUMED CARE OF PT AT 1900HRS. PT AOX4 AND LETS NEEDS BE KNOWN. FALL PRECAUTION IN PLACE BUT PT IS NON-COMPLIENT AND DOES NOT WANT ANY ALARMS. PT DENIED PAIN OR SOA. PT COMPLAINED OF NAUSEA AND HAD 1X EMISIS. HYPOGLYCEMIA NOTED AND CORRECTED WITH OJ, D10 BOLUS AND GLUCOSE PILLS. PT WAS ABLE TO GET COMFORTABLE AND SLEEP PART OF THE SHIFT ON HIS RECLINER. VSS AND NO S/S OF ACUTE DISTRESS. WILL CONTINUE TO MONITOR.
[2020-08-30 05:43] LABS: HEMATOCRIT 23.4 % (42.0-52.0); HEMOGLOBIN 7.2 gm/dL (14.0-18.0); MCH 23.9 pg (26.0-34.0); MCHC 30.7 g/dL (28.0-37.0); MCV 77.8 fL (80.0-100.0); RDW 17.7 % (10.5-14.5); WBC 7.1 thou/uL (4.0-11.0)
[2020-08-30 07:30] VITALS: BP 144/63
--- NOTE | 2020-08-30 12:48 | NUR ---
Received awake on bed. Due medications given as prescribed, able to swallow meds w/o difficulty. On room air. Vital signs stable. On telemetry; no complains and signs of chest pain, crushing sensation and heaviness. Assisted in ADLs. On carb controlled diet- tolerating well; no abdominal pain noted. On blood sugar monitoring, taken and recorded accordingly; with sliding scale insulin ordered. Modified diet to carb controlled, 2gm sodium, pt with CHF. Continent of bowel and bladder, able to use urinal- output measured and recorded accordingly. Pt pulled out IV this AM, resited at R hand, NS at 80cc/hr resumed as prescribed. Pt seen and examined by Dr Galindo this AM, pt still refusing to have dialysis; physician to talk to pt re: placement upon discharge, Dr Galindo informed that pt's ex /house mate does not want him back at home. To continue monitoring patient. Pt non compliant with falls bundle, talked to patient and tried to convince him re: this. Xray ordered by Dr Galindo, brought down via wheelchair, back to room safely.
[2020-08-30 15:14] VITALS: BP 145/63
[2020-08-30 19:47] VITALS: BP 106/47
--- NOTE | 2020-08-31 04:09 | NUR ---
Pt. rested quietly at intervals during the night when checked on during frequent rounds. He offers no c/o pain or nausea. Non-compliant with fall bundle protocol. Up in recliner chair all shift per his request. Up with two assistance,gait belt and walker to toilet.
[2020-08-31 04:44] LABS: CALCIUM 8.2 mg/dL (8.5-10.1); CREATININE 3.7 mg/dL (0.7-1.3); POTASSIUM 4.6 mmol/L (3.5-5.1)
[2020-08-31 04:49] LABS: HEMATOCRIT 23.8 % (42.0-52.0); HEMOGLOBIN 7.2 gm/dL (14.0-18.0); MCHC 30.3 g/dL (28.0-37.0); MCV 79.2 fL (80.0-100.0); RDW 18.1 % (10.5-14.5)
[2020-08-31 07:47] VITALS: BP 135/61
[2020-08-31 15:26] VITALS: BP 122/69
--- NOTE | 2020-08-31 19:49 | NUR ---
PT A&OX4, VSS, PATIENT DROWSY FROM PAIN MEDICATON. PAIN MEDICATION DOSE DECREASED. PATIENT EATING AND DRINKING, EASY TO AROUSE. PATIENT PREFERS TO SLEEP IN RECLINER. NO SIGNS OF DISTRESS. WILL CONTINUE TO MONITOR.
[2020-08-31 21:52] VITALS: BP 148/93
[2020-09-01] VITALS (7 sets, daily range): BP systolic 138–196; BP diastolic 60–77
--- NOTE | 2020-09-01 04:21 | NUR ---
Assumed pt care at 1900. A/Ox4,lethargic and could barely keep eyes open,denies feeling well but only complain was "I'm tired",VSS.Denies pain on assessment,HS Oxycontin held. Pt reported no void all day,bladder scan done,showed 451cc pt tried to void w/o any success,straight cath done X1 w/o any luck. Pt able to void soon after with staff's help even though hesitant to since he likes his privacy. Pt very unsteady on his feet;still refusing chair alarm on. New PIV inserted on LFA,IVF infusing has another IV on Right hand as well. Sinus christoph on the monitor. Resting quietly at this time on the chair feet elevated with no distress noted will continue to monitor pt.
--- NOTE | 2020-09-01 16:35 | NUR ---
PHYSICIAN CONFIRMED THAT PT NEEDS SNF PLACEMENT. CM TO SEND REFERRALS TO FACILITIES [place] [place]. CM TO FOLLOW INDICATED WITH DC PLANNING.
--- NOTE | 2020-09-01 17:36 | NUR ---
Assumed patient care at 0700hrs. Assessment as charted. Medication given per EMAR. BP stable for baseline. Patient a&ox4 at time of assessment. Voiced "feeling tired". Patient was adminstered medication (Gabapentin); patient took med and requested this nurse to "come back after a nap"; at approx 1515. Patient was found by DUCT MAKER cold and diaphoretic. Patient was found unresponsive in chair. FOOD SERVICE SPECIALIST/CODE was called. Compressions were started w all other ressucitation efforts. Patient tranferred to ICU at approx. 1740. Provider updated on patient status update. Family was called but did not answer/mailbox was full.
[2020-09-01 17:51] LABS: BE(vivo) -11.3 mmol/L (-2 to +3); HCO3 18.1 mmol/L (22.0-26.0); PO2 87.6 mmHg (80.0-100.0); sO2 92.6 % (92.0-98.0)
[2020-09-01 17:52] LABS: pH 7.091 (7.360-7.450)
[2020-09-01 18:47] LABS: HEMATOCRIT 22.6 % (42.0-52.0); HEMOGLOBIN 6.8 gm/dL (14.0-18.0); MCV 79.8 fL (80.0-100.0); RBC 2.83 mil/uL (4.50-6.00); RDW 18.7 % (10.5-14.5); WBC 6.2 thou/uL (4.0-11.0)
[2020-09-01 18:51] LABS: CALCIUM 9.2 mg/dL (8.5-10.1); CREATININE 4.6 mg/dL (0.7-1.3); POTASSIUM 4.9 mmol/L (3.5-5.1)
[2020-09-01 18:57] LABS: ALBUMIN 2.1 g/dL (3.4-5.0); MAGNESIUM 2.6 mg/dL (1.8-2.4); TOTAL BILIRUBIN 0.2 mg/dL (0.2-1.0); TOTAL PROTEIN 5.6 g/dL (6.4-8.2)
--- NOTE | 2020-09-01 18:58 | NUR ---
VAT CONSULTED FOR A CL POST CODE CKD3 PT. 5FRTL PLACED IN RT IJ, PLEASE SEE NI FOR DETAILS
--- NOTE | 2020-09-01 19:53 | NUR ---
1800 PT ARRIVED TO UNIT FOLLOWING CODE IN ANOTHER UNIT. PT INTUBATED AND WITH PULSE. CENTRAL LINE INSERTED. HYPOTHERMIA PROTOCOL INITITED 1843. 5MG OF ATROPINE FOR BRADYCARDIA. CARDIOLOGY AWARE AND CONSULTED FOR BRADYCARDIA. ABG REPORTED TO DR BRYSON. AMP OF BICARB GIVEN. PT REMAINS HYPOTHERMIA PROTOCOL. HR 40'S.
[2020-09-01 20:21] LABS: D-DIMER 3.97 ug/mLFEU (0.19-0.50); FIBRINOGEN 414.7 mg/dL (210-360)
[2020-09-01 20:58] LABS: BE(vivo) -6.5 mmol/L (-2 to +3); HCO3 20.9 mmol/L (22.0-26.0); PCO2 51.7 mmHg (35.0-45.0); PO2 102.8 mmHg (80.0-100.0); sO2 96.6 % (92.0-98.0)
[2020-09-01 20:59] LABS: pH 7.225 (7.360-7.450)
[2020-09-02] VITALS (121 sets, daily range): BP systolic 129–172; BP diastolic 60–81
[2020-09-02 00:24] LABS: ABSOLUTE NEUTROPHILS 10.4 thou/uL (1.4-8.2); BASOPHILS 0.6 % (0.0-2.0); EOSINOPHILS 0.1 % (0.0-3.0); HEMATOCRIT 24.7 % (42.0-52.0); HEMOGLOBIN 8.2 gm/dL (14.0-18.0); LYMPHOCYTES 3.2 % (24.0-44.0); MCH 26.4 pg (26.0-34.0); MCHC 33.1 g/dL (28.0-37.0); MCV 79.8 fL (80.0-100.0); MONOCYTES 5.3 % (1.0-8.0); PLATELET COUNT 272 thou/uL (150-400); POLYS 90.8 % (36.0-66.0); RDW 18.5 % (10.5-14.5); WBC 11.5 thou/uL (4.0-11.0)
[2020-09-02 00:40] LABS: CALCIUM 8.4 mg/dL (8.5-10.1); CREATININE 4.3 mg/dL (0.7-1.3); MAGNESIUM 2.4 mg/dL (1.8-2.4); POTASSIUM 4.4 mmol/L (3.5-5.1); TROPONIN-I 0.2 ng/mL (<0.06)
[2020-09-02 00:53] LABS: APTT 36.2 Seconds (24.5-32.8); INR 1.3; PROTIME 13.1 Seconds (9.3-11.4)
--- NOTE | 2020-09-02 03:12 | NUR ---
ASSUMED CARE OF PT AT 1900. 1942 - SPOKE WITH DR. BRYSON TO CLARIFY ORDERS. FULL HYPOTHERMIA PROTOCOL TO BE PUT IN PLACE, UNLESS PATIENT BECOMES HEMODYNAMICALLY UNSTABLE. ORDER PLACED FOR HYPOTHERMIA PROTOCOL. ORDERS OBTAINED FOR 1 UNIT PRBC. 2029 - SPOKE WITH NORMA (PTS DAUGHTER) IN REGARDS TO ANY FORM OF LIVING WILL OR WHO WOULD BE MAKING DECISIONS FOR THE PT. NORMA STATED THAT IT WOULD EITHER BE HERSELF OR PTS BROTHER ELIAS. URI PHONE NUMBER IS UNKNOWN AT THIS TIME. 91 - SPOKE WITH DR. BRYSON REGARDING CRITICAL ABG'S AND PTS CURRENT CONDITION. NO NEW ORDERS RECEIVED. 0104 - MTN NOTIFIED FOR [facility] OF 3. REFFERAL NUMBER OBTAINED.
[2020-09-02 04:27] LABS: BE(vivo) -6.7 mmol/L (-2 to +3); HCO3 17.7 mmol/L (22.0-26.0); PCO2 31.2 mmHg (35.0-45.0); PO2 83.6 mmHg (80.0-100.0); pH 7.372 (7.360-7.450); sO2 96.2 % (92.0-98.0)
[2020-09-02 06:14] LABS: ABSOLUTE NEUTROPHILS 9.6 thou/uL (1.4-8.2); BASOPHILS 0.4 % (0.0-2.0); EOSINOPHILS 0.2 % (0.0-3.0); HEMATOCRIT 24.3 % (42.0-52.0); HEMOGLOBIN 7.8 gm/dL (14.0-18.0); LYMPHOCYTES 5.7 % (24.0-44.0); MCH 25.3 pg (26.0-34.0); MCHC 32.3 g/dL (28.0-37.0); MCV 78.2 fL (80.0-100.0); MONOCYTES 4.5 % (1.0-8.0); PLATELET COUNT 285 thou/uL (150-400); POLYS 89.2 % (36.0-66.0); RDW 18.9 % (10.5-14.5); WBC 10.7 thou/uL (4.0-11.0)
[2020-09-02 06:35] LABS: APTT 34.8 Seconds (24.5-32.8); INR 1.3; PROTIME 13.1 Seconds (9.3-11.4)
[2020-09-02 06:39] LABS: CALCIUM 8.4 mg/dL (8.5-10.1); MAGNESIUM 2.5 mg/dL (1.8-2.4); PHOSPHORUS 4.2 mg/dL (2.5-4.9); POTASSIUM 3.9 mmol/L (3.5-5.1); TROPONIN-I 0.31 ng/mL (<0.06)
--- NOTE | 2020-09-02 07:33 | EKG ---
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 SAWYER : 1955 Requested By: Joselito Pedroza Order Number: [id number] MD: Melvin Lopez Measurements Intervals [place] Rate: 56 P: 82 OR: 221 QRS: 73 QRSD: 121 T: 55 QT: 520 QTc: 502 Interpretive Statements Sinus rhythm Prolonged OR interval Nonspecific intraventricular conduction delay Compared to ECG 08/28/2020 23:49:44 First degree AV block now present Intraventricular conduction delay now present Electronically Signed On 09-02-2020 7:33:07 WATER TENDER by Melvin Lopez [email or web address] <ELECTRONICALLY SIGNED> By: Melvin Lopez MD, MERGED WITH [facility] 09/02/20 0733 18 18 Melvin Lopez MD, FAC /EPI
--- NOTE | 2020-09-02 07:47 | NUR ---
Pt TRANSFERRED TO ICU POST CODE BLUE. WILL PLACE ON HOLD AND AWAIT NEW ORDERS TO RESUME WHEN APPROPRIATE
--- NOTE | 2020-09-02 09:09 | NUR ---
PATIENT WITH A CODE BLUE AND TRANSFER TO ICU. WILL NEED NEW ORDERS ONCE MEDICALLY APPROPRIATE.
--- NOTE | 2020-09-02 11:03 | 2DMMODE ---
[address] [address] 2 D/M-MODE ECHOCARDIOGRAM Name: JACIEL ANGELES MARILIA Room #: 241-P ADM IN M.R.#: [id number] Admission: 08/29/20 Attend Phys: Jaciel Galindo MD Discharge: Date of : 59 Report #: [id number] THIS REPORT FOR: cc: Jaciel Galindo MD, Neal A. MD Lammoglia, Francisco J. MD ~ APPROVED REPORT Study performed: 09/02/2020 09:39:40 EXAM: Comprehensive 2D, Doppler, and color-flow Echocardiogram Patient Location: ICU Room #: 241 Status: routine BSA: 2.60 HR: 56 bpm BP: 161/77 mmHg Rhythm: Bradycardia Other Information Study Quality: Adequate Indications Diabetes CAD Elevated Troponin Cardiomyopathy S^P Cardiac arrest 2D Dimensions IVC: 30.00 mm Tricuspid Valve TR Peak Jamarcus.: 3.49 m/s TR Peak Gr.: 48.70 mmHg PA Pressure: 59.00 mmHg Left Ventricle Left ventricle is at the upper limits of normal. Mild concentric left ventricular hypertrophy. Left ventricular systolic function is borderline. LVEF is 50%. This study is not technically sufficient to allow evaluation of the LV diastolic function. Right Ventricle [address] [address] D/M-MODE ECHOCARDIOGRAM Name: JACIEL ANGELES Room #: 241-P ADM IN M.R.#: [id number] Admission: 08/29/20 Attend Phys: Jaciel Galindo, Discharge: Date of : 59 Report #: [id number] Right ventricle is dilated. The right ventricular systolic function is normal. Atria Left atrium is normal Right atrium is upper limits of normal to mildly dilated. Aortic Valve The aortic valve is normal in structure. No aortic regurgitation is present. There is no aortic valvular stenosis. Mitral Valve The mitral valve is normal in structure. There is moderate mitral valve regurgitation No evidence of mitral valve stenosis. Tricuspid Valve The tricuspid valve is normal in structure. There is moderate tricuspid regurgitation. Estimated PAP 59 mmHg. There is moderate pulmonary hypertension. Pulmonic Valve The pulmonary valve is normal in structure. Great Vessels Aortic root is dilated. IVC is dilated and collapses <50% with inspiration. Pericardium There is no pericardial effusion. <Conclusion> Left ventricle is at the upper limits of normal. Mild concentric left ventricular hypertrophy. LVEF is 50%. Right ventricle is dilated. The right ventricular systolic function is normal. Left atrium is normal Right atrium is upper limits of normal to mildly dilated. The aortic valve is normal in structure with mild sclerosis without stenosis. The mitral valve is grossly normal in structure with mild to moderate regurgitation The tricuspid valve is normal in structure. There is moderate tricuspid regurgitation. Estimated PAP 59 mmHg. There is moderate pulmonary hypertension. [facility] [address] [address] 2 D/M-MODE ECHOCARDIOGRAM Name: JACIEL ANGELES Room #: 241-P ADM IN M.R.#: [id number] Admission: 08/29/20 Attend Phys: Jaciel Galindo, Discharge: Date of : 59 Report #: [id number] The pulmonary valve is poorly visualized although appears grossly normal in structure. Aortic root is at upper limits of normal to mildly dilated There is no pericardial effusion. <ELECTRONICALLY SIGNED> By: Shlomo Mccall MD 09/02/203 02 02 Shlomo Mccall MD /INF
[2020-09-02 13:04] LABS: BASOPHILS 0.3 % (0.0-2.0); EOSINOPHILS 1.8 % (0.0-3.0); HEMATOCRIT 25.5 % (42.0-52.0); LYMPHOCYTES 5.5 % (24.0-44.0); MCH 24.6 pg (26.0-34.0); MCHC 31.3 g/dL (28.0-37.0); MCV 78.5 fL (80.0-100.0); MONOCYTES 5.2 % (1.0-8.0); PLATELET COUNT 285 thou/uL (150-400); POLYS 87.2 % (36.0-66.0); RBC 3.25 mil/uL (4.50-6.00); RDW 18.6 % (10.5-14.5)
[2020-09-02 13:16] LABS: APTT 39.2 Seconds (24.5-32.8); INR 1.3; PROTIME 13.4 Seconds (9.3-11.4)
[2020-09-02 13:25] LABS: ANISOCYTOSIS 1+
[2020-09-02 13:31] LABS: CALCIUM 9.4 mg/dL (8.5-10.1); CREATININE 3.9 mg/dL (0.7-1.3); MAGNESIUM 2.7 mg/dL (1.8-2.4); PHOSPHORUS 4.5 mg/dL (2.6-4.7); POTASSIUM 3.8 mmol/L (3.5-5.1); TROPONIN-I 0.33 ng/mL (<0.06)
[2020-09-02 18:32] LABS: ABSOLUTE NEUTROPHILS 6.4 thou/uL (1.4-8.2); BASOPHILS 0.2 % (0.0-2.0); EOSINOPHILS 1.6 % (0.0-3.0); HEMATOCRIT 24.3 % (42.0-52.0); HEMOGLOBIN 7.8 gm/dL (14.0-18.0); MCH 24.9 pg (26.0-34.0); MCHC 32.2 g/dL (28.0-37.0); MCV 77.4 fL (80.0-100.0); MONOCYTES 4.3 % (1.0-8.0); PLATELET COUNT 301 thou/uL (150-400); POLYS 88.9 % (36.0-66.0); RBC 3.14 mil/uL (4.50-6.00); RDW 18.5 % (10.5-14.5); WBC 7.2 thou/uL (4.0-11.0)
[2020-09-02 18:46] LABS: APTT 39.1 Seconds (24.5-32.8); INR 1.3; PROTIME 13.5 Seconds (9.3-11.4)
[2020-09-02 18:49] LABS: CALCIUM 9.2 mg/dL (8.5-10.1); CREATININE 3.7 mg/dL (0.7-1.3); MAGNESIUM 2.7 mg/dL (1.8-2.4); PHOSPHORUS 4.3 mg/dL (2.6-4.7); POTASSIUM 3.7 mmol/L (3.5-5.1); TROPONIN-I 0.25 ng/mL (<0.06)
--- NOTE | 2020-09-02 20:06 | NUR ---
assumed care of pt 0700. pt bradycardic throughout shift. orders per maty to leave dopamine at 2 throughut the night. pupils still unequal. not responding to any stimuli. negative corneal reflex. plan for EEG and CT tomorrow per neurology. no bm
[2020-09-03] VITALS (125 sets, daily range): BP systolic 97–145; BP diastolic 49–67
--- NOTE | 2020-09-03 20:24 | NUR ---
PATIENT REMAINS INTUBATED AND WITH MINIMAL SEDATION. VEEG DONE; CT PENDING - TO BE DONE ONCE PATIENT IS OFF OF HYPOTHERMIA PROTOCOL. SON (ASPEN) CALLED AND REQUESTED TO BE MADE DESIGNATED VISITOR. HE WOULD ALSO LIKE TO BE THE DPOA. HE STATED THAT HIS DAD HAS LIVED WITH HIM & HIS FOR OVER 10 YEARS, AND HE IS INVOLVED IN HIS DAD'S CARE. UPDATED THE DESIGNATED VISITOR ACCORDINGLY.
[2020-09-04] VITALS (80 sets, daily range): BP systolic 115–159; BP diastolic 54–84
--- NOTE | 2020-09-04 14:18 | NUR ---
PT WAS SEEN TODAY BY // CT OF THE HEAD WAS DONE THIS MORNING PER 'S REQUEST WRITTEN. INTERPRETATION OF THE RESULT WAS REPORTED TO . SPOKE WITH FAMILY MEMBERS REGARDING THESE FINDINGS. NORMA THE DTR HAD CALLED THIS RN REQUESTING PROGNOSIS, EEG TEST RESULT TO WHICH RN DEFERRED TO MD SINCE OUTSIDE SCOPE OF PRACTICE. AT 1300, WAS REACHED OUT TO WHICH IT WAS NOTIFIED THAT PT WILL BE PLACED ON [facility] THIS EVENING POST PATIENT'S FAMILY MEMBER VISITATION (ASPEN(S0N),NORMA(DTR)). COMFORT CARE ORDERS ARE IN. LUCIEN/TIM WERE ALSO CONTACTED BY THIS RN AND WERE ABLE TO SAY THEIR [place] VIA PHONE SINCE THEY ARE LOCATED OUTSIDE THE STATE AT THIS TIME. RN HAS NOTIFEID ED/HOUSE SUP/PRESCHOOL PARAPROFESSIONAL/INCINERATOR PLANT LABORER/MD ABOUT THIS PLAN OF ACTION AND ALL PARTIES ARE AGREEABLE. CONTINUING TO PROVIDE COMPLETE CARE ORDERED UNTIL TIME OF COMFORT CARE
--- NOTE | 2020-09-04 15:34 | NUR ---
PT MADE DNR AND WILL BE PLACED ON COMFORT CARE LATER TODAY. DR ROMAN S/W FAMILY BY PHONE TO ALERT OF CT/EEG RESULTS. POOR PROGNOSIS.
== END 2020-09-04 16:47 | DRG 208 ==
LOC: ER 22:21 → 4W 08-29 02:14 → ICU 09-01 17:33
PROVIDERS: Emergency Medicine; Internal Medicine Pulmonary Disease; ADMIT Family Medicine; ATTEND Family Medicine
PROC: 02HV33Z Insertion of Infusion Device into Superior Vena Cava, Percutaneous Approach (ICD-10-PCS; principal; 2020-09-01)
PROC: 30233N1 Transfusion of Nonautologous Red Blood Cells into Peripheral Vein, Percutaneous Approach (ICD-10-PCS; principal; 2020-09-01)
PROC: 5A1945Z Respiratory Ventilation, 24-96 Consecutive Hours (ICD-10-PCS; principal; 2020-09-01)
PROC: 0BH17EZ Insertion of Endotracheal Airway into Trachea, Via Natural or Artificial Opening (ICD-10-PCS; principal; 2020-09-01)
PROC: 5A12012 Performance of Cardiac Output, Single, Manual (ICD-10-PCS; principal; 2020-09-01)
DX: J96.22 Acute and chronic respiratory failure with hypercapnia (principal); N18.6 End stage renal disease; I50.43 Acute on chronic combined systolic (congestive) and diastolic (congestive) heart failure; E87.2 Acidosis; I42.9 Cardiomyopathy, unspecified; G93.1 Anoxic brain damage, not elsewhere classified; N17.9 Acute kidney failure, unspecified; I13.2 Hypertensive heart and chronic kidney disease with heart failure and with stage 5 chronic kidney disease, or end stage renal disease; J96.21 Acute and chronic respiratory failure with hypoxia; I46.9 Cardiac arrest, cause unspecified; Z20.822 Contact with and (suspected) exposure to COVID-19; F32.9 Major depressive disorder, single episode, unspecified; D63.1 Anemia in chronic kidney disease; E86.0 Dehydration; E83.39 Other disorders of phosphorus metabolism; F17.210 Nicotine dependence, cigarettes, uncomplicated; E11.40 Type 2 diabetes mellitus with diabetic neuropathy, unspecified; E11.621 Type 2 diabetes mellitus with foot ulcer; I48.0 Paroxysmal atrial fibrillation; E11.22 Type 2 diabetes mellitus with diabetic chronic kidney disease; E11.51 Type 2 diabetes mellitus with diabetic peripheral angiopathy without gangrene; E78.00 Pure hypercholesterolemia, unspecified; Z51.5 Encounter for palliative care; Z90.49 Acquired absence of other specified parts of digestive tract; Z89.412 Acquired absence of left great toe; Z89.411 Acquired absence of right great toe; Z86.73 Personal history of transient ischemic attack (TIA), and cerebral infarction without residual deficits; Z95.1 Presence of aortocoronary bypass graft; Z79.899 Other long term (current) drug therapy; Z91.14 Patient's other noncompliance with medication regimen; Z82.49 Family history of ischemic heart disease and other diseases of the circulatory system
CPT/HCPCS: 10045; 10078; 85076